=== PATIENT | female | born 1960 | race Caucasian/White ===

== ENCOUNTER 2017-04-27 13:12 | Observation (INO) ==
--- NOTE | 2017-04-27 15:27 | Emergency Department Note ---
Disposition Clinical Impression: History of breast cancer, Brain lesion, Fracture of cervical spinous process, Head injury, Fall, Scalp laceration, Obesity, Injury, hip and thigh, Osteoarthritis, knee, Fracture of L3 vertebra, Closed T10 fracture, Metastatic disease, Ground glass opacity present on imaging of lung Disposition: Admitted As Inpatient Referrals: Rashawn Rosenberg MD [Primary Care Provider] - Forms: ED Satisfaction Letter General Adult HPI - General Chief complaint: ED Fall Stated complaint: Fall right hip pain Time Seen by Provider: 04/27/17 15:21 Source: patient, EMS Limitations: no limitations - History of Present Illness HPI Narrative: 56-year-old female brought in by 3 relatives for multiple concerns. The patient has a history of breast cancer and brain lesions. She reportedly fell several days ago and hit her head, she came to the ED and was evaluated and got a CT scan of her head which showed no acute disease, she did get a cervical spine CT which showed a C4's cervical spinous process fracture. The family is concerned because the patient has persistent right thigh and hip and back pain. The patient's home health nurse was concerned about this and recommended a revisit to the ED. The patient reportedly went and had a breast biopsy done yesterday, she was seen by her primary care physician a little over a week ago and prescribed morphine for chronic back pain. The family reports that "lesions " were seen on an x-ray of her back at some point. They are concerned about spreading cancer. The patient is scheduled for a PET scan this coming Thursday. The patient lives with a family member at this time does not live alone at home. 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 The patient has had creased bowel movements and complaints of abdominal pain, there is also concern for hematuria. The patient is currently not anticoagulated. There is no history of convulsion the patient describes some chest pain and shortness of breath. There is no history of leg swelling or coughing up blood. No trouble moving the arms or legs independently apart from pain in the right side. There is no history of acute urinary retention or loss of urine or stool. No acute weakness or numbness in the legs. Pain Scale: 10 - Related Data Home Medications Medication Instructions Recorded Confirmed Albuterol Neb [AccuNeb] 1.25 mg IH Q6H PRN 02/27/15 09/24/16 Anastrozole [Arimidex] 1 mg PO DAILY 02/27/15 09/24/16 BuPROPion XL (24 HR) [Wellbutrin 150 mg PO DAILY 02/27/15 09/24/16 Xl] BuPROPion XL (24 HR) [Wellbutrin 300 mg PO DAILY 02/27/15 09/24/16 Xl] Bumetanide [Bumex] 1 mg PO DAILY 02/27/15 09/24/16 Docusate Sodium [Colace] 100 mg PO DAILY 02/27/15 09/24/16 Flaxseed/Omega3,6,9/Fatty Acid 1 each PO DAILY 02/27/15 09/24/16 [Flax Seed Oil 1,300 mg Softgel] Fluticasone/Salmeterol [Advair 1 each IH BID 02/27/15 09/24/16 500-50 Diskus] LORazepam [Ativan] 0.5 mg PO TID 02/27/15 09/24/16 Potassium Chloride 20 meq PO DAILY 02/27/15 09/24/16 Sertraline HCl [Zoloft] 150 mg PO DAILY 02/27/15 09/24/16 Topiramate [Topamax] 100 mg PO BID 02/27/15 09/24/16 Triamterene/HCTZ 37.5/25mg 1 each PO DAILY 02/27/15 09/24/16 [Dyazide] Vitamin E (Dl,Tocopheryl Acet) 400 unit PO DAILY 02/27/15 09/24/16 [Vitamin E] Zolpidem Tartrate [Zolpimist] 10 mg PO HS 02/27/15 09/24/16 Albuterol Sulfate [Albuterol 2 puff IH QID PRN 09/24/16 09/24/16 Inhaler] Previous Rx's Medication Instructions Recorded Ascorbic Acid [Vitamin C] 500 mg PO DAILY #30 tablet 05/28/15 Cetirizine HCl [Zyrtec] 1 cap PO DAILY #30 capsule 09/25/15 Hydromorphone HCl [Dilaudid] 1 tab PO TID PRN #20 tablet 12/03/15 Hyoscyamine SL [Levsin Sl] 0.125 mg SL TID PRN #15 tab.subl 03/17/16 Mupirocin [Bactroban Oint] 1 appl TP BID #2 tube 03/26/16 HYDROmorphone [Dilaudid] 2 mg PO Q8HR PRN #42 tablet 09/24/16 DiphenhydraMINE [Benadryl] 25 mg PO Q6HR #30 capsule 12/20/16 DiphenhydraMINE [Benadryl] 25 mg PO Q6HR PRN #20 capsule 12/20/16 Metoclopramide [Reglan] 5 mg PO Q6HR PRN #30 tab 12/20/16 Ferrous Sulfate 1 tab PO DAILY #30 tablet 02/20/17 Prochlorperazine Maleate 10 mg PO Q6HR PRN #30 tablet 03/31/17 [Compazine] OxyCODONE/APAP 10/325 [Percocet 1 each PO Q4HR PRN #15 tablet 04/18/17 10/325 MG] Allergies Allergy/AdvReac Type Severity Reaction Status Date / Time acetaminophen Allergy Chest Pain Verified 04/27/17 13:20 [From Tylenol-Codeine] codeine Allergy Chest Pain Verified 04/27/17 13:20 [From Tylenol-Codeine] doxycycline Allergy Hives Verified 04/27/17 13:20 levofloxacin [From Levaquin] Allergy Hives Verified 04/27/17 13:20 All systems ED: reviewed and negative except as stated. Past Medical History - Past Medical History Medical history: Reports: asthma, cancer, hyperlipidemia, other Surgical history: Reports: breast surgery, cancer surgery, cholecystectomy, hysterectomy Psychiatric history: Reports: anxiety, depression COMMERCIAL LENDING RELATIONSHIP MANAGER history: Reports: no COMMERCIAL LENDING RELATIONSHIP MANAGER history - Social History Smoking Status: Never smoker Smokeless Tobacco Status: No Alcohol use: Reports: none Drug use: Reports: none Physical Exam - General Limitations: no limitations General appearance: alert, in no apparent distress - Head Head exam: normocephalic, other (Occipital area wound which has been closed no active bleeding, left ocular lid defects, neck diffusely painful to palpation.) - Eye Eye exam: Absent: scleral icterus - ENT ENT exam: normal exam, normal oropharynx, mucous membranes moist, TM's normal bilaterally, normal external ear exam - Neck Neck exam: Present: normal inspection, full ROM, trachea midline, tenderness - Chest Chest inspection: Present: normal inspection, symmetric chest wall rise - Respiratory Respiratory exam: Present: normal lung sounds bilaterally. Absent: respiratory distress, accessory muscle use, prolonged expiratory phase - Cardiovascular Cardiovascular exam: Present: regular rate, normal rhythm, normal heart sounds - Abdominal Exam Abdominal exam: Present: soft, tenderness, normal bowel sounds. Absent: distention, guarding, rebound, rigidity, trauma, pulsatile mass - Extremities Exam Extremities exam: Present: normal inspection, full ROM, normal capillary refill. Absent: tenderness, pedal edema, joint swelling, calf tenderness - Expanded Lower Extremity Exam Hip/Pelvis exam: Present: full ROM, tenderness, ecchymosis Lower leg exam: Absent: Homans' sign - Back Exam Back exam: Present: normal inspection, full ROM. Absent: tenderness, CVA tenderness (R), CVA tenderness (L), vertebral tenderness - Neurological Exam Neurological exam: Present: alert, oriented X3, other (Chronic facial drooping right side). Absent: CN II-XII intact (Chronic right eye defects, decreased vision.), motor sensory deficit - Psychiatric Psychiatric exam: Present: normal affect, normal mood - Skin Skin exam: Present: warm, dry, intact, normal color. Absent: rash, cyanosis, diaphoresis, erythema, pallor, mottled Course Vital Signs Temperature 98.0 F 04/27/17 13:17 Pulse Rate 75 04/27/17 13:17 Respiratory Rate 18 04/27/17 13:17 Blood Pressure 105/72 04/27/17 13:17 O2 Sat by Pulse Oximetry 93 04/27/17 13:17 Temperature 98.0 F 04/27/17 13:17 Pulse Rate 77 04/27/17 19:26 Respiratory Rate 18 04/27/17 19:26 Blood Pressure 114/73 04/27/17 19:26 O2 Sat by Pulse Oximetry 93 04/27/17 19:26 Oxygen Delivery Oxygen Delivery Room Air Medical Decision Making - [facility] Narrative Medical decision making narrative: The patient is elderly, has history of breast cancer, she apparently has metastatic lesions to the spine as well as in the chest, the patient has bilateral pleural effusions or infiltrates, she also has what appear to be T10 and L3 fractures which may be related to pathologic issues versus trauma. She did recently fall. The patient is unable to walk well at this time and essentially has uncontrolled pain. 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 The patient and POA are agreeable. The patient is currently stable. I discussed the case with the hospitalist on-call who has accepted the patient to their care. - Lab Data Lab results reviewed: Yes I reviewed the patient's lab results. Result diagrams: 04/27/17 15:58 04/27/17 15:58 Lab Results 04/27/17 04/27/17 04/27/17 Range/Units 15:58 15:58 15:58 WBC 6.0 (4.3-11.1) K/mcL RBC 3.72 L (3.82-4.97) M/mcL Hgb 11.8 (11.5-15.4) g/dL Hct 34.8 L (35.3-44.9) % MCV 93.5 (83.0-100.0) fL MCH 31.7 (28.0-33.3) pg MCHC 33.9 (31.6-35.5) g/dL RDW 12.9 (11.5-14.5) % Plt Count 203 (140-400) K/mcL MPV 9.0 L (9.4-12.4) fL Immature Gran % 4.3 H (0-4) % Seg Neutrophils % 59.1 % Lymphocytes % 21.9 % Monocytes % 8.2 % Eosinophils % 5.3 % Basophils % 1.2 % Neutrophils # 3.5 (1.6-8.9) K/mcL Lymphocytes # 1.3 (0.6-4.6) K/mcL Monocytes # 0.5 (0.0-1.3) K/mcL Eosinophils # 0.3 (0.0-0.6) K/mcL Basophils # 0.1 (0.0-0.2) K/mcL Sodium 138 (136-145) mEq/L Potassium 3.7 (3.5-4.5) mEq/L Chloride 102 (98-109) mEq/L Carbon Dioxide 24 (19-29) mEq/L BUN 21 H (7-20) mg/dL Creatinine 1.20 H (0.57-1.11) mg/dL Est GFR ( Amer) 57 L (> 60) Est GFR (Non-Af Amer) 47 L (> 60) BUN/Creatinine Ratio 18 (6-26) Glucose 89 (70-99) mg/dL Calculated Osmolality 288 (280-300) Lactic Acid (0.5-2.2) mmol/L Calcium 9.5 (8.6-10.8) mg/dL Total Bilirubin 0.5 (0.2-1.2) mg/dL Direct Bilirubin 0.2 (0.0-0.5) mg/dL Indirect Bilirubin 0.3 (0.0-1.2) mg/dL AST 50 H (5-34) Units/L ALT 45 (0-55) Units/L Alkaline Phosphatase 236 H (38-126) Units/L Troponin I 0.01 (0-0.03) ng/mL C-Reactive Protein 40 H (Less than 5) mg/L B-Natriuretic Peptide (0-100) pg/mL Serum Total Protein 8.1 (6.0-8.3) g/dL Albumin 3.2 L (3.5-5.0) g/dL Globulin 4.9 H (2.4-3.5) g/dL Albumin/Globulin Ratio 0.7 L (1.1-2.2) Lipase 54 (8-78) Units/L Urine Color (Yellow) Urine Clarity (Clear) Urine pH (5.0-8.0) pH Units Ur Specific [place] (1.010-1.025) Urine Protein (Neg-Trace) mg/dL Urine Glucose (UA) (Normal) mg/dL Urine Ketones (Negative) mg/dL Urine Blood (Negative) Urine Nitrite (Negative) Urine Bilirubin (Negative) Urine Urobilinogen (Normal) mg/dL Ur Leukocyte Esterase (Negative) Ur Culture Indicated? (NO) 04/27/17 04/27/17 04/27/17 Range/Units 15:58 15:58 18:05 WBC (4.3-11.1) K/mcL RBC (3.82-4.97) M/mcL Hgb (11.5-15.4) g/dL Hct (35.3-44.9) % MCV (83.0-100.0) fL MCH (28.0-33.3) pg MCHC (31.6-35.5) g/dL RDW (11.5-14.5) % Plt Count (140-400) K/mcL MPV (9.4-12.4) fL Immature Gran % (0-4) % Seg Neutrophils % % Lymphocytes % % Monocytes % % Eosinophils % % Basophils % % Neutrophils # (1.6-8.9) K/mcL Lymphocytes # (0.6-4.6) K/mcL Monocytes # (0.0-1.3) K/mcL Eosinophils # (0.0-0.6) K/mcL Basophils # (0.0-0.2) K/mcL Sodium (136-145) mEq/L Potassium (3.5-4.5) mEq/L Chloride (98-109) mEq/L Carbon Dioxide (19-29) mEq/L BUN (7-20) mg/dL Creatinine (0.57-1.11) mg/dL Est GFR ( Amer) (> 60) Est GFR (Non-Af Amer) (> 60) BUN/Creatinine Ratio (6-26) Glucose (70-99) mg/dL Calculated Osmolality (280-300) Lactic Acid 1.0 (0.5-2.2) mmol/L Calcium (8.6-10.8) mg/dL Total Bilirubin (0.2-1.2) mg/dL Direct Bilirubin (0.0-0.5) mg/dL Indirect Bilirubin (0.0-1.2) mg/dL AST (5-34) Units/L ALT (0-55) Units/L Alkaline Phosphatase (38-126) Units/L Troponin I (0-0.03) ng/mL C-Reactive Protein (Less than 5) mg/L B-Natriuretic Peptide 197 H (0-100) pg/mL Serum Total Protein (6.0-8.3) g/dL Albumin (3.5-5.0) g/dL Globulin (2.4-3.5) g/dL Albumin/Globulin Ratio (1.1-2.2) Lipase (8-78) Units/L Urine Color Yellow (Yellow) Urine Clarity Clear (Clear) Urine pH 5.5 (5.0-8.0) pH Units Ur Specific [place] 1.021 (1.010-1.025) Urine Protein Negative (Neg-Trace) mg/dL Urine Glucose (UA) Normal (Normal) mg/dL Urine Ketones Negative (Negative) mg/dL Urine Blood Negative (Negative) Urine Nitrite Negative (Negative) Urine Bilirubin Negative (Negative) Urine Urobilinogen Normal (Normal) mg/dL Ur Leukocyte Esterase Negative (Negative) Ur Culture Indicated? NO (NO) - Radiology Data Radiology results reviewed: Yes I reviewed the patient's radiology results.
[2017-04-27] MEDS ORDERED: 0.9 % Sodium Chloride 1,000 ML IVC ONE (15:43)
[2017-04-27 16:12] LABS: Basophils # 0.1 K/mcL (0.0-0.2); Basophils % 1.2 %; Eosinophils # 0.3 K/mcL (0.0-0.6); Eosinophils % 5.3 %; Hematocrit 34.8 % (35.3-44.9); Hemoglobin 11.8 g/dL (11.5-15.4); Immature Granulocytes % 4.3 % (0-4); Lymphocytes # 1.3 K/mcL (0.6-4.6); Lymphocytes % 21.9 %; Mean Corpuscular HGB Conc 33.9 g/dL (31.6-35.5); Mean Corpuscular Hemoglobin 31.7 pg (28.0-33.3); Mean Corpuscular Volume 93.5 fL (83.0-100.0); Monocytes # 0.5 K/mcL (0.0-1.3); Monocytes % 8.2 %; Neutrophils # 3.5 K/mcL (1.6-8.9); Platelet Count 203 K/mcL (140-400); Red Blood Count 3.72 M/mcL (3.82-4.97); Red Cell Distribution Width 12.9 % (11.5-14.5); Segmented Neutrophils % 59.1 %
[2017-04-27 16:27] LABS: Albumin 3.2 g/dL (3.5-5.0); Albumin/Globulin Ratio 0.7 (1.1-2.2); Bilirubin,Direct 0.2 mg/dL (0.0-0.5); Bilirubin,Indirect 0.3 mg/dL (0.0-1.2); Bilirubin,Total 0.5 mg/dL (0.2-1.2); Calcium 9.5 mg/dL (8.6-10.8); Globulin 4.9 g/dL (2.4-3.5); Potassium 3.7 mEq/L (3.5-4.5); Total Protein 8.1 g/dL (6.0-8.3)
[2017-04-27] MEDS ORDERED: cefTRIAXone 1,000 MG in Water for inj. (sterile) 10 ML IVP ONE (18:04)
[2017-04-27] MEDS ORDERED: Ondansetron 4 MG/2 ML VIAL IVP ONE (18:04)
[2017-04-27] MEDS ORDERED: *HR* HYDROmorphone (PF) 1 MG/ML SYRINGE IVP ONE (18:04)
[2017-04-27] MEDS ORDERED: Azithromycin 500 MG in D5% in Water 250 ML IVPB ONE (18:05)
[2017-04-27 18:11] LABS: Bilirubin,Urine Negative (Negative); Blood,Urine Negative (Negative); Clarity,Urine Clear (Clear); Color,Urine Yellow (Yellow); Glucose,Urine (UA) Normal (Normal); Ketones,Urine Negative (Negative); Leukocyte Esterase,Urine Negative (Negative); Nitrite,Urine Negative (Negative); PH,Urine 5.5 pH Units (5.0-8.0); Protein,Urine Negative (Neg-Trace); Specific Gravity,Urine 1.021 (1.010-1.025); Urobilinogen,Urine Normal (Normal)
[2017-04-28] MEDS: *HR* OxyCODONE Immed Rel 5 MG TABLET PO PRN ×2 (04:44→21:14)
[2017-04-28] MEDS ORDERED: Ondansetron 4 MG/2 ML VIAL IVP PRN (10:14)
[2017-04-28] MEDS ORDERED: Naloxone 0.4 MG/ML INJ IVP PRN (10:14)
[2017-04-28] MEDS ORDERED: Albuterol Neb 1.25 MG/3 ML VIAL IH PRN (10:20)
[2017-04-28] MEDS ORDERED: Metoclopramide 10 MG/10 ML UD.LIQ PO PRN (10:26)
[2017-04-28] MEDS: cefTRIAXone 1,000 MG in Water for inj. (sterile) 10 ML IVP SCH (11:08)
[2017-04-28] MEDS: *HR* Morphine 2 MG/ML SYRINGE IVP PRN (11:09)
[2017-04-28] MEDS: Azithromycin 500 MG in D5% in Water 250 ML IVPB SCH (11:09)
--- NOTE | 2017-04-28 11:54 | Internal Med History&Physical ---
Date of Encounter: 04/28/17 Time of Encounter: 08:30 Assessment and Plan (1) DVT prophylaxis Current visit: Yes Status: Acute Heparin subcutaneously (2) Brain lesion Current visit: Yes Status: Acute Patient has brain tumor and was treated in [facility]. As per family, it is "benign". Patient has tumor resection for twice and recently radiation treatment. Patient has residual hearing and vision impairment due to brain tumor. Will continue follow-up in [facility] (3) Closed T10 fracture Current visit: Yes Status: Acute Patient has back and leg pain. Most likely metastatic tumor. We will consult orthopedic and oncology. Plan to do MRI Qualifiers: Encounter type: initial encounter Fracture morphology: other fracture Qualified Code(s): S22.078A - Other fracture of T9-T10 vertebra, initial encounter for closed fracture (4) Fall Current visit: Yes Status: Acute Patient has vision and hearing impairment and chronic low back pain. We will consult PTOT, patient may need placement to rehabilitation or SNF Qualifiers: Encounter type: initial encounter Qualified Code(s): W19.XXXA - Unspecified fall, initial encounter (5) Fracture of L3 vertebra Current visit: Yes Status: Acute Orthopedic consult on case. Continue pain medications Qualifiers: Encounter type: initial encounter Fracture type: closed Fracture morphology: unspecified fracture morphology Qualified Code(s): S32.039A - Unspecified fracture of third lumbar vertebra, initial encounter for closed fracture (6) Ground glass opacity present on imaging of lung Current visit: Yes Status: Acute Highly suspect pneumonia. Patient denies fever or cough. We will continue azithromycin and Rocephin. (7) History of breast cancer Current visit: Yes Status: Acute Patient had masterectomy on left side 4.5 years ago. Will consult oncology. Continue home medication anastrozole. (8) Metastatic disease Current visit: Yes Status: Acute Will consult oncologist (9) Obesity Current visit: Yes Status: Acute Need lifestyle modification Qualifiers: Obesity type: unspecified obesity type Obesity classification: adult class 3 (BMI >= 40) Body mass index: BMI 40.0-44.9 Qualified Code(s): E66.9 - Obesity, unspecified; Z68.41 - Body mass index (BMI) 40.0-44.9, adult; Z68.41 - Body mass index (BMI) 40.0-44.9, adult; Z68.41 - Body mass index (BMI) 40.0-44.9 , adult; Z68.41 - Body mass index (BMI) 40.0-44.9, adult (10) COPD (chronic obstructive pulmonary disease) Current visit: No Status: Acute History of COPD. No signs of exacerbation. Continue home medications Qualifiers: COPD type: emphysema Emphysema type: other Qualified Code(s): J43.8 - Other emphysema Internal Medicine - H&P: HPI Chief complaint: Right leg pain Admitted From: Home Plans for Post Hospital Care: Transfer Inp Rehab Fac History of present illness: Ms. Bonner is a 56 year old female with a history of hypertension, breast cancer S/P surgery, history of brain surgery/hysterectomy/cholecystectomy present to ER for recent fall and right leg pain for about 5 days. Patient has chronic left-sided lesion and hearing problem. Patient said she has pain on both legs but mainly right-sided. Patient had fall 5 days ago will head injury. Patient denies numbness, fecal/urination incontinence. In the emergency room, CT shows possible metastatic tumor in bone and cause pathologic compression fracture. Patient also was suspected pneumonia on CAT scan. Patient denies fever, cough, abdominal pain, nausea or vomiting. She has constipation for 4-5 days. Past Med Surg Social Fam HX - Past Medical History Medical history: asthma, cancer, hyperlipidemia, other Psychiatric history: anxiety, depression - Past Surgical History Surgical History: breast surgery, cancer surgery, cholecystectomy, hysterectomy - Social History Smoking Status: Never smoker Smokeless Tobacco Status: No Alcohol use: none Drug use: none - Family History Father Adopted: No Family Member Ethnicity: Non- Living Status: Internal Medicine - H&P: Meds Albuterol Neb [AccuNeb] 1.25 mg IH Q6H PRN 02/27/15 [History] Anastrozole [Arimidex] 1 mg PO DAILY 02/27/15 [History] BuPROPion XL (24 HR) [Wellbutrin Xl] 150 mg PO DAILY 02/27/15 [History] BuPROPion XL (24 HR) [Wellbutrin Xl] 300 mg PO DAILY 02/27/15 [History] Docusate Sodium [Colace] 100 mg PO DAILY 02/27/15 [History] Flaxseed/Omega3,6,9/Fatty Acid [Flax Seed Oil 1,300 mg Softgel] 1 each PO DAILY 02/27/15 [History] Fluticasone/Salmeterol [Advair 500-50 Diskus] 1 each IH BID 02/27/15 [History] LORazepam [Ativan] 0.5 mg PO TID 02/27/15 [History] Potassium Chloride 20 meq PO DAILY 02/27/15 [History] Triamterene/HCTZ 37.5/25mg [Dyazide] 1 each PO DAILY 02/27/15 [History] Vitamin E (Dl,Tocopheryl Acet) [Vitamin E] 400 unit PO DAILY 02/27/15 [History] Ascorbic Acid [Vitamin C] 500 mg PO DAILY #30 tablet 05/28/15 [Rx] Albuterol Sulfate [Albuterol Inhaler] 2 puff IH QID PRN 09/24/16 [History] DiphenhydraMINE [Benadryl] 25 mg PO Q6HR PRN #20 capsule 12/20/16 [Rx] Metoclopramide [Reglan] 5 mg PO Q6HR PRN #30 tab 12/20/16 [Rx] Ferrous Sulfate 1 tab PO DAILY #30 tablet 02/20/17 [Rx] Prochlorperazine Maleate [Compazine] 10 mg PO Q6HR PRN #30 tablet 03/31/17 [Rx] Cetirizine HCl [Zyrtec] 10 mg PO DAILY 04/27/17 [History] Morphine Immed Rel [Morphine Sulfate] 15 - 30 mg PO Q12H 04/27/17 [History] Naproxen Sodium [Naproxen Sodium Ds] 550 mg PO Q12H PRN 04/27/17 [History] 3 Allergy/AdvReac Type Severity Reaction Status Date / Time acetaminophen Allergy Chest Pain Verified 04/27/17 13:20 [From Tylenol-Codeine] codeine Allergy Chest Pain Verified 04/27/17 13:20 [From Tylenol-Codeine] doxycycline Allergy Hives Verified 04/27/17 13:20 levofloxacin [From Levaquin] Allergy Hives Verified 04/27/17 13:20 All Systems PM: A 10-system review of systems was performed and is negative for pertinent findings except as documented above in the HPI. - Constitutional Vitals: Temp Pulse Resp BP Pulse Ox 98.3 F 85 16 114/75 93 12/05/17 10:52 04/28/17 10:52 04/28/17 10:52 04/28/17 10:52 04/28/17 10:52 General appearance: Present: A&O X 3, no acute distress, answers questions appropriately - Head Head exam: Present: atraumatic, normocephalic - Eye Eye exam: Present: PERRL, conjuntiva pink, sclera anicteric Pupils: Present: PERRL - Neck Neck exam general surgery: Present: supple, trachea midline. Absent: lymphadenopathy - Respiratory Respiratory exam: Present: CTAB. Absent: accessory muscle use, rales, rhonchi, wheezes - Cardiovascular Cardiovascular exam: Present: RRR, +S1, +S2. Absent: diastolic murmur, gallop, rubs, systolic murmur - GI/Abdominal GI/Abdominal exam: Present: normal bowel sounds, soft, no peritoneal signs. Absent: distended, tenderness - Extremities Exam Extremities exam: Present: warm, radial pulses palpable and symmetrical. Absent : calf tenderness, cyanotic, pedal edema Additional comments: Right leg pain on straight leg lifting test. - Neurological Exam Neurological exam: Present: CN II-XII intact, oriented X3, no focal deficits. Absent: pronater drift, facial droop, speech deficit - Skin Skin exam: Present: dry, intact Internal Med - H&P Results - Labs CBC & Chem 7: 04/27/17 15:58 04/27/17 15:58
--- NOTE | 2017-04-28 14:53 | Oncology Office Consult Note ---
- [facility] Date of Service: 04/28/17 Chief Complaint: F/u breast CA Primary Care Provider: Rashawn Rosenberg MD Code Status: Full Code Surgical History: other Smoking Status: Never smoker Smokeless Tobacco Status: No Alcohol use: none Drug use: none Review Of Systems Provider Comments:: A 12 point review of systems was performed. Pertinent positives and negatives are listed below and in the history of present illness. All other systems negative. Vital Signs 3 Temperature 98.3 F 04/28/17 10:52 Temperature Source Oral 04/28/17 10:52 Pulse Rate 85 04/28/17 10:52 Respiratory Rate 16 04/28/17 10:52 Respiratory Effort Spontaneous 04/27/17 23:48 Respiratory Depth Normal 04/27/17 23:48 Blood Pressure 114/75 04/28/17 10:52 Blood Pressure Position Supine 04/28/17 04:24 Oxygen Delivery Method Nasal Cannula 04/27/17 23:48 Oxygen Flow Rate (LPM) 2 04/28/17 04:24 O2 Sat by Pulse Oximetry 93 04/28/17 10:52 3 Weight 89.18 kg Physical Exam: General: Alert and oriented, well appearing. Mental Status: Affect appropriate for circumstances HEENT: Sclerae anicteric. No mucositis or thrush. No other oral lesions or erythema. Skin: No rashes or petechiae. Lymph nodes: No cervical, supraclavicular, axillary, or inguinal adenopathy. Lungs: Clear to auscultation and percussion bilaterally. Cardiovascular: Regular rate and rhythm. No gallops, murmurs, or rubs. Abdomen: Soft, nontender; no organomegaly or masses palpable. Extremities: No edema. No calf swelling or tenderness. No joint deformity. Neurologic: Alert, cranial nerves II-XII intact; normal gait; no focal weakness or sensory abnormalities. Oncology - Medications Albuterol Neb [AccuNeb] 1.25 mg IH Q6H PRN 02/27/15 [History] Anastrozole [Arimidex] 1 mg PO DAILY 02/27/15 [History] BuPROPion XL (24 HR) [Wellbutrin Xl] 150 mg PO DAILY 02/27/15 [History] BuPROPion XL (24 HR) [Wellbutrin Xl] 300 mg PO DAILY 02/27/15 [History] Docusate Sodium [Colace] 100 mg PO DAILY 02/27/15 [History] Flaxseed/Omega3,6,9/Fatty Acid [Flax Seed Oil 1,300 mg Softgel] 1 each PO DAILY 02/27/15 [History] Fluticasone/Salmeterol [Advair 500-50 Diskus] 1 each IH BID 02/27/15 [History] LORazepam [Ativan] 0.5 mg PO TID 02/27/15 [History] Potassium Chloride 20 meq PO DAILY 02/27/15 [History] Triamterene/HCTZ 37.5/25mg [Dyazide] 1 each PO DAILY 02/27/15 [History] Vitamin E (Dl,Tocopheryl Acet) [Vitamin E] 400 unit PO DAILY 02/27/15 [History] Ascorbic Acid [Vitamin C] 500 mg PO DAILY #30 tablet 05/28/15 [Rx] Albuterol Sulfate [Albuterol Inhaler] 2 puff IH QID PRN 09/24/16 [History] DiphenhydraMINE [Benadryl] 25 mg PO Q6HR PRN #20 capsule 12/20/16 [Rx] Metoclopramide [Reglan] 5 mg PO Q6HR PRN #30 tab 12/20/16 [Rx] Ferrous Sulfate 1 tab PO DAILY #30 tablet 02/20/17 [Rx] Prochlorperazine Maleate [Compazine] 10 mg PO Q6HR PRN #30 tablet 03/31/17 [Rx] Cetirizine HCl [Zyrtec] 10 mg PO DAILY 04/27/17 [History] Morphine Immed Rel [Morphine Sulfate] 15 - 30 mg PO Q12H 04/27/17 [History] Naproxen Sodium [Naproxen Sodium Ds] 550 mg PO Q12H PRN 04/27/17 [History] 3 Allergy/AdvReac Type Severity Reaction Status Date / Time acetaminophen Allergy Chest Pain Verified 04/27/17 13:20 [From Tylenol-Codeine] codeine Allergy Chest Pain Verified 04/27/17 13:20 [From Tylenol-Codeine] doxycycline Allergy Hives Verified 04/27/17 13:20 levofloxacin [From Levaquin] Allergy Hives Verified 04/27/17 13:20
--- NOTE | 2017-04-28 15:05 | Oncology Inp Consult Note ---
<Amna Leon E - Last Filed: 04/28/17 14:54> Date of Encounter: 04/28/17 Time of Encounter: 14:00 Assessment and Plan (1) Fracture of L3 vertebra Status: Acute Qualifiers: Encounter type: initial encounter Fracture type: closed Fracture morphology: unspecified fracture morphology Qualified Code(s): S32.039A - Unspecified fracture of third lumbar vertebra, initial encounter for closed fracture (2) Metastatic disease Status: Acute Assessment and plan: Patient will be seen by Dr Saini later today. Patient hos only been treated with endocrine therapy to date. Treatment plan will be discussed with patient and will be dependant on her performance status. I discuss diagnostic testing findings with patient. Patient and family understand this disease is ont curable but is treatable. - Data of Consult Patient: known to practice within the last 3 years Consult date: 04/28/17 Requesting Physician: Prince Frazier MD Primary Care Provider: Rashawn Rosenberg MD - Consult Narrative Reason for consult: breast cancer with metastasis History of present illness: Ms. Bonner is a 56 year old female who is well-known to the [facility]. She was recently admitted through the emergency department on 04/27/2017 secondary to reportedly falling at home several days before coming to the ED. She had a CT scan of her head which showed no acute disease, cervical spine CT showed CD4 cervical spinous process fracture. The family was concerned because the patient had persistent right thigh hip and back pain. They also report that she had had a decrease in her performance status. 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 Oncology history. In September 2012 she was found to have stage I left breast cancer. She had a lumpectomy 2 lymph nodes were negative, ER positive, SC positive and HER-2 +1. She had partial breast radiation through savvy catheter which was completed on 10/29/2012. She had Oncotype intermediate risk. The risk of distant recurrence of 16% with no chemotherapy she did take Arimidex 1 mg daily since October 2012 and tolerated it well. On 10/09/2016 showed bilateral screening mammogram that was category 2. During her visit on 04/10/[address] Saini he ordered a biopsy of the right axillary node by interventional radiology. Pathology on 04/23/2017 indicated there was a biopsy of a right supraclavicular lymph node and it was positive for metastatic adenocarcinoma consistent with breast primary. It was estrogen positive. HER-2 was not completed I did speak with pathology and ask for HER-2 status to be completed. While hospitalized she had additional imaging on 04/27/2007 that indicated acute T 10 vertebral body pathological compression fracture with 25% anterior vertebral body height loss but no significant posterior cortex repulsion. There was also a well find lucent lesions and a destructive lesion of the manubrium consistent with osseous metastatic disease was also cardiomegaly with findings of acute congestive heart failure. The CT of the lumbar spine indicated a suspected acute pathological fracture involving L3 vertebral body persistent lytic lesion of the L2 pedicle and anterior facet multiple additional poorly defined lucencies are suspected throughout the lumbar spine. Was seen and examined at the bedside. Family shares concern about recent changes in patients performance status and her tolerating treatment. Patient will be seen by Dr. Saini later today. I did speak with the patient and her family regarding the recent diagnostic testing results. The patient does understand that the breast cancer has metastasized to other structures and that the cancer is not curable but is treatable. In discussing her case with Dr. Saini he indicated that possible treatment would be Letrozole and Ibrance. Past Med Surg Social Fam HX - Past Medical History Medical history: asthma, cancer, hyperlipidemia, migraine, other (ostepenia, jimenez's palsy, 7th nerve weakness, acoustic neuroma,deaf L ear, iron defiency anemia) Psychiatric history: anxiety, depression - Past Surgical History Surgical History: breast surgery, cancer surgery, cholecystectomy, hysterectomy - Social History Smoking Status: Never smoker Smokeless Tobacco Status: No Alcohol use: none Drug use: none - Family History Father Adopted: No Family Member Ethnicity: Non- Living Status: Medications and Allergies Albuterol Neb [AccuNeb] 1.25 mg IH Q6H PRN 02/27/15 [History] Anastrozole [Arimidex] 1 mg PO DAILY 02/27/15 [History] BuPROPion XL (24 HR) [Wellbutrin Xl] 150 mg PO DAILY 02/27/15 [History] BuPROPion XL (24 HR) [Wellbutrin Xl] 300 mg PO DAILY 02/27/15 [History] Docusate Sodium [Colace] 100 mg PO DAILY 02/27/15 [History] Flaxseed/Omega3,6,9/Fatty Acid [Flax Seed Oil 1,300 mg Softgel] 1 each PO DAILY 02/27/15 [History] Fluticasone/Salmeterol [Advair 500-50 Diskus] 1 each IH BID 02/27/15 [History] LORazepam [Ativan] 0.5 mg PO TID 02/27/15 [History] Potassium Chloride 20 meq PO DAILY 02/27/15 [History] Triamterene/HCTZ 37.5/25mg [Dyazide] 1 each PO DAILY 02/27/15 [History] Vitamin E (Dl,Tocopheryl Acet) [Vitamin E] 400 unit PO DAILY 02/27/15 [History] Ascorbic Acid [Vitamin C] 500 mg PO DAILY #30 tablet 05/28/15 [Rx] Albuterol Sulfate [Albuterol Inhaler] 2 puff IH QID PRN 09/24/16 [History] DiphenhydraMINE [Benadryl] 25 mg PO Q6HR PRN #20 capsule 12/20/16 [Rx] Metoclopramide [Reglan] 5 mg PO Q6HR PRN #30 tab 12/20/16 [Rx] Ferrous Sulfate 1 tab PO DAILY #30 tablet 02/20/17 [Rx] Prochlorperazine Maleate [Compazine] 10 mg PO Q6HR PRN #30 tablet 03/31/17 [Rx] Cetirizine HCl [Zyrtec] 10 mg PO DAILY 04/27/17 [History] Morphine Immed Rel [Morphine Sulfate] 15 - 30 mg PO Q12H 04/27/17 [History] Naproxen Sodium [Naproxen Sodium Ds] 550 mg PO Q12H PRN 04/27/17 [History] Sertraline [Zoloft] 150 mg PO DAILY 04/28/17 [History] 3 Allergy/AdvReac Type Severity Reaction Status Date / Time acetaminophen Allergy Chest Pain Verified 04/27/17 13:20 [From Tylenol-Codeine] codeine Allergy Chest Pain Verified 04/27/17 13:20 [From Tylenol-Codeine] doxycycline Allergy Hives Verified 04/27/17 13:20 levofloxacin [From Levaquin] Allergy Hives Verified 04/27/17 13:20 All systems: reviewed and no additional remarkable complaints except as stated Constitutional: Present: fatigue, frequent falls, weakness, other (problems with balance) Eyes: Present: other (L eye sutured closed ) Nose, mouth and throat: Present: abnormal hearing Cardiovascular: Absent: chest pain, chest pain at rest, chest pain with activity , dyspnea, edema Respiratory: Absent: cough, dyspnea, wheezing, pain on inspiration, chest congestion Gastrointestinal: Present: constipation. Absent: abdominal pain, belching, bloating, dyspepsia, dysphagia, heartburn, hematemesis Genitourinary: Absent: breast pain, breast swelling, difficulty urinating, difficulty voiding, dysuria, flank pain, hot flashes Musculoskeletal: Present: back pain, muscle weakness (R leg), numbness (R Leg), radiating pain into limb (R) Neurological: Present: abnormal hearing, loss of vision, numbness, paresthesias , tremor(s) (L arm) Psychiatric: Absent: anxiety, confusion Oncology - Exam - Constitutional Vitals: Temp Pulse Resp BP Pulse Ox 98.3 F 85 16 114/75 93 04/28/17 10:52 04/28/17 10:52 04/28/17 10:52 04/28/17 10:52 04/28/17 10:52 General appearance: cooperative - Eye Additional comments: L eye sutured shut - ENT ENT exam: Present: mucous membranes moist - Respiratory Respiratory exam: Present: CTAB - Cardiovascular Cardiovascular exam: Present: RRR - GI/Abdominal GI/Abdominal exam: Present: normal bowel sounds, soft - Extremities Exam Extremities exam: Present: normal inspection Additional comments: motor strength decreased in LLE - Back Exam Back exam: Absent: tenderness - Neurological Exam Neurological exam: Present: alert, motor sensory deficit - Psychiatric Psychiatric exam: Present: normal affect, normal mood Consult Discharge Plan - Plan Referrals: Rashawn Rosenberg MD [Primary Care Provider] - <Karlo Saini S - Last Filed: 04/29/17 10:26> Date of Encounter: 04/29/17 - Data of Consult Requesting Physician: Prince Frazier MD Primary Care Provider: Rashawn Rosenberg MD - Consult Narrative History of present illness: Ms. Bonner is a 56 year old female Oncology - Exam - Constitutional Vitals: Temp Pulse Resp BP Pulse Ox 98.8 F 95 18 145/91 95 04/29/17 06:32 04/29/17 06:32 04/29/17 08:11 04/29/17 06:32 04/29/17 08:11 Oncology - Results Labs: Short CBC 04/29/17 Range/Units 05:07 WBC 6.3 (4.3-11.1) K/mcL Hgb 11.5 (11.5-15.4) g/dL Hct 34.1 L (35.3-44.9) % Plt Count 223 (140-400) K/mcL BMP 04/29/17 05:07 Sodium 143 Potassium 3.5 Chloride 107 Carbon Dioxide 22 BUN 14 Creatinine 1.04 Glucose 95 Calcium 9.3 - Attending Attestation 1. Metastatic breast carcinoma. She has metastasis to left axillary supraclavicular mediastinal lymph node. Lymph node size fairly small less than 1.5 cm. Also multiple bone metastasis with possible pathological fracture L3 Fine-needle aspiration of supraclavicular lymph node 04/23/2017 showed metastatic adenocarcinoma. Gadolinium 3 and ER positive. Discussed with Dr. Martines pathology and will do HER-2 staining she has history of early stage breast cancer stage IA diagnosed in 2013 and currently on Arimidex. Discussed in detail with her and family member about future treatment option. She still ER positive. We will transition her to either letrozole or Faslodex IM with CDK inhibitor Ribociclib. We will start that process is an outpatient next week. 2. Bone metastasis. Start Denosumab 120 mg subcutaneous monthly as an outpatient Had a long discussion with the patient and the family. This is stage IV and cannot be cured. But treatment can give her longer survival. Median duration is 3-5 years If she progress on about treatment may consider single agent Xeloda Complications of Ribociclib explained including QT prolongation diarrhea and cytopenias 3. Her general condition is poor and she is admitted with dehydration is improving with IV fluids. 4. She has history of acoustic neuroma with some hearing loss
[2017-04-28] MEDS: *HR* LORazepam 0.5 MG TABLET PO SCH ×2 (16:24→21:14)
[2017-04-28] MEDS: *HR* Heparin 5,000 UNIT/ML VIAL SQ SCH (16:24)
[2017-04-28] MEDS: Budesonide/Formoterol 160/4.5 MDI IH SCH (20:46)
[2017-04-29] MEDS: *HR* Morphine 2 MG/ML SYRINGE IVP PRN ×2 (00:23→14:59)
[2017-04-29 05:48] LABS: Hematocrit 34.1 % (35.3-44.9); Hemoglobin 11.5 g/dL (11.5-15.4); Mean Corpuscular HGB Conc 33.7 g/dL (31.6-35.5); Mean Corpuscular Hemoglobin 31.4 pg (28.0-33.3); Mean Corpuscular Volume 93.2 fL (83.0-100.0); Platelet Count 223 K/mcL (140-400); Red Blood Count 3.66 M/mcL (3.82-4.97)
[2017-04-29 06:06] LABS: BUN/Creatinine Ratio 13 (6-26); Blood Urea Nitrogen 14 mg/dL (7-20); Calcium 9.3 mg/dL (8.6-10.8); Carbon Dioxide 22 mEq/L (19-29); Chloride 107 mEq/L (98-109); Glucose 95 mg/dL (70-99); Osmolality,Calculated 296 (280-300); Potassium 3.5 mEq/L (3.5-4.5); Sodium 143 mEq/L (136-145); eGFR For African Americans > 60 (> 60); eGFR For Non-African Americans 55 (> 60)
--- NOTE | 2017-04-29 08:06 | Palliative - Consult Note ---
<GinetteTyrone - Last Filed: 04/29/17 09:29> Date of Encounter: 04/29/17 Time of Encounter: 07:56 - Assessment and Plan (1) Goals of care, counseling/discussion Current Visit: Yes Status: Acute Assessment and plan: Patient states that KORINA is her friend, Sherri Rodriguez Lengthy discussion with patient regarding code status and differing levels thereof. Patient indicated that if she should "drop " should would still want "everything done." CODE STATUS remains FULL CODE. (2) Metastatic breast carcinoma Current Visit: Yes Status: Acute Assessment and plan: Confirmed adenocarcinoma of breast origin by biopsy of supraclavicular lymph node Metastases to multiple osseous sites Management per oncology, which does have some treatments to offer (3) Injury, hip and thigh Current Visit: Yes Status: Acute Assessment and plan: Patient continues to complain of pain - increase oxycodone to 10 mg q4h PRN Qualifiers: Encounter type: initial encounter Laterality: right Qualified Code(s): S79.911A - Unspecified injury of right hip, initial encounter; S79.921A - Unspecified injury of right thigh, initial encounter; S79.921A - Unspecified injury of right thigh, initial encounter (4) Constipation Current Visit: Yes Status: Chronic Assessment and plan: Patient has a history of constipation and, given increase in pain medication, we will change bowel regimen senna plus 1 tab BID Qualifiers: Constipation type: slow transit constipation Qualified Code(s): K59.01 - Slow transit constipation Palliative-CN HPI - Data of Consult Consult date: 04/29/17 Requesting Physician: Prince Frazier MD Primary Care Provider: Rashawn Rosenberg MD - Consult Narrative Reason for consult: Goals of Care History of present illness: Ms. Bonenr is a 56 year old female who presented to the ED several days after a fall at home, with persistent right thigh, hip, and back pain, as well as a decrease in performance status. CT of the head was clear, but CT of the neck showed C4 spinous process fracture. Previous imaging on 04/27 showed acute T10 and L3 pathologic fractures and additional findings that suggest osseous metastatic disease. She has a PMH of breast cancer, which was stage I in 09/2012. Unfortunately, right supraclavicular node biopsy on 04/23/17 was positive for metastatic adenocarcinoma. Additional PMH includes O2-dependent COPD, visual impairment, Jimenez's palsy, acoustic neuroma w/ deafness on the left, anemia, osteopenia, and migraine headaches. CC: Prince Frazier MD Past Med Surg Social Fam HX - Past Medical History Medical history: asthma, cancer, hyperlipidemia, migraine, other (ostepenia, jimenez's palsy, 7th nerve weakness, acoustic neuroma,deaf L ear, iron defiency anemia) Psychiatric history: anxiety, depression - Past Surgical History Surgical History: breast surgery, cancer surgery, cholecystectomy, hysterectomy - Social History Smoking Status: Never smoker Smokeless Tobacco Status: No Alcohol use: none Drug use: none - Family History Father Adopted: No Family Member Ethnicity: Non- Living Status: Medications and Allergies Albuterol Neb [AccuNeb] 1.25 mg IH Q6H PRN 02/27/15 [History] Anastrozole [Arimidex] 1 mg PO DAILY 02/27/15 [History] BuPROPion XL (24 HR) [Wellbutrin Xl] 150 mg PO DAILY 02/27/15 [History] BuPROPion XL (24 HR) [Wellbutrin Xl] 300 mg PO DAILY 02/27/15 [History] Docusate Sodium [Colace] 100 mg PO DAILY 02/27/15 [History] Flaxseed/Omega3,6,9/Fatty Acid [Flax Seed Oil 1,300 mg Softgel] 1 each PO DAILY 02/27/15 [History] Fluticasone/Salmeterol [Advair 500-50 Diskus] 1 each IH BID 02/27/15 [History] LORazepam [Ativan] 0.5 mg PO TID 02/27/15 [History] Potassium Chloride 20 meq PO DAILY 02/27/15 [History] Triamterene/HCTZ 37.5/25mg [Dyazide] 1 each PO DAILY 02/27/15 [History] Vitamin E (Dl,Tocopheryl Acet) [Vitamin E] 400 unit PO DAILY 02/27/15 [History] Ascorbic Acid [Vitamin C] 500 mg PO DAILY #30 tablet 05/28/15 [Rx] Albuterol Sulfate [Albuterol Inhaler] 2 puff IH QID PRN 09/24/16 [History] DiphenhydraMINE [Benadryl] 25 mg PO Q6HR PRN #20 capsule 12/20/16 [Rx] Metoclopramide [Reglan] 5 mg PO Q6HR PRN #30 tab 12/20/16 [Rx] Ferrous Sulfate 1 tab PO DAILY #30 tablet 02/20/17 [Rx] Prochlorperazine Maleate [Compazine] 10 mg PO Q6HR PRN #30 tablet 03/31/17 [Rx] Cetirizine HCl [Zyrtec] 10 mg PO DAILY 04/27/17 [History] Morphine Immed Rel [Morphine Sulfate] 15 - 30 mg PO Q12H 04/27/17 [History] Naproxen Sodium [Naproxen Sodium Ds] 550 mg PO Q12H PRN 04/27/17 [History] Sertraline [Zoloft] 150 mg PO DAILY 04/28/17 [History] 3 Allergy/AdvReac Type Severity Reaction Status Date / Time acetaminophen Allergy Chest Pain Verified 04/27/17 13:20 [From Tylenol-Codeine] codeine Allergy Chest Pain Verified 04/27/17 13:20 [From Tylenol-Codeine] doxycycline Allergy Hives Verified 04/27/17 13:20 levofloxacin [From Levaquin] Allergy Hives Verified 04/27/17 13:20 - Constitutional Constitutional ROS PAL: fatigue, frequent falls - EENT Eyes: loss of vision Ears: decreased hearing - Cardiovascular Cardiovascular ROS: no chest pain, no diaphoresis - Respiratory Respiratory: no cough, no dyspnea - Gastrointestinal Gastrointestinal: constipation, no abdominal pain - Musculoskeletal Musculoskeletal ROS IM: back pain - Neurological Neurological ROS: numbness, weakness Palliative Care-Exam - Constitutional Vitals: Temp Pulse Resp BP Pulse Ox 98.8 F 95 18 145/91 95 04/29/17 06:32 04/29/17 06:32 04/29/17 06:32 04/29/17 06:32 04/29/17 06:32 General appearance: Present: cooperative - Head Head Exam: Present: atraumatic, normocephalic - Eye Additional comments: Left eye sutured closed - ENT ENT exam: Present: mucous membranes moist - Respiratory Respiratory exam: Present: decreased breath sounds, CTAB - Cardiovascular Cardiovascular exam: Present: RRR, +S1, +S2 - GI/Abdominal Exam GI/Abdominal exam: Present: normal bowel sounds, soft. Absent: tenderness - Neurological Exam Neurological exam: Present: alert, motor sensory deficit (B/L LEs) - Psychiatric Psychiatric exam: Present: normal affect, normal mood - Skin Skin exam: Present: dry, warm Internal Medicine - CN: Reslt - Labs CBC & Chem 7: 04/29/17 05:07 04/29/17 05:07 Labs: Short CBC 04/29/17 Range/Units 05:07 WBC 6.3 (4.3-11.1) K/mcL Hgb 11.5 (11.5-15.4) g/dL Hct 34.1 L (35.3-44.9) % Plt Count 223 (140-400) K/mcL BMP 04/29/17 05:07 Sodium 143 Potassium 3.5 Chloride 107 Carbon Dioxide 22 BUN 14 Creatinine 1.04 Glucose 95 Calcium 9.3 - Impressions Impressions Cervical Spine MRI 04/28/17 12:40 IMPRESSION: Lumbar spine: Diffuse bone metastases. Recent fracture components would be difficult to exclude, vertically at T9, L3 and L4. There is expansion of the right L2 pedicle was a bone lesion noted at this level. This extends to the right facet joint and likely contributes to the narrowing in the right foramen. A small amount of soft tissue extension into the lateral aspect of the canal at this level would be difficult to exclude. Multilevel degenerative disc disease throughout the thoracolumbar spine as described above. See above for details of each level. There is multilevel associated canal and foraminal narrowing. Cervical spine: Diffuse bone metastases Cervical adenopathy Multilevel degenerative disc disease in the cervical spine as described. See above for details of each level. D/ / Gen Starr / Gen Starr Interpreting Provider: Gen Starr Lumbar Spine MRI 04/28/17 12:40 IMPRESSION: Lumbar spine: Diffuse bone metastases. Recent fracture components would be difficult to exclude, vertically at T9, L3 and L4. There is expansion of the right L2 pedicle was a bone lesion noted at this level. This extends to the right facet joint and likely contributes to the narrowing in the right foramen. A small amount of soft tissue extension into the lateral aspect of the canal at this level would be difficult to exclude. Multilevel degenerative disc disease throughout the thoracolumbar spine as described above. See above for details of each level. There is multilevel associated canal and foraminal narrowing. Cervical spine: Diffuse bone metastases Cervical adenopathy Multilevel degenerative disc disease in the cervical spine as described. See above for details of each level. D/ / Gen Starr / Gen Starr Interpreting Provider: Gen Starr Consult Discharge Plan - Plan Referrals: Rashawn Rosenberg MD [Primary Care Provider] - Palliative Quality Palliative Quality: Screen for Code Status: Yes, Screen for Goals of Care: Yes, Screen for Pain: Yes, If Pain Regimen Started, Initiate Bowel Regimen: Yes, Screen for Nausea/Vomitting: Yes Code Status: 04/28/17 10:14 Resuscitation Status: Active [RES] Routine Comment: Resuscitation Status: Full Code <Juan Walker - Last Filed: 04/29/17 13:07> Date of Encounter: 04/29/17 Palliative-CN HPI - Data of Consult Requesting Physician: Prince Frazier MD Primary Care Provider: Rashawn Rosenberg MD - Consult Narrative History of present illness: Ms. Bonner is a 56 year old female CC: Prince Frazier MD Palliative Care-Exam - Constitutional Vitals: Temp Pulse Resp BP Pulse Ox 97.4 F L 74 18 112/75 97 04/29/17 11:14 04/29/17 11:14 04/29/17 11:14 04/29/17 11:14 04/29/17 11:14 Internal Medicine - CN: Reslt - Labs CBC & Chem 7: 04/29/17 05:07 04/29/17 05:07 Labs: Short CBC 04/29/17 Range/Units 05:07 WBC 6.3 (4.3-11.1) K/mcL Hgb 11.5 (11.5-15.4) g/dL Hct 34.1 L (35.3-44.9) % Plt Count 223 (140-400) K/mcL BMP 04/29/17 05:07 Sodium 143 Potassium 3.5 Chloride 107 Carbon Dioxide 22 BUN 14 Creatinine 1.04 Glucose 95 Calcium 9.3 - Impressions Impressions Cervical Spine MRI 04/28/17 12:40 IMPRESSION: Lumbar spine: Diffuse bone metastases. Recent fracture components would be difficult to exclude, vertically at T9, L3 and L4. There is expansion of the right L2 pedicle was a bone lesion noted at this level. This extends to the right facet joint and likely contributes to the narrowing in the right foramen. A small amount of soft tissue extension into the lateral aspect of the canal at this level would be difficult to exclude. Multilevel degenerative disc disease throughout the thoracolumbar spine as described above. See above for details of each level. There is multilevel associated canal and foraminal narrowing. Cervical spine: Diffuse bone metastases Cervical adenopathy Multilevel degenerative disc disease in the cervical spine as described. See above for details of each level. D/ / Gen Starr / Gen Starr Interpreting Provider: Gen Starr Lumbar Spine MRI 04/28/17 12:40 IMPRESSION: Lumbar spine: Diffuse bone metastases. Recent fracture components would be difficult to exclude, vertically at T9, L3 and L4. There is expansion of the right L2 pedicle was a bone lesion noted at this level. This extends to the right facet joint and likely contributes to the narrowing in the right foramen. A small amount of soft tissue extension into the lateral aspect of the canal at this level would be difficult to exclude. Multilevel degenerative disc disease throughout the thoracolumbar spine as described above. See above for details of each level. There is multilevel associated canal and foraminal narrowing. Cervical spine: Diffuse bone metastases Cervical adenopathy Multilevel degenerative disc disease in the cervical spine as described. See above for details of each level. D/ / Gen Starr / Gen Starr Interpreting Provider: Gen Starr - Attending Attestation I examined this patient and my medical decision-making was reviewed with the Resident Physician. I agree with the documented findings, disposition and treatment plan as described except to the extent set forth below. Palliative Quality Code Status: 04/28/17 10:14 Resuscitation Status: Active [RES] Routine Comment: Resuscitation Status: Full Code
[2017-04-29] MEDS: Budesonide/Formoterol 160/4.5 MDI IH SCH ×2 (08:11→20:42)
[2017-04-29] MEDS: *HR* Heparin 5,000 UNIT/ML VIAL SQ SCH ×2 (08:18→19:06)
[2017-04-29] MEDS: *HR* LORazepam 0.5 MG TABLET PO SCH ×3 (09:51→21:42)
[2017-04-29] MEDS: Loratadine 10 MG TABLET PO SCH (09:51)
[2017-04-29] MEDS: Anastrozole 1 MG TABLET PO SCH (09:51)
[2017-04-29] MEDS: cefTRIAXone 1,000 MG in Water for inj. (sterile) 10 ML IVP SCH (09:52)
[2017-04-29] MEDS: Ascorbic Acid 500 MG TABLET PO SCH (09:55)
[2017-04-29] MEDS: BuPROPion XL (24 HR) 150 MG TABLET PO SCH (09:55)
[2017-04-29] MEDS: (Flaxseed/Omega3,6,9/Fatty Acid [Flax Seed Oil 1,300 PO SCH (11:55)
[2017-04-29] MEDS: Azithromycin 500 MG in D5% in Water 250 ML IVPB SCH (12:13)
--- NOTE | 2017-04-29 17:14 | Internal Med Progress Note ---
Date of Encounter: 04/29/17 Time of Encounter: 10:00 - Assessment and plan (1) DVT prophylaxis Current Visit: Yes Status: Acute Assessment and plan: Heparin subcutaneously (2) Brain lesion Current Visit: Yes Status: Acute Assessment and plan: History of brain tumor, S/P surgery and radiation in [facility]. (3) Closed T10 fracture Current Visit: Yes Status: Acute Assessment and plan: MRI shows multiple metastatic lesion. Probably due to pathologic fracture. Continue pain management. Qualifiers: Encounter type: initial encounter Fracture morphology: other fracture Qualified Code(s): S22.078A - Other fracture of T9-T10 vertebra, initial encounter for closed fracture (4) Fall Current Visit: Yes Status: Acute Assessment and plan: Continue PTOT. Patient may need rehabilitation or SNF discharge. chamber worker is on case. Qualifiers: Encounter type: initial encounter Qualified Code(s): W19.XXXA - Unspecified fall, initial encounter (5) Fracture of L3 vertebra Current Visit: Yes Status: Acute Assessment and plan: Continue pain management. Qualifiers: Encounter type: initial encounter Fracture type: closed Fracture morphology: unspecified fracture morphology Qualified Code(s): S32.039A - Unspecified fracture of third lumbar vertebra, initial encounter for closed fracture (6) Ground glass opacity present on imaging of lung Current Visit: Yes Status: Acute Assessment and plan: Patient has no fever or cough. Will continue azithromycin and Rocephin for possible pneumonia, to finish a 5 day course. (7) History of breast cancer Current Visit: Yes Status: Acute Assessment and plan: Had surgery 4.5 years ago. With lymph node and bone metastasis. Oncology is on case. Continue home medication anastrozole. (8) Metastatic disease Current Visit: Yes Status: Acute Assessment and plan: Management as above. Continue pain management and symptomatic treatment (9) Obesity Current Visit: Yes Status: Acute Assessment and plan: Need the lifestyle modification Qualifiers: Obesity type: unspecified obesity type Obesity classification: adult class 3 (BMI >= 40) Body mass index: BMI 40.0-44.9 Qualified Code(s): E66.9 - Obesity, unspecified; Z68.41 - Body mass index (BMI) 40.0-44.9, adult; Z68.41 - Body mass index (BMI) 40.0-44.9, adult; Z68.41 - Body mass index (BMI) 40.0-44.9 , adult; Z68.41 - Body mass index (BMI) 40.0-44.9, adult (10) COPD (chronic obstructive pulmonary disease) Current Visit: No Status: Acute Assessment and plan: No signs of exacerbation. Continue home medications Qualifiers: COPD type: emphysema Emphysema type: other Qualified Code(s): J43.8 - Other emphysema - Time Spent With Patient 25 - 35 minutes - Subjective Interval history: Patient was seen and examined. Still complaining back pain and right leg pain. Improved after pain medication use. No cough or fever. Vitals are stable. Palliative care consult appreciated. Patient has breast cancer with bone and lymph node metastasis, further management per oncology. - Constitutional Vitals: Temp Pulse Resp BP Pulse Ox 98.2 F 72 18 114/71 97 04/29/17 14:28 04/29/17 14:28 04/29/17 14:28 04/29/17 14:28 04/29/17 14:28 General appearance: Present: A&O X 3, no acute distress, answers questions appropriately - Head Head exam: Present: atraumatic, normocephalic - Eye Eye exam: Present: PERRL, conjuntiva pink, sclera anicteric Pupils: Present: PERRL - Neck Neck exam general surgery: Present: supple, trachea midline. Absent: lymphadenopathy - Respiratory Respiratory exam: Present: CTAB. Absent: accessory muscle use, rales, rhonchi, wheezes - Cardiovascular Cardiovascular exam: Present: RRR, +S1, +S2. Absent: diastolic murmur, gallop, rubs, systolic murmur - GI/Abdominal GI/Abdominal exam: Present: normal bowel sounds, soft, no peritoneal signs. Absent: distended, tenderness - Extremities Exam Extremities exam: Present: warm, radial pulses palpable and symmetrical. Absent : calf tenderness, cyanotic, pedal edema Additional comments: Right leg pain on straight leg raising test. - Neurological Exam Neurological exam: Present: CN II-XII intact, oriented X3, no focal deficits. Absent: pronater drift, facial droop, speech deficit - Skin Skin exam: Present: dry, intact Internal Medicine: Result - Labs CBC & Chem 7: 04/29/17 05:07 04/29/17 05:07 Labs: Short CBC 04/29/17 Range/Units 05:07 WBC 6.3 (4.3-11.1) K/mcL Hgb 11.5 (11.5-15.4) g/dL Hct 34.1 L (35.3-44.9) % Plt Count 223 (140-400) K/mcL BMP 04/29/17 05:07 Sodium 143 Potassium 3.5 Chloride 107 Carbon Dioxide 22 BUN 14 Creatinine 1.04 Glucose 95 Calcium 9.3 - Impressions Impressions Cervical Spine MRI 04/28/17 12:40 IMPRESSION: Lumbar spine: Diffuse bone metastases. Recent fracture components would be difficult to exclude, vertically at T9, L3 and L4. There is expansion of the right L2 pedicle was a bone lesion noted at this level. This extends to the right facet joint and likely contributes to the narrowing in the right foramen. A small amount of soft tissue extension into the lateral aspect of the canal at this level would be difficult to exclude. Multilevel degenerative disc disease throughout the thoracolumbar spine as described above. See above for details of each level. There is multilevel associated canal and foraminal narrowing. Cervical spine: Diffuse bone metastases Cervical adenopathy Multilevel degenerative disc disease in the cervical spine as described. See above for details of each level. D/ / Gen Starr / Gen Starr Interpreting Provider: Gen Starr Lumbar Spine MRI 04/28/17 12:40 IMPRESSION: Lumbar spine: Diffuse bone metastases. Recent fracture components would be difficult to exclude, vertically at T9, L3 and L4. There is expansion of the right L2 pedicle was a bone lesion noted at this level. This extends to the right facet joint and likely contributes to the narrowing in the right foramen. A small amount of soft tissue extension into the lateral aspect of the canal at this level would be difficult to exclude. Multilevel degenerative disc disease throughout the thoracolumbar spine as described above. See above for details of each level. There is multilevel associated canal and foraminal narrowing. Cervical spine: Diffuse bone metastases Cervical adenopathy Multilevel degenerative disc disease in the cervical spine as described. See above for details of each level. D/ / Gen Starr / Gen Starr Interpreting Provider: Gen Starr Consult Discharge Plan - Plan Referrals: Rashawn Rosenberg MD [Primary Care Provider] -
--- NOTE | 2017-04-29 18:42 | Electrocardiograph Report ---
[place] [id number] Test Date: 2017-04-27 Pat Name: Ida Bonner Department: 104 Room: [facility] Gender: F Registered Respiratory Technician: ELIZABETH : 1960 Requested By: Garett Perea Order Number: [id number] Reading MD: Jayjay Dumont DO Measurements Intervals [place] Rate: 72 P: 58 SC: 174 QRS: 36 QRSD: 91 T: 23 QT: 375 QTc: 399 Interpretive Statements SINUS RHYTHM LOW QRS VOLTAGE Electronically Signed On 04-29-2017 18:40:40 EST by Jayjay Dumont DO
[2017-04-29] MEDS: *HR* OxyCODONE Immed Rel 5 MG TABLET PO PRN (19:53)
[2017-04-29] MEDS: Sennosides/Docusate Sodium TABLET PO SCH (21:42)
[2017-04-29] MEDS ORDERED: Bacitracin/PolymyxinB OPTH Oin 3.5 APPL/3.5 GM TUBE LEFT EYE SCH ×2 (21:45→22:30)
[2017-04-30] MEDS: *HR* OxyCODONE Immed Rel 5 MG TABLET PO PRN ×2 (04:01→14:53)
[2017-04-30] MEDS: *HR* Heparin 5,000 UNIT/ML VIAL SQ SCH (05:03)
[2017-04-30 05:57] LABS: Basophils # 0.1 K/mcL (0.0-0.2); Hematocrit 31.9 % (35.3-44.9); Hemoglobin 10.8 g/dL (11.5-15.4); Mean Corpuscular HGB Conc 33.9 g/dL (31.6-35.5); Mean Corpuscular Hemoglobin 31.5 pg (28.0-33.3); Mean Platelet Volume 8.8 fL (9.4-12.4); Nucleated Red Blood Cells 0.3 /100 WBC (0); Platelet Count 233 K/mcL (140-400); Red Blood Count 3.43 M/mcL (3.82-4.97)
[2017-04-30 06:12] LABS: Calcium 9.2 mg/dL (8.6-10.8); Potassium 3.8 mEq/L (3.5-4.5)
[2017-04-30 06:20] LABS: Lymphocytes # 1.1 K/mcL (0.6-4.6); Monocytes # 0.5 K/mcL (0.0-1.3); Neutrophils # 4.2 K/mcL (1.6-8.9); Platelet Estimate Normal (Normal)
[2017-04-30] MEDS: Budesonide/Formoterol 160/4.5 MDI IH SCH (07:46)
[2017-04-30] MEDS: cefTRIAXone 1,000 MG in Water for inj. (sterile) 10 ML IVP SCH (08:30)
[2017-04-30] MEDS: Sennosides/Docusate Sodium TABLET PO SCH (08:31)
[2017-04-30] MEDS: *HR* LORazepam 0.5 MG TABLET PO SCH ×2 (08:31→14:53)
[2017-04-30] MEDS: Anastrozole 1 MG TABLET PO SCH (08:31)
[2017-04-30] MEDS: Ascorbic Acid 500 MG TABLET PO SCH (08:31)
[2017-04-30] MEDS: Loratadine 10 MG TABLET PO SCH (08:31)
[2017-04-30] MEDS: BuPROPion XL (24 HR) 150 MG TABLET PO SCH (08:31)
--- NOTE | 2017-04-30 09:27 | Palliative Progress Note ---
<Tyrone Peng - Last Filed: 04/30/17 09:18> Date of Encounter: 04/30/17 Time of Encounter: 07:45 - Assessment and plan (1) Goals of care, counseling/discussion Current Visit: Yes Status: Acute Assessment and plan: CODE STATUS is FULL CODE. Plan to discharge to SNF for rehab. (2) Metastatic breast carcinoma Current Visit: Yes Status: Acute Assessment and plan: Confirmed adenocarcinoma of breast origin by biopsy of supraclavicular lymph node Metastases to multiple osseous sites Management per oncology (3) Injury, hip and thigh Current Visit: Yes Status: Acute Assessment and plan: Continue current pain regimen Qualifiers: Encounter type: initial encounter Laterality: right Qualified Code(s): S79.911A - Unspecified injury of right hip, initial encounter; S79.921A - Unspecified injury of right thigh, initial encounter; S79.921A - Unspecified injury of right thigh, initial encounter (4) Constipation Current Visit: Yes Status: Chronic Assessment and plan: Continue bowel regimen Qualifiers: Constipation type: slow transit constipation Qualified Code(s): K59.01 - Slow transit constipation - Time Spent With Patient Total time spent is greater than 50% in coordination of care (as documented) at patient's floor/unit and/or counseling patient: - Subjective Interval history: Patient's pain has improved since oxycodone dose and schedule was increased. She continues to be anxious to leave the hospital. Patient states that she is normally on abilify but that she has not been getting it here. - Constitutional Vitals: Abnormal lab results RBC 3.43 M/mcL (3.82-4.97) L 04/30/17 05:26 Hgb 10.8 g/dL (11.5-15.4) L 04/30/17 05:26 Hct 31.9 % (35.3-44.9) L 04/30/17 05:26 MPV 8.8 fL (9.4-12.4) L 04/30/17 05:26 Immature Gran % 4.3 % (0-4) H 04/27/17 15:58 Band Neutrophils % 6.0 % (0-4) H 04/30/17 05:26 Myelocytes % 2.0 % (0) H 04/30/17 05:26 Nucleated RBCs/100 WBC 0.3 /100 WBC (0) H 04/30/17 05:26 Creatinine 1.14 mg/dL (0.57-1.11) H 04/30/17 05:26 Est GFR (Non-Af Amer) 49 (> 60) L 04/30/17 05:26 AST 50 Units/L (5-34) H 04/27/17 15:58 Alkaline Phosphatase 236 Units/L (38-126) H 04/27/17 15:58 C-Reactive Protein 40 mg/L (Less than 5) H 04/27/17 15:58 B-Natriuretic Peptide 197 pg/mL (0-100) H 04/27/17 15:58 Albumin 3.2 g/dL (3.5-5.0) L 04/27/17 15:58 Globulin 4.9 g/dL (2.4-3.5) H 04/27/17 15:58 Albumin/Globulin Ratio 0.7 (1.1-2.2) L 04/27/17 15:58 General appearance: Present: cooperative - Head Head exam: Present: atraumatic, normocephalic - Eye Additional comments: Left eye sutured closed - ENT ENT exam: Present: mucous membranes dry - Respiratory Respiratory exam: Present: decreased breath sounds, CTAB - Cardiovascular Cardiovascular exam: Present: RRR, +S1, +S2 - GI/Abdominal GI/Abdominal exam: Present: normal bowel sounds, soft. Absent: tenderness - Neurological Exam Neurological exam: Present: alert, oriented X3 - Psychiatric Psychiatric exam: Present: normal affect, normal mood - Skin Skin exam: Present: dry, warm Palliative Quality Palliative Quality: Screen for Code Status: Yes, Screen for Goals of Care: Yes, Screen for Pain: Yes, If Pain Regimen Started, Initiate Bowel Regimen: Yes, Screen for Nausea/Vomitting: Yes Code Status: 04/28/17 10:14 Resuscitation Status: Active [RES] Routine Comment: Resuscitation Status: Full Code - Labs CBC & Chem 7: 04/30/17 05:26 04/30/17 05:26 Labs: Laboratory Results - last 24 hr 04/30/17 04/30/17 05:26 05:26 WBC 6.0 RBC 3.43 L Hgb 10.8 L Hct 31.9 L MCV 93.0 MCH 31.5 MCHC 33.9 RDW 13.0 Plt Count 233 MPV 8.8 L Seg Neutrophils % 64.0 Band Neutrophils % 6.0 H Lymphocytes % 18.0 Monocytes % 8.0 Basophils % 2.0 Myelocytes % 2.0 H Neutrophils # 4.2 Lymphocytes # 1.1 Monocytes # 0.5 Basophils # 0.1 Nucleated RBCs/100 WBC 0.3 H Platelet Estimate Normal Sodium 139 Potassium 3.8 Chloride 105 Carbon Dioxide 21 BUN 16 Creatinine 1.14 H Est GFR ( Amer) 60 Est GFR (Non-Af Amer) 49 L BUN/Creatinine Ratio 14 Glucose 94 Calculated Osmolality 289 Calcium 9.2 Consult Discharge Plan - Plan Referrals: Rashawn Rosenberg MD [Primary Care Provider] - <Juan Walker L - Last Filed: 04/30/17 10:26> Date of Encounter: 04/30/17 - Time Spent With Patient Total time spent is greater than 50% in coordination of care (as documented) at patient's floor/unit and/or counseling patient: - Constitutional Vitals: Abnormal lab results RBC 3.43 M/mcL (3.82-4.97) L 04/30/17 05:26 Hgb 10.8 g/dL (11.5-15.4) L 04/30/17 05:26 Hct 31.9 % (35.3-44.9) L 04/30/17 05:26 MPV 8.8 fL (9.4-12.4) L 04/30/17 05:26 Immature Gran % 4.3 % (0-4) H 04/27/17 15:58 Band Neutrophils % 6.0 % (0-4) H 04/30/17 05:26 Myelocytes % 2.0 % (0) H 04/30/17 05:26 Nucleated RBCs/100 WBC 0.3 /100 WBC (0) H 04/30/17 05:26 Creatinine 1.14 mg/dL (0.57-1.11) H 04/30/17 05:26 Est GFR (Non-Af Amer) 49 (> 60) L 04/30/17 05:26 AST 50 Units/L (5-34) H 04/27/17 15:58 Alkaline Phosphatase 236 Units/L (38-126) H 04/27/17 15:58 C-Reactive Protein 40 mg/L (Less than 5) H 04/27/17 15:58 B-Natriuretic Peptide 197 pg/mL (0-100) H 04/27/17 15:58 Albumin 3.2 g/dL (3.5-5.0) L 04/27/17 15:58 Globulin 4.9 g/dL (2.4-3.5) H 04/27/17 15:58 Albumin/Globulin Ratio 0.7 (1.1-2.2) L 04/27/17 15:58 - Attending Attestation I examined this patient and my medical decision-making was reviewed with the Resident Physician. I agree with the documented findings, disposition and treatment plan as described except to the extent set forth below. Palliative Quality Code Status: 04/28/17 10:14 Resuscitation Status: Active [RES] Routine Comment: Resuscitation Status: Full Code - Labs CBC & Chem 7: 04/30/17 05:26 04/30/17 05:26 Labs: Laboratory Results - last 24 hr 04/30/17 04/30/17 05:26 05:26 WBC 6.0 RBC 3.43 L Hgb 10.8 L Hct 31.9 L MCV 93.0 MCH 31.5 MCHC 33.9 RDW 13.0 Plt Count 233 MPV 8.8 L Seg Neutrophils % 64.0 Band Neutrophils % 6.0 H Lymphocytes % 18.0 Monocytes % 8.0 Basophils % 2.0 Myelocytes % 2.0 H Neutrophils # 4.2 Lymphocytes # 1.1 Monocytes # 0.5 Basophils # 0.1 Nucleated RBCs/100 WBC 0.3 H Platelet Estimate Normal Sodium 139 Potassium 3.8 Chloride 105 Carbon Dioxide 21 BUN 16 Creatinine 1.14 H Est GFR ( Amer) 60 Est GFR (Non-Af Amer) 49 L BUN/Creatinine Ratio 14 Glucose 94 Calculated Osmolality 289 Calcium 9.2
[2017-04-30] MEDS: (Flaxseed/Omega3,6,9/Fatty Acid [Flax Seed Oil 1,300 PO SCH (09:50)
[2017-04-30] MEDS: Azithromycin 500 MG in D5% in Water 250 ML IVPB SCH (11:41)
[2017-04-30 12:09] VITALS: BP 110/59
--- NOTE | 2017-04-30 13:38 | Spine Progress Note ---
Date of Encounter: 04/28/17 Time of Encounter: 16:40 - Assessment and Plan (1) Metastatic disease Current Visit: Yes Status: Chronic She has diffuse metastatic disease to the spine associated with fracture components. We discussed nonoperative treatment with bracing as well as analgesics alone. I believe she will be poorly compliant with a clamshell type TLSO brace so she is going to manage her pain with analgesics alone. I agree with follow-up in the Center for chemotherapy and consideration of radiation therapy to her bony metastases. She is not a good candidate for vertebral augmentation in the form of kyphoplasties. Palliative care on board and this is appropriate pathway. Subjective Principal diagnosis: Back pain, metastatic disease to spine Interval history: Mrs. 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 Consult because of multiple compression fractures and osseous involvement of the spine. She complains of back pain which is reasonably controlled on oral narcotic medications. She denies any fevers chills, bowel bladder symptomatology, or significant radicular symptoms. On exam she is lying in bed with family members present and mild distress secondary to back pain. A fair historian. She is no upper or lower extremity focal neurologic deficit. She has ptosis in the left eye. He has asymmetry in facial expression. Due to presence of lumbar fractures we ordered an MRI of the cervical and lumbar spine to assess acuity and extent of osseous metastases. Study performed 04/28/2017 reveals diffuse marrow heterogeneity throughout the cervical spine. Lumbar spine MRI reveals diffuse bone metastases with possible fracture components at T9 L3 and L4. There is expansion of the right L2 pedicle. There are multilevel degenerative changes and foraminal stenosis seen. Objective Vital signs: Vital Signs Temp Pulse Resp BP Pulse Ox 04/30/17 10:34 98.5 F 81 16 110/59 95 04/30/17 07:46 18 96 04/30/17 06:33 98.3 F 74 18 111/67 95 04/30/17 04:03 98.1 F 81 15 107/70 94 04/29/17 23:13 98.2 F 78 16 119/76 96 04/29/17 20:43 18 99 04/29/17 19:26 97.5 F L 75 18 103/66 97 04/29/17 14:28 98.2 F 72 18 114/71 97 Intake and Output 04/29/17 04/30/17 04/30/17 23:59 07:59 15:59 Intake Total 210 / 210 50 / 50 Output Total 300 / 300 300 / 300 Balance -90 / -90 -250 / -250 Intake: IV Fluids Rocephin 1,000 MG In Water for inj. (sterile) 10 ML @ 300 mls/ hr IVP DAILY [facility] Rx#:[id number] Oral 210 / 210 50 / 50 Output: Urine 300 / 300 300 / 300 Other: Meal Dinner Percent of Meal Consumed 35% Weight 89.993 kg Patient Weight 04/30/17 23:59 Weight 89.993 kg - Labs CBC & BMP: 04/30/17 05:26 04/30/17 05:26 Labs: Abnormal lab results RBC 3.43 M/mcL (3.82-4.97) L 04/30/17 05:26 Hgb 10.8 g/dL (11.5-15.4) L 04/30/17 05:26 Hct 31.9 % (35.3-44.9) L 04/30/17 05:26 MPV 8.8 fL (9.4-12.4) L 04/30/17 05:26 Immature Gran % 4.3 % (0-4) H 04/27/17 15:58 Band Neutrophils % 6.0 % (0-4) H 04/30/17 05:26 Myelocytes % 2.0 % (0) H 04/30/17 05:26 Nucleated RBCs/100 WBC 0.3 /100 WBC (0) H 04/30/17 05:26 Creatinine 1.14 mg/dL (0.57-1.11) H 04/30/17 05:26 Est GFR (Non-Af Amer) 49 (> 60) L 04/30/17 05:26 AST 50 Units/L (5-34) H 04/27/17 15:58 Alkaline Phosphatase 236 Units/L (38-126) H 04/27/17 15:58 C-Reactive Protein 40 mg/L (Less than 5) H 04/27/17 15:58 B-Natriuretic Peptide 197 pg/mL (0-100) H 04/27/17 15:58 Albumin 3.2 g/dL (3.5-5.0) L 04/27/17 15:58 Globulin 4.9 g/dL (2.4-3.5) H 04/27/17 15:58 Albumin/Globulin Ratio 0.7 (1.1-2.2) L 04/27/17 15:58 Consult Discharge Plan - Plan Referrals: Robin Galeas MD [Partnered Physician] - 05/11/17 1:35 pm Rashawn Rosenberg MD [Primary Care Provider] - 05/06/17 11:00 am (& also, Thursday at 09:00 AM) Karlo Saini MD [Partnered Physician] - 05/04/17 4:00 pm
[2017-04-30] MEDS ORDERED: FLU VACC QS2017-18(6M-36M)/PF 0.5 ML SYRINGE IM ONE (15:38)
[2017-04-30] MEDS ORDERED: FLUARIX QUAD 2017-18 36MOS UP/PF 0.5 ML SYRINGE IM ONE (15:40)
--- NOTE | 2017-04-30 15:43 | Discharge Summary ---
Date of Encounter: 04/30/17 Time of Encounter: 14:00 - Discharge Diagnosis (1) DVT prophylaxis Priority: Secondary Status: Acute (2) Brain lesion Priority: Secondary Status: Acute (3) Closed T10 fracture Priority: Primary Status: Acute Qualifiers: Encounter type: initial encounter Fracture morphology: other fracture Qualified Code(s): S22.078A - Other fracture of T9-T10 vertebra, initial encounter for closed fracture (4) Fall Priority: Primary Status: Acute Qualifiers: Encounter type: initial encounter Qualified Code(s): W19.XXXA - Unspecified fall, initial encounter (5) Fracture of L3 vertebra Priority: Primary Status: Acute Qualifiers: Encounter type: initial encounter Fracture type: closed Fracture morphology: unspecified fracture morphology Qualified Code(s): S32.039A - Unspecified fracture of third lumbar vertebra, initial encounter for closed fracture (6) Ground glass opacity present on imaging of lung Priority: Primary Status: Acute (7) History of breast cancer Priority: Primary Status: Acute (8) Metastatic disease Priority: Primary Status: Chronic (9) Obesity Priority: Secondary Status: Acute Qualifiers: Obesity type: unspecified obesity type Obesity classification: adult class 3 (BMI >= 40) Body mass index: BMI 40.0-44.9 Qualified Code(s): E66.9 - Obesity, unspecified; Z68.41 - Body mass index (BMI) 40.0-44.9, adult; Z68.41 - Body mass index (BMI) 40.0-44.9, adult; Z68.41 - Body mass index (BMI) 40.0-44.9 , adult; Z68.41 - Body mass index (BMI) 40.0-44.9, adult (10) COPD (chronic obstructive pulmonary disease) Priority: Secondary Status: Acute Qualifiers: COPD type: emphysema Emphysema type: other Qualified Code(s): J43.8 - Other emphysema - Discharge Medications Prescriptions: Morphine Immed Rel [Morphine Sulfate] 15 mg PO Q12H #16 tablet Home Medications: Albuterol Neb [AccuNeb] 1.25 mg IH Q6H PRN 02/27/15 [History] Anastrozole [Arimidex] 1 mg PO DAILY 02/27/15 [History] BuPROPion XL (24 HR) [Wellbutrin Xl] 150 mg PO DAILY 02/27/15 [History] BuPROPion XL (24 HR) [Wellbutrin Xl] 300 mg PO DAILY 02/27/15 [History] Docusate Sodium [Colace] 100 mg PO DAILY 02/27/15 [History] Flaxseed/Omega3,6,9/Fatty Acid [Flax Seed Oil 1,300 mg Softgel] 1 each PO DAILY 02/27/15 [History] Fluticasone/Salmeterol [Advair 500-50 Diskus] 1 each IH BID 02/27/15 [History] LORazepam [Ativan] 0.5 mg PO TID 02/27/15 [History] Potassium Chloride 20 meq PO DAILY 02/27/15 [History] Triamterene/HCTZ 37.5/25mg [Dyazide] 1 each PO DAILY 02/27/15 [History] Vitamin E (Dl,Tocopheryl Acet) [Vitamin E] 400 unit PO DAILY 02/27/15 [History] Ascorbic Acid [Vitamin C] 500 mg PO DAILY #30 tablet 05/28/15 [Rx] Albuterol Sulfate [Albuterol Inhaler] 2 puff IH QID PRN 09/24/16 [History] DiphenhydraMINE [Benadryl] 25 mg PO Q6HR PRN #20 capsule 12/20/16 [Rx] Metoclopramide [Reglan] 5 mg PO Q6HR PRN #30 tab 12/20/16 [Rx] Ferrous Sulfate 1 tab PO DAILY #30 tablet 02/20/17 [Rx] Prochlorperazine Maleate [Compazine] 10 mg PO Q6HR PRN #30 tablet 03/31/17 [Rx] Cetirizine HCl [Zyrtec] 10 mg PO DAILY 04/27/17 [History] Sertraline [Zoloft] 150 mg PO DAILY 04/28/17 [History] Amoxicillin/Clavulanate [Augmentin] 875 mg PO BIDWM #6 tablet 04/30/17 [Rx] Morphine Immed Rel [Morphine Sulfate] 15 mg PO Q12H #16 tablet 04/30/17 [Rx] Allergies/Adverse Reactions: 3 Allergy/AdvReac Type Severity Reaction Status Date / Time acetaminophen Allergy Chest Pain Verified 04/27/17 13:20 [From Tylenol-Codeine] codeine Allergy Chest Pain Verified 04/27/17 13:20 [From Tylenol-Codeine] doxycycline Allergy Hives Verified 04/27/17 13:20 levofloxacin [From Levaquin] Allergy Hives Verified 04/27/17 13:20 Procedures/tests Complete & Pending: Procedures Performed prior 72 hours Category Date Time Status MR cervical spine wo con [MR] Routine MRI 04/28/17 12:40 Completed MR lumbar spine wo con [MR] Routine MRI 04/28/17 12:40 Completed - Notes to Outpatient Provider Continue Augmentin for 3 more days for suspected pneumonia. Date of admission: 04/27/17 22:50 Primary care physician: Rashawn Rosenberg MD Consults: 04/28/17 06:44 Consult to Orthopedic Surgery [CONS] Routine Consulting Provider: [facility] Reason for Consult: Vertebral fracture Call Completed: Yes 04/28/17 10:16 Consult to Occupational Therapy [CONS] Routine Comment: Evaluate, develop and implement POC Reason for Consult: Weakness Consult to Physical Therapy [CONS] Routine Comment: Evaluate, develop and implement POC Reason for Consult: Weakness Consult to Plaster Block Layer [CONS] Routine Reason for SW Consult: May need placement 04/28/17 10:28 Consult to Oncology Hematology [CONS] Routine Consulting Provider: Amna Leon Reason for Consult: Breast Ca with bone metastasis Call Completed: Yes 04/28/17 19:04 Consult to Palliative Care [CONS] Routine Comment: Consulting Provider: [facility] Reason for Consult: Breast cancer with remote metastesis, brain tumor. Goal of care Call Completed: No Discharging clinician: Benjamin Braga Anticipated date of discharge: 04/30/17 - Patient Status Disposition: Transfer Inpatient Rehab Fac Condition: Fair Functional capacity at discharge: uses cane/walker Overall status at discharge: patient is progressing back to baseline - Discharge Instructions Follow Up With: Robin Galeas MD [Partnered Physician] - 05/11/17 1:35 pm Rashawn Rosenberg MD [Primary Care Provider] - 05/06/17 11:00 am (& also, Thursday , June 03, 2017 at 09:00 AM) Karlo Saini MD [Partnered Physician] - 05/04/17 4:00 pm Additional Instructions: Follow-up appointments: If there is not an appointment listed below, please call your physician and schedule a follow-up appointment. If you have congestive heart failure and your symptoms return, make an appointment with your physician. Medication List: Carry an up to date list of medications you are taking at all time. We have given you an updated medication list including any new medications that you have been prescribed. Please provide that list to your primary provider Symptoms: If your condition changes or you experience any of the following symptoms, notify your physician immediately: Unusual or worsening pain, fever, persistent nausea and vomiting, bleeding, increase in swelling (especially in your legs), sudden weight gain, extreme dizziness, chest pain, increased drainage or redness from a wound or incision. Go to the emergency department if you experience a problem with breathing. Weights: If you have a history of swelling or shortness of breath, weigh yourself daily and notify your physician if you have a weight gain of two or more pounds in one day or 5 or more pounds in a week. If you experience any of the warning signs for stroke: Sudden numbness or weakness of the face, arm or leg; especially on one side of the body, sudden confusion, trouble speaking or understanding, sudden trouble seeing in one or both eyes, sudden trouble walking, dizziness, loss of balance or coordination, sudden sever headache with no cause; Call 911 or go to the emergency room. Stroke is a medical emergency. Some risk factors for stroke: Age, cigarette smoking, diabetes, excessive alcohol consumption, family history , high blood pressure, overweight, physical inactivity, prior stroke, heart attack, diagnosis of carotid artery stenosis or other artery disease. If you smoke, STOP: Smoking or tobacco use significantly increases your risk of heart and lung disease. Your chance of disease greatly increases if you continue to smoke. For more information, call the [place] tobacco quit line for smoking cessation QUIT-NOW ( ) - Diet and Activity Activity: as per physical therapy, increase activity as tolerated Diet: low fat, low cholesterol, low salt diet Hospital course: Ms. Bonner is a 56 year old female admitted for back and right leg pain. Patient has recent fall. CT scan shows T10 and L3 compression fracture. Patient has history of breast cancer and was suspected metastasis. Oncology and spinal surgery consult was called. MRI T-spine and L-spine has been done, suggest multiple bone metastases. Patient was placed on pain medication, PTOT. Not indicated for any surgery per spinal surgery consult. Patient will discharge to rehabilitation and follow-up with oncology as outpatient for cancer treatment. Patient also has been suspected pneumonia but has no clinic symptoms, treated with IV azithromycin and Rocephin, will switch to by mouth Augmentin upon discharge to finish a 5 day course. I saw and examined the patient today. Patient said the pain is less. Still weak. Vitals are stable. Will DC to rehabilitation per PT recommendation. Follow up with oncology as outpatient. - Time Spent with Patient Total time spent providing and/or coordinating discharge services: 25 minutes Less than 30 minutes - Constitutional Vitals: Temp Pulse Resp BP Pulse Ox 98.5 F 81 16 110/59 95 04/30/17 10:34 04/30/17 10:34 04/30/17 10:34 04/30/17 10:34 04/30/17 10:34 General appearance: Present: A&O X 3, no acute distress, answers questions appropriately - Head Head exam: Present: atraumatic, normocephalic - Eye Eye exam: Present: PERRL, conjuntiva pink, sclera anicteric Pupils: Present: PERRL - Neck Neck exam general surgery: Present: supple, trachea midline. Absent: lymphadenopathy - Respiratory Respiratory exam: Present: CTAB. Absent: accessory muscle use, rales, rhonchi, wheezes - Cardiovascular Cardiovascular exam: Present: RRR, +S1, +S2. Absent: diastolic murmur, gallop, rubs, systolic murmur - GI/Abdominal GI/Abdominal exam: Present: normal bowel sounds, soft, no peritoneal signs. Absent: distended, tenderness - Extremities Exam Extremities exam: Present: warm, radial pulses palpable and symmetrical. Absent : calf tenderness, cyanotic, pedal edema Additional comments: Right leg pain - Neurological Exam Neurological exam: Present: CN II-XII intact, oriented X3, no focal deficits. Absent: pronater drift, facial droop, speech deficit - Skin Skin exam: Present: dry, intact
--- NOTE | 2017-04-30 15:53 | Physician Discharge Referral ---
ExtendedCare Referral Info Transfer To: Rehabilitation center Provider in Charge after Transfer: Other - Diagnosis (1) DVT prophylaxis Status: Acute (2) Brain lesion Status: Acute (3) Closed T10 fracture Status: Acute (4) Fall Status: Acute (5) Fracture of L3 vertebra Status: Acute (6) Ground glass opacity present on imaging of lung Status: Acute (7) History of breast cancer Status: Acute (8) Metastatic disease Status: Chronic (9) Obesity Status: Acute (10) COPD (chronic obstructive pulmonary disease) Status: Acute - Transfer Medications Prescriptions: Amoxicillin/Clavulanate [Augmentin] 875 mg PO BIDWM #6 tablet Morphine Immed Rel [Morphine Sulfate] 15 mg PO Q12H #16 tablet Home Medications: Albuterol Neb [AccuNeb] 1.25 mg IH Q6H PRN 02/27/15 [History] Anastrozole [Arimidex] 1 mg PO DAILY 02/27/15 [History] BuPROPion XL (24 HR) [Wellbutrin Xl] 150 mg PO DAILY 02/27/15 [History] BuPROPion XL (24 HR) [Wellbutrin Xl] 300 mg PO DAILY 02/27/15 [History] Docusate Sodium [Colace] 100 mg PO DAILY 02/27/15 [History] Flaxseed/Omega3,6,9/Fatty Acid [Flax Seed Oil 1,300 mg Softgel] 1 each PO DAILY 02/27/15 [History] Fluticasone/Salmeterol [Advair 500-50 Diskus] 1 each IH BID 02/27/15 [History] LORazepam [Ativan] 0.5 mg PO TID 02/27/15 [History] Potassium Chloride 20 meq PO DAILY 02/27/15 [History] Triamterene/HCTZ 37.5/25mg [Dyazide] 1 each PO DAILY 02/27/15 [History] Vitamin E (Dl,Tocopheryl Acet) [Vitamin E] 400 unit PO DAILY 02/27/15 [History] Ascorbic Acid [Vitamin C] 500 mg PO DAILY #30 tablet 05/28/15 [Rx] Albuterol Sulfate [Albuterol Inhaler] 2 puff IH QID PRN 09/24/16 [History] DiphenhydraMINE [Benadryl] 25 mg PO Q6HR PRN #20 capsule 12/20/16 [Rx] Metoclopramide [Reglan] 5 mg PO Q6HR PRN #30 tab 12/20/16 [Rx] Ferrous Sulfate 1 tab PO DAILY #30 tablet 02/20/17 [Rx] Prochlorperazine Maleate [Compazine] 10 mg PO Q6HR PRN #30 tablet 03/31/17 [Rx] Cetirizine HCl [Zyrtec] 10 mg PO DAILY 04/27/17 [History] Sertraline [Zoloft] 150 mg PO DAILY 04/28/17 [History] Amoxicillin/Clavulanate [Augmentin] 875 mg PO BIDWM #6 tablet 04/30/17 [Rx] Morphine Immed Rel [Morphine Sulfate] 15 mg PO Q12H #16 tablet 04/30/17 [Rx] Allergies/Adverse Reactions: 3 Allergy/AdvReac Type Severity Reaction Status Date / Time acetaminophen Allergy Chest Pain Verified 04/27/17 13:20 [From Tylenol-Codeine] codeine Allergy Chest Pain Verified 04/27/17 13:20 [From Tylenol-Codeine] doxycycline Allergy Hives Verified 04/27/17 13:20 levofloxacin [From Levaquin] Allergy Hives Verified 04/27/17 13:20 - Respiratory Orders Oxygen / L per min (2-3) Smoking Cessation: Smoking cessation has been advised. For more information, call the [place] Tobacco Quit Line at 3-335-HVOB-NOW. - Advance Directives Code Status: Full Code - Rehabiliation Orders Rehab Orders: Evaluation for Physical Therapy, Evaluation for Occupational Therapy - Diet Orders Cardiac CERTIFICATION: I certify that the transfer of the above named patient to an Extended Care Facility is necessary for the continuing treatment of the diagnosis listed. The above information is true and accurate reflection of patient's current condition. Confidential - Redisclosure prohibited without a patient's written consent.
== END 2017-04-30 16:36 ==
LOC: EMEROO 13:12 → 3NENU 13:12
PROVIDERS: ADMIT Pediatrics; ATTEND Family Medicine

== ENCOUNTER 2017-07-30 12:31 | Observation (INO) ==
[2017-07-30] MEDS ORDERED: 0.9 % Sodium Chloride 1,000 ML IVC ONE (12:40)
[2017-07-30] MEDS ORDERED: Ipratropium/Albuterol Neb 3 ML IH ONE (12:40)
--- NOTE | 2017-07-30 12:53 | Emergency Department Note ---
Disposition Clinical Impression: History of breast cancer, Hypoxia, Hypokalemia Disposition: Admitted As Inpatient Condition: Fair Referrals: Rashawn Rosenberg MD [Primary Care Provider] - Forms: Work/School Release, ED Satisfaction Letter Time of Disposition: 15:38 SOB HPI - General Chief Complaint: ED Shortness of Breath/Dyspnea Stated Complaint: Low O2 Time Seen by Provider: 07/30/17 12:33 Source: patient, EMS Mode of arrival: ambulatory Limitations: no limitations Nursing Notes Reviewed: Yes Vital Signs Reviewed: Yes - History of Present Illness 56-year-old female with history of COPD breast cancer with metastatic disease presents for evaluation of dyspnea. Patient presented from her primary care office. At the office the patient was noted to be hypoxic with room air saturation of 88-89%. Patient typically does not wear oxygen. Patient states that she feeling short of breath for the past couple days. Denies any fevers. Reports a cough. States she has been taking oral chemotherapy agents but is unclear of the time frame of when. Patient denies any chest pain. Patient denies any nausea or vomiting. - Related Data Home Medications Medication Instructions Recorded Confirmed Albuterol Neb [AccuNeb] 1.25 mg IH Q6H PRN 02/27/15 07/30/17 BuPROPion XL (24 HR) [Wellbutrin 150 mg PO DAILY 02/27/15 07/30/17 Xl] BuPROPion XL (24 HR) [Wellbutrin 300 mg PO DAILY 02/27/15 07/30/17 Xl] Docusate Sodium [Colace] 100 mg PO DAILY 02/27/15 07/30/17 Flaxseed/Omega3,6,9/Fatty Acid 1 each PO DAILY 02/27/15 07/30/17 [Flax Seed Oil 1,300 mg Softgel] Fluticasone/Salmeterol [Advair 1 each IH DAILY 02/27/15 07/30/17 500-50 Diskus] LORazepam [Ativan] 0.5 mg PO TID 02/27/15 07/30/17 Potassium Chloride 20 meq PO DAILY 02/27/15 07/30/17 Triamterene/HCTZ 37.5/25mg 1 each PO DAILY 02/27/15 07/30/17 [Dyazide] Vitamin E (Dl,Tocopheryl Acet) 400 unit PO DAILY 02/27/15 07/30/17 [Vitamin E] Albuterol Sulfate [Albuterol 2 puff IH QID PRN 09/24/16 07/30/17 Inhaler] Cetirizine HCl [Zyrtec] 10 mg PO DAILY 04/27/17 07/30/17 Sertraline [Zoloft] 150 mg PO DAILY 04/28/17 07/30/17 Naproxen [Naprosyn] 500 mg PO BID 05/07/17 07/30/17 Previous Rx's Medication Instructions Recorded Ascorbic Acid [Vitamin C] 500 mg PO DAILY #30 tablet 05/28/15 DiphenhydraMINE [Benadryl] 25 mg PO Q6HR PRN #20 capsule 12/20/16 Metoclopramide [Reglan] 5 mg PO Q6HR PRN #30 tab 12/20/16 Ferrous Sulfate 1 tab PO DAILY #30 tablet 02/20/17 Prochlorperazine Maleate 10 mg PO Q6HR PRN #30 tablet 03/31/17 [Compazine] Zolpidem [Ambien] 10 mg PO HS #30 tablet 05/04/17 Nitrofurantoin (BID) [Macrobid] 100 mg PO BID #14 capsule 06/29/17 Ribociclib Succinate [Kisqali] 3 tab PO DAILY #63 tab 07/13/17 Allergies Allergy/AdvReac Type Severity Reaction Status Date / Time acetaminophen Allergy Chest Pain Verified 07/27/17 13:29 [From Tylenol-Codeine] codeine Allergy Chest Pain Verified 07/27/17 13:29 [From Tylenol-Codeine] doxycycline Allergy Hives Verified 07/27/17 13:29 levofloxacin [From Levaquin] Allergy Hives Verified 07/27/17 13:29 All systems ED: reviewed and negative except as stated. Constitutional: Denies: fever Cardiovascular: Reports: chest pain Respiratory: Reports: cough. Denies: dyspnea Gastrointestinal: Denies: abdominal pain, nausea Past Medical History - Past Medical History Source: patient Medical history: Reports: asthma, cancer, hyperlipidemia, migraine, other Surgical history: Reports: breast surgery, cancer surgery, cholecystectomy, hysterectomy Psychiatric history: Reports: anxiety, depression RN FIELD history: Reports: no RN FIELD history - Social History Smoking Status: Never smoker Smokeless Tobacco Status: No Alcohol use: Reports: none Drug use: Reports: none Physical Exam - General Limitations: no limitations General appearance: alert, in no apparent distress - Head Head exam: atraumatic, normocephalic, normal inspection - Eye Eye exam: Present: normal appearance, PERRL, EOMI - ENT ENT exam: normal exam, normal oropharynx - Neck Neck exam: Present: normal inspection - Chest Chest inspection: Present: normal inspection, symmetric chest wall rise - Respiratory Respiratory exam: Present: accessory muscle use, prolonged expiratory phase, other (Right lower airway expiratory wheeze). Absent: respiratory distress - Cardiovascular Cardiovascular exam: Present: regular rate, normal rhythm. Absent: systolic murmur - Abdominal Exam Abdominal exam: Present: soft - Extremities Exam Extremities exam: Present: normal inspection. Absent: pedal edema - Expanded Lower Extremity Exam Neurovascular/Tendon exam: Present: normal capillary refill - Neurological Exam Neurological exam: Present: alert - Skin Skin exam: Present: warm Course Course Narrative: Patient seen and examined. Patient's requiring 3 L nasal cannula. Patient did basic lab work including a CTA of the chest given concerns of malignancy hypoxia. Patient will get basic labs as well as a single neb treatment. Disposition likely admission. Vital Signs Temperature 98.3 F 07/30/17 12:33 Pulse Rate 79 07/30/17 12:33 Respiratory Rate 18 07/30/17 12:33 Blood Pressure 101/65 07/30/17 12:33 O2 Sat by Pulse Oximetry 95 07/30/17 12:33 Temperature 98.3 F 07/30/17 12:33 Pulse Rate 75 07/30/17 14:34 Respiratory Rate 18 07/30/17 14:34 Blood Pressure 141/82 07/30/17 14:34 O2 Sat by Pulse Oximetry 95 07/30/17 14:34 Oxygen Delivery Oxygen Delivery Nasal Cannula Shortness of Breath/Dyspnea - MDM Narrative Medical decision making narrative: 56-year-old female presents for evaluation of dyspnea. Patient was found to have an oxygen saturation of 88-89% on room air. Patient does have a history of metastatic breast cancer. Patient's currently undergoing chemotherapy. Patient is requiring some oxygen in the emergency room. Patient had a single nebulized treatment. Patient's CT of the chest revealed no acute abnormalities. No pulmonary embolism. Given the patient's degree of hypoxia the patient should be admitted to the hospital service for further evaluation monitoring is the patient does not have home oxygen therapy. - Lab Data Lab results reviewed: Yes I reviewed the patient's lab results. Result diagrams: 07/30/17 12:44 07/30/17 12:44 Lab Results 07/30/17 07/30/17 07/30/17 Range/Units 12:44 12:44 12:44 WBC 1.9 L (4.3-11.1) K/mcL RBC 3.29 L (3.82-4.97) M/mcL Hgb 10.9 L (11.5-15.4) g/dL Hct 32.2 L (35.3-44.9) % MCV 97.9 (83.0-100.0) fL MCH 33.1 (28.0-33.3) pg MCHC 33.9 (31.6-35.5) g/dL RDW 15.8 H (11.5-14.5) % Plt Count 228 (140-400) K/mcL MPV 8.5 L (9.4-12.4) fL Immature Gran % 0.5 (0-4) % Seg Neutrophils % 58.6 % Lymphocytes % 24.2 % Monocytes % 14.5 % Eosinophils % 0.0 % Basophils % 2.2 % Neutrophils # 1.1 L (1.6-8.9) K/mcL Lymphocytes # 0.5 L (0.6-4.6) K/mcL Monocytes # 0.3 (0.0-1.3) K/mcL Eosinophils # 0.0 (0.0-0.6) K/mcL Basophils # 0.0 (0.0-0.2) K/mcL Platelet Estimate Normal (Normal) VBG pH (7.32-7.42) pH Units VBG pCO2 (41-51) mmHg VBG pO2 (25-50) mmHg VBG HCO3 (21-27) mEq/L Sodium 136 (136-145) mEq/L Potassium 2.8 L (3.5-5.1) mEq/L Chloride 99 (98-107) mEq/L Carbon Dioxide 28 (23-29) mEq/L BUN 10 (6-20) mg/dL Creatinine 0.87 (0.60-1.20) mg/dL Est GFR ( Amer) > 60 (> 60) Est GFR (Non-Af Amer) > 60 (> 60) BUN/Creatinine Ratio 11 (6-26) Glucose 99 (70-105) mg/dL Calculated Osmolality 281 (280-300) Lactic Acid 0.8 (0.5-2.2) mmol/L Calcium 8.2 L (8.6-10.3) mg/dL Magnesium 2.1 (1.6-2.6) mg/dL Troponin I < 0.03 (< 0.04) ng/mL B-Natriuretic Peptide (Less than 100) pg/mL 07/30/17 07/30/17 Range/Units 12:44 12:59 WBC (4.3-11.1) K/mcL RBC (3.82-4.97) M/mcL Hgb (11.5-15.4) g/dL Hct (35.3-44.9) % MCV (83.0-100.0) fL MCH (28.0-33.3) pg MCHC (31.6-35.5) g/dL RDW (11.5-14.5) % Plt Count (140-400) K/mcL MPV (9.4-12.4) fL Immature Gran % (0-4) % Seg Neutrophils % % Lymphocytes % % Monocytes % % Eosinophils % % Basophils % % Neutrophils # (1.6-8.9) K/mcL Lymphocytes # (0.6-4.6) K/mcL Monocytes # (0.0-1.3) K/mcL Eosinophils # (0.0-0.6) K/mcL Basophils # (0.0-0.2) K/mcL Platelet Estimate (Normal) VBG pH 7.38 (7.32-7.42) pH Units VBG pCO2 49 (41-51) mmHg VBG pO2 82 H (25-50) mmHg VBG HCO3 29 H (21-27) mEq/L Sodium (136-145) mEq/L Potassium (3.5-5.1) mEq/L Chloride (98-107) mEq/L Carbon Dioxide (23-29) mEq/L BUN (6-20) mg/dL Creatinine (0.60-1.20) mg/dL Est GFR ( Amer) (> 60) Est GFR (Non-Af Amer) (> 60) BUN/Creatinine Ratio (6-26) Glucose (70-105) mg/dL Calculated Osmolality (280-300) Lactic Acid (0.5-2.2) mmol/L Calcium (8.6-10.3) mg/dL Magnesium (1.6-2.6) mg/dL Troponin I (< 0.04) ng/mL B-Natriuretic Peptide 216 H (Less than 100) pg/mL - Radiology Data Radiology results reviewed: Yes I reviewed the patient's radiology results. Chest CTA 07/30/17 12:43 IMPRESSION: Motion degraded study. No evidence of pulmonary embolism or acute pulmonary abnormality. D/ / 07/30/2017 15:23:36 Leonel Matta MD / jennifer Interpreting Provider: Leonel Matta MD - EKG Data EKG attestation: Yes I reviewed and interpreted this EKG. EKG shows normal: Reports: sinus rhythm Rate: Reports: normal Rhythm: Reports: NSR [place]/QRS: Reports: normal Voltage: Reports: decreased voltage throughout Interpretation: Reports: no acute changes, nonspecific ST-T wave changes S.B.A.RZina - S.B.AWing Situation: Demographics Background: Presenting Complaint Assessment: Vital Signs, Course and respsone to treatment, Patient/Family Expectation Recommendation: Barrier(s) to disposition, Recommendation based on pending studies, treatments, or consults S.B.A.Yamile Report Given to: Dr. Frazier SYair Repor Time: 15:32
[2017-07-30 13:02] LABS: VBG HCO3 29 mEq/L (21-27); VBG PCO2 49 mmHg (41-51); VBG PH 7.38 pH Units (7.32-7.42); VBG PO2 82 mmHg (25-50)
[2017-07-30 13:02] LABS: Basophils % 2.2 %; Hemoglobin 10.9 g/dL (11.5-15.4); Immature Granulocytes % 0.5 % (0-4); Mean Corpuscular Hemoglobin 33.1 pg (28.0-33.3); Red Blood Count 3.29 M/mcL (3.82-4.97)
[2017-07-30 13:03] LABS: Hematocrit 32.2 % (35.3-44.9); Lymphocytes # 0.5 K/mcL (0.6-4.6); Lymphocytes % 24.2 %; Mean Corpuscular HGB Conc 33.9 g/dL (31.6-35.5); Mean Corpuscular Volume 97.9 fL (83.0-100.0); Mean Platelet Volume 8.5 fL (9.4-12.4); Monocytes # 0.3 K/mcL (0.0-1.3); Monocytes % 14.5 %; Neutrophils # 1.1 K/mcL (1.6-8.9); Platelet Count 228 K/mcL (140-400); Red Cell Distribution Width 15.8 % (11.5-14.5); Segmented Neutrophils % 58.6 %
[2017-07-30 13:16] LABS: Platelet Estimate Normal (Normal)
[2017-07-30 13:52] LABS: BUN/Creatinine Ratio 11 (6-26); Blood Urea Nitrogen 10 mg/dL (6-20); Calcium 8.2 mg/dL (8.6-10.3); Carbon Dioxide 28 mEq/L (23-29); Chloride 99 mEq/L (98-107); Glucose 99 mg/dL (70-105); Osmolality,Calculated 281 (280-300); Potassium 2.8 mEq/L (3.5-5.1); Sodium 136 mEq/L (136-145); Troponin I < 0.03 ng/mL (< 0.04); eGFR For African Americans > 60 (> 60); eGFR For Non-African Americans > 60 (> 60)
[2017-07-30 15:02] LABS: Magnesium 2.1 mg/dL (1.6-2.6)
[2017-07-30] MEDS ORDERED: Ondansetron 4 MG/2 ML VIAL IVP ONE (15:38)
[2017-07-30] MEDS ORDERED: Potassium Chloride 20 MEQ, Lidocaine 1% 2 ML in D5% in Water 250 ML IVPB ONE (15:40)
--- NOTE | 2017-07-30 15:48 | Emergency Department Note ---
START Narrative - START START: I examined this patient and my medical decision-making was reviewed with the Resident Physician. I agree with the documented findings, disposition and treatment plan as described except to the extent set forth below. 56-year-old female presented to the ER with hypoxia. Sent over from her PCP office. Patient has a history of breast cancer with bony metastasis. She presented with hypoxia. She has no history of any smoking. No COPD. She states she does have a history of asthma has had increasing cough. No documented fevers. She does not wear home oxygen. She has been hypoxic. CTA of the chest was negative for pulmonary embolus. No signs of pneumonia. Patient needs to be admitted for evaluation and treatment of this hypoxia and shortness of breath.
[2017-07-30] MEDS ORDERED: Ipratropium/Albuterol Neb 3 ML IH PRN (15:59)
[2017-07-30] MEDS ORDERED: Acetaminophen 325 MG TABLET PO PRN (15:59)
[2017-07-30] MEDS ORDERED: *HR* OxyCODONE Immed Rel 5 MG TABLET PO PRN (16:05)
[2017-07-30] MEDS ORDERED: Naloxone 0.4 MG/ML INJ IVP PRN (16:05)
--- NOTE | 2017-07-30 16:11 | Internal Med History&Physical ---
Date of Encounter: 07/30/17 Time of Encounter: 16:08 Assessment and Plan (1) Acute respiratory failure with hypoxia Current visit: Yes Status: Acute Acute hypoxic respiratory failure secondary to volume overload, possible acute diastolic CHF combination with mild acute COPD exacerbation with possible acute bronchitis Lasix IV, strict I's and O's, Solu-Medrol and Rocephin, DuoNeb nebs Check echocardiogram Fall precautions Oxygen therapy Omeprazole for GI prophylaxis and Lovenox for DVT prophylaxis. The patient will be admitted for observation. Full code. Time spent on this admission 40 minutes (2) Volume overload Current visit: Yes Status: Acute Qualifiers: Hypervolemia type: unspecified Qualified Code(s): E87.70 - Fluid overload, unspecified (3) Neutropenia Current visit: Yes Status: Acute Likely secondary to chemotherapy Monitor, consider switching antibiotic therapy Qualifiers: Neutropenia type: unspecified Qualified Code(s): D70.9 - Neutropenia, unspecified (4) Hypokalemia Current visit: Yes Status: Acute Replete as needed (5) Acoustic neuroma Current visit: No Status: Acute (6) COPD (chronic obstructive pulmonary disease) Current visit: No Status: Acute Acute exacerbation Qualifiers: COPD type: emphysema Emphysema type: other Qualified Code(s): J43.8 - Other emphysema (7) Fracture of L3 vertebra Current visit: No Status: Acute Qualifiers: Encounter type: initial encounter Fracture type: closed Fracture morphology: unspecified fracture morphology Qualified Code(s): S32.039A - Unspecified fracture of third lumbar vertebra, initial encounter for closed fracture (8) Closed T10 fracture Current visit: No Status: Acute Qualifiers: Encounter type: initial encounter Fracture morphology: other fracture Qualified Code(s): S22.078A - Other fracture of T9-T10 vertebra, initial encounter for closed fracture (9) Metastatic breast carcinoma Current visit: No Status: Acute Followed by oncology (10) Conjunctivitis Current visit: Yes Status: Acute Acute left eye conjunctivitis, start ophthalmic ciprofloxacin Qualifiers: Conjunctivitis type: acute Acute conjunctivitis type: bacterial Laterality: left Qualified Code(s): H10.32 - Unspecified acute conjunctivitis , left eye Internal Medicine - H&P: HPI Chief complaint: Shortness of breath Admitted From: Emergency Dept History of present illness: Ms. Bonner is a 56 year old female with a past medical history of COPD not oxygen dependent, metastatic breast cancer on chemotherapy, left Jimenez's palsy, compression fractures, continued emergency room complaining of the difficulty breathing for the past couple of days. Her oxygen has decreased down to 88%, as was noticed that her primary care physician office. She denies any productive cough but feels very short of breath. Was given fluids at the emergency room and appears to be congested at the moment. A CT scan of the chest did not show any pulmonary emboli but showed a lot of motion degradation images, there were a few areas that could compatible with mild pulmonary edema. Mental cell count is 1.9 neutrophil count is 1.1 potassium is 2.8 BNP is 216. She has been taking hydrochlorothiazide and triamterene which can explain her low potassium. Blood pressure is 141/82, feels weak and denies any other complaints. No sick contacts Past Med Surg Social Fam HX - Past Medical History Medical history: asthma, cancer (Metastatic breast cancer), COPD (Not oxygen dependent), GERD, hyperlipidemia, hypertension, migraine, other (Peripheral neuropathy, anxiety, iron deficiency anemia, left Jimenez's palsy, left acoustic neuroma, compression fractures in T10 and L3, asthma) Psychiatric history: anxiety, depression - Past Surgical History Surgical History: breast surgery (Left lumpectomy), cancer surgery, cholecystectomy, hysterectomy - Social History Smoking Status: Never smoker Smokeless Tobacco Status: No Alcohol use: none Drug use: none - Family History Father Adopted: No Family Member Ethnicity: Non- Living Status: - Additional Family History Additional family history: Mother with heart disease and CHF, father with CVA and aneurysm Internal Medicine - H&P: Meds Albuterol Neb [AccuNeb] 1.25 mg IH Q6H PRN 02/27/15 [History] BuPROPion XL (24 HR) [Wellbutrin Xl] 150 mg PO DAILY 02/27/15 [History] BuPROPion XL (24 HR) [Wellbutrin Xl] 300 mg PO DAILY 02/27/15 [History] Docusate Sodium [Colace] 100 mg PO DAILY 02/27/15 [History] Flaxseed/Omega3,6,9/Fatty Acid [Flax Seed Oil 1,300 mg Softgel] 1 each PO DAILY 02/27/15 [History] Fluticasone/Salmeterol [Advair 500-50 Diskus] 1 each IH DAILY 02/27/15 [History] LORazepam [Ativan] 0.5 mg PO TID 02/27/15 [History] Potassium Chloride 20 meq PO DAILY 02/27/15 [History] Triamterene/HCTZ 37.5/25mg [Dyazide] 1 each PO DAILY 02/27/15 [History] Vitamin E (Dl,Tocopheryl Acet) [Vitamin E] 400 unit PO DAILY 02/27/15 [History] Ascorbic Acid [Vitamin C] 500 mg PO DAILY #30 tablet 05/28/15 [Rx] Albuterol Sulfate [Albuterol Inhaler] 2 puff IH QID PRN 09/24/16 [History] DiphenhydraMINE [Benadryl] 25 mg PO Q6HR PRN #20 capsule 12/20/16 [Rx] Metoclopramide [Reglan] 5 mg PO Q6HR PRN #30 tab 12/20/16 [Rx] Ferrous Sulfate 1 tab PO DAILY #30 tablet 02/20/17 [Rx] Prochlorperazine Maleate [Compazine] 10 mg PO Q6HR PRN #30 tablet 03/31/17 [Rx] Cetirizine HCl [Zyrtec] 10 mg PO DAILY 04/27/17 [History] Sertraline [Zoloft] 150 mg PO DAILY 04/28/17 [History] Zolpidem [Ambien] 10 mg PO HS #30 tablet 05/04/17 [Rx] Naproxen [Naprosyn] 500 mg PO BID 05/07/17 [History] Nitrofurantoin (BID) [Macrobid] 100 mg PO BID #14 capsule 06/29/17 [Rx] Ribociclib Succinate [Kisqali] 3 tab PO DAILY #63 tab 07/13/17 [Rx] 3 Allergy/AdvReac Type Severity Reaction Status Date / Time acetaminophen Allergy Chest Pain Verified 07/27/17 13:29 [From Tylenol-Codeine] codeine Allergy Chest Pain Verified 07/27/17 13:29 [From Tylenol-Codeine] doxycycline Allergy Hives Verified 07/27/17 13:29 levofloxacin [From Levaquin] Allergy Hives Verified 07/27/17 13:29 All Systems PM: A 10-system review of systems was performed and is negative for pertinent findings except as documented above in the HPI. Review of systems: Persistent shortness of breath, no fevers no abdominal pain, other systems out of the 10 reviewed were negative - Constitutional Vitals: Temp Pulse Resp BP Pulse Ox 98.3 F 75 18 141/82 95 07/30/17 12:33 07/30/17 14:34 07/30/17 14:34 07/30/17 14:34 07/30/17 14:34 General appearance: Present: A&O X 3 - Head Head exam: Present: atraumatic, normocephalic Additional comments: Left Jimenez's palsy, chronic left ptosis, yellowish discharge in crusts on the left eye - Eye Eye exam: Present: PERRL, conjuntiva pink, sclera anicteric Pupils: Present: PERRL - Neck Neck exam general surgery: Present: supple, trachea midline. Absent: lymphadenopathy - Respiratory Respiratory exam: Present: CTAB, rales (Diffuse crackles, mild wheezing), wheezes. Absent: accessory muscle use, rhonchi - Cardiovascular Cardiovascular exam: Present: RRR, +S1, +S2. Absent: diastolic murmur, gallop, rubs, systolic murmur - GI/Abdominal GI/Abdominal exam: Present: normal bowel sounds, soft, no peritoneal signs. Absent: distended, tenderness - Extremities Exam Extremities exam: Present: warm, radial pulses palpable and symmetrical. Absent : calf tenderness, cyanotic, pedal edema - Neurological Exam Neurological exam: Present: CN II-XII intact, oriented X3, no focal deficits. Absent: pronater drift, facial droop, speech deficit - Skin Skin exam: Present: dry, intact Additional comments: Generalized weakness Internal Med - H&P Results - Labs CBC & Chem 7: 07/30/17 12:44 07/30/17 12:44
[2017-07-30] MEDS ORDERED: cefTRIAXone 1,000 MG in Water for inj. (sterile) 20 ML 10 ML IVP SCH (17:00)
[2017-07-30] MEDS: Ciprofloxacin OPTH Soln 2.5 ML BOTTLE LEFT EYE SCH (20:38)
[2017-07-30] MEDS: MethylPREDNISolone 40 MG/ML VIAL IVP SCH (23:52)
[2017-07-30] MEDS: *HR* LORazepam 0.5 MG TABLET PO SCH (23:53)
[2017-07-30] MEDS: Furosemide 20 MG/2 ML VIAL IVP SCH (23:53)
[2017-07-31] MEDS: Ciprofloxacin OPTH Soln 2.5 ML BOTTLE LEFT EYE SCH ×4 (01:10→11:49)
[2017-07-31 06:00] LABS: Basophils % 0.6 %; Hematocrit 32.6 % (35.3-44.9); Hemoglobin 10.8 g/dL (11.5-15.4); Immature Granulocytes % 0.6 % (0-4); Lymphocytes # 0.4 K/mcL (0.6-4.6); Lymphocytes % 12.2 %; Mean Corpuscular HGB Conc 33.1 g/dL (31.6-35.5); Mean Corpuscular Hemoglobin 32.6 pg (28.0-33.3); Mean Corpuscular Volume 98.5 fL (83.0-100.0); Mean Platelet Volume 8.8 fL (9.4-12.4); Monocytes # 0.2 K/mcL (0.0-1.3); Monocytes % 5.8 %; Neutrophils # 2.5 K/mcL (1.6-8.9); Platelet Count 268 K/mcL (140-400); Red Blood Count 3.31 M/mcL (3.82-4.97); Red Cell Distribution Width 15.9 % (11.5-14.5); Segmented Neutrophils % 80.8 %
[2017-07-31] MEDS ORDERED: *HR* Enoxaparin 40 MG/0.4 ML SYRINGE SQ SCH (06:00)
[2017-07-31 06:17] LABS: BUN/Creatinine Ratio 12 (6-26); Blood Urea Nitrogen 9 mg/dL (6-20); Calcium 7.8 mg/dL (8.6-10.3); Carbon Dioxide 26 mEq/L (23-29); Chloride 102 mEq/L (98-107); Glucose 136 mg/dL (70-105); Osmolality,Calculated 281 (280-300); Potassium 3.4 mEq/L (3.5-5.1); Sodium 135 mEq/L (136-145); eGFR For African Americans > 60 (> 60); eGFR For Non-African Americans > 60 (> 60)
[2017-07-31 06:50] LABS: Platelet Estimate Normal (Normal)
[2017-07-31] MEDS ORDERED: BuPROPion XL (24 HR) 150 MG TABLET PO SCH ×4 (09:00)
[2017-07-31] MEDS: *HR* LORazepam 0.5 MG TABLET PO SCH (09:16)
[2017-07-31] MEDS: MethylPREDNISolone 40 MG/ML VIAL IVP SCH (09:17)
[2017-07-31] MEDS: Furosemide 20 MG/2 ML VIAL IVP SCH (09:17)
--- NOTE | 2017-07-31 09:52 | Internal Med Progress Note ---
Date of Encounter: 07/31/17 Time of Encounter: 09:49 - Assessment and plan (1) Acute respiratory failure with hypoxia Current Visit: Yes Status: Acute Assessment and plan: Acute hypoxic respiratory failure secondary to volume overload, possible acute diastolic CHF combination with mild acute COPD exacerbation with possible acute bronchitis -Rocephin 1 g IV 24 hours -DuoNeb 3 mL inhaled every 6 when necessary -Solu-Medrol 40 mg IV every 8 -Strict I's and O's -Echocardiogram (2) Volume overload Current Visit: Yes Status: Acute Assessment and plan: -Lasix 20 mg IV twice a day -Is and Os -Cardiac diet Qualifiers: Hypervolemia type: unspecified Qualified Code(s): E87.70 - Fluid overload, unspecified (3) Neutropenia Current Visit: Yes Status: Acute Assessment and plan: -Likely secondary to chemotherapy Qualifiers: Neutropenia type: unspecified Qualified Code(s): D70.9 - Neutropenia, unspecified (4) Hypokalemia Current Visit: Yes Status: Acute Assessment and plan: -Replete as needed (5) Metastatic disease Current Visit: No Status: Chronic Assessment and plan: -Followed by oncology (6) Conjunctivitis Current Visit: Yes Status: Acute Assessment and plan: -Acute left eye conjunctivitis -Ciprofloxacin ophthalmic solution 2 drops left eye every 4 hours Qualifiers: Conjunctivitis type: acute Acute conjunctivitis type: bacterial Laterality: left Qualified Code(s): H10.32 - Unspecified acute conjunctivitis , left eye - Subjective Interval history: 56-year-old female presented to ED with difficulty breathing for the last few days. Oxygen decreased to 88%. This was noticed by her PCP. Does not typically wear oxygen. Was given fluids in ER; appeared to be congested and fluid overload. CTA of the chest was negative for pulmonary embolism. Potassium was 2.8, neutrophil count 1.1, BNP 216. Patient does take hydrochlorothiazide and triamterene. Blood pressure was 141/82. PMH of COPD not oxygen dependent, metastatic breast cancer on chemotherapy, left Jimenez's palsy, compression fractures Patient was seen and examined at bedside this morning. - Constitutional Vitals: Temp Pulse Resp BP Pulse Ox 98.8 F 70 16 114/71 94 07/31/17 06:53 07/31/17 06:53 07/31/17 06:53 07/31/17 06:53 07/31/17 06:53 General appearance: Present: A&O X 3 - Head Head exam: Present: atraumatic, normocephalic - Eye Eye exam: Present: PERRL, conjuntiva pink, sclera anicteric Pupils: Present: PERRL - Neck Neck exam general surgery: Present: supple, trachea midline. Absent: lymphadenopathy - Respiratory Respiratory exam: Present: CTAB. Absent: accessory muscle use, rales, rhonchi, wheezes - Cardiovascular Cardiovascular exam: Present: RRR, +S1, +S2. Absent: diastolic murmur, gallop, rubs, systolic murmur - GI/Abdominal GI/Abdominal exam: Present: normal bowel sounds, soft, no peritoneal signs. Absent: distended, tenderness - Extremities Exam Extremities exam: Present: warm, radial pulses palpable and symmetrical. Absent : calf tenderness, cyanotic, pedal edema - Neurological Exam Neurological exam: Present: CN II-XII intact, oriented X3, no focal deficits. Absent: pronater drift, facial droop, speech deficit - Skin Skin exam: Present: dry, intact Internal Medicine: Result - Labs CBC & Chem 7: 07/31/17 05:27 07/31/17 05:27 Labs: Short CBC 07/31/17 Range/Units 05:27 WBC 3.1 L D (4.3-11.1) K/mcL Hgb 10.8 L (11.5-15.4) g/dL Hct 32.6 L (35.3-44.9) % Plt Count 268 (140-400) K/mcL Neutrophils # 2.5 (1.6-8.9) K/mcL BMP 07/31/17 05:27 Sodium 135 L Potassium 3.4 L Chloride 102 Carbon Dioxide 26 BUN 9 Creatinine 0.78 Glucose 136 H Calcium 7.8 L Consult Discharge Plan - Plan Referrals: Rashawn Rosenberg MD [Primary Care Provider] -
[2017-07-31 11:45] VITALS: BP 100/64
--- NOTE | 2017-07-31 13:03 | Discharge Summary ---
- NOTES TO OUTPATIENT PROVIDER Notes to Outpatient Provider: x Date of Encounter: 08/06/17 Time of Encounter: 13:01 - Discharge Diagnosis (1) Acute hypoxemic respiratory failure Priority: Primary Status: Acute (2) Neutropenia Priority: Secondary Status: Acute Comments: Secondary to chemotherapy Qualifiers: Neutropenia type: unspecified Qualified Code(s): D70.9 - Neutropenia, unspecified (3) COPD (chronic obstructive pulmonary disease) Priority: Secondary Status: Acute Qualifiers: COPD type: emphysema Emphysema type: other Qualified Code(s): J43.8 - Other emphysema (4) Metastatic breast carcinoma Priority: Secondary Status: Acute (5) Obesity Priority: Secondary Status: Chronic Qualifiers: Obesity type: unspecified obesity type Obesity classification: adult class 3 (BMI >= 40) Body mass index: BMI 40.0-44.9 Qualified Code(s): E66.9 - Obesity, unspecified; Z68.41 - Body mass index (BMI) 40.0-44.9, adult; Z68.41 - Body mass index (BMI) 40.0-44.9, adult; Z68.41 - Body mass index (BMI) 40.0-44.9 , adult; Z68.41 - Body mass index (BMI) 40.0-44.9, adult Hospital course: Ms. Bonner is a 56 year old female Discharge discussed with: patient, family - Time Spent with Patient Total time spent providing and/or coordinating discharge services: - Discharge Medications Prescriptions: Azithromycin [Zithromax] 250 mg PO DAILY #5 tablet Home Medications: Albuterol Neb [AccuNeb] 1.25 mg IH Q6H PRN 02/27/15 [History] BuPROPion XL (24 HR) [Wellbutrin Xl] 150 mg PO DAILY 02/27/15 [History] BuPROPion XL (24 HR) [Wellbutrin Xl] 300 mg PO DAILY 02/27/15 [History] Docusate Sodium [Colace] 100 mg PO DAILY 02/27/15 [History] Flaxseed/Omega3,6,9/Fatty Acid [Flax Seed Oil 1,300 mg Softgel] 1 each PO DAILY 02/27/15 [History] Fluticasone/Salmeterol [Advair 500-50 Diskus] 1 each IH DAILY 02/27/15 [History] LORazepam [Ativan] 0.5 mg PO TID 02/27/15 [History] Potassium Chloride 20 meq PO DAILY 02/27/15 [History] Triamterene/HCTZ 37.5/25mg [Dyazide] 1 each PO DAILY 02/27/15 [History] Albuterol Sulfate [Albuterol Inhaler] 2 puff IH QID PRN 09/24/16 [History] DiphenhydraMINE [Benadryl] 25 mg PO Q6HR PRN #20 capsule 12/20/16 [Rx] Metoclopramide [Reglan] 5 mg PO Q6HR PRN #30 tab 12/20/16 [Rx] Ferrous Sulfate 1 tab PO DAILY #30 tablet 02/20/17 [Rx] Prochlorperazine Maleate [Compazine] 10 mg PO Q6HR PRN #30 tablet 03/31/17 [Rx] Sertraline [Zoloft] 150 mg PO DAILY 04/28/17 [History] Zolpidem [Ambien] 10 mg PO HS #30 tablet 05/04/17 [Rx] Nitrofurantoin (BID) [Macrobid] 100 mg PO BID #14 capsule 06/29/17 [Rx] Ribociclib Succinate [Kisqali] 3 tab PO DAILY #63 tab 07/13/17 [Rx] Azithromycin [Zithromax] 250 mg PO DAILY #5 tablet 07/31/17 [Rx] Allergies/Adverse Reactions: 3 Allergy/AdvReac Type Severity Reaction Status Date / Time acetaminophen Allergy Chest Pain Verified 07/27/17 13:29 [From Tylenol-Codeine] codeine Allergy Chest Pain Verified 07/27/17 13:29 [From Tylenol-Codeine] doxycycline Allergy Hives Verified 07/27/17 13:29 levofloxacin [From Levaquin] Allergy Hives Verified 07/27/17 13:29 Date of admission: 07/30/17 16:00 Primary care physician: Rashawn Rosenberg MD - Constitutional Vitals: Temp Pulse Resp BP Pulse Ox 98 F 72 16 100/64 91 07/31/17 11:41 07/31/17 11:41 07/31/17 11:41 07/31/17 11:41 07/31/17 11:41 General appearance: Present: A&O X 3, no acute distress, answers questions appropriately - Neck Neck exam general surgery: Present: full ROM Additional comments: No JVD, - Respiratory Respiratory exam: Present: CTAB. Absent: rhonchi, wheezes, tachypnea - Cardiovascular Cardiovascular exam: Present: RRR, +S1, +S2. Absent: JVD - GI/Abdominal GI/Abdominal exam: Present: normal bowel sounds, soft, no peritoneal signs. Absent: tenderness - Patient Status Disposition: Home Health Service Condition: Fair Functional capacity at discharge: uses cane/walker Overall status at discharge: patient is back to baseline - Discharge Instructions Follow Up With: Rashawn Rosenberg MD [Primary Care Provider] - 08/10/17 1:20 pm - Diet and Activity Activity: ambulate only with your walker Diet: advance to your usual diet - VTE Documentation of Mechanical Device: Intermittent pneumatic compression device - Attending Attestation I examined this patient and my medical decision-making was reviewed with the Resident Physician. I agree with the documented findings, disposition and treatment plan as described except to the extent set forth below.
[2017-07-31] MEDS ORDERED: FLUARIX QUAD 2017-18 36MOS UP/PF 0.5 ML SYRINGE IM ONE (13:53)
--- NOTE | 2017-07-31 14:38 | Physician Discharge Referral ---
Home Health/Hosp Referral Info Transfer to: Home Health Provider in Charge Post Discharge: PCP - Diagnosis (1) Acute respiratory failure with hypoxia Priority: Primary Status: Resolved (2) Volume overload Priority: Secondary Status: Acute (3) Neutropenia Priority: Secondary Status: Acute (4) Hypokalemia Priority: Secondary Status: Acute (5) Metastatic disease Priority: Secondary Status: Chronic (6) Conjunctivitis Priority: Secondary Status: Acute - Respiratory Orders Smoking Cessation: Smoking cessation has been advised. For more information, call the [place] Tobacco Quit Line at 7-772-NQMT-NOW. - Transfer Medications Prescriptions: Azithromycin [Zithromax] 250 mg PO DAILY #5 tablet Home Medications: Albuterol Neb [AccuNeb] 1.25 mg IH Q6H PRN 02/27/15 [History] BuPROPion XL (24 HR) [Wellbutrin Xl] 150 mg PO DAILY 02/27/15 [History] BuPROPion XL (24 HR) [Wellbutrin Xl] 300 mg PO DAILY 02/27/15 [History] Docusate Sodium [Colace] 100 mg PO DAILY 02/27/15 [History] Flaxseed/Omega3,6,9/Fatty Acid [Flax Seed Oil 1,300 mg Softgel] 1 each PO DAILY 02/27/15 [History] Fluticasone/Salmeterol [Advair 500-50 Diskus] 1 each IH DAILY 02/27/15 [History] LORazepam [Ativan] 0.5 mg PO TID 02/27/15 [History] Potassium Chloride 20 meq PO DAILY 02/27/15 [History] Triamterene/HCTZ 37.5/25mg [Dyazide] 1 each PO DAILY 02/27/15 [History] Albuterol Sulfate [Albuterol Inhaler] 2 puff IH QID PRN 09/24/16 [History] DiphenhydraMINE [Benadryl] 25 mg PO Q6HR PRN #20 capsule 12/20/16 [Rx] Metoclopramide [Reglan] 5 mg PO Q6HR PRN #30 tab 12/20/16 [Rx] Ferrous Sulfate 1 tab PO DAILY #30 tablet 02/20/17 [Rx] Prochlorperazine Maleate [Compazine] 10 mg PO Q6HR PRN #30 tablet 03/31/17 [Rx] Sertraline [Zoloft] 150 mg PO DAILY 04/28/17 [History] Zolpidem [Ambien] 10 mg PO HS #30 tablet 05/04/17 [Rx] Nitrofurantoin (BID) [Macrobid] 100 mg PO BID #14 capsule 06/29/17 [Rx] Ribociclib Succinate [Kisqali] 3 tab PO DAILY #63 tab 07/13/17 [Rx] Azithromycin [Zithromax] 250 mg PO DAILY #5 tablet 07/31/17 [Rx] Allergies/Adverse Reactions: 3 Allergy/AdvReac Type Severity Reaction Status Date / Time acetaminophen Allergy Chest Pain Verified 07/27/17 13:29 [From Tylenol-Codeine] codeine Allergy Chest Pain Verified 07/27/17 13:29 [From Tylenol-Codeine] doxycycline Allergy Hives Verified 07/27/17 13:29 levofloxacin [From Levaquin] Allergy Hives Verified 07/27/17 13:29 Certification: Further, I certify that my clinical findings support that this patient is homebound (i.e. absences from home require considerable and taxing effort and are for medical reasons or sabianism services or infrequently or short duration when for other reasons) because: Homebound Reason: Patient requires assistance of a person or device to safely leave home Attestation: My signature below is to certify that this patient is under my care and that I, or nurse practitioner, or a physician's cement tester assistant working with me, has a face-to -face encounter with this patient.
--- NOTE | 2017-07-31 16:59 | Electrocardiograph Report ---
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
== END 2017-07-31 14:32 | disposition home health service (06) ==
LOC: 3ANU 12:31 → EMEROO 12:31 → 3ANU 16:45
PROVIDERS: ADMIT Internal Medicine; ATTEND Internal Medicine

== ENCOUNTER 2018-02-02 08:59 | Inpatient (IN) ==
[2018-02-02] MEDS ORDERED: 0.9 % Sodium Chloride 1,000 ML IVC ONE (09:18)
[2018-02-02 09:46] LABS: Hematocrit 34.6 % (35.3-44.9); Mean Corpuscular HGB Conc 34.7 g/dL (31.6-35.5); Mean Corpuscular Hemoglobin 35.3 pg (28.0-33.3); Mean Corpuscular Volume 101.8 fL (83.0-100.0); Mean Platelet Volume 8.5 fL (9.4-12.4); Platelet Count 151 K/mcL (140-400); Red Cell Distribution Width 13.1 % (11.5-14.5)
[2018-02-02 09:52] LABS: INR 1.1; Prothrombin Time 12.2 Seconds (9.4-12.1)
[2018-02-02 09:54] LABS: Activated Partial Thrombo Time 33.3 Seconds (26.0-36.0)
[2018-02-02 10:06] LABS: Alanine Aminotransferase 35 Units/L (7-52); Albumin 3.8 g/dL (3.5-5.7); Alkaline Phosphatase 116 Units/L (34-104); Aspartate Amino Transferase 36 Units/L (13-39); BUN/Creatinine Ratio 17 (6-26); Bilirubin,Direct 0.2 mg/dL (0.0-0.2); Bilirubin,Indirect 0.4 mg/dL (0.0-1.2); Bilirubin,Total 0.6 mg/dL (0.3-1.0); Blood Urea Nitrogen 16 mg/dL (6-20); Carbon Dioxide 29 mEq/L (23-29); Chloride 103 mEq/L (98-107); Globulin 3.7 g/dL (2.4-3.5); Glucose 100 mg/dL (70-105); Magnesium 2.3 mg/dL (1.6-2.6); Osmolality,Calculated 289 (280-300); Phosphorous 2.8 mg/dL (2.7-4.5); Potassium 3.4 mEq/L (3.5-5.1); Sodium 139 mEq/L (136-145); Total Protein 7.5 g/dL (6.4-8.9); eGFR For Non-African Americans > 60 (> 60)
[2018-02-02 10:07] LABS: Troponin I < 0.03 ng/mL (< 0.04)
--- NOTE | 2018-02-02 10:12 | Emergency Department Note ---
Disposition Clinical Impression: Fatigue, Breast cancer, Weakness, Pneumonia, Lumbar compression fracture Disposition: Admitted As Inpatient Condition: Fair Forms: ED Satisfaction Letter Time of Disposition: 11:28 Nausea/Vomiting/Diarrhea HPI - General Chief complaint: ED Weakness Stated complaint: general weakness Time Seen by Provider: 02/02/18 09:01 Source: patient, EMS Limitations: no limitations Nursing Notes Reviewed: Yes Vital Signs Reviewed: Yes - History of Present Illness HPI Narrative: Patient presents from home for evaluation of generalized malaise and inability to take anything in by mouth. 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 She has had surgery on her brain in the past secondary to masses well. Patient denies any fever she has had intermittent chills denies any chest pain shortness of breath headache or vision change. Patient said come in the emergency room today because she just was not feeling well and was unable to keep anything down. He is in chemotherapy treatment with Dr. Saini Pt Subjective Complaint: nausea, vomiting Onset (ago): day(s) If pain, Location of pain: diffuse Severity: mild Severity scale (1-10): 3 Quality: aching Consistency: intermittent Improves with: nothing Worsens with: eating Associated symptoms: Reports: myalgias, fever/chills, loss of appetite, malaise , nausea/vomiting - Related Data Home Medications Medication Instructions Recorded Confirmed Albuterol Neb [AccuNeb] 1.25 mg IH Q6H PRN 02/27/15 02/02/18 BuPROPion XL (24 HR) [Wellbutrin 150 mg PO DAILY 02/27/15 02/02/18 Xl] BuPROPion XL (24 HR) [Wellbutrin 300 mg PO DAILY 02/27/15 02/02/18 Xl] Docusate Sodium [Colace] 100 mg PO DAILY PRN 02/27/15 02/02/18 Fluticasone/Salmeterol [Advair 1 puff IH BID 02/27/15 02/02/18 500-50 Diskus] LORazepam [Ativan] 0.5 mg PO TID 02/27/15 02/02/18 Potassium Chloride 20 meq PO DAILY 02/27/15 02/02/18 Triamterene/HCTZ 37.5/25mg 1 each PO DAILY 02/27/15 02/02/18 [Dyazide] Albuterol Sulfate [Albuterol 2 puff IH QID PRN 09/24/16 02/02/18 Inhaler] Sertraline [Zoloft] 150 mg PO DAILY 04/28/17 02/02/18 Cetirizine HCl [Zyrtec] 10 mg PO DAILY 12/29/17 02/02/18 Ranitidine HCl [Acid Pharmacometrician] 150 mg PO BID 12/29/17 02/02/18 Methylnaltrexone [place] [Relistor] 150 mg PO DAILY 02/02/18 02/02/18 Topiramate [Topamax] 100 mg PO BID 02/02/18 02/02/18 Previous Rx's Medication Instructions Recorded DiphenhydraMINE [Benadryl] 25 mg PO Q6HR PRN #20 capsule 12/20/16 Zolpidem [Ambien] 10 mg PO HS #30 tablet 05/04/17 Ferrous Sulfate [Iron] 325 mg PO DAILY #90 capsule.er 09/24/17 Ribociclib Succinate [Kisqali] 3 tab PO DAILY #63 tab 01/08/18 Morphine Immed Rel [Morphine 30 mg PO Q8H PRN 30 Days #90 tablet 01/12/18 Sulfate] Prochlorperazine Maleate 10 mg PO Q6HR PRN #30 tablet 01/12/18 [Compazine] Allergies Allergy/AdvReac Type Severity Reaction Status Date / Time acetaminophen Allergy Chest Pain Verified 01/12/18 14:11 [From Tylenol-Codeine] codeine Allergy Chest Pain Verified 01/12/18 14:11 [From Tylenol-Codeine] doxycycline Allergy Hives Verified 01/12/18 14:11 levofloxacin [From Levaquin] Allergy Hives Verified 01/12/18 14:11 All systems ED: reviewed and negative except as stated. Review of Systems: As Per HPI Constitutional: Reports: chills, weakness. Denies: fever, weight change Eyes: Denies: eye pain, eye discharge, vision change ENT ED: Denies: ear pain, throat pain, dental pain Cardiovascular: Denies: chest pain, palpitations, dyspnea on exertion, orthopnea Respiratory: Denies: cough, dyspnea, wheezes, hemoptysis Gastrointestinal: Reports: nausea, vomiting. Denies: abdominal pain, diarrhea, constipation Genitourinary: Denies: urgency, dysuria, frequency Musculoskeletal: Denies: back pain, neck pain Neurological: Denies: headache Endocrine: Reports: fatigue Past Medical History - Past Medical History Attestation: Yes The following information was validated with the patient. Source: patient Medical history: Reports: asthma, cancer, COPD, GERD, hyperlipidemia, hypertension, migraine, other Surgical history: Reports: breast surgery, cancer surgery, cholecystectomy, hysterectomy Psychiatric history: Reports: anxiety, depression LABORATORY INSPECTOR history: Reports: no LABORATORY INSPECTOR history - Social History Smoking Status: Never smoker Smokeless Tobacco Status: No Alcohol use: Reports: none Drug use: Reports: none Physical Exam - General Limitations: no limitations General appearance: alert, in no apparent distress - Head Head exam: atraumatic, normocephalic, normal inspection - Eye Eye exam: Present: other - ENT ENT exam: other - Neck Neck exam: Present: normal inspection, full ROM, trachea midline. Absent: meningismus, lymphadenopathy - Chest Chest inspection: Present: normal inspection, symmetric chest wall rise. Absent : tenderness - Respiratory Respiratory exam: Present: normal lung sounds bilaterally. Absent: respiratory distress, wheezes, accessory muscle use - Cardiovascular Cardiovascular exam: Present: regular rate, normal rhythm, normal heart sounds - Abdominal Exam Abdominal exam: Present: soft, Non-Tender, normal bowel sounds. Absent: tenderness, distention, guarding, rebound, rigidity, diminished bowel sounds - Extremities Exam Extremities exam: Present: normal inspection, full ROM, normal capillary refill. Absent: tenderness - Back Exam Back exam: Present: normal inspection - Neurological Exam Neurological exam: Present: alert, oriented X3, CN II-XII intact - Skin Skin exam: Present: warm, dry, intact, normal color Course Course Narrative: Patient seen and examined the time of arrival. See history of present illness. 57-year-old female presents to the emergency room for evaluation of generalized malaise and inability to take anything in by mouth. Patient has known breast cancer with metastases to the bone of the brain. Currently in chemotherapy treatment by Dr. Parveen mireles. This is been going on for several days. Patient lives at home by herself and does not have any home health aides there to help her with her ask of daily living. Currently she is denying chest pain shortness of breath headache vision changes diarrhea. Denies any medication changes. Denies any fevers but has had intermittent chills. She has not fallen or injured herself. She does have left-sided facial droop and inability to close left eye secondary to previous brain masses that caused neurologic deficits or chronic. Patient has no other new complaints or symptoms here today. Any of these presenting symptoms appear to be chronic in nature and the patient is unable to describe any new or changes in progression at this point. Patient was CT imaging of the head along with CT of the chest and abdomen completed with noncontrasted evaluation this point for review and concern of possible progression of her disease. Patient is describing a DNR CCA status at this point. Sepsis evaluation will be started and completed here with blood cultures lactic acid along with labs including CBC and chemistry panel and urinalysis. Patient does not show any focal signs of infectious etiology considering her vital signs are normal but because of the patient's immunosuppression with the chemotherapy as well as what she describes as generalized malaise and weakness we will evaluate in detail. Patient could have what appears to be progression of her disease with continuation of failure to thrive secondary to the progression of the illness. We will discuss further intervention or medical recommendations once the workup and treatment course are established. Pain medication will be provided as needed but the patient is currently denying any pain or symptoms at this point. Her main complaint is generalized malaise with nausea and vomiting. Disposition will most likely be admission the hospital once workup and treatment course have been established. - Reevaluation(s) Reevaluation #1: Labs appear to be unremarkable this time. Patient's hemoglobin is stable. She does not have an elevated white blood cell count. Several chronic derangements are noted but do appear to be at baseline. Imaging is still pending and disposition will be determined Time: 10:33 Reevaluation #2: CT imaging of the abdomen shows progressive metastatic disease to the bone with pathologic fracture at L2-L3 with possible retropulsion. I went in and reevaluated the patient she has no acute neurologic deficits in the lower extremities and denies any other complaints. Patient is still complaining of pain that is similar to all of her other issues with the bony metastases at this point. I discussed the findings with the on-call spine surgeon Dr. Cabrera he had no other recommendations at this time outside he will evaluate her in the inpatient setting and determine if surgical intervention is required. The hospitalist and I also reviewed the case here in the emergency room and discussed that the patient does have right upper lobe pneumonia which was treated with vancomycin and Zosyn here. She does not show any acute signs of sepsis but is concerning secondary to the chemotherapy immunosuppression and other medical issues. Patient will be admitted for continuation of care at this time. No other concerns at this point. Time: 11:27 Vital Signs Temperature 97.4 F L 02/02/18 09:04 Pulse Rate 68 02/02/18 09:04 Respiratory Rate 16 02/02/18 09:04 Blood Pressure 123/71 02/02/18 09:04 O2 Sat by Pulse Oximetry 94 02/02/18 09:04 Temperature 97.4 F L 02/02/18 09:04 Pulse Rate 68 02/02/18 09:04 Respiratory Rate 16 02/02/18 09:04 Blood Pressure 123/71 02/02/18 09:04 O2 Sat by Pulse Oximetry 95 02/02/18 11:18 Oxygen Delivery Oxygen Delivery Room Air Nausea/Vomiting/Diarrhea - MDM Narrative Medical decision making narrative: Metastatic breast cancer, generalized malaise, nausea and vomiting, failure to thrive leukopenia - Medical Records Medical records reviewed: Yes I reviewed the patient's medical records. - Lab Data Lab results reviewed: Yes I reviewed the patient's lab results. Result diagrams: 02/02/18 09:29 02/02/18 09:29 Lab Results 02/02/18 02/02/18 02/02/18 Range/Units 09:29 09:29 09:29 WBC 3.1 L (4.3-11.1) K/mcL RBC 3.40 L (3.82-4.97) M/mcL Hgb 12.0 (11.5-15.4) g/dL Hct 34.6 L (35.3-44.9) % MCV 101.8 H (83.0-100.0) fL MCH 35.3 H (28.0-33.3) pg MCHC 34.7 (31.6-35.5) g/dL RDW 13.1 (11.5-14.5) % Plt Count 151 (140-400) K/mcL MPV 8.5 L (9.4-12.4) fL Seg Neutrophils % 80.0 % Lymphocytes % 18.0 % Monocytes % 2.0 % Neutrophils # 2.5 (1.6-8.9) K/mcL Lymphocytes # 0.6 (0.6-4.6) K/mcL Monocytes # 0.1 (0.0-1.3) K/mcL Platelet Estimate Normal (Normal) PT 12.2 H (9.4-12.1) Seconds INR 1.1 APTT 33.3 (26.0-36.0) Seconds Sodium 139 (136-145) mEq/L Potassium 3.4 L (3.5-5.1) mEq/L Chloride 103 (98-107) mEq/L Carbon Dioxide 29 (23-29) mEq/L BUN 16 (6-20) mg/dL Creatinine 0.96 (0.60-1.20) mg/dL Est GFR ( Amer) > 60 (> 60) Est GFR (Non-Af Amer) > 60 (> 60) BUN/Creatinine Ratio 17 (6-26) Glucose 100 (70-105) mg/dL Calculated Osmolality 289 (280-300) Lactic Acid (0.5-2.2) mmol/L Calcium 9.0 (8.6-10.3) mg/dL Phosphorus 2.8 (2.7-4.5) mg/dL Magnesium 2.3 (1.6-2.6) mg/dL Total Bilirubin 0.6 (0.3-1.0) mg/dL Direct Bilirubin 0.2 (0.0-0.2) mg/dL Indirect Bilirubin 0.4 (0.0-1.2) mg/dL AST 36 (13-39) Units/L ALT 35 (7-52) Units/L Alkaline Phosphatase 116 H (34-104) Units/L Troponin I < 0.03 (< 0.04) ng/mL B-Natriuretic Peptide (Less than 100) pg/mL Serum Total Protein 7.5 (6.4-8.9) g/dL Albumin 3.8 (3.5-5.7) g/dL Globulin 3.7 H (2.4-3.5) g/dL Albumin/Globulin Ratio 1.0 L (1.1-2.2) Random Cortisol 27.9 mcg/dl 02/02/18 02/02/18 Range/Units 09:29 09:29 WBC (4.3-11.1) K/mcL RBC (3.82-4.97) M/mcL Hgb (11.5-15.4) g/dL Hct (35.3-44.9) % MCV (83.0-100.0) fL MCH (28.0-33.3) pg MCHC (31.6-35.5) g/dL RDW (11.5-14.5) % Plt Count (140-400) K/mcL MPV (9.4-12.4) fL Seg Neutrophils % % Lymphocytes % % Monocytes % % Neutrophils # (1.6-8.9) K/mcL Lymphocytes # (0.6-4.6) K/mcL Monocytes # (0.0-1.3) K/mcL Platelet Estimate (Normal) PT (9.4-12.1) Seconds INR APTT (26.0-36.0) Seconds Sodium (136-145) mEq/L Potassium (3.5-5.1) mEq/L Chloride (98-107) mEq/L Carbon Dioxide (23-29) mEq/L BUN (6-20) mg/dL Creatinine (0.60-1.20) mg/dL Est GFR ( Amer) (> 60) Est GFR (Non-Af Amer) (> 60) BUN/Creatinine Ratio (6-26) Glucose (70-105) mg/dL Calculated Osmolality (280-300) Lactic Acid 0.8 (0.5-2.2) mmol/L Calcium (8.6-10.3) mg/dL Phosphorus (2.7-4.5) mg/dL Magnesium (1.6-2.6) mg/dL Total Bilirubin (0.3-1.0) mg/dL Direct Bilirubin (0.0-0.2) mg/dL Indirect Bilirubin (0.0-1.2) mg/dL AST (13-39) Units/L ALT (7-52) Units/L Alkaline Phosphatase (34-104) Units/L Troponin I (< 0.04) ng/mL B-Natriuretic Peptide 104 H (Less than 100) pg/mL Serum Total Protein (6.4-8.9) g/dL Albumin (3.5-5.7) g/dL Globulin (2.4-3.5) g/dL Albumin/Globulin Ratio (1.1-2.2) Random Cortisol mcg/dl - Radiology Data Radiology results reviewed: Yes I reviewed the patient's radiology results. - EKG Data EKG attestation: Yes I reviewed and interpreted this EKG. EKG results narrative: EKG shows sinus rhythm. Heart rate is 63. WA interval 177. QRS duration of 90. QTC of 443. No acute signs of ST segment elevation or abnormality. No acute signs of axis deviation. No acute signs of WPW or Brugada syndrome. EKG was compared to previous on 12/10/17 with no significant morphology changes or amplitude abnormalities. Patient is denying Chest pain
[2018-02-02 10:22] LABS: Lymphocytes # 0.6 K/mcL (0.6-4.6); Monocytes # 0.1 K/mcL (0.0-1.3); Neutrophils # 2.5 K/mcL (1.6-8.9); Platelet Estimate Normal (Normal)
[2018-02-02] MEDS ORDERED: Piperacillin/Tazobactam 3.375 GM in 0.9 % Sodium Chloride Mini Bag 100 ML IVPB ONE (11:01)
[2018-02-02] MEDS ORDERED: *HR* HYDROmorphone (PF) 1 MG/ML SYRINGE IVP ONE (11:06)
[2018-02-02] MEDS ORDERED: Naloxone 0.4 MG/ML INJ IVP PRN (11:24)
--- NOTE | 2018-02-02 12:38 | Internal Med History&Physical ---
Date of Encounter: 02/02/18 Time of Encounter: 12:20 Internal Medicine - H&P: HPI Chief complaint: Coughing, nausea, vomiting and cold sweats History of present illness: Ms. Bonner is a 57 year old female with pmh of left sided stage 4 breast cancer with bone metastases on chemotherapy, COPD, legal blindness presenting with complaints of vomiting and coughing of about 2 days duration. She notes that these symtpoms were sudden onset and denies any specific triggers. She also complains of nausea and vomiting of 2 days duration and has been breaking out in cold sweats. Also complained of generalized weakness and an inability to tolerate any PO intake. Came to the Er because she just wasn't feeling well. In the ER, they did a CT chest showing right upper lobe pneumonia and started her on vanc and zosyn. She is being admitted for further management Past Med Surg Social Fam HX - Past Medical History Medical history: asthma, cancer, COPD, GERD, hyperlipidemia, hypertension, migraine, other Additional medical history: Stage 4 breast cancer treated with Chemo as of . Psychiatric history: anxiety, depression - Past Surgical History Surgical History: breast surgery, cancer surgery, cholecystectomy, hysterectomy Additional surgical history: Brain Surgery - Social History Smoking Status: Never smoker Smokeless Tobacco Status: No Alcohol use: none Drug use: none - Family History Father Adopted: No Family Member Ethnicity: Non- Living Status: Internal Medicine - H&P: Meds Albuterol Neb [AccuNeb] 1.25 mg IH Q6H PRN 02/27/15 [History] BuPROPion XL (24 HR) [Wellbutrin Xl] 150 mg PO DAILY 02/27/15 [History] BuPROPion XL (24 HR) [Wellbutrin Xl] 300 mg PO DAILY 02/27/15 [History] Docusate Sodium [Colace] 100 mg PO DAILY PRN 02/27/15 [History] Fluticasone/Salmeterol [Advair 500-50 Diskus] 1 puff IH BID 02/27/15 [History] LORazepam [Ativan] 0.5 mg PO TID 02/27/15 [History] Potassium Chloride 20 meq PO DAILY 02/27/15 [History] Triamterene/HCTZ 37.5/25mg [Dyazide] 1 each PO DAILY 02/27/15 [History] Albuterol Sulfate [Albuterol Inhaler] 2 puff IH QID PRN 09/24/16 [History] DiphenhydraMINE [Benadryl] 25 mg PO Q6HR PRN #20 capsule 12/20/16 [Rx] Sertraline [Zoloft] 150 mg PO DAILY 04/28/17 [History] Zolpidem [Ambien] 10 mg PO HS #30 tablet 05/04/17 [Rx] Ferrous Sulfate [Iron] 325 mg PO DAILY #90 capsule.er 09/24/17 [Rx] Cetirizine HCl [Zyrtec] 10 mg PO DAILY 12/29/17 [History] Ranitidine HCl [Acid Microelectronics Engineer] 150 mg PO BID 12/29/17 [History] Ribociclib Succinate [Kisqali] 3 tab PO DAILY #63 tab 01/08/18 [Rx] Morphine Immed Rel [Morphine Sulfate] 30 mg PO Q8H PRN 30 Days #90 tablet [Rx] Prochlorperazine Maleate [Compazine] 10 mg PO Q6HR PRN #30 tablet 01/12/18 [Rx] Methylnaltrexone [place] [Relistor] 150 mg PO DAILY 02/02/18 [History] Topiramate [Topamax] 100 mg PO BID 02/02/18 [History] 3 Allergy/AdvReac Type Severity Reaction Status Date / Time acetaminophen Allergy Chest Pain Verified 01/12/18 14:11 [From Tylenol-Codeine] codeine Allergy Chest Pain Verified 01/12/18 14:11 [From Tylenol-Codeine] doxycycline Allergy Hives Verified 01/12/18 14:11 levofloxacin [From Levaquin] Allergy Hives Verified 01/12/18 14:11 All Systems PM: A 10-system review of systems was performed and is negative for pertinent findings except as documented above in the HPI. - Constitutional Constitutional: lethargy, no chills, no fever(s), no night sweats - EENT Eyes: no change in vision, no discharge, no pain, no photophobia Ears: no ear discharge, no ear pain, no tinnitus Nose, mouth and throat: no dysphagia, no nasal discharge, no neck pain, no sore throat - Cardiovascular Cardiovascular ROS IM: no chest pain, no diaphoresis, no dyspnea, no lightheadedness, no palpitations, no syncope - Respiratory Respiratory: cough, dyspnea, no wheezing, no excessive phlegm production - Gastrointestinal Gastrointestinal: nausea, vomiting, no abdominal pain, no diarrhea, no hematemesis, no hematochezia, no melena - Genitourinary Genitourinary: no change in urinary stream, no dysuria, no flank pain, no hematuria - Musculoskeletal Musculoskeletal ROS IM: no numbness, no tingling - Integumentary Integumentary IM: no rash, no unusual bruising - Neurological Neurological ROS: no confusion, no convulsions, no focal weakness, no numbness, no tingling, no tremor(s) - Hematologic/Lymphatic Hematologic/Lymphatic: no easy bruising - Constitutional Vitals: Temp Pulse Resp BP Pulse Ox 97.4 F L 68 16 123/71 95 02/02/18 09:04 02/02/18 09:04 02/02/18 09:04 02/02/18 09:04 02/02/18 11:18 Exam: Has intermittent coughing - Head Head exam: Present: atraumatic, normocephalic - Eye Eye exam: Present: conjuntiva pink, sclera anicteric Additional comments: left eye blindness - Neck Neck exam general surgery: Present: supple, trachea midline. Absent: lymphadenopathy - Respiratory Respiratory exam: Present: CTAB. Absent: accessory muscle use, rales, rhonchi, wheezes - Cardiovascular Cardiovascular exam: Present: RRR, +S1, +S2. Absent: diastolic murmur, gallop, rubs, systolic murmur - GI/Abdominal GI/Abdominal exam: Present: normal bowel sounds, soft, no peritoneal signs. Absent: distended, tenderness - Extremities Exam Extremities exam: Present: warm, radial pulses palpable and symmetrical. Absent : calf tenderness, cyanotic, pedal edema - Neurological Exam Neurological exam: Present: CN II-XII intact, oriented X3, no focal deficits. Absent: pronater drift, facial droop, speech deficit - Skin Skin exam: Present: dry, intact Internal Med - H&P Results - Labs CBC & Chem 7: 02/02/18 09:29 02/02/18 09:29 Labs: Short CBC 02/02/18 Range/Units 09:29 WBC 3.1 L (4.3-11.1) K/mcL Hgb 12.0 (11.5-15.4) g/dL Hct 34.6 L (35.3-44.9) % Plt Count 151 (140-400) K/mcL Neutrophils # 2.5 (1.6-8.9) K/mcL BMP 02/02/18 09:29 Sodium 139 Potassium 3.4 L Chloride 103 Carbon Dioxide 29 BUN 16 Creatinine 0.96 Glucose 100 Calcium 9.0 Cardiac Enzymes 02/02/18 Range/Units 09:29 Troponin I < 0.03 (< 0.04) ng/mL Liver Function 02/02/18 Range/Units 09:29 Total Bilirubin 0.6 (0.3-1.0) mg/dL Direct Bilirubin 0.2 (0.0-0.2) mg/dL AST 36 (13-39) Units/L ALT 35 (7-52) Units/L Alkaline Phosphatase 116 H (34-104) Units/L Albumin 3.8 (3.5-5.7) g/dL - Impressions ITS Impressions Head CT 02/02/18 09:19 IMPRESSION: 1. No acute intracranial abnormality. 2. Postsurgical changes are noted from occipital craniotomies with a large area of encephalomalacia noted in the left cerebellar hemisphere, stable. 3. Small areas of encephalomalacia in the right frontal and parietal regions are stable. D/ / 02/02/2018 11:21:31 Wilfred Leonard MD / balbir Interpreting Provider: Wilfred Leonard MD Abdomen/Pelvis CT 02/02/18 09:20 IMPRESSION: 1. Acute focal airspace disease involving the posterior right upper lobe. Patchy airspace opacities also present involving the right middle lobe. Findings are concerning for pneumonia. Radiographic follow-up recommended to ensure resolution. 2. Stable small and borderline mediastinal and bilateral hilar lymph nodes. No new adenopathy within the chest. 3. No acute findings within the abdomen. 4. No acute findings within the pelvis. 5. Diverticulosis. 6. Redemonstration of widespread osseous metastases. There are new compression fractures present at L2 and L3 compared to prior abdominal CT and lumbar CT of 04/27/2017. Mild retropulsion noted at L2 resulting in focal narrowing of the spinal canal at this level. 7. Multiple nondisplaced chronic bilateral pathologic rib fractures. 8. Results were called to Dr. Baeza at 11 a.m., 02/02/2018 D/ : / 02/02/2018 11:22:10 Demar Dykes MD / jass Interpreting Provider: Demar Dykes MD Chest CT 02/02/18 09:20 IMPRESSION: 1. Acute focal airspace disease involving the posterior right upper lobe. Patchy airspace opacities also present involving the right middle lobe. Findings are concerning for pneumonia. Radiographic follow-up recommended to ensure resolution. 2. Stable small and borderline mediastinal and bilateral hilar lymph nodes. No new adenopathy within the chest. 3. No acute findings within the abdomen. 4. No acute findings within the pelvis. 5. Diverticulosis. 6. Redemonstration of widespread osseous metastases. There are new compression fractures present at L2 and L3 compared to prior abdominal CT and lumbar CT of 04/27/2017. Mild retropulsion noted at L2 resulting in focal narrowing of the spinal canal at this level. 7. Multiple nondisplaced chronic bilateral pathologic rib fractures. 8. Results were called to Dr. Baeza at 11 a.m., 02/02/2018 D/ : / 02/02/2018 11:22:10 Demar Dykes MD / jass Interpreting Provider: Demar Dykes MD - Assessment and plan (1) Pneumonia Current Visit: Yes Status: Acute Assessment and plan: Pt is immunosuppressed and on chemotherapy. Has had nausea, vomiting and coughing. CT chest showed right upper lobe opacity/ airspace disease Will start on broad spectrum antibiotics for HCAP (possibly bacterial) with vanc and zosyn. Obtain blood cultures, urine legionella and urine streptococcal antigen Qualifiers: Lung location: upper lobe of lung Qualified Code(s): J18.1 - Lobar pneumonia, unspecified organism (2) Weakness Current Visit: No Status: Acute Assessment and plan: Likely 2/2 to infection vs chronic medical issues. Continue IV fluids, physical therapy (3) Lumbar compression fracture Current Visit: Yes Status: Acute Assessment and plan: Has L2- L3 fracture Likely secondary to bone metastases. Spine (Dr Cabrera) has been consulted and will assess patient for kyphoplasty. Pain control PRN Qualifiers: Qualified Code(s): S32.010B - Wedge compression fracture of first lumbar vertebra, initial encounter for open fracture (4) Breast cancer Current Visit: Yes Status: Chronic Assessment and plan: Continue outpatient management, palliative care consult Qualifiers: Breast location: unspecified site of breast Estrogen receptor status: unspecified Patient sex: female Laterality: unspecified laterality Qualified Code(s): C50.919 - Malignant neoplasm of unspecified site of unspecified female breast (5) Cancer related pain Current Visit: Yes Status: Acute Assessment and plan: Pain control PRN (6) Leukopenia Current Visit: Yes Status: Acute Assessment and plan: Leukopenia, likely 2/2 to chemotherapy vs sepsis. Continue broad spectrum antibiotics, f/u blood cultures Qualifiers: Qualified Code(s): D72.819 - Decreased white blood cell count, unspecified (7) Hypokalemia Current Visit: Yes Status: Acute Assessment and plan: Replaced (8) DVT prophylaxis Current Visit: Yes Status: Acute Assessment and plan: Heparin sc - Time Spent With Patient Total time spent is greater than 50% in coordination of care (as documented) at patient's floor/unit and/or counseling patient:
--- NOTE | 2018-02-02 15:15 | Palliative - Consult Note ---
Date of Encounter: 02/02/18 Time of Encounter: 14:15 - Assessment and Plan (1) Nausea Current Visit: Yes Status: Acute Assessment and plan: Patient reports increased nausea over the last several days. Patient takes phenergan at home. Has Compazine ordered while inpatient; continue PRN as ordered. (2) Weakness Current Visit: Yes Status: Acute Assessment and plan: Patient complains of generalized weakness. Will order PT/OT while admitted to hospital. (3) Breast cancer Current Visit: Yes Status: Chronic Assessment and plan: Patient stage 4 breast cancer. Cancer patient of Dr. Saini. Current treatment including single dose chemotherapy. Desires continued treatment with Cancer center. Qualifiers: Breast location: unspecified site of breast Estrogen receptor status: unspecified Patient sex: female Laterality: unspecified laterality Qualified Code(s): C50.919 - Malignant neoplasm of unspecified site of unspecified female breast (4) Goals of care, counseling/discussion Current Visit: No Status: Acute Assessment and plan: Conducted goals of care meeting with patient. Patient lives alone; however, reports having [facility] home health services, Day care from 1030am-430 pm daily, and sister 630p-930p. Patient also has supportive neighbors whom check on her periodically. Discussed potential of needing rehab after hospital stay; patient adamantly refused as she receives PT/OT through home health. Reports didn't want to come to hospital for fear of being placed in longterm. Reports has enough support in place and desires to return home with current support team. Discussed CODE STATUS. Patient expressed desire for full aggressive treatment until heart stops, then allow to pass away, wants no CPR. Patient is ok with short term intubation, refuses long-term ventilation/trach. Changed CODE STATUS to DNRCCA. Palliative will continue to follow for assistance with symptom management. (5) Constipation Current Visit: No Status: Chronic Assessment and plan: Patient reports chronic constipation with no bowel movement times 4 days. Will order bowel regimen. Qualifiers: Constipation type: slow transit constipation Qualified Code(s): K59.01 - Slow transit constipation (6) Pain Current Visit: Yes Status: Acute Assessment and plan: Patient reports pain 5-6/10. Describes pain as aching and burning. Location of pain in back and right leg. Takes Morphine PRN at home. Continue PRN Morphine as ordered. Palliative-CN HPI - Data of Consult Patient: new to practice Consult date: 02/02/18 Primary Care Provider: Rashawn Rosenberg MD - Consult Narrative Palliative Care/Comfort Measures: Palliative care Reason for consult: Stage 4 breast cancer with bone mets History of present illness: Ms. Bonner is a 57 year old female Arrived to [place] ER today for evaluation, reports generalized weakness, increased nausea, and inability to keep food down. PMH: Stage 4 breast cancer with mets to bone and brain, anxiety, depression, asthma, cancer, COPD, GERD, hyperlipidemia, hypertension, and migraine. Current patient of Dr. Saini for cancer treatment; current treatment single dose chemo per reports from patient. Patient lying in bed on left side upon arrival for assessment. Patient is alert and oriented times 3; no family present at bedside. Patient denies dyspnea during assessment. Patient reports pain in back and right leg, rated a 5-6/10. Patient reports Morphine controls the pain and laying on right leg makes pain worse. Patient reports chronic anxiety, takes Wellbutrin and Zoloft at home; educated patient has Ativan available PRN this admission, verbalized understanding. Patient reports nausea; takes Phenergan at home to control. Educated patient has Compazine ordered while inpatient, verbalized understanding. Patient reports chronic constipation at home, has not had bowel movement times 4 days. Upon assessment completion, notified patients JIM Bass that patient has requested to go to bathroom. CC: Past Med Surg Social Fam HX - Past Medical History Medical history: asthma, cancer, COPD, GERD, hyperlipidemia, hypertension, migraine, other Additional medical history: Stage 4 breast cancer treated with Chemo as of . Psychiatric history: anxiety, depression - Past Surgical History Surgical History: breast surgery, cancer surgery, cholecystectomy, hysterectomy Additional surgical history: Brain Surgery - Social History Smoking Status: Never smoker Smokeless Tobacco Status: No Alcohol use: none Drug use: none - Family History Father Adopted: No Family Member Ethnicity: Non- Living Status: Medications and Allergies Albuterol Neb [AccuNeb] 1.25 mg IH Q6H PRN 02/27/15 [History] BuPROPion XL (24 HR) [Wellbutrin Xl] 150 mg PO DAILY 02/27/15 [History] BuPROPion XL (24 HR) [Wellbutrin Xl] 300 mg PO DAILY 10/06/15 [History] Docusate Sodium [Colace] 100 mg PO DAILY PRN 02/27/15 [History] Fluticasone/Salmeterol [Advair 500-50 Diskus] 1 puff IH BID 02/27/15 [History] LORazepam [Ativan] 0.5 mg PO TID 02/27/15 [History] Potassium Chloride 20 meq PO DAILY 02/27/15 [History] Triamterene/HCTZ 37.5/25mg [Dyazide] 1 each PO DAILY 02/27/15 [History] Albuterol Sulfate [Albuterol Inhaler] 2 puff IH QID PRN 09/24/16 [History] DiphenhydraMINE [Benadryl] 25 mg PO Q6HR PRN #20 capsule 12/20/16 [Rx] Sertraline [Zoloft] 150 mg PO DAILY 04/28/17 [History] Zolpidem [Ambien] 10 mg PO HS #30 tablet 05/04/17 [Rx] Ferrous Sulfate [Iron] 325 mg PO DAILY #90 capsule.er 09/24/17 [Rx] Cetirizine HCl [Zyrtec] 10 mg PO DAILY 12/29/17 [History] Ranitidine HCl [Acid Reports Developer] 150 mg PO BID 12/29/17 [History] Ribociclib Succinate [Kisqali] 3 tab PO DAILY #63 tab 01/08/18 [Rx] Morphine Immed Rel [Morphine Sulfate] 30 mg PO Q8H PRN 30 Days #90 tablet [Rx] Prochlorperazine Maleate [Compazine] 10 mg PO Q6HR PRN #30 tablet 01/12/18 [Rx] Methylnaltrexone [place] [Relistor] 150 mg PO DAILY 02/02/18 [History] Topiramate [Topamax] 100 mg PO BID 02/02/18 [History] 3 Allergy/AdvReac Type Severity Reaction Status Date / Time acetaminophen Allergy Chest Pain Verified 01/12/18 14:11 [From Tylenol-Codeine] codeine Allergy Chest Pain Verified 01/12/18 14:11 [From Tylenol-Codeine] doxycycline Allergy Hives Verified 01/12/18 14:11 levofloxacin [From Levaquin] Allergy Hives Verified 01/12/18 14:11 - Constitutional Constitutional ROS PAL: fatigue, lethargy, no decreased appetite (reports has had appetite, but too nauseous to eat.) - EENT Eyes: discharge (left eye where cornea replacement occurring) - Cardiovascular Cardiovascular ROS: no chest pain - Respiratory Respiratory: cough, wheezing, no dyspnea - Gastrointestinal Gastrointestinal: constipation, nausea, no abdominal pain, no vomiting - Genitourinary Palliative ROS female: breast mass, no difficulty voiding - Musculoskeletal Musculoskeletal ROS IM: back pain - Integumentary ROS Integumentary: dry skin - Neurological Neurological ROS: weakness, no memory loss - Psychiatric Psychiatric general PM: anxiety Palliative Care-Exam - Constitutional Vitals: Temp Pulse Resp BP Pulse Ox 97.4 F L 68 20 103/53 97 02/02/18 09:04 02/02/18 12:43 02/02/18 14:47 02/02/18 14:47 02/02/18 12:43 General appearance: Present: cooperative, morbidly obese, no acute distress - Head Head Exam: Present: atraumatic, normal inspection - Expanded Head Exam Head exam expanded IM: Absent: general tenderness - Eye Eye exam: Present: EOMI (to right), conjuntiva pink. Absent: normal appearance (left eye has [address] for corneal replacement.), periorbital tenderness - ENT ENT exam: Present: mucous membranes moist, normal external ear exam - Expanded ENT Exam Mouth Exam: Present: drooling, moist - Neck Neck exam: Present: full ROM, normal inspection - Respiratory Respiratory exam: Present: wheezes. Absent: accessory muscle use, respiratory distress - Cardiovascular Cardiovascular exam: Present: +S1, +S2 - Expanded Cardiovascular Exam Peripheral pulses: 2+: Radial (L), Radial (R), Posterior Tibialis (L), Posterior Tibialis (R), Dorsalis Pedis (L) PM, Dorsalis Pedis (R) PM - GI/Abdominal Exam GI/Abdominal exam: Present: diminished bowel sounds. Absent: tenderness - Rectal Rectal exam: Present: deferred - Extremities Exam Extremities exam: Present: full ROM, normal inspection. Absent: calf tenderness , pedal edema - Neurological Exam Neurological exam: Present: alert, oriented X3, strengths equal and symetr throughout. Absent: altered - Expanded Neurological Exam Patient oriented to: Present: person, place, time Coma Scale Eye Opening: Spontaneous Coma Scale Motor Response: Obeys Commands Coma Scale Verbal Response: Oriented Coma Scale Total: 15 - Psychiatric Psychiatric exam: Present: normal affect - Skin Skin exam: Present: dry, intact Internal Medicine - CN: Reslt - Labs CBC & Chem 7: 02/02/18 09:29 02/02/18 09:29 Labs: Short CBC 02/02/18 Range/Units 09:29 WBC 3.1 L (4.3-11.1) K/mcL Hgb 12.0 (11.5-15.4) g/dL Hct 34.6 L (35.3-44.9) % Plt Count 151 (140-400) K/mcL Neutrophils # 2.5 (1.6-8.9) K/mcL BMP 02/02/18 09:29 Sodium 139 Potassium 3.4 L Chloride 103 Carbon Dioxide 29 BUN 16 Creatinine 0.96 Glucose 100 Calcium 9.0 Cardiac Enzymes 02/02/18 Range/Units 09:29 Troponin I < 0.03 (< 0.04) ng/mL Liver Function 02/02/18 Range/Units 09:29 Total Bilirubin 0.6 (0.3-1.0) mg/dL Direct Bilirubin 0.2 (0.0-0.2) mg/dL AST 36 (13-39) Units/L ALT 35 (7-52) Units/L Alkaline Phosphatase 116 H (34-104) Units/L Albumin 3.8 (3.5-5.7) g/dL - ABG Interpretation ABG results: PT/INR, D-dimer PT 12.2 Seconds (9.4-12.1) H 02/02/18 09:29 - Impressions Impressions Head CT 02/02/18 09:19 IMPRESSION: 1. No acute intracranial abnormality. 2. Postsurgical changes are noted from occipital craniotomies with a large area of encephalomalacia noted in the left cerebellar hemisphere, stable. 3. Small areas of encephalomalacia in the right frontal and parietal regions are stable. D/ / 02/02/2018 11:21:31 Wilfred Leonard MD / balbir Interpreting Provider: Wilfred Leonard MD Abdomen/Pelvis CT 02/02/18 09:20 IMPRESSION: 1. Acute focal airspace disease involving the posterior right upper lobe. Patchy airspace opacities also present involving the right middle lobe. Findings are concerning for pneumonia. Radiographic follow-up recommended to ensure resolution. 2. Stable small and borderline mediastinal and bilateral hilar lymph nodes. No new adenopathy within the chest. 3. No acute findings within the abdomen. 4. No acute findings within the pelvis. 5. Diverticulosis. 6. Redemonstration of widespread osseous metastases. There are new compression fractures present at L2 and L3 compared to prior abdominal CT and lumbar CT of 04/27/2017. Mild retropulsion noted at L2 resulting in focal narrowing of the spinal canal at this level. 7. Multiple nondisplaced chronic bilateral pathologic rib fractures. 8. Results were called to Dr. Baeza at 11 a.m., 02/02/2018 D/ / 02/02/2018 11:22:10 Demar Dykes MD / jass Interpreting Provider: Demar Dykes MD Chest CT 02/02/18 09:20 IMPRESSION: 1. Acute focal airspace disease involving the posterior right upper lobe. Patchy airspace opacities also present involving the right middle lobe. Findings are concerning for pneumonia. Radiographic follow-up recommended to ensure resolution. 2. Stable small and borderline mediastinal and bilateral hilar lymph nodes. No new adenopathy within the chest. 3. No acute findings within the abdomen. 4. No acute findings within the pelvis. 5. Diverticulosis. 6. Redemonstration of widespread osseous metastases. There are new compression fractures present at L2 and L3 compared to prior abdominal CT and lumbar CT of 04/27/2017. Mild retropulsion noted at L2 resulting in focal narrowing of the spinal canal at this level. 7. Multiple nondisplaced chronic bilateral pathologic rib fractures. 8. Results were called to Dr. Baeza at 11 a.m., 02/02/2018 D/ / 02/02/2018 11:22:10 Demar Dykes MD / jass Interpreting Provider: Demar Dykes MD Consult Discharge Plan - Plan Referrals: Rashawn Rosenberg MD [Primary Care Provider] - Palliative Quality Palliative Quality: Screen for Code Status: Yes, Screen for Goals of Care: Yes, Screen for Pain: Yes, If Pain Regimen Started, Initiate Bowel Regimen: Yes, Screen for Nausea/Vomitting: Yes Code Status: 02/02/18 11:24 Resuscitation Status: Active [RES] Routine Comment: Resuscitation Status: Full Code
[2018-02-02] MEDS ORDERED: Bisacodyl 10 MG RECTAL SUPPOSITORY RC PRN (15:30)
[2018-02-02] MEDS: 0.9 % Sodium Chloride 1,000 ML IVC SCH (15:56)
[2018-02-02] MEDS: Potassium Chloride Elixir 20 MEQ/15 ML UDC PO SCH ×4 (15:57→20:07)
[2018-02-02] MEDS: *HR* Morphine 2 MG/ML SYRINGE IVP PRN ×2 (15:58→20:06)
[2018-02-02] MEDS: *HR* LORazepam 0.5 MG TABLET PO SCH ×2 (15:58→20:07)
[2018-02-02] MEDS: Piperacillin/Tazobactam 3.375 GM in 0.9 % Sodium Chloride Mini Bag 100 ML IVPB SCH (17:05)
[2018-02-02] MEDS: *HR* Heparin 5,000 UNIT/ML VIAL SQ SCH (17:29)
[2018-02-02] MEDS: Ondansetron 4 MG/2 ML VIAL IVP PRN (19:24)
[2018-02-02] MEDS: Topiramate 100 MG TABLET PO SCH (20:07)
[2018-02-02] MEDS: Sennosides/Docusate Sodium TABLET PO SCH (20:07)
[2018-02-02] MEDS: Budesonide/Formoterol 160/4.5 1 PUFF INH IH SCH (20:43)
[2018-02-02] MEDS ORDERED: NON-FORMULARY MEDICATION 1 EACH EACH (Fluticasone/Salmeterol [Advair 500-50 Diskus] 1 PUFF IH SCH (21:00)
--- NOTE | 2018-02-02 21:25 | Electrocardiograph Report ---
[facility] Test Date: 2018-02-02 Pat Name: Ida Bonner Department: EXAM10 Room: 3A46 Gender: F Photo Technologist: : 1960 Requested By: Adal Baeza Order Number: [id number] Reading MD: Keron Napoles Measurements Intervals [place] Rate: 63 P: 49 DE: 177 QRS: 26 QRSD: 90 T: 29 QT: 432 QTc: 443 Interpretive Statements Sinus rhythm Low voltage, precordial leads Electronically Signed On 02-02-2018 21:23:45 EDT by Keron Napoles
[2018-02-03] MEDS: Piperacillin/Tazobactam 3.375 GM in 0.9 % Sodium Chloride Mini Bag 100 ML IVPB SCH ×3 (02:36→18:32)
[2018-02-03 04:12] LABS: Bilirubin,Urine Negative (Negative); Blood,Urine Negative (Negative); Clarity,Urine Clear (Clear); Color,Urine Yellow (Yellow); Glucose,Urine (UA) Normal (Normal); Ketones,Urine Negative (Negative); Leukocyte Esterase,Urine Moderate (Negative); Nitrite,Urine Negative (Negative); Protein,Urine 30 mg/dL (Neg-Trace); Urobilinogen,Urine Normal (Normal)
[2018-02-03 04:15] LABS: Bacteria,Urine None Seen per hpf (None-Few); Hyaline Casts,Urine None Seen per lpf (None-Few); Squamous Epithelial Cell,Urine Many per lpf (None-Few); WBC,Urine 15-30 per hpf (0-3)
[2018-02-03] MEDS: 0.9 % Sodium Chloride 1,000 ML IVC SCH (05:12)
[2018-02-03] MEDS: *HR* Heparin 5,000 UNIT/ML VIAL SQ SCH ×2 (05:13→18:34)
[2018-02-03 05:20] LABS: Basophils % 1.2 %; Eosinophils # 0.1 K/mcL (0.0-0.6); Eosinophils % 3.7 %; Hematocrit 33.6 % (35.3-44.9); Hemoglobin 11.3 g/dL (11.5-15.4); Immature Granulocytes % 0.8 % (0-4); Lymphocytes # 0.6 K/mcL (0.6-4.6); Lymphocytes % 25.2 %; Mean Corpuscular HGB Conc 33.6 g/dL (31.6-35.5); Mean Corpuscular Hemoglobin 35.1 pg (28.0-33.3); Mean Corpuscular Volume 104.3 fL (83.0-100.0); Mean Platelet Volume 8.7 fL (9.4-12.4); Monocytes # 0.2 K/mcL (0.0-1.3); Monocytes % 9.5 %; Neutrophils # 1.4 K/mcL (1.6-8.9); Platelet Count 139 K/mcL (140-400); Red Blood Count 3.22 M/mcL (3.82-4.97); Red Cell Distribution Width 13.2 % (11.5-14.5); Segmented Neutrophils % 59.6 %
[2018-02-03 05:41] LABS: BUN/Creatinine Ratio 17 (6-26); Blood Urea Nitrogen 14 mg/dL (6-20); Carbon Dioxide 23 mEq/L (23-29); Chloride 112 mEq/L (98-107); Glucose 90 mg/dL (70-105); Magnesium 2.2 mg/dL (1.6-2.6); Osmolality,Calculated 290 (280-300); Phosphorous 1.9 mg/dL (2.7-4.5); Potassium 3.7 mEq/L (3.5-5.1); Sodium 140 mEq/L (136-145); eGFR For Non-African Americans > 60 (> 60)
[2018-02-03] MEDS ORDERED: Calcium Gluconate 2,000 MG in 0.9 % Sodium Chloride 100 ML IVPB ONE (08:59)
[2018-02-03] MEDS ORDERED: RIBOCICLIB SUCCINATE PO SCH (09:00)
[2018-02-03] MEDS ORDERED: METHYLNALTREXONE BROMIDE 150 MG PO SCH (09:00)
--- NOTE | 2018-02-03 09:04 | Internal Med Progress Note ---
<Alonzo Prince - Last Filed: 02/03/18 18:12> Hospitalist Progress Note - Encounter Date of Encounter: 02/03/18 - Exam Vitals: Temp Pulse Resp BP Pulse Ox 98.7 F 70 16 99/61 93 02/03/18 15:03 02/03/18 15:03 02/03/18 15:03 02/03/18 15:03 02/03/18 15:03 - Assessment and Plan (1) Pneumonia Current Visit: Yes Status: Suspected Assessment and Plan: Immunocompromised on meds. (2) Breast cancer Current Visit: Yes Status: Chronic (3) DVT prophylaxis Current Visit: Yes Status: Acute (4) Hypokalemia Current Visit: Yes Status: Acute (5) Cancer related pain Current Visit: Yes Status: Chronic (6) Weakness Current Visit: No Status: Chronic (7) Lumbar compression fracture Current Visit: Yes Status: Chronic (8) Leukopenia Current Visit: Yes Status: Acute (9) COPD (chronic obstructive pulmonary disease) Current Visit: No Status: Chronic - Time Spent with Patient Total time spent is greater than 50% in coordination of care (as documented) at patient's floor/unit and/or counseling patient: Internal Medicine: Result - Labs CBC & Chem 7: 02/03/18 04:53 02/03/18 04:53 Labs: Short CBC 02/03/18 Range/Units 04:53 WBC 2.4 L (4.3-11.1) K/mcL Hgb 11.3 L (11.5-15.4) g/dL Hct 33.6 L (35.3-44.9) % Plt Count 139 L (140-400) K/mcL Neutrophils # 1.4 L (1.6-8.9) K/mcL BMP 02/03/18 04:53 Sodium 140 Potassium 3.7 Chloride 112 H Carbon Dioxide 23 BUN 14 Creatinine 0.84 Glucose 90 Calcium 8.0 L Urine 02/03/18 Range/Units 04:00 Urine Color Yellow (Yellow) Urine Clarity Clear (Clear) Urine pH 8.0 (5.0-8.0) pH Units Ur Specific [place] 1.020 (1.010-1.025) Urine Protein 30 H (Neg-Trace) mg/dL Urine Glucose (UA) Normal (Normal) mg/dL - ABG Interpretation ABG results: PT/INR, D-dimer PT 12.2 Seconds (9.4-12.1) H 02/02/18 09:29 Consult Discharge Plan - Plan Referrals: Rashawn Rosenberg MD [Primary Care Provider] - - Attending Attestation I examined this patient and my medical decision-making was reviewed with the Resident Physician on 02/03/18. I agree with the documented findings, disposition and treatment plan as described except to the extent set forth below. Ms Bonner is currenly admitted for pneumonia in immunocompromised state. She remains moderate to high risk due to potential for worsening clinical status. Ms Bonner is doing somewhat better since last night. No fever or chills now. Able to lie flat in bed. No GI issues. Coughing less today. Exam alert Comfortable in bed at this time Mucus membranes dry Heart reg Diminished breath sounds with some rhonchi Abd soft No edema I/P 1. Pneumonia 2. Breast cancer on immunotherapy Further diagnoses and plan as above. <Mercedes Cameron N - Last Filed: 02/03/18 19:04> Hospitalist Progress Note - Encounter Date of Encounter: 02/03/18 Time of Encounter: 09:03 - Subjective Interval History: Ms. Bonner is a 57-year old female with a medical history significant for left- sided stage IV breast cancer with bone and brain metastases. She presented to the ED on 02/02 complaining of sudden-onset coughing and vomiting x 2 days. She reported no inciting events and noted having experienced cold sweats and inability to tolerate PO intake. Initial laboratory studies demonstrated the following significant findings: WBC 3.1, Hgb/Hct 12.0/34.6, potassium 3.4, alkaline phosphatase 116, BNP 104, and globulin 3.7. She underwent multiple imaging studies in the ED, with the following significant findings: * Head CT demonstrated no acute intracranial abnormalities. Postsurgical changes from occipital craniotomies were noted, with a large area of encephalomalacia in left cerebellar hemisphere, which was stable from prior eams. Small, stable areas of encephalomalacia were also noted in the right frontal and pariental regions. * Chest CT demonstrated acute focal airspace disease involving the posterior right upper lobe and patchy airspace opacities in right middle lobe concerning for pneumonia. Stable small and borderline mediastinal and bilateral hilar lymph nodes were also noted, as were multiple nondisplaced chronic bilateral pathologic rib fractures. * Abdomen/pelvis CT study demonstrated widespread osseous metastases and new compression fractures at L2 and L3. Mild retropulsion causing focal narrowing of the spinal cord was noted at L2. She was started on IV vancomycin and zosyn for right-sided pneumonia and admitted for further workup and management. On evaluation today, she denies any acute complaints other than productive cough. She reports some nausea secondary to having just taken her pain medication, but states that it is normal for her and resolves with zofran, which she has recently received as well. She denies shortness of breath or difficulty breathing. Nursing staff reports no acute overnight events. Patient is tolerating PO intake well. - Exam Vitals: Temp Pulse Resp BP Pulse Ox 97.3 F L 67 15 107/68 93 02/03/18 07:31 02/03/18 07:31 02/03/18 07:31 02/03/18 07:31 02/03/18 07:31 Exam: * General: Adult female lying in bed. She does not appear to be in acute distress. She answers questions appropriately. * HEENT: Atraumatic and normocephalic. Left eye appears to have recently been operated on. * Cardiovascular: Regular rate and rhythm. S1 and S2 present. No murmurs, gallops, or rubs. * Respiratory: Decreased breath sounds bilaterally. Intermittent wheezes present. * Gastrointestinal: Soft, nondistended, and nontender. * Extremities: No clubbing, cyanosis, or edema present. - Assessment and Plan (1) Pneumonia Current Visit: Yes Status: Suspected Assessment and Plan: Initial laboratory studies in the ED demonstrated the following significant findings: WBC 3.1, Hgb/Hct 12.0/34.6, potassium 3.4, alkaline phosphatase 116, BNP 104, and globulin 3.7. Chest CT demonstrated acute focal airspace disease involving the posterior right upper lobe and patchy airspace opacities in right middle lobe concerning for pneumonia. She was started on IV vancomycin and zosyn. On exam today, she denies any shortness of breath but does complain of productive cough. Lung lew are free of wheezes or rales. Plan to continue IV antibiotics. Will consider transition to PO antibiotics tomorrow in anticipation of possible discharge. (2) Leukopenia Current Visit: Yes Status: Acute Assessment and Plan: On initial laboratory studies, patient demonstrated leukopenia, with WBC count of 3.1. She is currently taking ribociclib succinate (kisqali). Suspect that her leukopenia is secondary to chemotherapy. WBC count today was further decreased at 2.4. Will hold chemotherapeutic agents at this time. Plan for followup with oncology after discharge regarding reinitiation of cancer treatment. (3) Breast cancer Current Visit: Yes Status: Chronic Assessment and Plan: Patient has known stage IV breast cancer with metastasis to bone. Currently holding chemotherapy secondary to leukopenia in setting of acute pneumonia. Appreciate palliative care team input in management of this patient. (4) DVT prophylaxis Current Visit: Yes Status: Acute Assessment and Plan: Heparin 5000units Q12H. - Time Spent with Patient Total time spent is greater than 50% in coordination of care (as documented) at patient's floor/unit and/or counseling patient: Internal Medicine: Result - Labs CBC & Chem 7: 02/03/18 04:53 02/03/18 04:53 Labs: Short CBC 02/03/18 Range/Units 04:53 WBC 2.4 L (4.3-11.1) K/mcL Hgb 11.3 L (11.5-15.4) g/dL Hct 33.6 L (35.3-44.9) % Plt Count 139 L (140-400) K/mcL Neutrophils # 1.4 L (1.6-8.9) K/mcL BMP 02/03/18 04:53 Sodium 140 Potassium 3.7 Chloride 112 H Carbon Dioxide 23 BUN 14 Creatinine 0.84 Glucose 90 Calcium 8.0 L Urine 02/03/18 Range/Units 04:00 Urine Color Yellow (Yellow) Urine Clarity Clear (Clear) Urine pH 8.0 (5.0-8.0) pH Units Ur Specific [place] 1.020 (1.010-1.025) Urine Protein 30 H (Neg-Trace) mg/dL Urine Glucose (UA) Normal (Normal) mg/dL - ABG Interpretation ABG results: PT/INR, D-dimer PT 12.2 Seconds (9.4-12.1) H 02/02/18 09:29 <Alonzo Prince - Last Filed: 02/03/18 18:12> (1) Pneumonia Qualifiers: Pneumonia type: due to other aerobic Gram-negative bacteria Laterality: right Lung location: upper lobe of lung Qualified Code(s): J15.6 - Pneumonia due to other Gram-negative bacteria (2) Breast cancer Qualifiers: Breast location: unspecified site of breast Estrogen receptor status: unspecified Patient sex: female Laterality: unspecified laterality Qualified Code(s): C50.919 - Malignant neoplasm of unspecified site of unspecified female breast (7) Lumbar compression fracture Qualifiers: Encounter type: subsequent encounter Lumbar vertebra fracture level: L2 Fracture type: closed Fracture healing: with routine healing Qualified Code(s) : S32.020D - Wedge compression fracture of second lumbar vertebra, subsequent encounter for fracture with routine healing (8) Leukopenia Qualifiers: Leukopenia type: neutropenia Neutropenia type: secondary to cancer chemotherapy Qualified Code(s): D70.1 - Agranulocytosis secondary to cancer chemotherapy (9) COPD (chronic obstructive pulmonary disease) Qualifiers: COPD type: emphysema Emphysema type: other Qualified Code(s): J43.8 - Other emphysema <Mercedes Cameron N - Last Filed: 02/03/18 19:04> (1) Pneumonia Qualifiers: Pneumonia type: due to other aerobic Gram-negative bacteria Laterality: right Lung location: upper lobe of lung (2) Leukopenia Qualifiers: Leukopenia type: neutropenia Neutropenia type: secondary to cancer chemotherapy (3) Breast cancer Qualifiers: Breast location: unspecified site of breast Estrogen receptor status: unspecified Patient sex: female Laterality: unspecified laterality Qualified Code(s): C50.919 - Malignant neoplasm of unspecified site of unspecified female breast
[2018-02-03] MEDS: BuPROPion XL (24 HR) 150 MG TABLET PO SCH ×2 (09:11)
[2018-02-03] MEDS: Topiramate 100 MG TABLET PO SCH ×2 (09:11→21:44)
[2018-02-03] MEDS: Sennosides/Docusate Sodium TABLET PO SCH ×2 (09:11→21:44)
[2018-02-03] MEDS: *HR* LORazepam 0.5 MG TABLET PO SCH ×3 (09:12→21:44)
[2018-02-03] MEDS: Famotidine 20 MG TABLET PO SCH (09:12)
[2018-02-03] MEDS: Ondansetron 4 MG/2 ML VIAL IVP PRN (09:19)
[2018-02-03] MEDS: *HR* Morphine Immed Rel 30 MG TABLET PO PRN ×2 (09:20→18:34)
[2018-02-03] MEDS: Budesonide/Formoterol 160/4.5 1 PUFF INH IH SCH ×2 (10:38→19:57)
--- NOTE | 2018-02-03 12:21 | Palliative Progress Note ---
Date of Encounter: 02/03/18 Time of Encounter: 09:45 - Assessment and plan (1) Nausea Current Visit: No Status: Acute Assessment and plan: Patient reports nausea has improved over the last 24 hours. Patient has received 2 doses Zofran and 0 doses Compazine in the last 24 hours. Continue Zofran and Compazine PRN. (2) Breast cancer Current Visit: Yes Status: Chronic Assessment and plan: Patient is a patient of [facility] Dr. Saini. Patient plans to resume treatment upon discharge. Receiving single dose Chemotherapy agent, per report of patient. Desires to continue treatment and suffering no adverse effects from treatment. Qualifiers: Breast location: unspecified site of breast Estrogen receptor status: unspecified Patient sex: female Laterality: unspecified laterality Qualified Code(s): C50.919 - Malignant neoplasm of unspecified site of unspecified female breast (3) Constipation Current Visit: No Status: Chronic Assessment and plan: Patient reports constipation is no longer a problem. Patient has received Senna Plus times 2 doses, 0 doses of Dulcolax, and 0 doses of Miralax. Continue Bowel regimen. Will change Miralax to PRN. Qualifiers: Constipation type: slow transit constipation Qualified Code(s): K59.01 - Slow transit constipation (4) Pain Current Visit: No Status: Acute Assessment and plan: Patient reports pain under control. Has received 1 dose of home dosed Morphine 30 mg PO PRN and Morphine 2 mg IVP PRN 2 doses. Continue pain regimen prescribed by primary team. (5) Goals of care, counseling/discussion Current Visit: No Status: Acute Assessment and plan: Palliative care consulted for goals of care discussion. Patient desires to return home with prior level of support, including: day care, [facility] services, and . Patient desires to be a DNRCCA as she does not desire CPR, but is ok with Short term intubation. Goals of care established and symptomatically improved. Palliative care to sign off; please reconsult as needed. Thank you for including the Palliative Care team in the management of your patient. - Time Spent With Patient Total time spent is greater than 50% in coordination of care (as documented) at patient's floor/unit and/or counseling patient: less than 15 minutes - Subjective Interval history: Patient lying in bed on right side upon arrival for assessment. No family present at bedside. Patient reported pain is the constant chronic 5-11/01, described as an ache; patient also reports pain medication had just been administered and was helping. Patient reports continued chronic anxiety, but denies a current issue. Patient reports nausea has been improving and was able to eat some of her breakfast. Patient reports had bowel movement yesterday evening and this morning. Patient denies shortness of breath and vomiting. - Constitutional Vitals: Abnormal lab results WBC 2.4 K/mcL (4.3-11.1) L 02/03/18 04:53 RBC 3.22 M/mcL (3.82-4.97) L 02/03/18 04:53 Hgb 11.3 g/dL (11.5-15.4) L 02/03/18 04:53 Hct 33.6 % (35.3-44.9) L 02/03/18 04:53 MCV 104.3 fL (83.0-100.0) H 02/03/18 04:53 MCH 35.1 pg (28.0-33.3) H 02/03/18 04:53 Plt Count 139 K/mcL (140-400) L 02/03/18 04:53 MPV 8.7 fL (9.4-12.4) L 02/03/18 04:53 Neutrophils # 1.4 K/mcL (1.6-8.9) L 02/03/18 04:53 PT 12.2 Seconds (9.4-12.1) H 02/02/18 09:29 Chloride 112 mEq/L (98-107) H 02/03/18 04:53 Calcium 8.0 mg/dL (8.6-10.3) L 02/03/18 04:53 Phosphorus 1.9 mg/dL (2.7-4.5) L 02/03/18 04:53 Alkaline Phosphatase 116 Units/L (34-104) H 02/02/18 09:29 B-Natriuretic Peptide 104 pg/mL (Less than 100) H 02/02/18 09:29 Globulin 3.7 g/dL (2.4-3.5) H 02/02/18 09:29 Albumin/Globulin Ratio 1.0 (1.1-2.2) L 02/02/18 09:29 Urine Protein 30 mg/dL (Neg-Trace) H 02/03/18 04:00 Ur Leukocyte Esterase Moderate (Negative) H 02/03/18 04:00 Urine Microscopic RBC 5-15 per hpf (0-3) H 02/03/18 04:00 Urine Microscopic WBC 15-30 per hpf (0-3) H 02/03/18 04:00 Ur Squamous Epith Cells Many per lpf (None-Few) H 02/03/18 04:00 Ur Culture Indicated? NO. (NO) A 02/03/18 04:00 General appearance: Present: cooperative, no acute distress - Head Head exam: Present: atraumatic, normal inspection - Eye Eye exam: Absent: normal appearance Additional comments: corneal replacement prep in place. - ENT ENT exam: Present: mucous membranes moist, normal external ear exam - Neck Neck exam: Present: full ROM, normal inspection - Respiratory Respiratory exam: Present: wheezes. Absent: accessory muscle use, respiratory distress - Cardiovascular Cardiovascular exam: Present: +S1, +S2 - GI/Abdominal GI/Abdominal exam: Present: hyperactive bowel sounds, soft. Absent: tenderness - Rectal Rectal exam: Present: deferred - Extremities Exam Extremities exam: Absent: calf tenderness, full ROM - Back Exam Back exam: Present: full ROM, normal inspection - Neurological Exam Neurological exam: Present: alert, oriented X3, strengths equal and symetr throughout. Absent: altered - Psychiatric Psychiatric exam: Present: normal affect, normal mood - Skin Skin exam: Present: intact, warm Palliative Quality Palliative Quality: Screen for Code Status: Yes, Screen for Goals of Care: Yes, Screen for Pain: Yes, If Pain Regimen Started, Initiate Bowel Regimen: Yes, Screen for Nausea/Vomitting: Yes Code Status: 02/02/18 15:31 DNR [Resuscitation Status: Active] [RES] Stat Comment: Resuscitation Status: DNR-Comfort Care-Arrest - Labs CBC & Chem 7: 02/03/18 04:53 02/03/18 04:53 Labs: Laboratory Results - last 24 hr 02/03/18 02/03/18 02/03/18 04:00 04:53 04:53 WBC 2.4 L RBC 3.22 L Hgb 11.3 L Hct 33.6 L MCV 104.3 H MCH 35.1 H MCHC 33.6 RDW 13.2 Plt Count 139 L MPV 8.7 L Immature Gran % 0.8 Seg Neutrophils % 59.6 Lymphocytes % 25.2 Monocytes % 9.5 Eosinophils % 3.7 Basophils % 1.2 Neutrophils # 1.4 L Lymphocytes # 0.6 Monocytes # 0.2 Eosinophils # 0.1 Basophils # 0.0 Sodium 140 Potassium 3.7 Chloride 112 H Carbon Dioxide 23 BUN 14 Creatinine 0.84 Est GFR ( Amer) > 60 Est GFR (Non-Af Amer) > 60 BUN/Creatinine Ratio 17 Glucose 90 Calculated Osmolality 290 Calcium 8.0 L Phosphorus 1.9 L Magnesium 2.2 Urine Color Yellow Urine Clarity Clear Urine pH 8.0 Ur Specific [place] 1.020 Urine Protein 30 H Urine Glucose (UA) Normal Urine Ketones Negative Urine Blood Negative Urine Nitrite Negative Urine Bilirubin Negative Urine Urobilinogen Normal Ur Leukocyte Esterase Moderate H Urine Microscopic RBC 5-15 H Urine Microscopic WBC 15-30 H Ur Squamous Epith Cells Many H Urine Bacteria None Seen Hyaline Casts None Seen Ur Culture Indicated? NO. A - ABG Interpretation ABG results: PT/INR, D-dimer PT 12.2 Seconds (9.4-12.1) H 02/02/18 09:29 Consult Discharge Plan - Plan Referrals: Rashawn Rosenberg MD [Primary Care Provider] -
[2018-02-03] MEDS: Erythromycin OPTH Oint LEFT EYE SCH (21:51)
[2018-02-04] MEDS: Piperacillin/Tazobactam 3.375 GM in 0.9 % Sodium Chloride Mini Bag 100 ML IVPB SCH ×3 (03:23→21:01)
[2018-02-04 05:25] LABS: Basophils % 1.6 %; Eosinophils # 0.1 K/mcL (0.0-0.6); Eosinophils % 5.5 %; Immature Granulocytes % 0.4 % (0-4); Lymphocytes # 1.3 K/mcL (0.6-4.6); Lymphocytes % 48.8 %; Mean Corpuscular HGB Conc 33.1 g/dL (31.6-35.5); Mean Corpuscular Volume 102.8 fL (83.0-100.0); Mean Platelet Volume 8.9 fL (9.4-12.4); Monocytes # 0.2 K/mcL (0.0-1.3); Neutrophils # 0.9 K/mcL (1.6-8.9); Platelet Count 135 K/mcL (140-400); Red Blood Count 2.82 M/mcL (3.82-4.97); Red Cell Distribution Width 13.4 % (11.5-14.5); Segmented Neutrophils % 34.7 %
[2018-02-04 05:43] LABS: BUN/Creatinine Ratio 10 (6-26); Blood Urea Nitrogen 11 mg/dL (6-20); Calcium 7.9 mg/dL (8.6-10.3); Carbon Dioxide 20 mEq/L (23-29); Chloride 114 mEq/L (98-107); Glucose 88 mg/dL (70-105); Osmolality,Calculated 289 (280-300); Potassium 3.3 mEq/L (3.5-5.1); Sodium 140 mEq/L (136-145); eGFR For Non-African Americans 51 (> 60)
[2018-02-04 05:45] LABS: Hemoglobin 9.6 g/dL (11.5-15.4)
[2018-02-04] MEDS: *HR* Heparin 5,000 UNIT/ML VIAL SQ SCH ×2 (06:21→18:58)
[2018-02-04] MEDS: Budesonide/Formoterol 160/4.5 1 PUFF INH IH SCH ×2 (07:38→22:23)
[2018-02-04] MEDS ORDERED: Calcium Gluconate 2,000 MG in 0.9 % Sodium Chloride 100 ML IVPB ONE (08:22)
--- NOTE | 2018-02-04 08:25 | Discharge Summary ---
<Mercedes Cameron N - Last Filed: 02/05/18 17:10> - NOTES TO OUTPATIENT PROVIDER Notes to Outpatient Provider: Patient presented with acute-onset coughing and vomiting x 2 days. She was found to have pneumonia and was started on antibiotic therapy with vancomycin and zosyn. She had expiratory wheezes that improved with duonebs. She was transitioned to oral therapy of Augmentin XR 2g BID x 5 days + azithromycin 500mg x 1 day, then 250mg x 4 days at discharge. Chemotherapeutic agent held during admission and patient was instructed to see oncologist prior to resuming treatment. Orders not resulted at time of discharge: Pending orders 02/04/18 08:23 Phosphorous Routine 02/04/18 15:00 Vancomycin,Trough Timed Date of Encounter: 02/05/18 Time of Encounter: 08:25 - Discharge Diagnosis (1) Pneumonia Priority: Primary Status: Suspected Qualifiers: Pneumonia type: due to other aerobic Gram-negative bacteria Laterality: right Lung location: upper lobe of lung Qualified Code(s): J15.6 - Pneumonia due to other Gram-negative bacteria (2) Breast cancer Priority: Secondary Status: Chronic Qualifiers: Breast location: unspecified site of breast Estrogen receptor status: unspecified Patient sex: female Laterality: unspecified laterality Qualified Code(s): C50.919 - Malignant neoplasm of unspecified site of unspecified female breast (3) Leukopenia Priority: Secondary Status: Acute Qualifiers: Leukopenia type: neutropenia Neutropenia type: secondary to cancer chemotherapy Qualified Code(s): D70.1 - Agranulocytosis secondary to cancer chemotherapy; T45.1X5A - Adverse effect of antineoplastic and immunosuppressive drugs, initial encounter Hospital course: Ms. Bonner is a 57-year old female with a medical history significant for left- sided stage IV breast cancer with bone and brain metastases. She presented to the ED on 02/02 complaining of sudden-onset coughing and vomiting x 2 days. She reported no inciting events and noted having experienced cold sweats and inability to tolerate PO intake. Initial laboratory studies demonstrated the following significant findings: WBC 3.1, Hgb/Hct 12.0/34.6, potassium 3.4, alkaline phosphatase 116, BNP 104, and globulin 3.7. She underwent multiple imaging studies in the ED, with the following significant findings: * Head CT demonstrated no acute intracranial abnormalities. Postsurgical changes from occipital craniotomies were noted, with a large area of encephalomalacia in left cerebellar hemisphere, which was stable from prior eams. Small, stable areas of encephalomalacia were also noted in the right frontal and pariental regions. * Chest CT demonstrated acute focal airspace disease involving the posterior right upper lobe and patchy airspace opacities in right middle lobe concerning for pneumonia. Stable small and borderline mediastinal and bilateral hilar lymph nodes were also noted, as were multiple nondisplaced chronic bilateral pathologic rib fractures. * Abdomen/pelvis CT study demonstrated widespread osseous metastases and new compression fractures at L2 and L3. Mild retropulsion causing focal narrowing of the spinal cord was noted at L2. She was started on IV vancomycin and zosyn for right-sided pneumonia and admitted for further workup and management. Chemotherapeutic medication was held due to presence of acute infection. On hospital day 2, patient reported improvement in symptoms; however, she had copious expiratory wheezes. Due to her leukopenic state secondary to chemotherapy treatment, patient was advised to receive an additional 24 hours of IV antibiotics. She received duonebs treatment Q6H with good improvement in wheezing. On day of discharge, patient demonstrated improvement in breathing, though scattered expiratory wheezes were still present. Repeat CXR demonstrated patchy airspace disease of the right lung. Patient was discharged home with augmentin XL 2g BID x 5 days + azithromycin 500mg x1 day, then 250mg x4 days. She was instructed to follow up with her oncologist prior to restarting chemotherapeutic medications. Discharge discussed with: patient, family, nurse - Time Spent with Patient Total time spent providing and/or coordinating discharge services: - Discharge Medications Prescriptions: Amoxicillin/Potassium Clav [Augmentin Xr 1,000-62.5 Tab] 1 each PO Q12H 5 Days # 20 tab.er.12h Azithromycin [Azithromycin 6-Tab Pack] 250 mg PO PER PKG DI #6 tab Home Medications: Albuterol Neb [AccuNeb] 1.25 mg IH Q6H PRN 02/27/15 [History] BuPROPion XL (24 HR) [Wellbutrin Xl] 150 mg PO DAILY 02/27/15 [History] BuPROPion XL (24 HR) [Wellbutrin Xl] 300 mg PO DAILY 02/27/15 [History] Docusate Sodium [Colace] 100 mg PO DAILY PRN 10/06/15 [History] Fluticasone/Salmeterol [Advair 500-50 Diskus] 1 puff IH BID 02/27/15 [History] LORazepam [Ativan] 0.5 mg PO TID 02/27/15 [History] Potassium Chloride 20 meq PO DAILY 02/27/15 [History] Triamterene/HCTZ 37.5/25mg [Dyazide] 1 each PO DAILY 02/27/15 [History] Albuterol Sulfate [Albuterol Inhaler] 2 puff IH QID PRN 09/24/16 [History] DiphenhydraMINE [Benadryl] 25 mg PO Q6HR PRN #20 capsule 12/20/16 [Rx] Sertraline [Zoloft] 150 mg PO DAILY 04/28/17 [History] Zolpidem [Ambien] 10 mg PO HS #30 tablet 05/04/17 [Rx] Ferrous Sulfate [Iron] 325 mg PO DAILY #90 capsule.er 09/24/17 [Rx] Cetirizine HCl [Zyrtec] 10 mg PO DAILY 12/29/17 [History] Ranitidine HCl [Acid Rig Manager] 150 mg PO BID 12/29/17 [History] Morphine Immed Rel [Morphine Sulfate] 30 mg PO Q8H PRN 30 Days #90 tablet [Rx] Prochlorperazine Maleate [Compazine] 10 mg PO Q6HR PRN #30 tablet 01/12/18 [Rx] Methylnaltrexone [place] [Relistor] 150 mg PO DAILY 02/02/18 [History] Topiramate [Topamax] 100 mg PO BID 02/02/18 [History] Amoxicillin/Potassium Clav [Augmentin Xr 1,000-62.5 Tab] 1 each PO Q12H 5 Days # 20 tab.er.12h 02/05/18 [Rx] Azithromycin [Azithromycin 6-Tab Pack] 250 mg PO PER PKG DI #6 tab 02/05/18 [Rx] Allergies/Adverse Reactions: 3 Allergy/AdvReac Type Severity Reaction Status Date / Time acetaminophen Allergy Chest Pain Verified 01/12/18 14:11 [From Tylenol-Codeine] codeine Allergy Chest Pain Verified 01/12/18 14:11 [From Tylenol-Codeine] doxycycline Allergy Hives Verified 01/12/18 14:11 levofloxacin [From Levaquin] Allergy Hives Verified 01/12/18 14:11 Date of admission: 02/02/18 14:37 Primary care physician: Rashawn Rosenberg MD Discharging clinician: Mercedes Cameron Anticipated date of discharge: 02/05/18 - Constitutional Vitals: Temp Pulse Resp BP Pulse Ox 98.2 F 63 16 112/70 99 02/04/18 05:30 02/04/18 05:30 02/04/18 07:40 02/04/18 05:30 02/04/18 07:40 Exam: * General: Adult female lying in bed receiving breathing treatment. She does not appear to be in acute distress. She answers questions appropriately. * HEENT: Atraumatic and normocephalic. * Cardiovascular: Regular rate and rhythm. S1 and S2 present. No murmurs, gallops, or rubs. * Respiratory: Decreased breath sounds bilaterally. Scattered expiratory wheezes present, which are improved from yesterday. * Gastrointestinal: Soft, nondistended, and nontender. Active bowel sounds present x 4 quadrants. * Extremities: No clubbing, cyanosis, or edema present. - Patient Status Disposition: Home Health Service Condition: Fair Functional capacity at discharge: independent ambulation Overall status at discharge: patient is progressing back to baseline - Discharge Instructions Follow Up With: Aggie Ny ESCALATOR ATTENDANT [Advanced Practice Nurse] - 02/09/18 9:00 am Additional Instructions: Continue taking augmentin 2g twice daily for 5 days. Take azithromycin 500mg x 1 day, then take 250mg x 4 days. Continue taking home medications. Do not restart chemotherapy medication until you follow up with your oncologist. Follow up with your PCP in 3-5 days. Follow up with oncology as scheduled. Return to the emergency department if you develop fevers, chills, worsening shortness of breath, or any other concerns. - Diet and Activity Activity: increase activity as tolerated Diet: advance to your usual diet <Alonzo Prince - Last Filed: 02/05/18 19:21> Date of Encounter: 02/05/18 - Discharge Diagnosis (1) Acute hypoxemic respiratory failure Priority: Primary Status: Resolved (2) Breast cancer Status: Chronic Qualifiers: Breast location: unspecified site of breast Estrogen receptor status: unspecified Patient sex: female Laterality: unspecified laterality Qualified Code(s): C50.919 - Malignant neoplasm of unspecified site of unspecified female breast (3) Pneumonia Status: Suspected Qualifiers: Pneumonia type: due to other aerobic Gram-negative bacteria Laterality: right Lung location: upper lobe of lung Qualified Code(s): J15.6 - Pneumonia due to other Gram-negative bacteria (4) Leukopenia Status: Acute Qualifiers: Leukopenia type: neutropenia Neutropenia type: secondary to cancer chemotherapy Qualified Code(s): D70.1 - Agranulocytosis secondary to cancer chemotherapy; T45.1X5A - Adverse effect of antineoplastic and immunosuppressive drugs, initial encounter Hospital course: Ms. Bonner is a 57 year old female - Time Spent with Patient Total time spent providing and/or coordinating discharge services: 37min Date of admission: 02/02/18 14:37 Primary care physician: Rashawn Rosenberg MD - Constitutional Vitals: Temp Pulse Resp BP Pulse Ox 97.9 F 82 16 97/60 95 02/05/18 12:23 02/05/18 12:23 02/05/18 12:23 02/05/18 12:23 02/05/18 12:23 - Attending Attestation I examined this patient and my medical decision-making was reviewed with the Resident Physician on 02/05/18. I agree with the documented findings, disposition and treatment plan as described except to the extent set forth below. Ms Bonner has been admitted for pneumonia. She is now afebrile and returning to baseline. Her cough is improving. She feels ready to discharge home. Exam Alert Comfortable Mucus membranes dry Heart reg Upper airway wheeze noted Abd soft Plan D/C home
[2018-02-04] MEDS: Famotidine 20 MG TABLET PO SCH (08:30)
[2018-02-04] MEDS: Sennosides/Docusate Sodium TABLET PO SCH ×2 (08:30→21:03)
[2018-02-04] MEDS: BuPROPion XL (24 HR) 150 MG TABLET PO SCH ×2 (08:30)
[2018-02-04] MEDS: *HR* LORazepam 0.5 MG TABLET PO SCH ×3 (08:30→21:04)
[2018-02-04] MEDS: Topiramate 100 MG TABLET PO SCH ×2 (08:30→21:05)
[2018-02-04 08:38] LABS: Phosphorous 3.4 mg/dL (2.7-4.5)
[2018-02-04] MEDS: *HR* Morphine Immed Rel 30 MG TABLET PO PRN ×2 (08:47→19:07)
[2018-02-04] MEDS: Ipratropium/Albuterol Neb 3 ML IH SCH ×3 (10:42→22:23)
--- NOTE | 2018-02-04 10:51 | Internal Med Progress Note ---
<Mercedes Cameron N - Last Filed: 02/04/18 15:47> Hospitalist Progress Note - Encounter Date of Encounter: 02/04/18 Time of Encounter: 10:51 - Subjective Interval History: Ms. Bonner is a 57-year old female with a medical history significant for left- sided stage IV breast cancer with bone and brain metastases. She presented to the ED on 02/02 complaining of sudden-onset coughing and vomiting x 2 days. She reported no inciting events and noted having experienced cold sweats and inability to tolerate PO intake. Initial laboratory studies demonstrated the following significant findings: WBC 3.1, Hgb/Hct 12.0/34.6, potassium 3.4, alkaline phosphatase 116, BNP 104, and globulin 3.7. She underwent multiple imaging studies in the ED, with the following significant findings: * Head CT demonstrated no acute intracranial abnormalities. Postsurgical changes from occipital craniotomies were noted, with a large area of encephalomalacia in left cerebellar hemisphere, which was stable from prior eams. Small, stable areas of encephalomalacia were also noted in the right frontal and pariental regions. * Chest CT demonstrated acute focal airspace disease involving the posterior right upper lobe and patchy airspace opacities in right middle lobe concerning for pneumonia. Stable small and borderline mediastinal and bilateral hilar lymph nodes were also noted, as were multiple nondisplaced chronic bilateral pathologic rib fractures. * Abdomen/pelvis CT study demonstrated widespread osseous metastases and new compression fractures at L2 and L3. Mild retropulsion causing focal narrowing of the spinal cord was noted at L2. She was started on IV vancomycin and zosyn for right-sided pneumonia and admitted for further workup and management. On evaluation today, she denies any acute complaints other than productive cough. She reports some nausea secondary to having just taken her pain medication, but states that it is normal for her and resolves with zofran, which she has recently received as well. She denies shortness of breath or difficulty breathing. Nursing staff reports no acute overnight events. Patient is tolerating PO intake well. 02/04 - Ms. Bonner states that she is feeling much better today and expresses that she would like to go home. Her friend is present at the bedside, and reports hearing wheezing. Ms. Bonner denies any fevers, shortness of breath, urinary urgency, or frequency. She admits to continued productive cough. She states that she is eating well and having normal bowel movements. - Exam Vitals: Temp Pulse Resp BP Pulse Ox 98.2 F 63 16 112/70 98 02/04/18 05:30 02/04/18 05:30 02/04/18 10:43 02/04/18 05:30 02/04/18 10:43 Exam: * General: Adult female lying in bed. She does not appear to be in acute distress. She answers questions appropriately. * HEENT: Atraumatic and normocephalic. Left eye appears to have recently been operated on. * Cardiovascular: Regular rate and rhythm. S1 and S2 present. No murmurs, gallops, or rubs. * Respiratory: Decreased breath sounds bilaterally. Expiratory wheezes present over all lung lew. * Gastrointestinal: Soft, nondistended, and nontender. Hypoactive bowel sounds present. * Extremities: No clubbing, cyanosis, or edema present. - Assessment and Plan (1) Pneumonia Current Visit: Yes Status: Suspected Assessment and Plan: Initial laboratory studies in the ED demonstrated the following significant findings: WBC 3.1, Hgb/Hct 12.0/34.6, potassium 3.4, alkaline phosphatase 116, BNP 104, and globulin 3.7. Chest CT demonstrated acute focal airspace disease involving the posterior right upper lobe and patchy airspace opacities in right middle lobe concerning for pneumonia. She was started on IV vancomycin and zosyn. On exam today, she denies any shortness of breath but does complain of productive cough. Lung lew are free of wheezes or rales. Plan to continue IV antibiotics. Will consider transition to PO antibiotics tomorrow in anticipation of possible discharge. 02/04 - Day #3 of antibiotic therapy with zosyn and vancomycin. Patient continues to be afebrile. WBC count today of 2.6. Copious bilateral expiratory wheezing present. Patient denies any history of asthma or COPD. Plan to continue IV antibiotics for an additional 24-hours, then transition to oral antibiotic therapy. At discharge, plan for augmentin XL 2g BID x 5 days + azithromycin 500mg x 1 day, then 250mg x 4 days. Scheduled duonebs Q6H today to improve wheezing. (2) Breast cancer Current Visit: Yes Status: Chronic Assessment and Plan: Patient has known stage IV breast cancer with metastasis to bone. Currently holding chemotherapy secondary to leukopenia in setting of acute pneumonia. Appreciate palliative care team input in management of this patient. (3) DVT prophylaxis Current Visit: Yes Status: Acute Assessment and Plan: Heparin 5000units Q12H. (4) Leukopenia Current Visit: Yes Status: Acute Assessment and Plan: On initial laboratory studies, patient demonstrated leukopenia, with WBC count of 3.1. She is currently taking ribociclib succinate (kisqali). Suspect that her leukopenia is secondary to chemotherapy. WBC count today was further decreased at 2.4. Will hold chemotherapeutic agents at this time. Plan for followup with oncology after discharge regarding reinitiation of cancer treatment. - Time Spent with Patient Total time spent is greater than 50% in coordination of care (as documented) at patient's floor/unit and/or counseling patient: Internal Medicine: Result - Labs CBC & Chem 7: 02/04/18 05:07 02/04/18 05:07 Labs: Short CBC 02/04/18 Range/Units 05:07 WBC 2.6 L (4.3-11.1) K/mcL Hgb 9.6 L D (11.5-15.4) g/dL Hct 29.0 L (35.3-44.9) % Plt Count 135 L (140-400) K/mcL Neutrophils # 0.9 L (1.6-8.9) K/mcL BMP 02/04/18 05:07 Sodium 140 Potassium 3.3 L Chloride 114 H Carbon Dioxide 20 L BUN 11 Creatinine 1.11 Glucose 88 Calcium 7.9 L - ABG Interpretation ABG results: PT/INR, D-dimer PT 12.2 Seconds (9.4-12.1) H 02/02/18 09:29 Consult Discharge Plan - Plan Referrals: Rashawn Rosenberg MD [Primary Care Provider] - <Alonzo Prince - Last Filed: 02/04/18 16:12> Hospitalist Progress Note - Encounter Date of Encounter: 02/04/18 - Exam Vitals: Temp Pulse Resp BP Pulse Ox 98.4 F 62 14 96/60 100 02/04/18 11:26 02/04/18 11:26 02/04/18 11:26 02/04/18 11:26 02/04/18 11:26 - Assessment and Plan (1) Breast cancer Current Visit: Yes Status: Chronic (2) DVT prophylaxis Current Visit: Yes Status: Acute (3) Pneumonia Current Visit: Yes Status: Suspected (4) Leukopenia Current Visit: Yes Status: Acute (5) Lumbar compression fracture Current Visit: Yes Status: Chronic (6) COPD (chronic obstructive pulmonary disease) Current Visit: No Status: Chronic - Time Spent with Patient Total time spent is greater than 50% in coordination of care (as documented) at patient's floor/unit and/or counseling patient: Internal Medicine: Result - Labs CBC & Chem 7: 02/04/18 05:07 02/04/18 05:07 Labs: Short CBC 02/04/18 Range/Units 05:07 WBC 2.6 L (4.3-11.1) K/mcL Hgb 9.6 L D (11.5-15.4) g/dL Hct 29.0 L (35.3-44.9) % Plt Count 135 L (140-400) K/mcL Neutrophils # 0.9 L (1.6-8.9) K/mcL BMP 02/04/18 05:07 Sodium 140 Potassium 3.3 L Chloride 114 H Carbon Dioxide 20 L BUN 11 Creatinine 1.11 Glucose 88 Calcium 7.9 L - ABG Interpretation ABG results: PT/INR, D-dimer PT 12.2 Seconds (9.4-12.1) H 02/02/18 09:29 - Attending Attestation I examined this patient and my medical decision-making was reviewed with the Resident Physician on 02/04/18. I agree with the documented findings, disposition and treatment plan as described except to the extent set forth below. Ms Bonner is currently admitted for pneumonia. She remains moderate to high risk due to potential for worsening clinical status. Ms Bonner is eating lunch. She had some increased wheezing today. No fever or chills. Getting around room some. No GI issues. Exam alert Comfortable Mucus membranes dry Heart distant Scant wheeze bilaterally Abd soft No edema I/P 1. Pneumonia 2. Breast cancer Further diagnoses and plan as above. Anticipate d/c tomorrow. <[place],Mercedes Patterson - Last Filed: 02/04/18 15:47> (1) Pneumonia Qualifiers: Pneumonia type: due to other aerobic Gram-negative bacteria Laterality: right Lung location: upper lobe of lung Qualified Code(s): J15.6 - Pneumonia due to other Gram-negative bacteria (2) Breast cancer Qualifiers: Breast location: unspecified site of breast Estrogen receptor status: unspecified Patient sex: female Laterality: unspecified laterality Qualified Code(s): C50.919 - Malignant neoplasm of unspecified site of unspecified female breast (4) Leukopenia Qualifiers: Leukopenia type: neutropenia Neutropenia type: secondary to cancer chemotherapy Qualified Code(s): D70.1 - Agranulocytosis secondary to cancer chemotherapy; T45.1X5A - Adverse effect of antineoplastic and immunosuppressive drugs, initial encounter <Alonzo Prince - Last Filed: 02/04/18 16:12> (1) Breast cancer Qualifiers: Breast location: unspecified site of breast Estrogen receptor status: unspecified Patient sex: female Laterality: unspecified laterality Qualified Code(s): C50.919 - Malignant neoplasm of unspecified site of unspecified female breast (3) Pneumonia Qualifiers: Pneumonia type: due to other aerobic Gram-negative bacteria Laterality: right Lung location: upper lobe of lung Qualified Code(s): J15.6 - Pneumonia due to other Gram-negative bacteria (4) Leukopenia Qualifiers: Leukopenia type: neutropenia Neutropenia type: secondary to cancer chemotherapy Qualified Code(s): D70.1 - Agranulocytosis secondary to cancer chemotherapy; T45.1X5A - Adverse effect of antineoplastic and immunosuppressive drugs, initial encounter (5) Lumbar compression fracture Qualifiers: Encounter type: subsequent encounter Lumbar vertebra fracture level: L2 Fracture type: closed Fracture healing: with routine healing Qualified Code(s) : S32.020D - Wedge compression fracture of second lumbar vertebra, subsequent encounter for fracture with routine healing (6) COPD (chronic obstructive pulmonary disease) Qualifiers: COPD type: emphysema Emphysema type: other Qualified Code(s): J43.8 - Other emphysema
[2018-02-04] MEDS ORDERED: Aminoglycoside Consult 1 EACH MC ONE (15:08)
[2018-02-04] MEDS: Erythromycin OPTH Oint LEFT EYE SCH (21:28)
[2018-02-05] MEDS: Piperacillin/Tazobactam 3.375 GM in 0.9 % Sodium Chloride Mini Bag 100 ML IVPB SCH ×2 (03:55→11:46)
[2018-02-05] MEDS: Ipratropium/Albuterol Neb 3 ML IH SCH ×2 (04:18→09:46)
[2018-02-05 04:37] LABS: Basophils # 0.1 K/mcL (0.0-0.2); Eosinophils # 0.1 K/mcL (0.0-0.6); Eosinophils % 5.2 %; Hematocrit 29.8 % (35.3-44.9); Immature Granulocytes % 0.4 % (0-4); Lymphocytes # 1.2 K/mcL (0.6-4.6); Lymphocytes % 47.2 %; Mean Corpuscular HGB Conc 33.6 g/dL (31.6-35.5); Mean Corpuscular Volume 104.2 fL (83.0-100.0); Mean Platelet Volume 8.7 fL (9.4-12.4); Monocytes # 0.3 K/mcL (0.0-1.3); Monocytes % 10.5 %; Neutrophils # 0.9 K/mcL (1.6-8.9); Nucleated Red Blood Cells 0.8 /100 WBC (0); Platelet Count 158 K/mcL (140-400); Red Blood Count 2.86 M/mcL (3.82-4.97); Red Cell Distribution Width 13.4 % (11.5-14.5); Segmented Neutrophils % 34.7 %
[2018-02-05 04:51] LABS: Calcium 8.5 mg/dL (8.6-10.3); Magnesium 2.1 mg/dL (1.6-2.6); Phosphorous 3.6 mg/dL (2.7-4.5); Potassium 3.9 mEq/L (3.5-5.1)
[2018-02-05] MEDS: *HR* Heparin 5,000 UNIT/ML VIAL SQ SCH (06:13)
[2018-02-05] MEDS: Famotidine 20 MG TABLET PO SCH (08:36)
[2018-02-05] MEDS: BuPROPion XL (24 HR) 150 MG TABLET PO SCH ×2 (08:37→08:39)
[2018-02-05] MEDS: *HR* LORazepam 0.5 MG TABLET PO SCH (08:38)
[2018-02-05] MEDS: Topiramate 100 MG TABLET PO SCH (08:38)
[2018-02-05] MEDS: Sennosides/Docusate Sodium TABLET PO SCH (08:38)
[2018-02-05] MEDS: Budesonide/Formoterol 160/4.5 1 PUFF INH IH SCH (09:46)
[2018-02-05 12:25] VITALS: BP 97/60
--- NOTE | 2018-02-05 14:13 | Physician Discharge Referral ---
Home Health/Hosp Referral Info Transfer to: Home Health Attending Provider: Dr. Alonzo Prince Provider in Charge Post Discharge: PCP - Diagnosis (1) Pneumonia Priority: Primary Status: Suspected (2) Leukopenia Priority: Secondary Status: Acute (3) Breast cancer Priority: Secondary Status: Chronic (4) DVT prophylaxis Priority: Secondary Status: Acute - Respiratory Orders Smoking Cessation: Smoking cessation has been advised. For more information, call the [place] Tobacco Quit Line at 1-592-VSRP-NOW. - Diet/Nutrition Diet/Nutrition Orders: Regular - Activity Activity Orders: Up ad buster - Services Needed Following services are medically necessary services: Nursing, Home Health Aide, Physical Therapy, Occupational Therapy - Transfer Medications Prescriptions: Amoxicillin/Potassium Clav [Augmentin Xr 1,000-62.5 Tab] 1 each PO Q12H 5 Days # 20 tab.er.12h Azithromycin [Azithromycin 6-Tab Pack] 250 mg PO PER PKG DI #6 tab Home Medications: Albuterol Neb [AccuNeb] 1.25 mg IH Q6H PRN 02/27/15 [History] BuPROPion XL (24 HR) [Wellbutrin Xl] 150 mg PO DAILY 02/27/15 [History] BuPROPion XL (24 HR) [Wellbutrin Xl] 300 mg PO DAILY 02/27/15 [History] Docusate Sodium [Colace] 100 mg PO DAILY PRN 02/27/15 [History] Fluticasone/Salmeterol [Advair 500-50 Diskus] 1 puff IH BID 02/27/15 [History] LORazepam [Ativan] 0.5 mg PO TID 02/27/15 [History] Potassium Chloride 20 meq PO DAILY 02/27/15 [History] Triamterene/HCTZ 37.5/25mg [Dyazide] 1 each PO DAILY 02/27/15 [History] Albuterol Sulfate [Albuterol Inhaler] 2 puff IH QID PRN 09/24/16 [History] DiphenhydraMINE [Benadryl] 25 mg PO Q6HR PRN #20 capsule 12/20/16 [Rx] Sertraline [Zoloft] 150 mg PO DAILY 04/28/17 [History] Zolpidem [Ambien] 10 mg PO HS #30 tablet 05/04/17 [Rx] Ferrous Sulfate [Iron] 325 mg PO DAILY #90 capsule.er 09/24/17 [Rx] Cetirizine HCl [Zyrtec] 10 mg PO DAILY 12/29/17 [History] Ranitidine HCl [Acid [employer] Fermentation Operator] 150 mg PO BID 12/29/17 [History] Morphine Immed Rel [Morphine Sulfate] 30 mg PO Q8H PRN 30 Days #90 tablet [Rx] Prochlorperazine Maleate [Compazine] 10 mg PO Q6HR PRN #30 tablet 01/12/18 [Rx] Methylnaltrexone [place] [Relistor] 150 mg PO DAILY 02/02/18 [History] Topiramate [Topamax] 100 mg PO BID 02/02/18 [History] Amoxicillin/Potassium Clav [Augmentin Xr 1,000-62.5 Tab] 1 each PO Q12H 5 Days # 20 tab.er.12h 02/05/18 [Rx] Azithromycin [Azithromycin 6-Tab Pack] 250 mg PO PER PKG DI #6 tab 02/05/18 [Rx] Allergies/Adverse Reactions: 3 Allergy/AdvReac Type Severity Reaction Status Date / Time acetaminophen Allergy Chest Pain Verified 01/12/18 14:11 [From Tylenol-Codeine] codeine Allergy Chest Pain Verified 01/12/18 14:11 [From Tylenol-Codeine] doxycycline Allergy Hives Verified 01/12/18 14:11 levofloxacin [From Levaquin] Allergy Hives Verified 01/12/18 14:11 Certification: Further, I certify that my clinical findings support that this patient is homebound (i.e. absences from home require considerable and taxing effort and are for medical reasons or islam services or infrequently or short duration when for other reasons) because: Homebound Reason: Patient requires assistance of a person or device to safely leave home Attestation: My signature below is to certify that this patient is under my care and that I, or nurse practitioner, or a physician's traffic assistant working with me, has a face-to -face encounter with this patient.
== END 2018-02-05 15:09 | disposition home health service (06) | DRG 137 ==
LOC: EMEROOARM 08:59 → SUATTDRO 14:37 → 3ANU 14:37
PROVIDERS: ADMIT Student in an Organized Health Care Education/Training Program; ATTEND Internal Medicine

== ENCOUNTER 2018-03-01 13:00 | Inpatient (IN) ==
--- NOTE | 2018-03-01 13:12 | Emergency Department Note ---
Disposition Clinical Impression: UTI (urinary tract infection) Qualifiers: Urinary tract infection type: acute pyelonephritis Qualified Code(s): N10 - Acute pyelonephritis Sepsis Qualifiers: Sepsis type: sepsis due to unspecified organism Qualified Code(s): A41.9 - Sepsis, unspecified organism Disposition: Admitted As Inpatient Condition: Good Referrals: Rashawn Rosenberg MD [Primary Care Provider] - Forms: ED Satisfaction Letter Time of Disposition: 17:08 General Adult HPI - General Chief complaint: ED Back Pain/Injury Stated complaint: Back pain Time Seen by Provider: 03/01/18 13:03 Source: patient, EMS Mode of arrival: EMS Limitations: no limitations - History of Present Illness HPI Narrative: This is a 57-year-old female who had kyphoplasty about 7 days prior to arrival who comes to emergency department because she was thought to be confused at home. She also has had urinary incontinence for the last 2 or 3 days. She is afebrile, but reports feeling cold for the last few days. - Related Data Home Medications Medication Instructions Recorded Confirmed BuPROPion XL (24 HR) [Wellbutrin 300 mg PO QAM 02/27/15 03/01/18 Xl] Docusate Sodium [Colace] 100 mg PO DAILY PRN 02/27/15 03/01/18 Fluticasone/Salmeterol [Advair 1 puff IH BID 02/27/15 03/01/18 500-50 Diskus] Potassium Chloride 20 meq PO DAILY 02/27/15 03/01/18 Albuterol Sulfate [Albuterol 2 puff IH QID PRN 09/24/16 03/01/18 Inhaler] Sertraline [Zoloft] 150 mg PO DAILY 04/28/17 03/01/18 Ranitidine HCl [Acid Md Physician Dermatologist] 150 mg PO BID 12/29/17 03/01/18 Topiramate [Topamax] 100 mg PO BID 02/02/18 03/01/18 Albuterol Neb [AccuNeb] 1.25 mg IH Q8H PRN 02/19/18 03/01/18 BuPROPion XL (24 HR) [Wellbutrin 150 mg PO HS 02/19/18 03/01/18 XL] Erythromycin OPTH Oint 1 appl BOTH EYES HS 02/19/18 03/01/18 LORazepam [Ativan] 0.5 mg PO TID PRN 02/19/18 03/01/18 Promethazine HCl 12.5 mg PO BID PRN 02/19/18 03/01/18 Triamterene/HCTZ 37.5/25mg 1 each PO DAILY 02/19/18 03/01/18 [Dyazide] Previous Rx's Medication Instructions Recorded Zolpidem [Ambien] 10 mg PO HS #30 tablet 05/04/17 Ferrous Sulfate [Iron] 325 mg PO DAILY #90 capsule.er 09/24/17 Prochlorperazine Maleate 10 mg PO Q6HR PRN #30 tablet 01/12/18 [Compazine] Morphine Immed Rel [Morphine 30 mg PO Q8H PRN 30 Days #90 tablet 02/18/18 Sulfate] Allergies Allergy/AdvReac Type Severity Reaction Status Date / Time codeine Allergy Chest Pain Verified 02/17/18 16:30 [From Tylenol-Codeine] doxycycline Allergy Hives Verified 02/17/18 16:30 levofloxacin [From Levaquin] Allergy Hives Verified 02/17/18 16:30 All systems ED: reviewed and negative except as stated. Constitutional: Reports: chills. Denies: fever Genitourinary: Reports: frequency Neurological: Reports: confusion Past Medical History - Past Medical History Medical history: Reports: asthma, cancer, COPD, GERD, hyperlipidemia, hypertension, migraine, other Surgical history: Reports: breast surgery, cancer surgery, cataract, cholecystectomy, hysterectomy, sinus surgery, CHAITANYA/BSO Psychiatric history: Reports: anxiety, depression PRINT MANAGER history: Reports: no PRINT MANAGER history - Social History Smoking Status: Never smoker Smokeless Tobacco Status: No Alcohol use: Reports: none Drug use: Reports: none Physical Exam - General Limitations: no limitations General appearance: alert, in no apparent distress - Head Head exam: atraumatic, normocephalic, normal inspection - Chest Chest inspection: Present: normal inspection, symmetric chest wall rise - Respiratory Respiratory exam: Present: normal lung sounds bilaterally - Cardiovascular Cardiovascular exam: Present: regular rate, normal rhythm, normal heart sounds - Abdominal Exam Abdominal exam: Present: soft, tenderness. Absent: distention, guarding, rebound, rigidity Abdominal tenderness: Present: diffuse, mild - Extremities Exam Extremities exam: Present: normal inspection, full ROM. Absent: tenderness, pedal edema - Neurological Exam Neurological exam: Present: alert, oriented X3 - Psychiatric Psychiatric exam: Present: normal affect, normal mood - Skin Skin exam: Present: warm, dry, intact, normal color Course Course Narrative: This is a 57-year-old female with reported confusion. Her urinary frequency is concerning for UTI. He was then found to have a blood pressure less than 100. Vital Signs Temperature 99.8 F H 03/01/18 13:05 Pulse Rate 76 03/01/18 13:05 Respiratory Rate 18 03/01/18 13:05 Blood Pressure 92/54 03/01/18 13:05 O2 Sat by Pulse Oximetry 96 03/01/18 13:05 Temperature 101.3 F H 03/01/18 16:30 Pulse Rate 89 03/01/18 16:30 Respiratory Rate 22 03/01/18 16:30 Blood Pressure 94/47 03/01/18 16:30 O2 Sat by Pulse Oximetry 96 03/01/18 16:30 Oxygen Delivery Oxygen Delivery Room Air Medical Decision Making - [facility] Narrative Medical decision making narrative: This is a 57-year-old female who appears to have a UTI and sepsis. Her blood pressure responded well to IV fluid, and although I retrieved central line kit, insertion of a central venous catheter appeared unnecessary after the patient was moved into a recess room to place the central line and her blood pressure measured 111 systolic by an automatic cough and 102 by a manual cuff. She was given ceftriaxone for urinary infection IV fluid was given because of low blood pressure acetaminophen was given for fever The midline was ordered for better intervening venous access I discussed her case with the on-call hospitalist, who accepted her for admission - Lab Data Lab results reviewed: Yes I reviewed the patient's lab results. Lab results narrative: CBC shows anemia at 10.9 and 32.7 BMP shows slight hypokalemia at 3.4 LFT was unremarkable UA was consistent with infection Result diagrams: 03/01/18 13:03 03/01/18 14:43 Lab Results 03/01/18 03/01/18 03/01/18 Range/Units 13:03 13: 13:03 WBC 6.0 (4.3-11.1) K/mcL RBC 3.26 L (3.82-4.97) M/mcL Hgb 10.9 L (11.5-15.4) g/dL Hct 32.9 L (35.3-44.9) % MCV 100.9 H (83.0-100.0) fL MCH 33.4 H (28.0-33.3) pg MCHC 33.1 (31.6-35.5) g/dL RDW 13.3 (11.5-14.5) % Plt Count 208 (140-400) K/mcL MPV 8.9 L (9.4-12.4) fL Immature Gran % 1.3 (0-4) % Seg Neutrophils % 80.7 % Lymphocytes % 11.3 % Monocytes % 5.5 % Eosinophils % 0.5 % Basophils % 0.7 % Neutrophils # 4.9 (1.6-8.9) K/mcL Lymphocytes # 0.7 (0.6-4.6) K/mcL Monocytes # 0.3 (0.0-1.3) K/mcL Eosinophils # 0.0 (0.0-0.6) K/mcL Basophils # 0.0 (0.0-0.2) K/mcL Sodium Cancelled Potassium Cancelled Chloride Cancelled Carbon Dioxide Cancelled BUN Cancelled Creatinine Cancelled Est GFR ( Amer) Cancelled Est GFR (Non-Af Amer) Cancelled BUN/Creatinine Ratio Cancelled Glucose Cancelled Calculated Osmolality Cancelled Calcium Cancelled Total Bilirubin Cancelled Direct Bilirubin Cancelled Indirect Bilirubin Cancelled AST Cancelled ALT Cancelled Alkaline Phosphatase Cancelled Troponin I < 0.03 (< 0.04) ng/mL Serum Total Protein Cancelled Albumin Cancelled Globulin Cancelled Albumin/Globulin Ratio Cancelled Urine Color (Yellow) Urine Clarity (Clear) Urine pH (5.0-8.0) pH Units Ur Specific [place] (1.010-1.025) Urine Protein (Neg-Trace) mg/dL Urine Glucose (UA) (Normal) mg/dL Urine Ketones (Negative) mg/dL Urine Blood (Negative) Urine Nitrite (Negative) Urine Bilirubin (Negative) Urine Urobilinogen (Normal) mg/dL Ur Leukocyte Esterase (Negative) Urine Microscopic RBC (0-3) per hpf Urine Microscopic WBC (0-3) per hpf Ur Squamous Epith Cells (None-Few) per lpf Urine Bacteria (None-Few) per hpf Hyaline Casts (None-Few) per lpf Ur Culture Indicated? (NO) Specimen Rejected Hemolyzed 03/01/18 03/01/18 Range/Units 13:37 14:43 WBC (4.3-11.1) K/mcL RBC (3.82-4.97) M/mcL Hgb (11.5-15.4) g/dL Hct (35.3-44.9) % MCV (83.0-100.0) fL MCH (28.0-33.3) pg MCHC (31.6-35.5) g/dL RDW (11.5-14.5) % Plt Count (140-400) K/mcL MPV (9.4-12.4) fL Immature Gran % (0-4) % Seg Neutrophils % % Lymphocytes % % Monocytes % % Eosinophils % % Basophils % % Neutrophils # (1.6-8.9) K/mcL Lymphocytes # (0.6-4.6) K/mcL Monocytes # (0.0-1.3) K/mcL Eosinophils # (0.0-0.6) K/mcL Basophils # (0.0-0.2) K/mcL Sodium 133 L Potassium 3.4 L Chloride 100 Carbon Dioxide 25 BUN 19 Creatinine 1.26 H Est GFR ( Amer) 53 L Est GFR (Non-Af Amer) 44 L BUN/Creatinine Ratio 15 Glucose 88 Calculated Osmolality 278 L Calcium 8.8 Total Bilirubin 0.8 Direct Bilirubin 0.3 H Indirect Bilirubin 0.5 AST 40 H ALT 30 Alkaline Phosphatase 136 H Troponin I (< 0.04) ng/mL Serum Total Protein 8.1 Albumin 4.2 Globulin 3.9 H Albumin/Globulin Ratio 1.1 Urine Color Yellow (Yellow) Urine Clarity Cloudy A (Clear) Urine pH 6.5 (5.0-8.0) pH Units Ur Specific [place] 1.006 L (1.010-1.025) Urine Protein Trace (Neg-Trace) mg/dL Urine Glucose (UA) Normal (Normal) mg/dL Urine Ketones Negative (Negative) mg/dL Urine Blood Negative (Negative) Urine Nitrite Positive A (Negative) Urine Bilirubin Negative (Negative) Urine Urobilinogen Normal (Normal) mg/dL Ur Leukocyte Esterase Large H (Negative) Urine Microscopic RBC 0-3 (0-3) per hpf Urine Microscopic WBC 50-100 H (0-3) per hpf Ur Squamous Epith Cells None Seen (None-Few) per lpf Urine Bacteria Many H (None-Few) per hpf Hyaline Casts None Seen (None-Few) per lpf Ur Culture Indicated? YES A (NO) Specimen Rejected - Radiology Data Radiology results reviewed: Yes I reviewed the patient's radiology results. Chest x-ray showed right upper lobe lesions consistent with metastatic disease seen on a prior CT - EKG Data EKG #1 EKG attestation: Yes I reviewed and interpreted this EKG. EKG results narrative: ECG shows sinus rhythm, 76 bpm, normal intervals, normal axis, normal ST and T waves Critical Care Time Critical Care Time: Yes Total Critical Care Time: 20 Attestation: 20 minutes of critical care time was invested independent of separately billable procedures
[2018-03-01] MEDS ORDERED: 0.9 % Sodium Chloride 1,000 ML IVC ONE ×3 (13:14→18:02)
[2018-03-01 13:44] LABS: Bilirubin,Urine Negative (Negative); Blood,Urine Negative (Negative); Clarity,Urine Cloudy (Clear); Color,Urine Yellow (Yellow); Glucose,Urine (UA) Normal (Normal); Ketones,Urine Negative (Negative); Leukocyte Esterase,Urine Large (Negative); Nitrite,Urine Positive (Negative); PH,Urine 6.5 pH Units (5.0-8.0); Protein,Urine Trace mg/dL (Neg-Trace); Specific Gravity,Urine 1.006 (1.010-1.025); Urobilinogen,Urine Normal (Normal)
[2018-03-01 13:46] LABS: Bacteria,Urine Many per hpf (None-Few); Hyaline Casts,Urine None Seen per lpf (None-Few); RBC,Urine 0-3 per hpf (0-3); Squamous Epithelial Cell,Urine None Seen per lpf (None-Few); WBC,Urine 50-100 per hpf (0-3)
[2018-03-01 13:51] LABS: Basophils % 0.7 %; Eosinophils % 0.5 %; Hematocrit 32.9 % (35.3-44.9); Hemoglobin 10.9 g/dL (11.5-15.4); Immature Granulocytes % 1.3 % (0-4); Lymphocytes # 0.7 K/mcL (0.6-4.6); Lymphocytes % 11.3 %; Mean Corpuscular HGB Conc 33.1 g/dL (31.6-35.5); Mean Corpuscular Hemoglobin 33.4 pg (28.0-33.3); Mean Corpuscular Volume 100.9 fL (83.0-100.0); Mean Platelet Volume 8.9 fL (9.4-12.4); Monocytes # 0.3 K/mcL (0.0-1.3); Monocytes % 5.5 %; Neutrophils # 4.9 K/mcL (1.6-8.9); Platelet Count 208 K/mcL (140-400); Red Blood Count 3.26 M/mcL (3.82-4.97); Red Cell Distribution Width 13.3 % (11.5-14.5); Segmented Neutrophils % 80.7 %
[2018-03-01] MEDS ORDERED: cefTRIAXone 1,000 MG in Water for inj. (sterile) 20 ML 10 ML IVP ONE (13:55)
[2018-03-01 15:28] LABS: Albumin 4.2 g/dL (3.5-5.7); Albumin/Globulin Ratio 1.1 (1.1-2.2); Bilirubin,Direct 0.3 mg/dL (0.0-0.2); Bilirubin,Indirect 0.5 mg/dL (0.0-1.2); Bilirubin,Total 0.8 mg/dL (0.3-1.0); Calcium 8.8 mg/dL (8.6-10.3); Globulin 3.9 g/dL (2.4-3.5); Potassium 3.4 mEq/L (3.5-5.1); Total Protein 8.1 g/dL (6.4-8.9)
--- NOTE | 2018-03-01 17:53 | Internal Med History&Physical ---
<Rafita Nguyen - Last Filed: 03/01/18 19:16> Date of Encounter: 03/01/18 Time of Encounter: 17:53 Internal Medicine - H&P: HPI Chief complaint: AMS Admitted From: Emergency Dept Plans for Post Hospital Care: Home History of present illness: Ms. Bonner is a 57 year old female with a PMHx of hypertension, stage IV breast cancer with metastasis to bone and brain. She presented to emergency department due to concerns for altered mental status. Of note, patient is alert and oriented during time of interview however she is not able to provide a good history. Most of her history is obtained from her friend who is at bedside during admission. Her friend states that her last known well was Thursday evening when she came to visit. The friend tried to call the patient this afternoon and there was no answer so she went to visit her. At that time there was concern for altered mental status as patient was talking more than usual and not making much sense in her answers. According to her home health nurse patient has felt warm but has had no other symptoms. She does have a history of multiple UTIs and is incontinent of urine at baseline. The home health nurse has apparently not noticed any symptoms of coughing, vomiting, changes in bowel movements, new rashes. She did undergo what appears to be a kyphoplasty on [address] Jorgensen and her home health aide states that this has been healing well without evidence of infection. Of note, she was admitted approximately 2 weeks ago with pneumonia. She does receive chemotherapy at the [facility]'s most recent treatment about 02/17/18. Upon arrival to emergency department, vitals were unremarkable however during stay she did not have a temperature of 101.3 and respiratory rate of 22. Laboratory results significant for a WBC count of 6.0 which patient's baseline has been running 2-4 while on chemotherapy. Her BUNs/creatinine is 19/1.26, baseline appears to be around 1. Urinalysis was obtained and showed leukocyte esterase as well as nitrites. She was given a dose of Rocephin as well as 2 L of normal saline bolus. Chest x-ray was obtained which did not show any acute pulmonary process. Past Med Surg Social Fam HX - Past Medical History Medical history: asthma, cancer, COPD, GERD, hyperlipidemia, hypertension, migraine, other Additional medical history: reactive airway disease. Metastatic breast cancer. chronic mood disorder. ANTHONY CPAP. left side weakness. left ear deafness. chronic hypoxemia Psychiatric history: anxiety, depression - Past Surgical History Surgical History: breast surgery, cancer surgery, cataract, cholecystectomy, hysterectomy, sinus surgery, CHAITANYA/BSO Additional surgical history: brain tumor x2 1984, 2005. ankle sx rt ORIF 1993. feeding tube 1985. eye sx's several started 1994. bilateral hand unsure date. left partial mastectomy 09/2012. bilateral cataract left 2014, right 2015 - Social History Smoking Status: Never smoker Smokeless Tobacco Status: No Alcohol use: none Drug use: none - Family History Father Adopted: No Family Member Ethnicity: Non- Living Status: Internal Medicine - H&P: Meds BuPROPion XL (24 HR) [Wellbutrin Xl] 300 mg PO QAM 02/27/15 [History] Docusate Sodium [Colace] 100 mg PO DAILY PRN 02/27/15 [History] Fluticasone/Salmeterol [Advair 500-50 Diskus] 1 puff IH BID 02/27/15 [History] Potassium Chloride 20 meq PO DAILY 02/27/15 [History] Albuterol Sulfate [Albuterol Inhaler] 2 puff IH QID PRN 09/24/16 [History] Sertraline [Zoloft] 150 mg PO DAILY 04/28/17 [History] Zolpidem [Ambien] 10 mg PO HS #30 tablet 05/04/17 [Rx] Ferrous Sulfate [Iron] 325 mg PO DAILY #90 capsule.er 09/24/17 [Rx] Ranitidine HCl [Acid Business Technology Professor] 150 mg PO BID 12/29/17 [History] Prochlorperazine Maleate [Compazine] 10 mg PO Q6HR PRN #30 tablet 01/12/18 [Rx] Topiramate [Topamax] 100 mg PO BID 02/02/18 [History] Morphine Immed Rel [Morphine Sulfate] 30 mg PO Q8H PRN 30 Days #90 tablet [Rx] Albuterol Neb [AccuNeb] 1.25 mg IH Q8H PRN 02/19/18 [History] BuPROPion XL (24 HR) [Wellbutrin XL] 150 mg PO HS 02/19/18 [History] Erythromycin OPTH Oint 1 appl BOTH EYES HS 02/19/18 [History] LORazepam [Ativan] 0.5 mg PO TID PRN 02/19/18 [History] Promethazine HCl 12.5 mg PO BID PRN 02/19/18 [History] Triamterene/HCTZ 37.5/25mg [Dyazide] 1 each PO DAILY 02/19/18 [History] 3 Allergy/AdvReac Type Severity Reaction Status Date / Time codeine Allergy Chest Pain Verified 02/17/18 16:30 [From Tylenol-Codeine] doxycycline Allergy Hives Verified 02/17/18 16:30 levofloxacin [From Levaquin] Allergy Hives Verified 02/17/18 16:30 ROS unobtainable: due to mental status All Systems PM: A 10-system review of systems was performed and is negative for pertinent findings except as documented above in the HPI. - Constitutional Vitals: Temp Pulse Resp BP Pulse Ox 101.3 F H 82 18 122/87 98 03/01/18 16:30 03/01/18 17:06 03/01/18 17:06 03/01/18 17:06 03/01/18 17:06 Exam: Gen.: Vitals noted. No acute distress. AAOx3, resting comfortably in bed. HEENT: Deaf in left ear, left eye with clear fluid crusting. Blind in right eye. oropharynx clear, Normocephalic, atraumatic, mildly dry mucous membranes Cardiac: RRR, no murmur, +S1/S2, No BLE edema Pulmonary: CTA bilaterally, no wheezes, rales or rhonchi, equal chest expansion , unlabored breathing Abdomen: soft, mildly tender to palpation left lower quadrant and left flank, BS noted, no guarding, no palpable HSM Back: Reproducible left flank tenderness Skin: warm and dry, no visible lesions. MSK: ROM intact, no joint swelling noted, gait no assessed while in bed. Non tender calf or clubbing Neuro: A&Ox3, moves all extremities, no focal deficits, sensation intact Psych: Appropriate mood and behavior, AOx3 however she does take much time to answer questions and appears confused. Poor eye contact Internal Med - H&P Results - Labs CBC & Chem 7: 03/01/18 13:03 03/01/18 14:43 - Assessment and plan (1) Sepsis Current Visit: Yes Status: Acute Assessment and plan: - SIRS criteria with fever 101, RR 22 in ED - Initially hypotensive in ED in 90s/60s but did respond to fluids. - Likely source is urine given UA and history of MDRO - Patient is denying symptoms but is not a good historian - Recently discharged from [facility] for PNA, CXR wnl - WBC of 6.0, however baseline is 2-4 and patient does receive chemotherapy, most recently 02/17/18 - Urine culture ordered by ED, started on rocephin - Cr noted to be 1.26 on admission. Baseline appears to be 0.9. Does not meet WANDA criteria at this time. Will monitor and hydrate. Expect rise given IV contrast for CT - Plan - Blood cultures ordered x 2 - Lactate ordered - CT abdomen ordered for pyelonephritis evaluation - Received 2L bolus in ED, will order additional 1L - Start vanc and zosyn as previous cultures have had multiple drug resistances sensitive Qualifiers: Sepsis type: sepsis due to unspecified organism Qualified Code(s): A41.9 - Sepsis, unspecified organism (2) Pyelonephritis Current Visit: Yes Status: Suspected Assessment and plan: - As above for sepsis - Flank pain on exam and Ua suggests infection - Further management pending CT scan (3) Hypokalemia Current Visit: Yes Status: Acute Assessment and plan: 3.4 in ED - Will give 40 mEq and check AM labs (4) Leukopenia Current Visit: Yes Status: Chronic Assessment and plan: - WBC of 6.0 today, possibly elevated in the setting of infection - Baseline appears to be 2-4 - Chronic secondary to chemo with possible elevated from baseline Qualifiers: Leukopenia type: neutropenia Neutropenia type: secondary to cancer chemotherapy Qualified Code(s): D70.1 - Agranulocytosis secondary to cancer chemotherapy; T45.1X5A - Adverse effect of antineoplastic and immunosuppressive drugs, initial encounter (5) UTI (urinary tract infection) Current Visit: Yes Status: Acute Assessment and plan: - As above for sepsis - Patient incontinent at baseline. - Denying symptoms but not reliable historian - Complicated due to AMS, possible pyelonephritis. Qualifiers: Urinary tract infection type: acute pyelonephritis Qualified Code(s): N10 - Acute pyelonephritis (6) Metastatic breast carcinoma Current Visit: Yes Status: Chronic Assessment and plan: Receives chemo as outpatient - last chemo 02/17 - onc consult in AM, appreciate recs. (7) Anemia Current Visit: Yes Status: Chronic Assessment and plan: - Hgb of 10.9, appears to be baseline - Possibly related to chemo. - No signs of bleed. Qualifiers: Anemia type: unspecified type Qualified Code(s): D64.9 - Anemia, unspecified (8) DVT prophylaxis Current Visit: Yes Status: Acute Assessment and plan: Heparin 5000 units q8 hours (9) Hypertension Current Visit: Yes Status: Chronic Assessment and plan: - Well controlled at presentation - borderline low but responsive to fluid resuscitation - Continue to monitor and hold home BP meds for now Qualifiers: Hypertension type: essential hypertension Qualified Code(s): I10 - Essential (primary) hypertension - Time Spent With Patient Total time spent is greater than 50% in coordination of care (as documented) at patient's floor/unit and/or counseling patient: <Rimma Oliver - Last Filed: 03/01/18 20:57> Date of Encounter: 03/01/18 Internal Medicine - H&P: HPI History of present illness: Ms. Bonner is a 57 year old female All Systems PM: A 10-system review of systems was performed and is negative for pertinent findings except as documented above in the HPI. - Constitutional Vitals: Temp Pulse Resp BP Pulse Ox 99.3 F 86 16 98/59 93 03/01/18 20:04 03/01/18 20:04 03/01/18 20:04 03/01/18 20:04 03/01/18 20:04 Internal Med - H&P Results - Labs CBC & Chem 7: 03/01/18 13:03 03/01/18 14:43 - Assessment and plan (1) Anemia Current Visit: Yes Status: Chronic Qualifiers: Anemia type: unspecified type Qualified Code(s): D64.9 - Anemia, unspecified (2) DVT prophylaxis Current Visit: Yes Status: Acute (3) Metastatic breast carcinoma Current Visit: Yes Status: Chronic (4) Hypokalemia Current Visit: Yes Status: Acute (5) Leukopenia Current Visit: Yes Status: Chronic Qualifiers: Leukopenia type: neutropenia Neutropenia type: secondary to cancer chemotherapy Qualified Code(s): D70.1 - Agranulocytosis secondary to cancer chemotherapy; T45.1X5A - Adverse effect of antineoplastic and immunosuppressive drugs, initial encounter (6) UTI (urinary tract infection) Current Visit: Yes Status: Acute Qualifiers: Urinary tract infection type: acute pyelonephritis Qualified Code(s): N10 - Acute pyelonephritis (7) Sepsis Current Visit: Yes Status: Acute Qualifiers: Sepsis type: sepsis due to unspecified organism Qualified Code(s): A41.9 - Sepsis, unspecified organism (8) Pyelonephritis Current Visit: Yes Status: Suspected (9) Hypertension Current Visit: Yes Status: Chronic Qualifiers: Hypertension type: essential hypertension Qualified Code(s): I10 - Essential (primary) hypertension - Time Spent With Patient Total time spent is greater than 50% in coordination of care (as documented) at patient's floor/unit and/or counseling patient: - Attending Attestation I examined this patient and my medical decision-making was reviewed with the Resident Physician dr Nguyen. I agree with the documented findings, disposition and treatment plan as described except to the extent set forth below /addl details below Ms Bonner presented today with confusion from home. She was recently admitted for pna and discharged to home with [facility]. She has metastatic breast cancer with mets to brain and bone, underwent reported kyphoplasty with Dr Jorgensen a week ago , following with oncology here at [place], on chemo which has since been resumed since last discharge. Found to have suspected UTI in ED and sepsis picutre with fever, increased rr, hypotension that responded to ivf. She is awake, peasant, mildly ocnfused with friend at bedside noting her to be confused from baseline. She denies fevers or chills, admits to urinary incontinence and dysuria x2 days. no apparent hematuria, no cva tendernss, no supra pubic tenderness. She denies any continued cough, sputum, wheezing or sob. No diarrhea, abd pain, nausea or emesis. With her mental status change she denies any focal neuro deficits including weakness, paralysis of any ext, numbness/tingling, changes in vision or speech which friend confirms. Has had home wound changes and no signs of infection, changed by Rn yesterday and told wound is looking good and dey any drainage or erythema since procedure last week. 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, [facility], corrects herself to year and month after intiatlly gettingthem wrong, oriented to situation, CN grossly intact, no focal deficits, speech clear Sepsis as evident by fever, increased rr, source of infection, hypotension and of note, while she does not have wbc elevation, she is on chemo and bl wbc is significantly lower than current wbc 6 Suspected source is complicated UTI -check lactate, cont sepsis rate ivfs/bolus, obtain bl cxs, u cx pending, cxr stable (recent pna treatment but currenlty no resp sxs), no apparent infeciton of wound from procedure outpt last week, wound consult and if any drainage apparent this admit will send cx, no meningitic symptoms -old ucx reviewed and whiting tart vanc + zosyn -check CT ab/pelvis Complicated UTI- tx above + monitor for retention Creat 1.26 elevated from baseline- IVF and monitor, avoid nephro toxic agents to best of ability at this time, UTI treatment as above Metabolic Encephalopathy likely 2/2 infectious process, may be related to brain mets and progressive disease process- CT head not obtained in eD, will obtain now, no focal deficits to suggest CVA, infection treatment as above code status confirmed dnr cca and intubation permissible
[2018-03-01] MEDS ORDERED: Isovue-370 500 ML INFUS..BTL IV ONE (18:02)
[2018-03-01] MEDS ORDERED: Naloxone 0.4 MG/ML INJ IVP PRN (18:06)
[2018-03-01] MEDS ORDERED: Albuterol Neb 1.25 MG/3 ML VIAL IH PRN (18:07)
[2018-03-01] MEDS ORDERED: *HR* LORazepam 0.5 MG TABLET PO PRN (18:07)
--- NOTE | 2018-03-01 18:24 | Event Note ---
Date of Encounter: 03/01/18 Time of Encounter: 17:30 I examined this patient and my medical decision-making was reviewed with the Resident Physician dr Nguyen. I agree with the documented findings, disposition and treatment plan as described except to the extent set forth below /addl details below This event note to serve as attestation awaiting ocmpleiton of resident h&p Ms Bonner presented today with confusion from home. She was recently admitted for pna and discharged to home with [facility]. She has metastatic breast cancer with mets to brain and bone, underwent reported kyphoplasty with Dr Jorgensen a week ago , following with oncology here at [place], on chemo which has since been resumed since last discharge. Found to have suspected UTI in ED and sepsis picutre with fever, increased rr, hypotension that responded to ivf. She is awake, peasant, mildly ocnfused with friend at bedside noting her to be confused from baseline. She denies fevers or chills, admits to urinary incontinence and dysuria x2 days. no apparent hematuria, no cva tendernss, no supra pubic tenderness. She denies any continued cough, sputum, wheezing or sob. No diarrhea, abd pain, nausea or emesis. With her mental status change she denies any focal neuro deficits including weakness, paralysis of any ext, numbness/tingling, changes in vision or speech which friend confirms. Has had home wound changes and no signs of infection, changed by Rn yesterday and told wound is looking good and dey any drainage or erythema since procedure last week. 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 [facility], corrects herself to year and month after intiatlly gettingthem wrong, oriented to situation, CN grossly intact, no focal deficits, speech clear Sepsis as evident by fever, increased rr, source of infection, hypotension and of note, while she does not have wbc elevation, she is on chemo and bl wbc is significantly lower than current wbc 6 Suspected source is complicated UTI -check lactate, cont sepsis rate ivfs/bolus, obtain bl cxs, u cx pending, cxr stable (recent pna treatment but currenlty no resp sxs), no apparent infeciton of wound from procedure outpt last week, wound consult and if any drainage apparent this admit will send cx, no meningitic symptoms -old ucx reviewed and whiting tart vanc + zosyn -check CT ab/pelvis Complicated UTI- tx above + monitor for retention Creat 1.26 elevated from baseline- IVF and monitor, avoid nephro toxic agents to best of ability at this time, UTI treatment as above Metabolic Encephalopathy likely 2/2 infectious process, may be related to brain mets and progressive disease process- CT head not obtained in eD, will obtain now, no focal deficits to suggest CVA, infection treatment as above code status confirmed dnr cca and intubation permissible
[2018-03-01] MEDS: BuPROPion XL (24 HR) 150 MG TABLET PO SCH (22:01)
[2018-03-01] MEDS: Famotidine 20 MG TABLET PO SCH (22:01)
[2018-03-01] MEDS: Topiramate 100 MG TABLET PO SCH (22:01)
[2018-03-01] MEDS: *HR* Heparin 5,000 UNIT/ML VIAL SQ SCH (22:02)
[2018-03-01] MEDS: Budesonide/Formoterol 160/4.5 1 PUFF INH IH SCH (22:04)
[2018-03-01] MEDS: Erythromycin OPTH Oint BOTH EYES SCH (23:11)
[2018-03-02] MEDS: Piperacillin/Tazobactam 3.375 GM in 0.9 % Sodium Chloride Mini Bag 100 ML IVPB SCH ×2 (00:06→09:41)
--- NOTE | 2018-03-02 03:48 | Sepsis Event Note ---
Sepsis Reassessment Note - Evaluation Sepsis Screen: No Definite Risk Current Stage of Sepsis: sepsis Possible Source of Sepsis: genitourinary - Focused Exam Date of Encounter: 03/02/18 Time of Encounter: 03:49 Vital Signs: Vital Signs Temp Pulse Resp BP Pulse Ox 03/01/18 23:35 99 F 99 17 140/74 95 03/01/18 22:06 18 96 03/01/18 20:04 99.3 F 86 16 98/59 93 03/01/18 18:02 100.4 F H 18 119/65 Respiratory Exam: Present: CTA bilaterally Cardiovascular Exam: Present: RRR Capillary Refill: < 2 seconds Peripheral Pulse Strength: 3+ normal Peripheral Pulse Location: Radial Skin Exam: unremarkable - Reassessment Comments Comments: Patient mental status improved, she was alert and oriented to person and situation, responded to commands.
[2018-03-02 05:10] LABS: Basophils % 0.4 %; Eosinophils % 0.2 %; Hematocrit 27.4 % (35.3-44.9); Immature Granulocytes % 0.8 % (0-4); Lymphocytes # 0.4 K/mcL (0.6-4.6); Mean Corpuscular HGB Conc 33.9 g/dL (31.6-35.5); Mean Corpuscular Hemoglobin 33.7 pg (28.0-33.3); Mean Corpuscular Volume 99.3 fL (83.0-100.0); Mean Platelet Volume 8.7 fL (9.4-12.4); Monocytes # 0.4 K/mcL (0.0-1.3); Neutrophils # 4.3 K/mcL (1.6-8.9); Platelet Count 146 K/mcL (140-400); Red Blood Count 2.76 M/mcL (3.82-4.97); Red Cell Distribution Width 13.3 % (11.5-14.5); Segmented Neutrophils % 83.6 %
[2018-03-02 05:11] LABS: Hemoglobin 9.3 g/dL (11.5-15.4)
[2018-03-02 05:27] LABS: Albumin 3.2 g/dL (3.5-5.7); Albumin/Globulin Ratio 1.1 (1.1-2.2); Bilirubin,Total 0.9 mg/dL (0.3-1.0); Calcium 7.6 mg/dL (8.6-10.3); Globulin 2.8 g/dL (2.4-3.5); Potassium 3.1 mEq/L (3.5-5.1)
[2018-03-02] MEDS: *HR* Heparin 5,000 UNIT/ML VIAL SQ SCH ×3 (06:00→21:47)
[2018-03-02] MEDS: Budesonide/Formoterol 160/4.5 1 PUFF INH IH SCH ×2 (07:34→21:00)
--- NOTE | 2018-03-02 08:46 | Internal Med Progress Note ---
<Alonzo Prince - Last Filed: 03/02/18 13:33> Hospitalist Progress Note - Encounter Date of Encounter: 03/02/18 - Exam Vitals: Temp Pulse Resp BP Pulse Ox 98.9 F 86 18 114/67 97 03/02/18 10:51 03/02/18 10:51 03/02/18 10:51 03/02/18 10:51 03/02/18 10:51 - Assessment and Plan (1) Anemia Current Visit: Yes Status: Chronic (2) DVT prophylaxis Current Visit: Yes Status: Acute (3) Metastatic breast carcinoma Current Visit: Yes Status: Chronic (4) Hypokalemia Current Visit: Yes Status: Acute (5) Leukopenia Current Visit: Yes Status: Chronic (6) UTI (urinary tract infection) Current Visit: Yes Status: Suspected (7) Sepsis Current Visit: Yes Status: Suspected (8) Pyelonephritis Current Visit: Yes Status: Suspected (9) Hypertension Current Visit: Yes Status: Chronic (10) Acute metabolic encephalopathy Current Visit: Yes Status: Acute - Time Spent with Patient Total time spent is greater than 50% in coordination of care (as documented) at patient's floor/unit and/or counseling patient: Internal Medicine: Result - Labs CBC & Chem 7: 03/02/18 04:46 03/02/18 04:46 Labs: Short CBC 03/02/18 Range/Units 04:46 WBC 5.2 (4.3-11.1) K/mcL Hgb 9.3 L D (11.5-15.4) g/dL Hct 27.4 L (35.3-44.9) % Plt Count 146 (140-400) K/mcL Neutrophils # 4.3 (1.6-8.9) K/mcL BMP 03/02/18 04:46 Sodium 135 L Potassium 3.1 L Chloride 108 H Carbon Dioxide 19 L BUN 17 Creatinine 1.23 H Glucose 109 H Calcium 7.6 L Liver Function 03/02/18 Range/Units 04:46 Total Bilirubin 0.9 (0.3-1.0) mg/dL AST 23 (13-39) Units/L ALT 18 (7-52) Units/L Alkaline Phosphatase 98 (34-104) Units/L Albumin 3.2 L (3.5-5.7) g/dL - Impressions Impressions Abdomen/Pelvis CT 03/01/18 18:02 IMPRESSION: 1. No acute abnormalities seen in the abdomen or pelvis. 2. Status post cholecystectomy. 3. Colonic diverticulosis. No evidence for diverticulitis. 4. No obstructive uropathy. 5. Bony metastasis again noted. Chronic bilateral pathologic rib fractures again noted. L2 and L3 compression fractures again seen status post vertebral body enhancement. D/ / 03/01/2018 22:16:20 Frantz Tobar MD / jass Interpreting Provider: Frantz Tobar MD Head CT 03/01/18 18:02 IMPRESSION: No acute intracranial abnormality. Previous occipital craniotomies bilaterally. Encephalomalacia in the left cerebellar hemisphere with extension into the soft tissues. Mild encephalomalacia in the right frontal and right parietal white matter. There is no change from the prior study. D/ / 03/01/2018 21:01:20 Juju Stewart MD / jass Interpreting Provider: Juju Stewart MD Consult Discharge Plan - Plan Referrals: Rashawn Rosenberg MD [Primary Care Provider] - - Attending Attestation The history, physical exam, and medical decision making was performed by the medical student either while I was physically present and actively involved or I personally re-performed the exam and medical decision making. I have verified the accuracy of the medical student's documentation with regards to the history, physical exam findings, and medical decision making on 03/02/18. Ms Bonner is currently admitted for sepsis and encephalopathy related to UTI. She remains moderate to high risk due to potential for worsening clinical status. Ms Bonner is awake and alert. Thinks her phone is ringing. No pain at this time. No fever now. Has some abdominal discomfort but seems like a chronic issue. Exam Alert Comfortable at this time Mucus membranes dry Crusting near R eye Heart reg and distant Lungs diminished throughout Abd soft and diffusely tender without peritoneal signs. Pulses palpable. I/P 1. Sepsis related to UTI - resolved at this time 2. UTI - culture pending. Hx of ESBL in urine. Abx adjusted pending cx results 3. Encephalopathy - seems to be worse than last admit. Hopefully improve with treatment. 4. Breast CA stage 4 Further diagnoses and plan as above <Frantz Haines - Last Filed: 03/03/18 07:11> Hospitalist Progress Note - Encounter Date of Encounter: 03/03/18 Time of Encounter: 08:42 - Subjective Interval History: Pt seen and examined at bedside. Resting comfortably, NAD. Only answered some questions and followed some commands. Complains of pain, but unable to describe the specific location. Oriented to self only. Does not know where she is at or how she got here. Unable to assess ROS. - Exam Vitals: Temp Pulse Resp BP Pulse Ox 98.5 F 82 18 118/76 95 03/02/18 07:31 03/02/18 07:31 03/02/18 07:31 03/02/18 07:31 03/02/18 07:31 Exam: Gen.: NAD. Oriented to self only HEENT: left eye with clear fluid crusting. oropharynx clear, Normocephalic, atraumatic Cardiac: RRR, no murmur, +S1/S2, trace b/l edema Pulmonary: CTA bilaterally, no wheezes, rales or rhonchi Abdomen: soft, mildly tender to palpation left lower quadrant and left flank, BS noted, no guarding Skin: warm and dry, no visible lesions. MSK:no joint swelling noted, gait no assessed while in bed. Non tender calf or clubbing Neuro: moves all extremities Psych: Poor eye contact, pt altered on exam, would follow only select commands - Assessment and Plan (1) UTI (urinary tract infection) Current Visit: Yes Status: Suspected Assessment and Plan: -pt altered on exam. Complains of some abdominal pain to palpation. Met SIRS criteria on admission -hx of UTI with MDRO, current UA concerning for infection -CT negative for pyelo or other acute abnormalities -Samples obtained and sent for culture -will begin treatment with meropenem (2) Sepsis Current Visit: Yes Status: Suspected Assessment and Plan: -resolved - SIRS criteria on admission with fever 101, RR 22; pt was also hypotensive, but did respond to fluids - Urine concerning for source given UA and history of MDRO - Recently discharged from [facility] for PNA, CXR wnl - WBC of 6.0, however baseline is 2-4 and patient does receive chemotherapy, most recently 02/17/18 - Urine culture ordered by ED, started on rocephin - Cr noted to be 1.26 on admission. Baseline appears to be 0.9. - Blood cultures ordered x 2 NGTD, will continue to monitor -Cr. increased, but did not meet criteria for WANDA, will monitor - Lactate-0.8 (WNL) - CT abdomen ordered for pyelonephritis evaluation- found to have no acute abnormalities - Start vanc and zosyn as previous cultures have had multiple drug resistances sensitive but later changed to meropenem (3) Pyelonephritis Current Visit: Yes Status: Ruled-out Assessment and Plan: -unlikely -pt complained of flank pain on admission, but currently denies any pain or discomfort -CT abdomen ordered due to concern of pyelo, read negative for any acute abnormalities -pt currently taking meropenem, was original started on vanc and zosyn -will continue to monitor (4) Hypokalemia Current Visit: Yes Status: Acute Assessment and Plan: -3.4 on admission, 3.1 this morning -40 meq KCl ordered -will continue to monitor with AM labs (5) Breast cancer Current Visit: No Status: Chronic Assessment and Plan: -hx of stage 4 breast cancer -last round of chemo 02/17 -onc consulted (6) Anemia Current Visit: Yes Status: Chronic Assessment and Plan: -pt 10.9 on admission and 9.3 this morning -drop possibly due to fluid resuscitation as no signs of bleeding visible -will continue to monitor (7) Hypertension Current Visit: Yes Status: Chronic Assessment and Plan: -chronic problem -bp currently controlled -low on admission, but improved with fluid resuscitation DVT Prophylaxis: Heparin 5000 units q8 hours - Time Spent with Patient Total time spent is greater than 50% in coordination of care (as documented) at patient's floor/unit and/or counseling patient: Internal Medicine: Result - Labs CBC & Chem 7: 03/03/18 06:03 03/02/18 04:46 Labs: Short CBC 03/02/18 Range/Units 04:46 WBC 5.2 (4.3-11.1) K/mcL Hgb 9.3 L D (11.5-15.4) g/dL Hct 27.4 L (35.3-44.9) % Plt Count 146 (140-400) K/mcL Neutrophils # 4.3 (1.6-8.9) K/mcL BMP 03/02/18 04:46 Sodium 135 L Potassium 3.1 L Chloride 108 H Carbon Dioxide 19 L BUN 17 Creatinine 1.23 H Glucose 109 H Calcium 7.6 L Liver Function 03/02/18 Range/Units 04:46 Total Bilirubin 0.9 (0.3-1.0) mg/dL AST 23 (13-39) Units/L ALT 18 (7-52) Units/L Alkaline Phosphatase 98 (34-104) Units/L Albumin 3.2 L (3.5-5.7) g/dL - Impressions Impressions Abdomen/Pelvis CT 03/01/18 18:02 IMPRESSION: 1. No acute abnormalities seen in the abdomen or pelvis. 2. Status post cholecystectomy. 3. Colonic diverticulosis. No evidence for diverticulitis. 4. No obstructive uropathy. 5. Bony metastasis again noted. Chronic bilateral pathologic rib fractures again noted. L2 and L3 compression fractures again seen status post vertebral body enhancement. D/ / 03/01/2018 22:16:20 Frantz Tobar MD / jass Interpreting Provider: Frantz Tobar MD Head CT 03/01/18 18:02 IMPRESSION: No acute intracranial abnormality. Previous occipital craniotomies bilaterally. Encephalomalacia in the left cerebellar hemisphere with extension into the soft tissues. Mild encephalomalacia in the right frontal and right parietal white matter. There is no change from the prior study. D/ / 03/01/2018 21:01:20 Juju Stewart MD / jass Interpreting Provider: Juju Stewart MD <Lei Princein A - Last Filed: 03/02/18 13:33> (1) Anemia Qualifiers: Anemia type: other cause Other causes of anemia: chronic disease, neoplastic Qualified Code(s): D63.0 - Anemia in neoplastic disease (5) Leukopenia Qualifiers: Leukopenia type: neutropenia Neutropenia type: secondary to cancer chemotherapy Qualified Code(s): D70.1 - Agranulocytosis secondary to cancer chemotherapy; T45.1X5A - Adverse effect of antineoplastic and immunosuppressive drugs, initial encounter (6) UTI (urinary tract infection) Qualifiers: Urinary tract infection type: acute pyelonephritis Qualified Code(s): N10 - Acute pyelonephritis (7) Sepsis Qualifiers: Sepsis type: Escherichia coli Qualified Code(s): A41.51 - Sepsis due to Escherichia coli [E. coli] (9) Hypertension Qualifiers: Hypertension type: essential hypertension Qualified Code(s): I10 - Essential (primary) hypertension <Frantz Haines - Last Filed: 03/03/18 07:11> (1) UTI (urinary tract infection) Qualifiers: Urinary tract infection type: acute pyelonephritis Qualified Code(s): N10 - Acute pyelonephritis (2) Sepsis Qualifiers: Sepsis type: Escherichia coli Qualified Code(s): A41.51 - Sepsis due to Escherichia coli [E. coli] (5) Breast cancer Qualifiers: Breast location: unspecified site of breast Estrogen receptor status: unspecified Patient sex: female Laterality: unspecified laterality Qualified Code(s): C50.919 - Malignant neoplasm of unspecified site of unspecified female breast (6) Anemia Qualifiers: Anemia type: other cause Other causes of anemia: chronic disease, neoplastic Qualified Code(s): D63.0 - Anemia in neoplastic disease (7) Hypertension Qualifiers: Hypertension type: essential hypertension Qualified Code(s): I10 - Essential (primary) hypertension
[2018-03-02] MEDS: Famotidine 20 MG TABLET PO SCH ×2 (09:43→21:45)
[2018-03-02] MEDS: BuPROPion XL (24 HR) 150 MG TABLET PO SCH ×2 (09:43→21:45)
[2018-03-02] MEDS: Topiramate 100 MG TABLET PO SCH ×2 (09:43→21:45)
[2018-03-02] MEDS: *HR* Morphine Immed Rel 30 MG TABLET PO PRN (12:18)
[2018-03-02] MEDS: Meropenem 1,000 MG in Water for inj. (sterile) 20 ML 10 ML IVP SCH ×2 (12:18→18:15)
[2018-03-02] MEDS ORDERED: Aminoglycoside Consult 1 EACH MC ONE (13:25)
--- NOTE | 2018-03-02 14:05 | Oncology Inp Consult Note ---
<Priti Gee L - Last Filed: 03/02/18 17:03> Date of Encounter: 03/02/18 Time of Encounter: 13:00 Assessment and Plan (1) Cancer related pain Status: Chronic Assessment and plan: Controlled at this time. Continue Morphine 30 mg Q8hr (2) Metastatic breast carcinoma Status: Chronic Assessment and plan: Metastatic stage IV breast cancer. Current therapy includes Faslodex and Ribociclib. Currently under good control with CT chest abdomen and pelvis 02/02/2018 showed no major adenopathy, multifocal bone metastasis fairly stable. For her bone metastases she receives denosumab Q3 months. 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 She completed fractionated external beam radiotherapy at [facility] to an enlarging right acoustic neuroma from 02/17/2017-03/24/2017. She had a brain MRI on 12/29/2017 which had concern for growth of the right vestiblar schwannoma when she presented for worsening hearing loss. She was transferred to [facility] for evaluation. Neurosurgery was consulted and per their most recent imaging comparison, her images had actually appeared stable. No emergent neurosurgical intervention was recommended, but a follow up with neuro oncology and repeat MRI internal auditory canal and brain both with and without contrast was recommended in the next 1-4 weeks for further evaluation. Head CT 03/01/2018 with no acute changes I do not see record of this repeat MRI or where patient attended this follow up appointment. Consider Brain MRI as discussed above, patient does not exhibit any change in neurological exam other than increased intermittent confusion. Intermittent confusion may be secondary to sepsis, UTI, however, progression of metastatic breast cancer remains within differential Assess tomorrow and consider brain MRI, consider neurology consultation - Data of Consult Patient: known to practice within the last 3 years Consult date: 03/02/18 Requesting Physician: Alonzo Prince DO Primary Care Provider: Rashawn Rosenberg MD - Consult Narrative Reason for consult: Metastatic breast cancer History of present illness: Ms. Bonner is a 57 year old female who presented to [facility] ER with concern for AMS. Patient had a friend visit with her and the friend had noted patients confusion which led to patients presentation. Patient recently underwent kyphoplasty about 4 weeks ago secondary to compression fx L2-L3. She was noted to be febrile on presentation. UA was indicative of UTI. CXR without acute process. She was admitted for treatment of UTI with h/o MDRO, AMS and meeting sepsis criteria. Ms. Bonner is known to our facility, currently a patient with Dr. Saini, being treated for metastatic stage IV breast cancer. Current therapy includes Faslodex and Ribociclib. Currently under good control with CT chest abdomen and pelvis 02/02/2018 showed no major adenopathy, multifocal bone metastasis fairly stable. For her bone metastases she receives denosumab Q3 months. 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 She recently completed fractionated external beam radiotherapy at [facility] to an enlarging right acoustic neuroma from 02/17/2017-03/24/2017. She had a brain MRI on 12/29/2017 which had concern for growth of the right vestiblar schwannoma when she presented for worsening hearing loss. She was transferred to [facility] for evaluation. Neurosurgery was consulted and per their most recent imaging comparison, her images had actually appeared stable. No emergent neurosurgical intervention was recommended, but a follow up with neuro oncology and repeat MRI internal auditory canal and brain both with and without contrast was recommended in the next 1-4 weeks for further evaluation. I do not see record of this repeat MRI or where patient attended this appointment. She has baseline right eye vision loss, significant left eye vision loss, total left ear hearing loss and intermittent right ear hearing loss. She is planned for an upcoming corneal transplant. Upon assessment today, Ms. Bonner reports no changes in her vision or hearing, denies headache, parasthesias, focal weakness (she reports baseline left sided weakness), changes in speech, nausea, vomiting or change in bowel/bladder habits. She has periods of intermittent confusion, states she feels confused at times and has difficulty with memory recall, she is , however, alert and oriented x4 at the time of my assessment. Past Med Surg Social Fam HX - Past Medical History Medical history: asthma, cancer, COPD, GERD, hyperlipidemia, hypertension, migraine, other Additional medical history: reactive airway disease. Metastatic breast cancer. chronic mood disorder. ANTHONY CPAP. left side weakness. left ear deafness. chronic hypoxemia Psychiatric history: anxiety, depression - Past Surgical History Surgical History: breast surgery, cancer surgery, cataract, cholecystectomy, hysterectomy, sinus surgery, CHAITANYA/BSO Additional surgical history: brain tumor x2 1984, 2005. ankle sx rt ORIF 1993. feeding tube 1985. eye sx's several started 1994. bilateral hand unsure date. left partial mastectomy 09/2012. bilateral cataract left 2014, right 2015 - Social History Smoking Status: Never smoker Smokeless Tobacco Status: No Alcohol use: none Drug use: none - Family History Father Adopted: No Family Member Ethnicity: Non- Living Status: Medications and Allergies BuPROPion XL (24 HR) [Wellbutrin Xl] 300 mg PO QAM 02/27/15 [History] Docusate Sodium [Colace] 100 mg PO DAILY PRN 02/27/15 [History] Fluticasone/Salmeterol [Advair 500-50 Diskus] 1 puff IH BID 02/27/15 [History] Potassium Chloride 20 meq PO DAILY 02/27/15 [History] Albuterol Sulfate [Albuterol Inhaler] 2 puff IH QID PRN 09/24/16 [History] Sertraline [Zoloft] 150 mg PO DAILY 04/28/17 [History] Zolpidem [Ambien] 10 mg PO HS #30 tablet 05/04/17 [Rx] Ferrous Sulfate [Iron] 325 mg PO DAILY #90 capsule.er 09/24/17 [Rx] Ranitidine HCl [Acid Sawmill Moulder Operator] 150 mg PO BID 12/29/17 [History] Prochlorperazine Maleate [Compazine] 10 mg PO Q6HR PRN #30 tablet 01/12/18 [Rx] Topiramate [Topamax] 100 mg PO BID 02/02/18 [History] Morphine Immed Rel [Morphine Sulfate] 30 mg PO Q8H PRN 30 Days #90 tablet [Rx] Albuterol Neb [AccuNeb] 1.25 mg IH Q8H PRN 02/19/18 [History] BuPROPion XL (24 HR) [Wellbutrin XL] 150 mg PO HS 02/19/18 [History] Erythromycin OPTH Oint 1 appl BOTH EYES HS 02/19/18 [History] LORazepam [Ativan] 0.5 mg PO TID PRN 02/19/18 [History] Promethazine HCl 12.5 mg PO BID PRN 02/19/18 [History] Triamterene/HCTZ 37.5/25mg [Dyazide] 1 each PO DAILY 02/19/18 [History] 3 Allergy/AdvReac Type Severity Reaction Status Date / Time codeine Allergy Chest Pain Verified 02/17/18 16:30 [From Tylenol-Codeine] doxycycline Allergy Hives Verified 02/17/18 16:30 levofloxacin [From Levaquin] Allergy Hives Verified 02/17/18 16:30 Constitutional: Present: anorexia, chills, fatigue, fever(s), weakness. Absent : headache(s), weight loss Eyes: Present: as per HPI, loss of vision. Absent: change in vision Nose, mouth and throat: Present: as per HPI, abnormal hearing. Absent: dysphagia, neck pain, odynophagia Cardiovascular: Absent: chest pain, palpitations Respiratory: Absent: cough, dyspnea, hemoptysis Gastrointestinal: Absent: abdominal pain, change in bowel habits, hematemesis, hematochezia, melena, nausea, vomiting Musculoskeletal: Present: muscle weakness Integumentary: Absent: wounds Neurological: Present: as per HPI, confusion. Absent: abnormal speech, focal weakness, headache(s), numbness, paresthesias, tingling Psychiatric: Absent: hallucinations Hematologic/Lymphatic: Present: as per HPI Oncology - Exam - Constitutional Vitals: Temp Pulse Resp BP Pulse Ox 98.9 F 86 18 114/67 97 03/02/18 10:51 03/02/18 10:51 03/02/18 10:51 03/02/18 10:51 03/02/18 10:51 General appearance: febrile, cooperative, no acute distress - Head Head exam: Present: atraumatic - ENT ENT exam: Present: mucous membranes moist - Respiratory Respiratory exam: Present: CTAB. Absent: respiratory distress - Cardiovascular Cardiovascular exam: Present: RRR, +S1, +S2 - GI/Abdominal GI/Abdominal exam: Present: normal bowel sounds, soft. Absent: guarding, rebound, tenderness - Extremities Exam Extremities exam: Absent: calf tenderness Additional comments: mild RLE edema-patient states this is baseline for her - Neurological Exam Neurological exam: Present: alert, oriented X3, no focal deficits, strengths equal and symetr throughout Additional comments: intermittent confusion at times, no delirium or acute encephalopathy - Psychiatric Psychiatric exam: Present: normal affect, normal mood - Skin Skin exam: Present: dry, intact, normal color, warm Oncology - Results Labs: 3 03/02/18 03/02/18 03/01/18 04:46 04:46 18:39 WBC 5.2 RBC 2.76 L Hgb 9.3 L D Hct 27.4 L MCV 99.3 MCH 33.7 H MCHC 33.9 RDW 13.3 Plt Count 146 MPV 8.7 L Immature Gran % 0.8 Seg Neutrophils % 83.6 Lymphocytes % 8.0 Monocytes % 7.0 Eosinophils % 0.2 Basophils % 0.4 Neutrophils # 4.3 Lymphocytes # 0.4 L Monocytes # 0.4 Eosinophils # 0.0 Basophils # 0.0 Sodium 135 L Potassium 3.1 L Chloride 108 H Carbon Dioxide 19 L BUN 17 Creatinine 1.23 H Est GFR ( Amer) 55 L Est GFR (Non-Af Amer) 45 L BUN/Creatinine Ratio 14 Glucose 109 H Calculated Osmolality 282 Lactic Acid 0.8 Calcium 7.6 L Total Bilirubin 0.9 AST 23 ALT 18 Alkaline Phosphatase 98 Serum Total Protein 6.0 L Albumin 3.2 L Globulin 2.8 Albumin/Globulin Ratio 1.1 Consult Discharge Plan - Plan Referrals: Rashawn Rosenberg MD [Primary Care Provider] - <Alejandra Moscoso - Last Filed: 03/03/18 08:31> Date of Encounter: 03/03/18 - Data of Consult Requesting Physician: Alonzo Prince DO Primary Care Provider: Rashawn Rosenberg MD - Consult Narrative History of present illness: Patient was febrile during my inpatient visit, abx has been changed today. Possible urosepsis and mental status changes from baseline. Will repeat brain imaging after re-evaluation today if there is any worsening. CDK inhibitor is on hold. I examined this patient and my medical decision-making was reviewed with the Advanced Practice Nurse, Priti Gee. I agree with the documented findings, disposition and treatment plan as described except to the extent set forth below. Oncology - Exam - Constitutional Vitals: Temp Pulse Resp BP Pulse Ox 101.1 F H 87 20 112/51 100 03/03/18 06:50 03/03/18 06:50 03/03/18 06:50 03/03/18 06:50 03/03/18 06:50 Oncology - Results Labs: 3 03/03/18 03/03/18 03/02/18 06:03 06:03 04:46 WBC 3.7 L RBC 2.97 L Hgb 10.0 L Hct 30.8 L MCV 103.7 H MCH 33.7 H MCHC 32.5 RDW 13.6 Plt Count 113 L MPV 8.9 L Immature Gran % Seg Neutrophils % Lymphocytes % Monocytes % Eosinophils % Basophils % Neutrophils # Lymphocytes # Monocytes # Eosinophils # Basophils # Sodium 136 135 L Potassium 3.3 L 3.1 L Chloride 109 H 108 H Carbon Dioxide 14 L 19 L BUN 15 17 Creatinine 1.09 1.23 H Est GFR ( Amer) > 60 55 L Est GFR (Non-Af Amer) 52 L 45 L BUN/Creatinine Ratio 14 14 Glucose 106 H 109 H Calculated Osmolality 283 282 Lactic Acid Calcium 7.3 L 7.6 L Magnesium 2.2 Total Bilirubin 0.9 AST 23 ALT 18 Alkaline Phosphatase 98 Serum Total Protein 6.0 L Albumin 3.2 L Globulin 2.8 Albumin/Globulin Ratio 1.1 3 03/02/18 03/01/18 04:46 18:39 WBC 5.2 RBC 2.76 L Hgb 9.3 L D Hct 27.4 L MCV 99.3 MCH 33.7 H MCHC 33.9 RDW 13.3 Plt Count 146 MPV 8.7 L Immature Gran % 0.8 Seg Neutrophils % 83.6 Lymphocytes % 8.0 Monocytes % 7.0 Eosinophils % 0.2 Basophils % 0.4 Neutrophils # 4.3 Lymphocytes # 0.4 L Monocytes # 0.4 Eosinophils # 0.0 Basophils # 0.0 Sodium Potassium Chloride Carbon Dioxide BUN Creatinine Est GFR ( Amer) Est GFR (Non-Af Amer) BUN/Creatinine Ratio Glucose Calculated Osmolality Lactic Acid 0.8 Calcium Magnesium Total Bilirubin AST ALT Alkaline Phosphatase Serum Total Protein Albumin Globulin Albumin/Globulin Ratio
[2018-03-02] MEDS: Acetaminophen 325 MG TABLET PO PRN ×2 (16:23→22:52)
--- NOTE | 2018-03-02 18:48 | Electrocardiograph Report ---
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
[2018-03-02] MEDS: Erythromycin OPTH Oint BOTH EYES SCH (21:45)
[2018-03-03] MEDS: Meropenem 1,000 MG in Water for inj. (sterile) 20 ML 10 ML IVP SCH ×2 (05:03→12:21)
[2018-03-03] MEDS: *HR* Heparin 5,000 UNIT/ML VIAL SQ SCH ×3 (05:04→20:21)
[2018-03-03 06:39] LABS: Basophils % 1.1 %; Eosinophils # 0.1 K/mcL (0.0-0.6); Eosinophils % 1.6 %; Hematocrit 30.8 % (35.3-44.9); Immature Granulocytes % 0.3 % (0-4); Lymphocytes # 0.3 K/mcL (0.6-4.6); Lymphocytes % 9.3 %; Mean Corpuscular HGB Conc 32.5 g/dL (31.6-35.5); Mean Corpuscular Hemoglobin 33.7 pg (28.0-33.3); Mean Corpuscular Volume 103.7 fL (83.0-100.0); Mean Platelet Volume 8.9 fL (9.4-12.4); Monocytes # 0.2 K/mcL (0.0-1.3); Platelet Count 113 K/mcL (140-400); Red Blood Count 2.97 M/mcL (3.82-4.97); Red Cell Distribution Width 13.6 % (11.5-14.5); Segmented Neutrophils % 81.7 %
[2018-03-03] MEDS: Budesonide/Formoterol 160/4.5 1 PUFF INH IH SCH ×2 (07:40→22:24)
[2018-03-03 08:08] LABS: BUN/Creatinine Ratio 14 (6-26); Blood Urea Nitrogen 15 mg/dL (6-20); Calcium 7.3 mg/dL (8.6-10.3); Carbon Dioxide 14 mEq/L (23-29); Chloride 109 mEq/L (98-107); Glucose 106 mg/dL (70-105); Magnesium 2.2 mg/dL (1.6-2.6); Osmolality,Calculated 283 (280-300); Potassium 3.3 mEq/L (3.5-5.1); Sodium 136 mEq/L (136-145); eGFR For Non-African Americans 52 (> 60)
[2018-03-03 08:40] LABS: Platelet Estimate Slight Decrease (Normal); Reactive Lymphocytes Present (Not Present)
--- NOTE | 2018-03-03 09:27 | Internal Med Progress Note ---
<Frantz Haines - Last Filed: 03/03/18 10:20> Hospitalist Progress Note - Encounter Date of Encounter: 03/03/18 Time of Encounter: 10:25 - Subjective Interval History: Pt seen and examined at bedside. Resting comfortably, NAD. Pt AAOx3 this morning. Complains of pain L flank pain. ROS: admits to blindness and trouble hearing out of right ear; denies headache, chest pain, sob, abodminal pain, n/v/ d - Exam Vitals: Temp Pulse Resp BP Pulse Ox 101.1 F H 87 20 112/51 100 03/03/18 06:50 03/03/18 06:50 03/03/18 06:50 03/03/18 06:50 03/03/18 06:50 Exam: Gen.: NAD. AAOx3 HEENT: left eye with clear fluid crusting. oropharynx clear, Normocephalic, atraumatic Cardiac: RRR, no murmur, +S1/S2, trace b/l edema Pulmonary: CTA bilaterally, no wheezes, rales or rhonchi Abdomen: soft, mildly tender to palpation left lower quadrant and left flank, BS noted, no guarding Skin: warm and dry, no visible lesions. MSK:no joint swelling noted, gait no assessed while in bed. Non tender calf or clubbing Neuro: moves all extremities Psych: Appropriate mood and affect - Assessment and Plan (1) UTI (urinary tract infection) Current Visit: Yes Status: Suspected Assessment and Plan: -not altered today. Complains of some abdominal pain to palpation. Met SIRS criteria on admission -pt spiked fever of 101.1F yesterday -hx of UTI with MDRO, current UA concerning for infection -CT negative for pyelo or other acute abnormalities; pt complains of chronic L flank pain -Samples obtained and sent for culture- grew E Coli and ESBL -treating with meropenem, vanc restarted -ID consulted (2) Sepsis Current Visit: Yes Status: Resolved Assessment and Plan: - SIRS criteria on admission with fever 101, RR 22; pt was also hypotensive, but did respond to fluids - Urine concerning for source given UA and history of MDRO - Recently discharged from [facility] for PNA, CXR wnl - WBC of 6.0, however baseline is 2-4 and patient does receive chemotherapy, most recently 02/17/18 - Urine culture ordered by ED, started on rocephin - Cr noted to be 1.26 on admission. Baseline appears to be 0.9. - Blood cultures ordered x 2 NGTD, will continue to monitor -Cr. increased, but did not meet criteria for WANDA, will monitor - Lactate-0.8 (WNL) - CT abdomen ordered for pyelonephritis evaluation- found to have no acute abnormalities - Start vanc and zosyn as previous cultures have had multiple drug resistances sensitive but later changed to meropenem (3) Pyelonephritis Current Visit: Yes Status: Ruled-out Assessment and Plan: -unlikely -pt complained of flank pain on admission, but currently denies any pain or discomfort -CT abdomen ordered due to concern of pyelo, read negative for any acute abnormalities -pt currently taking meropenem, was original started on vanc and zosyn -will continue to monitor (4) Hypokalemia Current Visit: Yes Status: Acute Assessment and Plan: -3.4 on admission, 2.7 this morning -40 meq KCl ordered -will continue to monitor with AM labs (5) Breast cancer Current Visit: No Status: Chronic Assessment and Plan: -hx of stage 4 breast cancer -last round of chemo 02/17 -onc consulted recommend to continue Morphine 30 mg Q8hr and holding ribociclib during admission (6) Anemia Current Visit: Yes Status: Chronic Assessment and Plan: -pt 10.9 on admission and 10 this morning, up trending -drop possibly due to fluid resuscitation as no signs of bleeding visible -will continue to monitor (7) Hypertension Current Visit: Yes Status: Chronic Assessment and Plan: -chronic problem -bp currently controlled -low on admission, but improved with fluid resuscitation (8) Acoustic neuroma Current Visit: No Status: Acute Assessment and Plan: -hx of neurofibromatosis type 2 w/ b/l acoustic neuromas and multiple meningiomas s/p left occipital craniotomy in 1985 and right occipital craniotomy and 2005. -treated with external beam radiotherapy at [facility] from 2016-03/24/2017 -brain MRI on 12/29/2017 w/o concern for growth of the right vestiblar schwannoma ; Evaluated by [facility], no changes noted/no emergent neurosurgical intervention was recommended; f/u MRI recommended 1-4 weeks afterwards for further evaluation, but unclear if MRI was obtained. -Head CT 03/01/2018 with no acute changes -Onc team unable to find any record of f/u appointments or imaging. -We are considering repeat MRI or neurology consult as per recs DVT Prophylaxis: Heparin 5000 units q8 hours - Time Spent with Patient Total time spent is greater than 50% in coordination of care (as documented) at patient's floor/unit and/or counseling patient: Internal Medicine: Result - Labs CBC & Chem 7: 03/03/18 06:03 03/03/18 06:03 Labs: Short CBC 03/03/18 Range/Units 06:03 WBC 3.7 L (4.3-11.1) K/mcL Hgb 10.0 L (11.5-15.4) g/dL Hct 30.8 L (35.3-44.9) % Plt Count 113 L (140-400) K/mcL Neutrophils # 3.0 (1.6-8.9) K/mcL BMP 03/03/18 06:03 Sodium 136 Potassium 3.3 L Chloride 109 H Carbon Dioxide 14 L BUN 15 Creatinine 1.09 Glucose 106 H Calcium 7.3 L - Impressions Impressions Head CT 03/01/18 18:02 IMPRESSION: No acute intracranial abnormality. Previous occipital craniotomies bilaterally. Encephalomalacia in the left cerebellar hemisphere with extension into the soft tissues. Mild encephalomalacia in the right frontal and right parietal white matter. There is no change from the prior study. D/ / 03/01/2018 21:01:20 Juju Stewart MD / [facility] Interpreting Provider: Juju Stewart MD Consult Discharge Plan - Plan Referrals: Rashawn Rosenberg MD [Primary Care Provider] - <Alonzo Prince - Last Filed: 03/03/18 16:45> Hospitalist Progress Note - Encounter Date of Encounter: 03/03/18 - Exam Vitals: Temp Pulse Resp BP Pulse Ox 98.6 F 68 18 105/71 98 03/03/18 12:14 03/03/18 12:14 03/03/18 12:14 03/03/18 12:14 03/03/18 12:14 - Assessment and Plan (1) Anemia Current Visit: Yes Status: Chronic (2) DVT prophylaxis Current Visit: Yes Status: Acute (3) Metastatic breast carcinoma Current Visit: Yes Status: Chronic (4) Hypokalemia Current Visit: Yes Status: Acute Assessment and Plan: Persists today. Replace (5) Leukopenia Current Visit: Yes Status: Chronic (6) UTI (urinary tract infection) Current Visit: Yes Status: Acute (7) Sepsis Current Visit: Yes Status: Resolved (8) Pyelonephritis Current Visit: Yes Status: Suspected (9) Hypertension Current Visit: Yes Status: Chronic (10) Acute metabolic encephalopathy Current Visit: Yes Status: Acute (11) UTI due to extended-spectrum beta lactamase (ESBL) producing Escherichia coli Current Visit: Yes Status: Acute (12) Morbid obesity with BMI of 40.0-44.9, adult Current Visit: Yes Status: Chronic - Time Spent with Patient Total time spent is greater than 50% in coordination of care (as documented) at patient's floor/unit and/or counseling patient: Internal Medicine: Result - Labs CBC & Chem 7: 03/03/18 06:03 03/03/18 06:03 Labs: Short CBC 03/03/18 Range/Units 06:03 WBC 3.7 L (4.3-11.1) K/mcL Hgb 10.0 L (11.5-15.4) g/dL Hct 30.8 L (35.3-44.9) % Plt Count 113 L (140-400) K/mcL Neutrophils # 3.0 (1.6-8.9) K/mcL BMP 03/03/18 06:03 Sodium 136 Potassium 3.3 L Chloride 109 H Carbon Dioxide 14 L BUN 15 Creatinine 1.09 Glucose 106 H Calcium 7.3 L - Impressions Impressions Head CT 03/01/18 18:02 IMPRESSION: No acute intracranial abnormality. Previous occipital craniotomies bilaterally. Encephalomalacia in the left cerebellar hemisphere with extension into the soft tissues. Mild encephalomalacia in the right frontal and right parietal white matter. There is no change from the prior study. D/ / 03/01/2018 21:01:20 Juju Stewart MD / [facility] Interpreting Provider: Juju Stewart MD - Attending Attestation The history, physical exam, and medical decision making was performed by the medical student either while I was physically present and actively involved or I personally re-performed the exam and medical decision making. I have verified the accuracy of the medical student's documentation with regards to the history, physical exam findings, and medical decision making on 03/03/18. Ms Bonner is currently admitted for sepsis related to UTI - ESBL E coli. She remains moderate to high risk due to potential for worsening clinical status. Ms Bonner is more oriented today. Her emotions are up and down. She is agreeable to some rehab. Urine with ESBL E coli. Had fever this AM. Appreciate ID and oncology input. No diarrhea. No CP or SOB. Exam Comfortable Mucus membranes dry Alert and oriented at this time Heart reg - not tachy at this time Diminished lungs Abd soft and nontender No edema Moves all extremities. I/P 1. Sepsis due to ESBL E coli UTI - Currently on Merrem. Vancomycin added last evening. ID eval appreciated (on immunosuppressant drug) 2. Stage 4 breast cancer 3. Morbid obesity 4. Neurofibromatosis 5. Acoustic neuroma bilaterally - MRI ordered by oncology. Anticipate d/c to SNF when medically improved. Further diagnoses and plan as above. <Frantz Haines - Last Filed: 03/03/18 10:20> (1) UTI (urinary tract infection) Qualifiers: Urinary tract infection type: acute cystitis (2) Sepsis Qualifiers: Sepsis type: Escherichia coli Qualified Code(s): A41.51 - Sepsis due to Escherichia coli [E. coli] (5) Breast cancer Qualifiers: Breast location: unspecified site of breast Estrogen receptor status: unspecified Patient sex: female Laterality: unspecified laterality Qualified Code(s): C50.919 - Malignant neoplasm of unspecified site of unspecified female breast (6) Anemia Qualifiers: Anemia type: other cause Other causes of anemia: chronic disease, neoplastic Qualified Code(s): D63.0 - Anemia in neoplastic disease (7) Hypertension Qualifiers: Hypertension type: essential hypertension Qualified Code(s): I10 - Essential (primary) hypertension <Alonzo Prince - Last Filed: 03/03/18 16:45> (1) Anemia Qualifiers: Anemia type: other cause Other causes of anemia: chronic disease, neoplastic Qualified Code(s): D63.0 - Anemia in neoplastic disease (5) Leukopenia Qualifiers: Leukopenia type: neutropenia Neutropenia type: secondary to cancer chemotherapy Qualified Code(s): D70.1 - Agranulocytosis secondary to cancer chemotherapy; T45.1X5A - Adverse effect of antineoplastic and immunosuppressive drugs, initial encounter (6) UTI (urinary tract infection) Qualifiers: Urinary tract infection type: acute cystitis Hematuria presence: with hematuria Qualified Code(s): N30.01 - Acute cystitis with hematuria (7) Sepsis Qualifiers: Sepsis type: Escherichia coli Qualified Code(s): A41.51 - Sepsis due to Escherichia coli [E. coli] (9) Hypertension Qualifiers: Hypertension type: essential hypertension Qualified Code(s): I10 - Essential (primary) hypertension
[2018-03-03] MEDS: Topiramate 100 MG TABLET PO SCH ×2 (09:29→20:01)
[2018-03-03] MEDS: BuPROPion XL (24 HR) 150 MG TABLET PO SCH ×2 (09:29→20:00)
[2018-03-03] MEDS: Famotidine 20 MG TABLET PO SCH ×2 (09:30→20:00)
[2018-03-03] MEDS: Acetaminophen 325 MG TABLET PO PRN (09:30)
--- NOTE | 2018-03-03 11:33 | Infectious Disease Consult ---
Date of Encounter: 03/03/18 Time of Encounter: 11:25 Assessment and Plan (1) Sepsis Status: Resolved Assessment and plan: Patient had 3 SIRS criteria admission Likely secondary to UTI Blood cultures 2 no growth to date Chest x-ray, CT head and CT abdomen pelvis all have been reviewed Qualifiers: Sepsis type: Escherichia coli Qualified Code(s): A41.51 - Sepsis due to Escherichia coli [E. coli] (2) UTI due to extended-spectrum beta lactamase (ESBL) producing Escherichia coli Status: Acute Assessment and plan: d/c meropenem d/c vancomycin start ertapenem; no need to adjust dose based on calculated CrCl duration of treatment 7-10 days? monitor labs and for drug toxicity (3) Neutropenia Status: Acute Qualifiers: Neutropenia type: unspecified Qualified Code(s): D70.9 - Neutropenia, unspecified (4) Lumbar compression fracture Status: Chronic Qualifiers: Encounter type: subsequent encounter Lumbar vertebra fracture level: L2 Fracture type: closed Fracture healing: with routine healing Qualified Code( s): S32.020D - Wedge compression fracture of second lumbar vertebra, subsequent encounter for fracture with routine healing (5) Acute metabolic encephalopathy Status: Acute (6) WANDA (acute kidney injury) Status: Resolved Assessment and plan: likely secondary to sepsis improved (7) Metastatic breast carcinoma Status: Chronic Infectious Disease HPI - Data of Consult Patient: new to practice Consult date: 03/03/18 Requesting Physician: Alonzo Prince DO Primary Care Provider: Rashawn Rosenberg MD - Consult Narrative Reason for consult: "Fever, antibiotics recommendations" History of present illness: Ms. Bonner is a 57 year old female Patient is a 57-year-old woman who presents to [facility] on 03/01/2018 with altered mental status. We are consulted on 03/03/2018 for fever and antibiotic recommendations. Patient is a 57-year-old woman with past medical history mentioned below including stage IV breast cancer with metastasis to the bone and brain currently on Faslodex and Ribociclib and denosumab Q3 months and also history of neurofibromatosis type II with acoustic neuroma and multiple meningiomas who apparently has undergone left occipital craniotomy in 1985 and right occipital craniotomy in 2005 and completely fractionated external beam radiation at [facility] to large right acoustic neuroma from 02/17/2017 to 03/24/2017. Patient also recently underwent a kyphoplasty 4 weeks ago for a compression fracture in both L2-L3. Most of the information was taken from medical records. Since admission, patient has been febrile with a MAXIMUM TEMPERATURE of 102.5 Fahrenheit, tachycardia and one episode of tachypnea. Presenting labs revealed a WBC of 6000 with 81% neutrophils initially and no bands but her most recent WBC is down to 3.7 with 82% neutrophils. Patient was also noted to be in acute kidney injury on admission with a BUN 19 creatinine of 1.26. LFTs were mildly elevated. A urinalysis was suggesting of a UTI with pyuria. Urine culture grew Escherichia coli ESBL. Imaging: Chest x-ray: Nodular densities in the right upper lung correlate to metastatic lesion seen on the prior CT at the first and second ribs. CT head: No acute intracranial abnormality. Previous occipital craniotomies bilaterally. Encephalomalacia in the left cerebellar hemisphere with extension into the soft tissue. Mild encephalomalacia in the right frontal orbital right parietal white matter. There is no change from the prior study. CT abdomen pelvis: No acute abnormalities seen in the abdomen or pelvis. Status post cholecystectomy. Colonic diverticulosis without diverticulitis. No obstructive uropathy. Bony metastasis is again noted. Chronic bilateral pathological fractures again noted. L2 and L3 compression fractures again seen status post vertebral body enhancement. Patient was started on a combination of vancomycin and meropenem and we were asked to evaluate the patient make further recommendations. Patient laying in bed. Really not doing much of any inflammation. I think she is confused. Nurse was at bedside. Unable to really get a good review of system. CC: Alonzo Prince, DO Past Med Surg Social Fam HX - Past Medical History Medical history: asthma, cancer, COPD, GERD, hyperlipidemia, hypertension, migraine, other Additional medical history: reactive airway disease. Metastatic breast cancer. chronic mood disorder. ANTHONY CPAP. left side weakness. left ear deafness. chronic hypoxemia Psychiatric history: anxiety, depression - Past Surgical History Surgical History: breast surgery, cancer surgery, cataract, cholecystectomy, hysterectomy, sinus surgery, CHAITANYA/BSO Additional surgical history: brain tumor x2 1984, 2005. ankle sx rt ORIF 1993. feeding tube 1985. eye sx's several started 1994. bilateral hand unsure date. left partial mastectomy 09/2012. bilateral cataract left 2014, right 2015 - Social History Smoking Status: Never smoker Smokeless Tobacco Status: No Alcohol use: none Drug use: none - Family History Father Adopted: No Family Member Ethnicity: Non- Living Status: Infectious Disease-CN:Meds BuPROPion XL (24 HR) [Wellbutrin Xl] 300 mg PO QAM 02/27/15 [History] Docusate Sodium [Colace] 100 mg PO DAILY PRN 02/27/15 [History] Fluticasone/Salmeterol [Advair 500-50 Diskus] 1 puff IH BID 02/27/15 [History] Potassium Chloride 20 meq PO DAILY 02/27/15 [History] Albuterol Sulfate [Albuterol Inhaler] 2 puff IH QID PRN 09/24/16 [History] Sertraline [Zoloft] 150 mg PO DAILY 04/28/17 [History] Zolpidem [Ambien] 10 mg PO HS #30 tablet 05/04/17 [Rx] Ferrous Sulfate [Iron] 325 mg PO DAILY #90 capsule.er 09/24/17 [Rx] Ranitidine HCl [Acid [employer] Buyer] 150 mg PO BID 12/29/17 [History] Prochlorperazine Maleate [Compazine] 10 mg PO Q6HR PRN #30 tablet 01/12/18 [Rx] Topiramate [Topamax] 100 mg PO BID 02/02/18 [History] Morphine Immed Rel [Morphine Sulfate] 30 mg PO Q8H PRN 30 Days #90 tablet [Rx] Albuterol Neb [AccuNeb] 1.25 mg IH Q8H PRN 02/19/18 [History] BuPROPion XL (24 HR) [Wellbutrin XL] 150 mg PO HS 02/19/18 [History] Erythromycin OPTH Oint 1 appl BOTH EYES HS 02/19/18 [History] LORazepam [Ativan] 0.5 mg PO TID PRN 02/19/18 [History] Promethazine HCl 12.5 mg PO BID PRN 02/19/18 [History] Triamterene/HCTZ 37.5/25mg [Dyazide] 1 each PO DAILY 02/19/18 [History] 3 Allergy/AdvReac Type Severity Reaction Status Date / Time codeine Allergy Chest Pain Verified 02/17/18 16:30 [From Tylenol-Codeine] doxycycline Allergy Hives Verified 02/17/18 16:30 levofloxacin [From Levaquin] Allergy Hives Verified 02/17/18 16:30 ROS unobtainable: due to mental status Exam - Constitutional Vitals: Temp Pulse Resp BP Pulse Ox 101.1 F H 87 20 112/51 100 03/03/18 06:50 03/03/18 06:50 03/03/18 06:50 03/03/18 06:50 03/03/18 06:50 General appearance: febrile, disheveled, no cooperative - Head Head exam: Present: atraumatic, normocephalic - Eye Eye exam: Present: EOMI, sclera anicteric. Absent: normal appearance Pupils: Present: irregular - ENT ENT exam: Present: mucous membranes dry, normal exam - Neck Neck exam: Present: full ROM. Absent: meningismus - Respiratory Respiratory exam: Present: CTAB. Absent: wheezes - Cardiovascular Cardiovascular exam: Present: RRR, +S1, +S2 - GI/Abdominal GI/Abdominal exam: Present: normal bowel sounds, soft, tenderness - Extremities Exam Extremities exam: Present: full ROM. Absent: joint swelling - Neurological Exam Neurological exam: Present: altered. Absent: alert, oriented X3 - Skin Skin exam: Present: normal color. Absent: rash Infectious Disease CN: Results - Labs CBC & Chem 7: 03/03/18 06:03 03/03/18 06:03 Cultures: Cultures 03/02/18 18:46 Blood Culture - Preliminary Peripheral Venipuncture Culture is incubating and being continuously monitored for growth. Final report to follow. 03/02/18 18:40 Blood Culture - Preliminary Peripheral Venipuncture Culture is incubating and being continuously monitored for growth. Final report to follow. 03/01/18 18:39 Blood Culture - Preliminary Peripheral Venipuncture Culture is incubating and being continuously monitored for growth. Final report to follow. 03/01/18 18:39 Blood Culture - Preliminary Peripheral Venipuncture Culture is incubating and being continuously monitored for growth. Final report to follow. Consult Discharge Plan - Plan Referrals: Rashawn Rosenberg MD [Primary Care Provider] -
--- NOTE | 2018-03-03 16:23 | Oncology Inp Progress Note ---
Date of Encounter: 03/03/18 Time of Encounter: 15:30 (1) Cancer related pain Current Visit: No Status: Chronic Assessment and plan: Controlled at this time. Continue Morphine 30 mg Q8hr (2) Metastatic breast carcinoma Current Visit: Yes Status: Chronic Assessment and plan: Metastatic stage IV breast cancer. Current therapy includes Faslodex and Ribociclib. Currently under good control with CT chest abdomen and pelvis 02/02/2018 showed no major adenopathy, multifocal bone metastasis fairly stable. For her bone metastases she receives denosumab Q3 months. Plan: Hold ribociclib during acute hospital stay Obtain MRI brain secondary to continued confusion and delirium (3) UTI (urinary tract infection) Current Visit: Yes Status: Acute Assessment and plan: Urine culture reveals E Coli and ESBL Treating with meropenem, vanc restarted Febrile episode 101.1 yesterday ID consulted Qualifiers: Urinary tract infection type: acute cystitis Hematuria presence: with hematuria Qualified Code(s): N30.01 - Acute cystitis with hematuria (4) Acoustic neuroma Current Visit: No Status: Acute Assessment and plan: Patient also has a history of neurofibromatosis type 2 (NF2) with a history of bilateral acoustic neuromas and multiple meningiomas having previously undergone left occipital craniotomy in 1985 and right occipital craniotomy and 2005. She completed fractionated external beam radiotherapy at [facility] to an enlarging right acoustic neuroma from 02/17/2017-03/24/2017. She had a brain MRI on 12/29/2017 which had concern for growth of the right vestiblar schwannoma when she presented for worsening hearing loss. She was transferred to [facility] for evaluation. Neurosurgery was consulted and per their most recent imaging comparison, her images had actually appeared stable. No emergent neurosurgical intervention was recommended, but a follow up with neuro oncology and repeat MRI internal auditory canal and brain both with and without contrast was recommended in the next 1-4 weeks for further evaluation. Head CT 03/01/2018 with no acute changes It does not appear that repeat MRI as discussed above was obtained Brain MRI with IAC wo/w ordered today Issues with mental clarity may be secondary to sepsis, UTI, however, progression of metastatic breast cancer remains within differential. Oncology: Subj Interval history: Ms. Bonner is resting in bed. She reports lower back pain, She denies headache, visual changes, hearing changes, nausea, vomiting, bowel changes. She appears labile and crying at times during my assessment. She is asking me to call multiple family members but cannot recall their names or phone numbers. She, however, is alert and oriented to person, place, time and situation. She needs redirection often in our conversation. - Constitutional Vitals: Vital Signs Temp Pulse Resp BP Pulse Ox 03/03/18 12:14 98.6 F 68 18 105/71 98 03/03/18 06:50 101.1 F H 87 20 112/51 100 03/03/18 03:20 98.4 F 72 17 129/79 98 03/03/18 00:02 99.8 F H 88 18 106/59 93 03/02/18 19:33 100.1 F H 83 17 104/65 95 03/02/18 18:04 97.9 F Intake and Output 03/03/18 03/03/18 03/03/18 07:59 15:59 23:59 Intake Total 130 / 130 Balance 130 / 130 Intake: IV Fluids Merrem 1,000 MG In Water for inj. (sterile) 10 ML @ 120 mls/ hr IVP Q8H [facility] Rx#:[id number] Oral 120 / 120 Other: Meal rounding Weight 95.3 kg Patient Weight 03/03/18 23:59 Weight 95.3 kg General appearance: cooperative, no acute distress, no febrile - ENT ENT exam: Present: mucous membranes moist - Respiratory Respiratory exam: Present: CTAB. Absent: respiratory distress - Cardiovascular Cardiovascular exam: Present: RRR, +S1, +S2 - GI/Abdominal GI/Abdominal exam: Present: normal bowel sounds, soft. Absent: guarding, rebound, tenderness - Extremities Exam Extremities exam: Absent: calf tenderness Additional comments: mild RLE edema-chronic - Neurological Exam Neurological exam: Present: alert, oriented X3, no focal deficits, strengths equal and symetr throughout - Psychiatric Additional comments: labile Requiring re-direction in conversation - Skin Skin exam: Present: dry, intact, normal color, warm Oncology: Obj Data - Labs CBC & Chem 7: 03/04/18 06:07 03/04/18 06:07 Labs: Laboratory Results - last 24 hr 03/03/18 03/03/18 06:03 06:03 WBC 3.7 L RBC 2.97 L Hgb 10.0 L Hct 30.8 L MCV 103.7 H MCH 33.7 H MCHC 32.5 RDW 13.6 Plt Count 113 L MPV 8.9 L Immature Gran % 0.3 Seg Neutrophils % 81.7 Lymphocytes % 9.3 Monocytes % 6.0 Eosinophils % 1.6 Basophils % 1.1 Neutrophils # 3.0 Lymphocytes # 0.3 L Monocytes # 0.2 Eosinophils # 0.1 Basophils # 0.0 Reactive Lymphocytes Present A Platelet Estimate Slight Decrease L Sodium 136 Potassium 3.3 L Chloride 109 H Carbon Dioxide 14 L BUN 15 Creatinine 1.09 Est GFR ( Amer) > 60 Est GFR (Non-Af Amer) 52 L BUN/Creatinine Ratio 14 Glucose 106 H Calculated Osmolality 283 Calcium 7.3 L Magnesium 2.2 - Impressions Impressions Head CT 03/01/18 18:02 IMPRESSION: No acute intracranial abnormality. Previous occipital craniotomies bilaterally. Encephalomalacia in the left cerebellar hemisphere with extension into the soft tissues. Mild encephalomalacia in the right frontal and right parietal white matter. There is no change from the prior study. D/ / 03/01/2018 21:01:20 Juju Stewart MD / [email or web address] Interpreting Provider: Juju Stewart MD Consult Discharge Plan - Plan Referrals: Rashawn Rosenberg MD [Primary Care Provider] - Inpatient Charges Provider: Priti Gee CNP Follow up - Inpatient: [id number]
[2018-03-03] MEDS ORDERED: GuaiFENesin/Dextromethorphan TABLET PO PRN (17:45)
[2018-03-03] MEDS: *HR* Morphine Immed Rel 30 MG TABLET PO PRN (20:00)
[2018-03-03] MEDS: Erythromycin OPTH Oint BOTH EYES SCH (20:06)
[2018-03-04] MEDS: *HR* Heparin 5,000 UNIT/ML VIAL SQ SCH ×3 (05:17→22:54)
[2018-03-04 06:23] LABS: Basophils % 0.4 %; Eosinophils # 0.2 K/mcL (0.0-0.6); Eosinophils % 5.7 %; Hematocrit 27.3 % (35.3-44.9); Hemoglobin 9.2 g/dL (11.5-15.4); Immature Granulocytes % 0.4 % (0-4); Lymphocytes # 0.5 K/mcL (0.6-4.6); Lymphocytes % 19.2 %; Mean Corpuscular HGB Conc 33.7 g/dL (31.6-35.5); Mean Corpuscular Hemoglobin 33.3 pg (28.0-33.3); Mean Corpuscular Volume 98.9 fL (83.0-100.0); Mean Platelet Volume 9.3 fL (9.4-12.4); Monocytes # 0.3 K/mcL (0.0-1.3); Monocytes % 11.3 %; Neutrophils # 1.7 K/mcL (1.6-8.9); Platelet Count 120 K/mcL (140-400); Red Blood Count 2.76 M/mcL (3.82-4.97); Red Cell Distribution Width 13.8 % (11.5-14.5)
[2018-03-04 06:37] LABS: BUN/Creatinine Ratio 14 (6-26); Blood Urea Nitrogen 11 mg/dL (6-20); Calcium 7.7 mg/dL (8.6-10.3); Carbon Dioxide 18 mEq/L (23-29); Chloride 113 mEq/L (98-107); Glucose 94 mg/dL (70-105); Osmolality,Calculated 283 (280-300); Potassium 3.7 mEq/L (3.5-5.1); Sodium 137 mEq/L (136-145); eGFR For Non-African Americans > 60 (> 60)
[2018-03-04] MEDS: Budesonide/Formoterol 160/4.5 1 PUFF INH IH SCH ×2 (07:59→20:51)
[2018-03-04] MEDS: BuPROPion XL (24 HR) 150 MG TABLET PO SCH ×2 (09:18→22:54)
[2018-03-04] MEDS: Topiramate 100 MG TABLET PO SCH ×2 (09:19→22:53)
[2018-03-04] MEDS: Ertapenem 1,000 MG in 0.9 % Sodium Chloride Mini Bag 100 ML IVPB SCH (09:19)
[2018-03-04] MEDS: Famotidine 20 MG TABLET PO SCH ×2 (09:19→22:54)
--- NOTE | 2018-03-04 11:16 | Infectious Disease Progress No ---
Date of Encounter: 03/04/18 Time of Encounter: 11:12 - Assessment and Plan (1) Sepsis Current Visit: Yes Status: Resolved The patient had 3 sepsis criteria on admission plus acute kidney injury and metabolic encephalopathy. Likely secondary to UTI. Improved. White blood cell count has dropped and the patient is now leukopenic , but other sepsis criteria have resolved. Her mental status appears to be back to baseline. Renal function has normalized. Blood cultures drawn sets are no growth to date. Additional blood cultures drawn 03/02/18 are no growth to date 2 sets. Qualifiers: Sepsis type: Escherichia coli Qualified Code(s): A41.51 - Sepsis due to Escherichia coli [E. coli] (2) Leukopenia Current Visit: Yes Status: Chronic Etiology unclear: Sepsis versus chemotherapy versus antibiotics. ANC 1700. Continue to trend. Hem/Onc consulted and following. Qualifiers: Leukopenia type: neutropenia Neutropenia type: secondary to cancer chemotherapy Qualified Code(s): D70.1 - Agranulocytosis secondary to cancer chemotherapy; T45.1X5A - Adverse effect of antineoplastic and immunosuppressive drugs, initial encounter (3) UTI due to extended-spectrum beta lactamase (ESBL) producing Escherichia coli Current Visit: Yes Status: Resolved Causative organism: Escherichia coli ESBL. Continue ertapenem 1 g IV daily. (day 3 of treatment) Duration of treatment depends on the clinical picture but likely a total of 7- 10 days. Can likely de-escalate to PO Bactrim soon. Monitor renal function and dose adjust antibiotics. (4) Acute metabolic encephalopathy Current Visit: Yes Status: Resolved Likely secondary to UTI. Resolved. Per the patient's family, she appears to be back to baseline. (5) Lumbar compression fracture Current Visit: No Status: Chronic Status post kyphoplasty 4 weeks ago. Patient denies any back pain at this time. Qualifiers: Encounter type: subsequent encounter Lumbar vertebra fracture level: L2 Fracture type: closed Fracture healing: with routine healing Qualified Code( s): S32.020D - Wedge compression fracture of second lumbar vertebra, subsequent encounter for fracture with routine healing (6) Morbid obesity with BMI of 40.0-44.9, adult Current Visit: Yes Status: Chronic (7) Obesity Current Visit: No Status: Chronic Qualifiers: Obesity type: unspecified obesity type Obesity classification: adult class 3 (BMI >= 40) Body mass index: BMI 40.0-44.9 Qualified Code(s): E66.01 - Morbid (severe) obesity due to excess calories; Z68.41 - Body mass index (BMI) 40.0-44.9, adult (8) Metastatic breast carcinoma Current Visit: Yes Status: Chronic Stage IV breast cancer with metastasis to the bone and brain currently on Faslodex and Ribociclib and denosumab Q3 months. Hematology/oncology consult and following. (9) Acoustic neuroma Current Visit: No Status: Acute Neurofibromatosis type II with acoustic neuroma and multiple meningiomas who apparently has undergone left occipital craniotomy in 1985 and right occipital craniotomy in 2005 and completely fractionated external beam radiation at [facility] to large right acoustic neuroma from 02/17/2017 to 03/24/2017. Follows with the [facility]. Hematology/oncology consulted and following. Planning for MRI with IAC later today. - Subjective Interval history: Patient seen and examined with family at the bedside. No acute events noted overnight. Per the patient's family, they report that her mental status is pretty much back to baseline. She denies any fevers or chills or rigors. Denies any chest pain or shortness of breath. She does report a persistent dry hacking cough that started a couple of days ago. She reports some left upper quadrant pain that radiates around to her left flank. She denies any nausea or vomiting or diarrhea. She does report loose stool this morning. She denies any urinary complaints at this time. She denies any oral thrush or new skin lesions. Infect Dis PN-Objective Data - Labs CBC & Chem 7: 03/05/18 04:59 03/05/18 04:59 Labs: Laboratory Results - last 24 hr 03/04/18 03/04/18 06:07 06:07 WBC 2.7 L RBC 2.76 L Hgb 9.2 L Hct 27.3 L MCV 98.9 MCH 33.3 MCHC 33.7 RDW 13.8 Plt Count 120 L MPV 9.3 L Immature Gran % 0.4 Seg Neutrophils % 63.0 Lymphocytes % 19.2 Monocytes % 11.3 Eosinophils % 5.7 Basophils % 0.4 Neutrophils # 1.7 Lymphocytes # 0.5 L Monocytes # 0.3 Eosinophils # 0.2 Basophils # 0.0 Sodium 137 Potassium 3.7 Chloride 113 H Carbon Dioxide 18 L BUN 11 Creatinine 0.81 Est GFR ( Amer) > 60 Est GFR (Non-Af Amer) > 60 BUN/Creatinine Ratio 14 Glucose 94 Calculated Osmolality 283 Calcium 7.7 L Cultures: Cultures 03/02/18 18:46 Blood Culture - Preliminary Peripheral Venipuncture Culture is incubating and being continuously monitored for growth. Final report to follow. 03/02/18 18:40 Blood Culture - Preliminary Peripheral Venipuncture Culture is incubating and being continuously monitored for growth. Final report to follow. 03/01/18 18:39 Blood Culture - Preliminary Peripheral Venipuncture Culture is incubating and being continuously monitored for growth. Final report to follow. 03/01/18 18:39 Blood Culture - Preliminary Peripheral Venipuncture Culture is incubating and being continuously monitored for growth. Final report to follow. Exam - Constitutional Vitals: Temp Pulse Resp BP Pulse Ox 99.2 F 74 19 106/69 96 03/04/18 07:31 03/04/18 07:31 03/04/18 07:31 03/04/18 07:31 03/04/18 07:31 General appearance: cooperative, no acute distress, obese - Head Head exam: Present: atraumatic, normal inspection, normocephalic - Eye Eye exam: Absent: normal appearance (Clouding and atrophy of the left eye globe noted.) - ENT ENT exam: Present: mucous membranes moist - Neck Neck exam: Present: normal inspection - Respiratory Respiratory exam: Present: CTAB. Absent: rales, respiratory distress, rhonchi, wheezes Additional comments: Dry hacking cough noted well at the bedside. - Cardiovascular Cardiovascular exam: Present: RRR, +S1, +S2 - GI/Abdominal GI/Abdominal exam: Present: distended (Obese), normal bowel sounds, soft, tenderness (Left upper quadrant, left flank) - Extremities Exam Extremities exam: Present: normal inspection. Absent: joint swelling, pedal edema, tenderness - Neurological Exam Neurological exam: Present: alert, oriented X3, no focal deficits - Psychiatric Psychiatric exam: Present: normal affect, normal mood - Skin Skin exam: Present: dry, intact, normal color, warm Consult Discharge Plan - Plan Referrals: Rashawn Rosenberg MD [Primary Care Provider] - (PATIENT WILL FOLLOW UP WITH F PCP) Prescriptions: LORazepam [Ativan] 0.5 mg PO TID PRN 1 Days #3 tablet PRN Reason: Anxiety Morphine Immed Rel [Morphine Sulfate] 30 mg PO Q8H PRN 30 Days #90 tablet PRN Reason: Pain Sulfamethoxazole/Trimeth DS [Bactrim DS] 1 each PO BID 6 Days #12 tablet - Attending Attestation I examined this patient and my medical decision-making was reviewed with the Resident Physician. I agree with the documented findings, disposition and treatment plan as described except to the extent set forth below.
--- NOTE | 2018-03-04 13:56 | Internal Med Progress Note ---
<Rafita Nguyen - Last Filed: 03/04/18 15:08> Hospitalist Progress Note - Encounter Date of Encounter: 03/04/18 Time of Encounter: 08:20 - Subjective Interval History: Patient was seen and examined up at since morning. Overall she states she is doing well with no complaints other than abdominal pain which she states is chronic. She is alert and oriented this morning and able to answer questions appropriately. She denies any symptoms of fevers, chills, urinary frequency urgency or dysuria. She has been afebrile overnight, no overnight events - Exam Vitals: Temp Pulse Resp BP Pulse Ox 98.8 F 71 19 102/68 95 03/04/18 11:23 03/04/18 11:23 03/04/18 11:23 03/04/18 11:23 03/04/18 11:23 Exam: Gen.: Vitals noted. No acute distress. 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 MSK: no joint swelling noted Extremities: Nonpitting 1+ BLE edema, worse on right, nontender calf, no cyanosis or clubbing Neuro: A&Ox3, moves all extremities, no focal deficits Psych: Appropriate mood and behavior - Assessment and Plan (1) Sepsis Current Visit: Yes Status: Resolved Assessment and Plan: - SIRS criteria with fever 101, RR 22 in ED - No longer septic. - Initially hypotensive in ED in 90s/60s but did respond to fluids. - Likely source is urine given UA and history of MDRO Proteus and enterococcus. Urine culture growing ESBL Escherichia coli, sensitive to carbapenems, Zosyn, bactrim. - Patient is denying symptoms but is not a good historian - Recently discharged from [facility] for PNA, CXR wnl - WBC of 2.7, however baseline is 2-4 and patient does receive chemotherapy, most recently 02/17/18 - initially started on Vanc, zosyn. Increased to meropenem and vancomycin. - Did have fevers of 102 and 101 on 03/02 and 03/03. At this point ID was consulted. - Started on ertapenem this AM per ID recommendations. Per ID, can transition to oral bactrim soon Plan - Blood cultures ordered x 2, NG - CT abdomen negative for evidence of pyelonephritis - Continue ertapenem, day 1. total day 4 of abx (2) UTI due to extended-spectrum beta lactamase (ESBL) producing Escherichia coli Current Visit: Yes Status: Acute Assessment and Plan: - as above for sepsis. (3) Anemia Current Visit: Yes Status: Chronic Assessment and Plan: - Hgb of 9.2, appears to be baseline - Possibly related to chemo. - No signs of bleed. (4) Metastatic breast carcinoma Current Visit: Yes Status: Chronic Assessment and Plan: Receives chemo as outpatient - last chemo 02/17 - oncology following, appreciate recs. (5) Hypokalemia Current Visit: Yes Status: Acute Assessment and Plan: Improved today at 3.7. Replace as necessary (6) Leukopenia Current Visit: Yes Status: Chronic Assessment and Plan: - WBC of 2.7 today, decreased from admission, and back at baseline - Baseline appears to be 2-4 (7) Hypertension Current Visit: Yes Status: Chronic Assessment and Plan: - Well controlled at presentation, most recently 102/68 - borderline low but near baseline - Continue to monitor and hold home BP meds for now (8) Acute metabolic encephalopathy Current Visit: Yes Status: Resolved Assessment and Plan: - Resolved. - likely secondary to UTI as above. - Continue abx (9) DVT prophylaxis Current Visit: Yes Status: Acute Assessment and Plan: Heparin 5000 units q8 hours (10) Morbid obesity with BMI of 40.0-44.9, adult Current Visit: Yes Status: Chronic - Time Spent with Patient Total time spent is greater than 50% in coordination of care (as documented) at patient's floor/unit and/or counseling patient: Internal Medicine: Result - Labs CBC & Chem 7: 03/04/18 06:07 03/04/18 06:07 Labs: Short CBC 03/04/18 Range/Units 06:07 WBC 2.7 L (4.3-11.1) K/mcL Hgb 9.2 L (11.5-15.4) g/dL Hct 27.3 L (35.3-44.9) % Plt Count 120 L (140-400) K/mcL Neutrophils # 1.7 (1.6-8.9) K/mcL BMP 03/04/18 06:07 Sodium 137 Potassium 3.7 Chloride 113 H Carbon Dioxide 18 L BUN 11 Creatinine 0.81 Glucose 94 Calcium 7.7 L Consult Discharge Plan - Plan Referrals: Rashawn Rosenberg MD [Primary Care Provider] - <Alonzo Prince - Last Filed: 03/04/18 18:04> Hospitalist Progress Note - Encounter Date of Encounter: 03/04/18 - Exam Vitals: Temp Pulse Resp BP Pulse Ox 98.8 F 72 18 98/62 96 03/04/18 16:08 03/04/18 16:08 03/04/18 16:08 03/04/18 16:08 03/04/18 16:08 - Assessment and Plan (1) Anemia Current Visit: Yes Status: Chronic (2) DVT prophylaxis Current Visit: Yes Status: Acute (3) Metastatic breast carcinoma Current Visit: Yes Status: Chronic (4) Hypokalemia Current Visit: Yes Status: Acute (5) Leukopenia Current Visit: Yes Status: Chronic (6) Sepsis Current Visit: Yes Status: Acute (7) Hypertension Current Visit: Yes Status: Chronic (8) Acute metabolic encephalopathy Current Visit: Yes Status: Resolved (9) UTI due to extended-spectrum beta lactamase (ESBL) producing Escherichia coli Current Visit: Yes Status: Acute (10) Morbid obesity with BMI of 40.0-44.9, adult Current Visit: Yes Status: Chronic - Time Spent with Patient Total time spent is greater than 50% in coordination of care (as documented) at patient's floor/unit and/or counseling patient: Internal Medicine: Result - Labs CBC & Chem 7: 03/04/18 06:07 03/04/18 06:07 Labs: Short CBC 03/04/18 Range/Units 06:07 WBC 2.7 L (4.3-11.1) K/mcL Hgb 9.2 L (11.5-15.4) g/dL Hct 27.3 L (35.3-44.9) % Plt Count 120 L (140-400) K/mcL Neutrophils # 1.7 (1.6-8.9) K/mcL BMP 03/04/18 06:07 Sodium 137 Potassium 3.7 Chloride 113 H Carbon Dioxide 18 L BUN 11 Creatinine 0.81 Glucose 94 Calcium 7.7 L - Impressions Impressions Brain MRI 03/04/18 15:43 IMPRESSION: No significant change in enhancing masses within the bilateral internal auditory canals since 12/29/2017. Unchanged appearance of the dural enhancement along the bilateral cerebellar tentorium, and along the midline falx. Unchanged appearance of the nodular extra-axial enhancement overlying the right cerebellum when compared to previous examination. No convincing evidence of intraparenchymal enhancement. No evidence of a new area of abnormal enhancement. Postsurgical changes from previous left occipital craniotomy, with unchanged encephalomalacia within left posterior fossa. There deformity of the 4th ventricle, and lesion of the brainstem, unchanged from previous examination. No evidence of acute infarct, intracranial hemorrhage, or new mass effect. D/ / 03/04/2018 16:43:06 Kermit Matta MD / alma Interpreting Provider: Kermit Matta MD - Attending Attestation I examined this patient and my medical decision-making was reviewed with the Resident Physician on 03/04/18. I agree with the documented findings, disposition and treatment plan as described except to the extent set forth below. Ms Bonner is currently admitted for sepsis related to UTI. She remains moderate to high risk due to potential for worsening clinical status. Ms Bonner appears to be more oriented and alert today. Denies pain. No fever or chills. Tolerating abx. No GI issues. Exam alert Comfortable Mucus membranes dry Heart reg No wheeze abd soft No edema I/P 1. Sepsis resolved 2. UTI - on abx Further diagnoses and plan as above Anticipate d/c to SNF tomorrow. <Rafita Nguyen - Last Filed: 03/04/18 15:08> (1) Sepsis Qualifiers: Sepsis type: Escherichia coli Qualified Code(s): A41.51 - Sepsis due to Escherichia coli [E. coli] (3) Anemia Qualifiers: Anemia type: other cause Other causes of anemia: chronic disease, neoplastic Qualified Code(s): D63.0 - Anemia in neoplastic disease (6) Leukopenia Qualifiers: Leukopenia type: neutropenia Neutropenia type: secondary to cancer chemotherapy Qualified Code(s): D70.1 - Agranulocytosis secondary to cancer chemotherapy; T45.1X5A - Adverse effect of antineoplastic and immunosuppressive drugs, initial encounter (7) Hypertension Qualifiers: Hypertension type: essential hypertension Qualified Code(s): I10 - Essential (primary) hypertension <Alonzo Prince - Last Filed: 03/04/18 18:04> (1) Anemia Qualifiers: Anemia type: other cause Other causes of anemia: chronic disease, neoplastic Qualified Code(s): D63.0 - Anemia in neoplastic disease (5) Leukopenia Qualifiers: Leukopenia type: neutropenia Neutropenia type: secondary to cancer chemotherapy Qualified Code(s): D70.1 - Agranulocytosis secondary to cancer chemotherapy; T45.1X5A - Adverse effect of antineoplastic and immunosuppressive drugs, initial encounter (6) Sepsis Qualifiers: Sepsis type: Escherichia coli Qualified Code(s): A41.51 - Sepsis due to Escherichia coli [E. coli] (7) Hypertension Qualifiers: Hypertension type: essential hypertension Qualified Code(s): I10 - Essential (primary) hypertension
[2018-03-04] MEDS: *HR* Morphine Immed Rel 30 MG TABLET PO PRN ×2 (14:27→22:53)
[2018-03-04] MEDS: Erythromycin OPTH Oint BOTH EYES SCH (22:54)
[2018-03-05 05:43] LABS: Basophils % 0.8 %; Eosinophils # 0.2 K/mcL (0.0-0.6); Eosinophils % 7.2 %; Hematocrit 28.2 % (35.3-44.9); Hemoglobin 9.2 g/dL (11.5-15.4); Immature Granulocytes % 0.4 % (0-4); Lymphocytes # 0.9 K/mcL (0.6-4.6); Lymphocytes % 33.7 %; Mean Corpuscular HGB Conc 32.6 g/dL (31.6-35.5); Mean Corpuscular Hemoglobin 33.1 pg (28.0-33.3); Mean Corpuscular Volume 101.4 fL (83.0-100.0); Mean Platelet Volume 9.2 fL (9.4-12.4); Monocytes # 0.3 K/mcL (0.0-1.3); Monocytes % 11.4 %; Neutrophils # 1.2 K/mcL (1.6-8.9); Platelet Count 144 K/mcL (140-400); Red Blood Count 2.78 M/mcL (3.82-4.97); Red Cell Distribution Width 13.9 % (11.5-14.5); Segmented Neutrophils % 46.5 %
[2018-03-05 05:56] LABS: BUN/Creatinine Ratio 16 (6-26); Blood Urea Nitrogen 12 mg/dL (6-20); Calcium 7.9 mg/dL (8.6-10.3); Carbon Dioxide 19 mEq/L (23-29); Chloride 115 mEq/L (98-107); Glucose 88 mg/dL (70-105); Osmolality,Calculated 287 (280-300); Potassium 3.5 mEq/L (3.5-5.1); Sodium 139 mEq/L (136-145); eGFR For Non-African Americans > 60 (> 60)
[2018-03-05] MEDS: *HR* Heparin 5,000 UNIT/ML VIAL SQ SCH ×2 (06:27→14:04)
[2018-03-05] MEDS: Budesonide/Formoterol 160/4.5 1 PUFF INH IH SCH (09:25)
[2018-03-05] MEDS: *HR* Morphine Immed Rel 30 MG TABLET PO PRN (09:43)
[2018-03-05] MEDS: Topiramate 100 MG TABLET PO SCH (09:44)
[2018-03-05] MEDS: BuPROPion XL (24 HR) 150 MG TABLET PO SCH (09:44)
[2018-03-05] MEDS: Famotidine 20 MG TABLET PO SCH (09:44)
[2018-03-05] MEDS: Ertapenem 1,000 MG in 0.9 % Sodium Chloride Mini Bag 100 ML IVPB SCH (09:45)
--- NOTE | 2018-03-05 10:44 | Discharge Summary ---
<Alonzo Prince - Last Filed: 03/05/18 12:44> Orders not resulted at time of discharge: Pending orders 03/01/18 18:39 Culture,Blood [BC] Stat 03/02/18 18:46 Culture,Blood [BC] Routine Date of Encounter: 03/05/18 - Discharge Diagnosis (1) Anemia Status: Chronic Qualifiers: Anemia type: other cause Other causes of anemia: chronic disease, neoplastic Qualified Code(s): D63.0 - Anemia in neoplastic disease (2) DVT prophylaxis Status: Acute (3) Metastatic breast carcinoma Status: Chronic (4) Hypokalemia Status: Resolved (5) Leukopenia Status: Chronic Qualifiers: Leukopenia type: neutropenia Neutropenia type: secondary to cancer chemotherapy Qualified Code(s): D70.1 - Agranulocytosis secondary to cancer chemotherapy; T45.1X5A - Adverse effect of antineoplastic and immunosuppressive drugs, initial encounter (6) Sepsis Status: Resolved Qualifiers: Sepsis type: Escherichia coli Qualified Code(s): A41.51 - Sepsis due to Escherichia coli [E. coli] (7) Hypertension Status: Chronic Qualifiers: Hypertension type: essential hypertension Qualified Code(s): I10 - Essential (primary) hypertension (8) Acute metabolic encephalopathy Status: Resolved (9) UTI due to extended-spectrum beta lactamase (ESBL) producing Escherichia coli Status: Resolved (10) Morbid obesity with BMI of 40.0-44.9, adult Status: Chronic Hospital course: Ms. Bonner is a 57 year old female - Time Spent with Patient Total time spent providing and/or coordinating discharge services: 37min - Discharge Medications Prescriptions: Sulfamethoxazole/Trimeth DS [Bactrim DS] 1 each PO BID 6 Days #12 tablet Home Medications: BuPROPion XL (24 HR) [Wellbutrin Xl] 300 mg PO QAM 02/27/15 [History] Docusate Sodium [Colace] 100 mg PO DAILY PRN 02/27/15 [History] Fluticasone/Salmeterol [Advair 500-50 Diskus] 1 puff IH BID 02/27/15 [History] Potassium Chloride 20 meq PO DAILY 02/27/15 [History] Albuterol Sulfate [Albuterol Inhaler] 2 puff IH QID PRN 09/24/16 [History] Sertraline [Zoloft] 150 mg PO DAILY 04/28/17 [History] Zolpidem [Ambien] 10 mg PO HS #30 tablet 05/04/17 [Rx] Ferrous Sulfate [Iron] 325 mg PO DAILY #90 capsule.er 09/24/17 [Rx] Ranitidine HCl [Acid Formula Bottler] 150 mg PO BID 12/29/17 [History] Prochlorperazine Maleate [Compazine] 10 mg PO Q6HR PRN #30 tablet 01/12/18 [Rx] Topiramate [Topamax] 100 mg PO BID 02/02/18 [History] Morphine Immed Rel [Morphine Sulfate] 30 mg PO Q8H PRN 30 Days #90 tablet [Rx] Albuterol Neb [AccuNeb] 1.25 mg IH Q8H PRN 02/19/18 [History] BuPROPion XL (24 HR) [Wellbutrin Xl] 150 mg PO HS 02/19/18 [History] Erythromycin OPTH Oint 1 appl BOTH EYES HS 02/19/18 [History] LORazepam [Ativan] 0.5 mg PO TID PRN 02/19/18 [History] Promethazine HCl 12.5 mg PO BID PRN 02/19/18 [History] Triamterene/HCTZ 37.5/25mg [Dyazide] 1 each PO DAILY 02/19/18 [History] Sulfamethoxazole/Trimeth DS [Bactrim DS] 1 each PO BID 6 Days #12 tablet [Rx] Allergies/Adverse Reactions: 3 Allergy/AdvReac Type Severity Reaction Status Date / Time codeine Allergy Chest Pain Verified 02/17/18 16:30 [From Tylenol-Codeine] doxycycline Allergy Hives Verified 02/17/18 16:30 levofloxacin [From Levaquin] Allergy Hives Verified 02/17/18 16:30 Date of admission: 03/01/18 17:25 Primary care physician: Rashawn Rosenberg MD Consults: 03/01/18 18:05 Consult to Oncology [CONS] Routine Consulting Provider: Oncology [facility] Reason for Consult: History of breast cancer with mets. Call Completed: No 03/01/18 22:41 Consult to Manager Book [CONS] Routine Reason for SW Consult: Patient has home health 03/03/18 08:09 Consult to Infectious Diseases [CONS] Routine Consulting Provider: Infectious Disease [place] Reason for Consult: fevers, abx recommendations Call Completed: Yes - Constitutional Vitals: Temp Pulse Resp BP Pulse Ox 98.8 F 70 16 100/67 96 03/05/18 10:54 03/05/18 10:54 03/05/18 10:54 03/05/18 10:54 03/05/18 10:54 - Patient Status Disposition: Transfer SNF Condition: Good - Discharge Instructions Follow Up With: Rashawn Rosenberg MD [Primary Care Provider] - - Attending Attestation I examined this patient and my medical decision-making was reviewed with the Resident Physician on 03/05/18. I agree with the documented findings, disposition and treatment plan as described except to the extent set forth below. Ms Bonner has been admitted for acute metabolic encephalopathy due to sepsis due to ESBL E coli UTI. She has improved to baseline. She is now afebrile and alert and oriented. She is ready for discharge to SNF on PO Bactrim. Exam alert Comfortable Mucus membranes dry Heart not tachy No wheeze or rhonchi Abd nontender No edema Plan D/C to SNF today. <Rafita Nguyen - Last Filed: 03/05/18 16:27> - NOTES TO OUTPATIENT PROVIDER Notes to Outpatient Provider: Admitted for altered mental status secondary to UTI. Urine cultures growing ESBL Escherichia coli. He will be discharged home on Bactrim for total of 10 days. Orders not resulted at time of discharge: Pending orders 03/01/18 18:39 Culture,Blood [BC] Stat 03/02/18 18:46 Culture,Blood [BC] Routine Date of Encounter: 03/05/18 Time of Encounter: 10:41 - Discharge Diagnosis (1) Sepsis Priority: Primary Status: Resolved Assessment and Plan: - SIRS criteria with fever 101, RR 22 in ED - No longer septic. - Initially hypotensive in ED in 90s/60s but did respond to fluids. - Likely source is urine given UA and history of MDRO Proteus and enterococcus. Urine culture growing ESBL Escherichia coli, sensitive to carbapenems, Zosyn, bactrim. - Patient is denying symptoms but is not a good historian - Recently discharged from [facility] for PNA, CXR wnl - WBC of 2.7, however baseline is 2-4 and patient does receive chemotherapy, most recently 02/17/18 - initially started on Vanc, zosyn. Increased to meropenem and vancomycin. - Did have fevers of 102 and 101 on 03/02 and 03/03. At this point ID was consulted. - Started on ertapenem this AM per ID recommendations. Per ID, can transition to oral bactrim soon Plan - Blood cultures ordered x 2, NG - CT abdomen negative for evidence of pyelonephritis We discharged home on Bactrim, total of 10 days Qualifiers: Sepsis type: Escherichia coli Qualified Code(s): A41.51 - Sepsis due to Escherichia coli [E. coli] (2) UTI due to extended-spectrum beta lactamase (ESBL) producing Escherichia coli Priority: Secondary Status: Resolved (3) Anemia Priority: Secondary Status: Chronic Qualifiers: Anemia type: other cause Other causes of anemia: chronic disease, neoplastic Qualified Code(s): D63.0 - Anemia in neoplastic disease (4) Metastatic breast carcinoma Priority: Secondary Status: Chronic (5) Hypokalemia Priority: Secondary Status: Resolved (6) Leukopenia Priority: Secondary Status: Chronic Qualifiers: Leukopenia type: neutropenia Neutropenia type: secondary to cancer chemotherapy Qualified Code(s): D70.1 - Agranulocytosis secondary to cancer chemotherapy; T45.1X5A - Adverse effect of antineoplastic and immunosuppressive drugs, initial encounter (7) Hypertension Priority: Secondary Status: Chronic Qualifiers: Hypertension type: essential hypertension Qualified Code(s): I10 - Essential (primary) hypertension (8) Acute metabolic encephalopathy Priority: Secondary Status: Resolved (9) Morbid obesity with BMI of 40.0-44.9, adult Priority: Secondary Status: Chronic (10) DVT prophylaxis Priority: Secondary Status: Acute Hospital course: Ms. Bonner is a 57 year old female with past medical history of asthma, breast cancer with metastasis, COPD, GERD, hypertension, hyperlipidemia who presents the emergency department with complaint of altered mental status. Patient presented with friend who provided most of history and states she has not been acting like her normal self recently. She is reportedly less oriented and more talkative than usual. She has dullness in the past and is usually associated with infection. She does follow at [facility] and oncology was consult that during this visit. In the emergency room, vitals were significant for fever of 101.3, respiratory rate 22, borderline hypotension and 94/47 which did improve with fluids. Lab results significant for WBC of 6.0 which is increased from her baseline, mild WANDA with creatinine of 1.26. Urinalysis was significant for nitrites and WBCs. She was admitted to the hospital for further evaluation and management of sepsis secondary to likely UTI. She did receive a CT of the head which was negative for acute process and CT of the abdomen and pelvis did not show evidence of pyelonephritis. During course of hospital stay, patient did gradually improve. She was started on vancomycin and Zosyn as she has had previous cultures with ESBL as well as enterococcus. Blood cultures were obtained and showed no growth to date. Urine culture did grow ESBL Escherichia coli which was sensitive to carbapenems , Zosyn, Bactrim. Infectious disease was consulted and recommending change to antibiotics of meropenem. She was febrile on second day and vancomycin was added back in. 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 MRI returned with no acute changes. On third day of hospital stay, patient's clinical condition did not greatly improve. She is currently alert and oriented to baseline levels. Vital signs as well as laboratory results returned to within normal limits. At this time she is medically stable for discharge and will be prescribed a prescription for Bactrim for a total of 10 days. She will [facility] to [facility] once placement has been confirmed. Discharge discussed with: patient, nurse, social work, case management - Time Spent with Patient Total time spent providing and/or coordinating discharge services: Date of admission: 03/01/18 17:25 Primary care physician: Rashawn Rosenberg MD Consults: 03/01/18 18:05 Consult to Oncology [CONS] Routine Consulting Provider: [facility] Reason for Consult: History of breast cancer with mets. Call Completed: No 03/01/18 22:41 Consult to Manager Book [CONS] Routine Reason for SW Consult: Patient has home health 03/03/18 08:09 Consult to Infectious Diseases [CONS] Routine Consulting Provider: Infectious Disease [place] Reason for Consult: fevers, abx recommendations Call Completed: Yes Discharging clinician: Rafita Nguyen Anticipated date of discharge: 03/05/18 - Constitutional Vitals: Temp Pulse Resp BP Pulse Ox 98.1 F 70 16 95/58 96 03/05/18 07:43 03/05/18 07:43 03/05/18 09:26 03/05/18 07:43 03/05/18 09:34 Exam: Gen.: Vitals noted. No acute distress. 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 MSK: no joint swelling noted Extremities: Nonpitting 1+ BLE edema, worse on right, nontender calf, no cyanosis or clubbing Neuro: A&Ox3, moves all extremities, no focal deficits Psych: Appropriate mood and behavior - Patient Status Functional capacity at discharge: wheelchair bound Overall status at discharge: patient is progressing back to baseline - Diet and Activity Activity: increase activity as tolerated, resume usual activities as tolerated Diet: advance to your usual diet
--- NOTE | 2018-03-05 10:44 | Infectious Disease Progress No ---
Date of Encounter: 03/05/18 Time of Encounter: 09:40 - Assessment and Plan (1) Sepsis Current Visit: Yes Status: Resolved The patient had 3 sepsis criteria on admission plus acute kidney injury and metabolic encephalopathy. Likely secondary to UTI. Improved. White blood cell count has dropped and the patient is now leukopenic , but other sepsis criteria have resolved. Her mental status appears to be back to baseline. Renal function has normalized. Blood cultures drawn sets are no growth to date. Additional blood cultures drawn 03/02/18 are no growth to date 2 sets. Qualifiers: Sepsis type: Escherichia coli Qualified Code(s): A41.51 - Sepsis due to Escherichia coli [E. coli] (2) Leukopenia Current Visit: Yes Status: Chronic Etiology unclear: Sepsis versus chemotherapy versus antibiotics. ANC 1700. Continue to trend. Hem/Onc consulted and following. Qualifiers: Leukopenia type: neutropenia Neutropenia type: secondary to cancer chemotherapy Qualified Code(s): D70.1 - Agranulocytosis secondary to cancer chemotherapy; T45.1X5A - Adverse effect of antineoplastic and immunosuppressive drugs, initial encounter (3) UTI due to extended-spectrum beta lactamase (ESBL) producing Escherichia coli Current Visit: Yes Status: Resolved Causative organism: Escherichia coli ESBL. Continue ertapenem 1 g IV daily. (day 4 of treatment) Duration of treatment depends on the clinical picture but likely a total of 7- 10 days. Can likely de-escalate to PO Bactrim DS 1 tab PO BID when ready for discharge. Treat through 03/11/18. Monitor renal function and dose adjust antibiotics. (4) WANDA (acute kidney injury) Current Visit: No Status: Resolved Likely secondary to sepsis. CT of the abdomen and pelvis was negative for pyelonephritis or hydronephrosis. Resolved. Continue to trend. Avoid nephrotoxins. Dose adjust antibiotics. (5) Acute metabolic encephalopathy Current Visit: Yes Status: Resolved Likely secondary to UTI. Resolved. Per the patient's family, she appears to be back to baseline. (6) Lumbar compression fracture Current Visit: No Status: Chronic Status post kyphoplasty 4 weeks ago. Patient denies any back pain at this time. Qualifiers: Encounter type: subsequent encounter Lumbar vertebra fracture level: L2 Fracture type: closed Fracture healing: with routine healing Qualified Code( s): S32.020D - Wedge compression fracture of second lumbar vertebra, subsequent encounter for fracture with routine healing (7) Morbid obesity with BMI of 40.0-44.9, adult Current Visit: Yes Status: Chronic (8) Obesity Current Visit: No Status: Chronic Qualifiers: Obesity type: unspecified obesity type Obesity classification: adult class 3 (BMI >= 40) Body mass index: BMI 40.0-44.9 Qualified Code(s): E66.01 - Morbid (severe) obesity due to excess calories; Z68.41 - Body mass index (BMI) 40.0-44.9, adult (9) Metastatic breast carcinoma Current Visit: Yes Status: Chronic Stage IV breast cancer with metastasis to the bone and brain currently on Faslodex and Ribociclib and denosumab Q3 months. Hematology/oncology consult and following. 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 [facility]. Hematology/oncology consulted and following. MRI of the brain is unchanged from previous imaging. - Subjective Interval history: Patient seen and examined. No acute events noted overnight. She denies any fevers or chills or rigors. Denies any chest pain or shortness of breath. She does report a persistent dry hacking cough that started a couple of days ago, but is improved today. She reports some left upper quadrant pain that radiates around to her left flank. She denies any nausea or vomiting or diarrhea. Per nursing documentation, had three loose/soft stools yesterday. She denies any urinary complaints at this time. She denies any oral thrush or new skin lesions. Infect Dis PN-Objective Data - Labs CBC & Chem 7: 03/05/18 04:59 03/05/18 04:59 Labs: Laboratory Results - last 24 hr 03/04/18 03/05/18 03/05/18 07:29 04:59 04:59 WBC 2.6 L RBC 2.78 L Hgb 9.2 L Hct 28.2 L MCV 101.4 H MCH 33.1 MCHC 32.6 RDW 13.9 Plt Count 144 MPV 9.2 L Immature Gran % 0.4 Seg Neutrophils % 46.5 Lymphocytes % 33.7 Monocytes % 11.4 Eosinophils % 7.2 Basophils % 0.8 Neutrophils # 1.2 L Lymphocytes # 0.9 Monocytes # 0.3 Eosinophils # 0.2 Basophils # 0.0 Sodium 139 Potassium 3.5 Chloride 115 H Carbon Dioxide 19 L BUN 12 Creatinine 0.76 Est GFR ( Amer) > 60 Est GFR (Non-Af Amer) > 60 BUN/Creatinine Ratio 16 Glucose 88 POC Glucose 99 Calculated Osmolality 287 Calcium 7.9 L Cultures: Cultures 03/02/18 18:46 Blood Culture - Preliminary Peripheral Venipuncture Culture is incubating and being continuously monitored for growth. Final report to follow. 03/02/18 18:40 Blood Culture - Preliminary Peripheral Venipuncture Culture is incubating and being continuously monitored for growth. Final report to follow. 03/01/18 18:39 Blood Culture - Preliminary Peripheral Venipuncture Culture is incubating and being continuously monitored for growth. Final report to follow. 03/01/18 18:39 Blood Culture - Preliminary Peripheral Venipuncture Culture is incubating and being continuously monitored for growth. Final report to follow. - Impressions Impressions Brain MRI 03/04/18 15:43 IMPRESSION: No significant change in enhancing masses within the bilateral internal auditory canals since 12/29/2017. Unchanged appearance of the dural enhancement along the bilateral cerebellar tentorium, and along the midline falx. Unchanged appearance of the nodular extra-axial enhancement overlying the right cerebellum when compared to previous examination. No convincing evidence of intraparenchymal enhancement. No evidence of a new area of abnormal enhancement. Postsurgical changes from previous left occipital craniotomy, with unchanged encephalomalacia within left posterior fossa. There deformity of the 4th ventricle, and lesion of the brainstem, unchanged from previous examination. No evidence of acute infarct, intracranial hemorrhage, or new mass effect. D/ / 03/04/2018 16:43:06 Kermit Matta MD / [email or web address] Interpreting Provider: Kermit Matta MD Exam - Constitutional Vitals: Temp Pulse Resp BP Pulse Ox 98.1 F 70 16 95/58 96 03/05/18 07:43 03/05/18 07:43 03/05/18 09:26 03/05/18 07:43 10/12/18 09:34 General appearance: cooperative, morbidly obese, no acute distress - Head Head exam: Present: atraumatic, normal inspection, normocephalic - Eye Eye exam: Absent: normal appearance (Atrophy and clouding of the left eye globe noted. ) - ENT ENT exam: Present: mucous membranes moist - Neck Neck exam: Present: normal inspection - Respiratory Respiratory exam: Present: CTAB. Absent: rales, respiratory distress, rhonchi, wheezes - Cardiovascular Cardiovascular exam: Present: RRR, +S1, +S2 - GI/Abdominal GI/Abdominal exam: Present: distended (obese), normal bowel sounds, soft, tenderness (LUQ) - Extremities Exam Extremities exam: Present: normal inspection. Absent: joint swelling, pedal edema, tenderness - Neurological Exam Neurological exam: Present: alert, oriented X3, no focal deficits - Psychiatric Psychiatric exam: Present: normal affect, normal mood - Skin Skin exam: Present: dry, intact, normal color, warm Consult Discharge Plan - Plan Referrals: Rashawn Rosenberg MD [Primary Care Provider] - (PATIENT WILL FOLLOW UP WITH [facility] PCP) Prescriptions: LORazepam [Ativan] 0.5 mg PO TID PRN 1 Days #3 tablet PRN Reason: Anxiety Morphine Immed Rel [Morphine Sulfate] 30 mg PO Q8H PRN 30 Days #90 tablet PRN Reason: Pain Sulfamethoxazole/Trimeth DS [Bactrim DS] 1 each PO BID 6 Days #12 tablet - Attending Attestation I examined this patient and my medical decision-making was reviewed with the Resident Physician. I agree with the documented findings, disposition and treatment plan as described except to the extent set forth below.
[2018-03-05 11:00] VITALS: BP 100/67
--- NOTE | 2018-03-05 11:04 | Physician Discharge Referral ---
<Rafita Nguyen - Last Filed: 03/05/18 10:59> [facility] Referral Info Transfer To: [facility] - Diagnosis (1) Sepsis Priority: Primary Status: Acute (2) UTI due to extended-spectrum beta lactamase (ESBL) producing Escherichia coli Priority: Secondary Status: Acute (3) Anemia Priority: Secondary Status: Chronic (4) Metastatic breast carcinoma Priority: Secondary Status: Chronic (5) Hypokalemia Priority: Secondary Status: Acute (6) Leukopenia Priority: Secondary Status: Chronic (7) Hypertension Priority: Secondary Status: Chronic (8) Acute metabolic encephalopathy Priority: Secondary Status: Resolved (9) Morbid obesity with BMI of 40.0-44.9, adult Priority: Secondary Status: Chronic (10) DVT prophylaxis Priority: Secondary Status: Acute - Transfer Medications Prescriptions: Sulfamethoxazole/Trimeth DS [Bactrim DS] 1 each PO BID 6 Days #12 tablet Home Medications: BuPROPion XL (24 HR) [Wellbutrin Xl] 300 mg PO QAM 02/27/15 [History] Docusate Sodium [Colace] 100 mg PO DAILY PRN 02/27/15 [History] Fluticasone/Salmeterol [Advair 500-50 Diskus] 1 puff IH BID 02/27/15 [History] Potassium Chloride 20 meq PO DAILY 02/27/15 [History] Albuterol Sulfate [Albuterol Inhaler] 2 puff IH QID PRN 09/24/16 [History] Sertraline [Zoloft] 150 mg PO DAILY 04/28/17 [History] Zolpidem [Ambien] 10 mg PO HS #30 tablet 05/04/17 [Rx] Ferrous Sulfate [Iron] 325 mg PO DAILY #90 capsule.er 09/24/17 [Rx] Ranitidine HCl [Acid Gear Finisher] 150 mg PO BID 12/29/17 [History] Prochlorperazine Maleate [Compazine] 10 mg PO Q6HR PRN #30 tablet 01/12/18 [Rx] Topiramate [Topamax] 100 mg PO BID 02/02/18 [History] Morphine Immed Rel [Morphine Sulfate] 30 mg PO Q8H PRN 30 Days #90 tablet [Rx] Albuterol Neb [AccuNeb] 1.25 mg IH Q8H PRN 02/19/18 [History] BuPROPion XL (24 HR) [Wellbutrin Xl] 150 mg PO HS 02/19/18 [History] Erythromycin OPTH Oint 1 appl BOTH EYES HS 02/19/18 [History] LORazepam [Ativan] 0.5 mg PO TID PRN 02/19/18 [History] Promethazine HCl 12.5 mg PO BID PRN 02/19/18 [History] Triamterene/HCTZ 37.5/25mg [Dyazide] 1 each PO DAILY 02/19/18 [History] Sulfamethoxazole/Trimeth DS [Bactrim DS] 1 each PO BID 6 Days #12 tablet [Rx] Allergies/Adverse Reactions: 3 Allergy/AdvReac Type Severity Reaction Status Date / Time codeine Allergy Chest Pain Verified 02/17/18 16:30 [From Tylenol-Codeine] doxycycline Allergy Hives Verified 02/17/18 16:30 levofloxacin [From Levaquin] Allergy Hives Verified 02/17/18 16:30 - Respiratory Orders Smoking Cessation: Smoking cessation has been advised. For more information, call the [place] Tobacco Quit Line at 8-357-MJIGNOW. - Advance Directives Code Status: DNR-Arrest - Diet Orders Regular CERTIFICATION: I certify that the transfer of the above named patient to an Extended Care Facility is necessary for the continuing treatment of the diagnosis listed. The above information is true and accurate reflection of patient's current condition. Confidential - Redisclosure prohibited without a patient's written consent. <Alonzo Prince - Last Filed: 03/05/18 12:43> [facility] Referral Info Provider in Charge after Transfer: PCP Institutional Level of Care: Skilled - Diagnosis (1) Anemia Status: Chronic (2) DVT prophylaxis Status: Acute (3) Metastatic breast carcinoma Status: Chronic (4) Hypokalemia Status: Acute (5) Leukopenia Status: Chronic (6) Sepsis Status: Resolved (7) Hypertension Status: Chronic (8) Acute metabolic encephalopathy Status: Resolved (9) UTI due to extended-spectrum beta lactamase (ESBL) producing Escherichia coli Status: Resolved (10) Morbid obesity with BMI of 40.0-44.9, adult Status: Chronic Expected Duration of Placement: Less than 30 days Prognosis: Fair Aware of Diagnosis: Patient, Family Aware of Prognosis: Patient, Family - Respiratory Orders None Smoking Cessation: Smoking cessation has been advised. For more information, call the [place] Tobacco Quit Line at 3-803-FSFS-NOW. - Ancillary Orders May use pressure relief devices daily prn, May consult with Dentist, Cellulose Insulation Helper, Manager Strategic Partnerships PRN - History and Physical History/Physical reviewed & approved w/add comments: Alert and oriented now. - Mobility Orders Chair, Ambulate - Rehabiliation Orders Rehab Potential: Fair Rehab Orders: Evaluation for Physical Therapy, Evaluation for Occupational Therapy - Treatments Skin tear care topically daily PRN per policy, May check for fecal impaction rectally daily PRN, Fleet enema rectally every other day PRN cleansing purposes CERTIFICATION: I certify that the transfer of the above named patient to an Extended Care Facility is necessary for the continuing treatment of the diagnosis listed. The above information is true and accurate reflection of patient's current condition. Confidential - Redisclosure prohibited without a patient's written consent.
== END 2018-03-05 18:04 | DRG 720 ==
LOC: EMEROOARM 13:00 → SUATTDRO 17:25 → 2ANU 17:25
PROVIDERS: ADMIT Internal Medicine; ATTEND Internal Medicine

== ENCOUNTER 2018-12-30 13:54 | Observation (INO) ==
[2018-12-30] MEDS ORDERED: Ipratropium/Albuterol Neb 3 ML IH ONE (14:02)
[2018-12-30] MEDS ORDERED: methylPREDNISolone 125 MG/2 ML VIAL IVP ONE (14:02)
[2018-12-30] MEDS ORDERED: Isovue-370 500 ML BOTTLE IVP ONE (14:02)
[2018-12-30 14:31] LABS: Basophils % 0.7 %; Eosinophils # 0.2 K/mcL (0.0-0.6); Eosinophils % 3.3 %; Hematocrit 32.4 % (35.3-44.9); Hemoglobin 11.1 g/dL (11.5-15.4); Immature Granulocytes % 2.6 % (0-4); Lymphocytes # 1.2 K/mcL (0.6-4.6); Lymphocytes % 26.6 %; Mean Corpuscular HGB Conc 34.3 g/dL (31.6-35.5); Mean Corpuscular Hemoglobin 37.6 pg (28.0-33.3); Mean Corpuscular Volume 109.8 fL (83.0-100.0); Mean Platelet Volume 9.4 fL (9.4-12.4); Monocytes # 0.4 K/mcL (0.0-1.3); Monocytes % 7.6 %; Neutrophils # 2.7 K/mcL (1.6-8.9); Nucleated Red Blood Cells 0.7 /100 WBC (0); Platelet Count 146 K/mcL (140-400); Red Blood Count 2.95 M/mcL (3.82-4.97); Red Cell Distribution Width 16.9 % (11.5-14.5); Segmented Neutrophils % 59.2 %; White Blood Count 4.6 K/mcL (4.3-11.1)
[2018-12-30 14:42] LABS: BUN/Creatinine Ratio 18 (6-26); Blood Urea Nitrogen 18 mg/dL (6-20); Calcium 8.8 mg/dL (8.6-10.3); Carbon Dioxide 28 mEq/L (23-29); Chloride 106 mEq/L (98-107); Glucose 118 mg/dL (70-105); Osmolality,Calculated 287 (280-300); Potassium 3.4 mEq/L (3.5-5.1); Sodium 137 mEq/L (136-145); eGFR For African Americans > 60 (> 60); eGFR For Non-African Americans 56 (> 60)
[2018-12-30 14:43] LABS: Troponin I < 0.03 ng/mL (< 0.04)
[2018-12-30 17:26] LABS: Activated Partial Thrombo Time 31.9 Seconds (26.0-36.0)
[2018-12-30 17:49] LABS: Bilirubin,Urine Negative (Negative); Blood,Urine Negative (Negative); Clarity,Urine Clear (Clear); Color,Urine Yellow (Yellow); Glucose,Urine (UA) Normal (Normal); Ketones,Urine Negative (Negative); Leukocyte Esterase,Urine Small (Negative); Nitrite,Urine Negative (Negative); PH,Urine 6.5 pH Units (5.0-8.0); Protein,Urine Negative (Neg-Trace); Specific Gravity,Urine 1.023 (1.010-1.025); Urobilinogen,Urine Normal (Normal)
[2018-12-30 17:51] LABS: Bacteria,Urine None Seen per hpf (None-Few); Hyaline Casts,Urine None Seen per lpf (None-Few); RBC,Urine 0-3 per hpf (0-3); Squamous Epithelial Cell,Urine Many per lpf (None-Few); WBC,Urine 0-3 per hpf (0-3)
[2018-12-30] MEDS ORDERED: Potassium Chloride 20 MEQ, Lidocaine 1% 2 ML in D5% in Water 250 ML IVPB ONE (18:01)
[2018-12-30 18:19] LABS: Magnesium 2.3 mg/dL (1.6-2.6)
[2018-12-30] MEDS ORDERED: D5 IVPB ONE (18:45)
[2018-12-30] MEDS ORDERED: POTASSIUM CHLORIDE IVPB ONE (18:45)
[2018-12-30] MEDS ORDERED: WATER IVPB ONE (18:45)
[2018-12-30] MEDS ORDERED: LIDOCAINE MPF 1% IVPB ONE (18:45)
[2018-12-30] MEDS ORDERED: Naloxone 0.4 MG/ML INJ IVP PRN (19:26)
[2018-12-30] MEDS: *HR* Heparin 5,000 UNIT/ML VIAL SQ SCH (22:42)
[2018-12-31] MEDS: *HR* LORazepam 0.5 MG TABLET PO PRN ×2 (00:05→21:20)
[2018-12-31] MEDS: Topiramate 100 MG TABLET PO SCH ×3 (00:05→20:34)
[2018-12-31] MEDS: BuPROPion XL (24 HR) 150 MG TABLET PO SCH ×2 (00:05→20:34)
[2018-12-31 04:55] LABS: BUN/Creatinine Ratio 18 (6-26); Blood Urea Nitrogen 18 mg/dL (6-20); Calcium 8.3 mg/dL (8.6-10.3); Carbon Dioxide 22 mEq/L (23-29); Chloride 104 mEq/L (98-107); Glucose 123 mg/dL (70-105); Osmolality,Calculated 291 (280-300); Potassium 3.6 mEq/L (3.5-5.1); Sodium 139 mEq/L (136-145); eGFR For African Americans > 60 (> 60); eGFR For Non-African Americans 58 (> 60)
[2018-12-31 04:56] LABS: Albumin 3.5 g/dL (3.5-5.7); Albumin/Globulin Ratio 1.1 (1.1-2.2); Globulin 3.3 g/dL (2.4-3.5); Total Protein 6.8 g/dL (6.4-8.9)
[2018-12-31 05:40] LABS: Basophils % 0.6 %; Eosinophils % 0.6 %; Hematocrit 28.8 % (35.3-44.9); Hemoglobin 9.8 g/dL (11.5-15.4); Immature Granulocytes % 2.8 % (0-4); Immature Platelets 1.1 % (1.1-6.1); Lymphocytes # 0.9 K/mcL (0.6-4.6); Lymphocytes % 17.2 %; Mean Corpuscular Hemoglobin 37.8 pg (28.0-33.3); Mean Corpuscular Volume 111.2 fL (83.0-100.0); Mean Platelet Volume 9.5 fL (9.4-12.4); Monocytes # 0.4 K/mcL (0.0-1.3); Monocytes % 8.3 %; Neutrophils # 3.6 K/mcL (1.6-8.9); Platelet Count 153 K/mcL (140-400); Red Blood Count 2.59 M/mcL (3.82-4.97); Red Cell Distribution Width 16.6 % (11.5-14.5); Segmented Neutrophils % 70.5 %; White Blood Count 5.1 K/mcL (4.3-11.1)
[2018-12-31 06:07] LABS: Anisocytosis 1+ (Not Present); Macrocytosis Present (Not Present); Platelet Estimate Normal (Normal)
[2018-12-31] MEDS: *HR* Heparin 5,000 UNIT/ML VIAL SQ SCH ×3 (06:23→21:21)
[2018-12-31 11:47] LABS: RBC,Pleural Fluid 0.027 M/mcL
[2018-12-31 12:02] LABS: Total Protein,Pleural Fluid 4.8 g/dL
[2018-12-31 12:04] LABS: Appearance of Pleural Fl Bloody (Clear)
[2018-12-31 15:32] LABS: Basophils,Pleural Fluid 0 %; Monocytes,Pleural Fluid 0 %
[2018-12-31] MEDS ORDERED: *HR* HYDROmorphone (PF) 1 MG/ML SYRINGE IVP ONE (15:59)
[2018-12-31] MEDS ORDERED: Erythromycin OPTH Oint LEFT EYE SCH (21:00)
[2019-01-01] MEDS: *HR* Heparin 5,000 UNIT/ML VIAL SQ SCH (05:00)
[2019-01-01 07:51] VITALS: BP 112/64
[2019-01-01] MEDS: Topiramate 100 MG TABLET PO SCH (08:19)
[2019-01-01 11:41] LABS: Fluid Source for Triglycerides PLEURAL FLUID
[2019-01-02 03:10] LABS: Fluid Source for Cholesterol PLEURAL FLUID
[2019-01-02 07:58] LABS: Triglycerides,Body Fluid 37 mg/dL
[2019-01-02 08:07] LABS: Cholesterol,Body Fluid 90 mg/dL
[2019-01-02 11:50] LABS: Fluid Source for Albumin PLEURAL FLUID
== END 2019-01-01 10:32 | disposition home or self-care (01) ==
LOC: EMEROOARM 13:54 → 2NENU 13:54 → SUATTDRO 19:42 → 2NENU 20:03
PROVIDERS: ADMIT Internal Medicine; ATTEND Internal Medicine

== ENCOUNTER 2019-01-20 15:27 | Inpatient (IN) ==
[2019-01-20] MEDS ORDERED: methylPREDNISolone 125 MG/2 ML VIAL IVP ONE (15:39)
[2019-01-20] MEDS ORDERED: Ipratropium/Albuterol Neb 3 ML IH ONE (15:39)
--- NOTE | 2019-01-20 15:46 | Emergency Department Note ---
Disposition Clinical Impression: Acute exacerbation of chronic obstructive airways disease, Pleural effusion, Hypocalcemia, Hypokalemia Disposition: Admitted As Inpatient Condition: Fair Referrals: Rashawn Rosenberg MD [Primary Care Provider] - Forms: ED Satisfaction Letter Time of Disposition: 18:27 General Adult HPI - General Chief complaint: ED Shortness of Breath/Dyspnea Stated complaint: ROSHNI Time Seen by Provider: 01/20/19 15:38 Source: patient, EMS Mode of arrival: EMS Limitations: no limitations Nursing Notes Reviewed: Yes Vital Signs Reviewed: Yes - History of Present Illness HPI Narrative: Patient is a 58-year-old female that presents the emergency department with reports of increased shortness of breath. EMS states that they called due to increasing shortness of breath. Patient tried to use home nebulizers without relief. They state that when they picked her up that she is breathing 26-20 times minute. States that she had increased work of breathing. States of the head to put her on CPAP for improvement in her oxygen saturation in her work of breathing. Patient states that this is more of a sudden onset of shortness of breath. Patient also reports some chest discomfort. Patient also reports a history of breast cancer but is not currently having any treatment. Patient states that she has had a cough without any sputum production. Patient denied any fever. Patient denies having history of blood clot. Pain Scale: 4 - Related Data Home Medications Medication Instructions Recorded Confirmed Docusate Sodium [Colace] 100 mg PO DAILY 02/27/15 01/01/19 Fluticasone/Salmeterol [Advair 1 puff IH DAILY 02/27/15 01/01/19 500-50 Diskus] Sertraline [Zoloft] 150 mg PO QAM 04/28/17 01/01/19 Topiramate [Topamax] 100 mg PO BID 02/02/18 01/01/19 Albuterol Neb [AccuNeb] 1.25 mg IH Q8H PRN 02/19/18 12/01/18 BuPROPion XL (24 HR) [Wellbutrin 150 mg PO HS 02/19/18 01/01/19 Xl] Erythromycin OPTH Oint 1 appl BOTH EYES HS 02/19/18 01/01/19 Triamterene/HCTZ 37.5/25mg 1 tab PO DAILY 02/19/18 01/01/19 [Dyazide] Albuterol Sulfate [Proair Hfa] 2 puff IH Q4H PRN 01/01/19 01/01/19 Ascorbic Acid [Vitamin C] 500 mg PO DAILY 01/01/19 01/01/19 Atropine Sulfate [Isopto Atropine] 1 drop LEFT EYE QID 01/01/19 01/01/19 Bupropion HCl [Wellbutrin Xl] 300 mg PO QAM 01/01/19 01/01/19 Capecitabine [Xeloda] 1,500 mg PO BID 01/01/19 01/01/19 Ferrous Sulfate 325 mg PO DAILY 01/01/19 01/01/19 Ofloxacin 1 drop LEFT EYE QID 01/01/19 01/01/19 PrednisoLONE Acetate 1% Opth 1 drop LEFT EYE QID 01/01/19 01/01/19 [PredFORTE 1%] Promethazine [Phenergan] 25 mg PO Q6HR PRN 01/01/19 01/01/19 Promethazine/Dextromethorphan 5 ml PO Q6H PRN 01/01/19 01/01/19 [Promethazine-Dm Syrup] Topiramate [Topamax] 25 mg PO BID 01/01/19 01/01/19 Previous Rx's Medication Instructions Recorded Ondansetron HCl [Zofran] 4 mg PO Q8HR PRN #60 tab 07/30/18 Famotidine [Pepcid] 20 mg PO DAILY #30 tablet 08/18/18 Hydrocortisone 2.5% CREAM [Cortaid] 1 appl TP TID #1 tube 09/30/18 Mirtazapine [Remeron] 15 mg PO HS #30 tablet 11/03/18 Clobetasol Propionate 0.05% 1 appl TP BID #60 gm 11/10/18 [Temovate] Potassium Chloride 20 meq PO DAILY #0 12/31/18 Sulfamethoxazole/Trimeth DS 1 each PO BID 5 Days #10 tablet 12/31/18 [Bactrim DS] Allergies Allergy/AdvReac Type Severity Reaction Status Date / Time codeine Allergy Chest Pain Verified 12/01/18 10:55 [From Tylenol-Codeine] doxycycline Allergy Hives Verified 12/01/18 10:55 levofloxacin [From Levaquin] Allergy Hives Verified 12/01/18 10:55 All systems ED: reviewed and negative except as stated. Constitutional: Denies: fever Cardiovascular: Reports: chest pain Respiratory: Reports: cough, dyspnea. Denies: sputum production Gastrointestinal: Denies: abdominal pain, nausea, vomiting Genitourinary: Denies: urgency, dysuria, frequency Neurological: Denies: weakness, numbness, paresthesias Past Medical History - Past Medical History Medical history: Reports: asthma, cancer, COPD, GERD, hyperlipidemia, hypertension, migraine, other Surgical history: Reports: breast surgery, cancer surgery, cataract, cholecystectomy, hysterectomy, sinus surgery, CHAITANYA/BSO Psychiatric history: Reports: anxiety, depression SQL ENGINEER history: Reports: no SQL ENGINEER history - Social History Smoking Status: Never smoker Smokeless Tobacco Status: No Alcohol use: Reports: none Drug use: Reports: none Physical Exam - General Limitations: no limitations General appearance: alert, in distress - Head Head exam: atraumatic, normocephalic - Eye Eye exam: Present: normal appearance, EOMI - Neck Neck exam: Present: normal inspection, full ROM, trachea midline - Respiratory Respiratory exam: Present: wheezes, other (Decreased aeration bilaterally. CPAP in place.) - Cardiovascular Cardiovascular exam: Present: regular rate, normal rhythm, normal heart sounds, +S1, +S2 - Abdominal Exam Abdominal exam: Present: soft, Non-Tender, normal bowel sounds - Neurological Exam Neurological exam: Present: alert, oriented X3 - Psychiatric Psychiatric exam: Present: normal affect, normal mood - Skin Skin exam: Present: warm, dry, intact Course Vital Signs Temperature 99.1 F 01/20/19 15:31 Pulse Rate 84 01/20/19 15:31 Respiratory Rate 28 01/20/19 15:31 Blood Pressure 153/112 01/20/19 15:31 O2 Sat by Pulse Oximetry 100 01/20/19 15:31 Temperature 99.1 F 01/20/19 15:31 Pulse Rate 84 01/20/19 15:31 Respiratory Rate 28 01/20/19 15:31 Blood Pressure 153/112 01/20/19 15:31 O2 Sat by Pulse Oximetry 100 01/20/19 15:31 Oxygen Delivery Oxygen Delivery CPAP Mask O2 Medical Decision Making - MDM Narrative Medical decision making narrative: Due the patient's into the emergency department with reports of increased work of breathing, decreased aeration bilaterally and wheezing bilaterally rest for therapy was called for a BiPAP and DuoNeb breathing treatments. Patient also be given steroids. We will obtain basic laboratory testing, chest x-ray and EKG. Patient's laboratory testing shows a potassium of 2.9. Patient was given IV potassium. Patient's calcium was 7.7. Patient was given a gram of calcium gluconate. Patient had an elevated d-dimer of over 2200. A CTA of the chest was obtained which showed a large pleural effusion on the left. This was similar in size in comparison to previous CT scan on 12/30/18. Patient did have some improvement after receiving her breathing treatments and her BiPAP. Patient has a anemia of hemoglobin 9.2. This has been intermittently chronic for her in the past. She will require admission to the hospital for further evaluation and management. I spoke to Dr. Aguila and he is in agreement with accepting the patient to their service. Patient be admitted this time for further evaluation and management of likely COPD exacerbation and left pleural effusion. - Medical Records Medical records reviewed: Yes I reviewed the patient's medical records. - Lab Data Lab results reviewed: Yes I reviewed the patient's lab results. Result diagrams: 01/20/19 15:39 01/20/19 15:39 - EKG Data EKG #1 EKG attestation: Yes I reviewed and interpreted this EKG. EKG results narrative: EKG shows a sinus rhythm and rate of 83 beats from it, [place] interval 188, QRS duration 83, QTC of 453. There is no evidence of STEMI on EKG. This is compared to previous EKG of 12/30/18. Attestation Statement - Attestation Attestation: I, Donavon Trinidad, examined this patient and my medical decision-making was reviewed with the LAMINATION ASSEMBLER/PA/Advanced Practice Nurse/Resident Physician. I agree with the documented findings, disposition and treatment plan as described except to the extent set forth below. 58-year-old female presents emergency Department with concerns of difficulty in breathing. Patient states symptoms and worsening over the past few days. She has significant wheezing on bilateral posterior lung lew. She was started on BiPAP after initial evaluation. Patient has a large left-sided pleural effusion on CT which was present on previous CT. Patient denies nausea, vomiting, diarrhea. She had improvement of her symptoms with BiPAP and do an abscess. She did not require intubation at this time area patient will be admitted to hospitalist for further care and evaluation. CTA did not show evidence of PE.I reviewed the EKG with the resident and agree with the interpretation.
[2019-01-20 16:31] LABS: Basophils % 0.8 %; Eosinophils # 0.2 K/mcL (0.0-0.6); Eosinophils % 3.1 %; Hematocrit 27.4 % (35.3-44.9); Hemoglobin 9.2 g/dL (11.5-15.4); Immature Granulocytes % 4.6 % (0-4); Lymphocytes % 20.1 %; Mean Corpuscular HGB Conc 33.6 g/dL (31.6-35.5); Mean Corpuscular Hemoglobin 36.7 pg (28.0-33.3); Mean Corpuscular Volume 109.2 fL (83.0-100.0); Mean Platelet Volume 9.2 fL (9.4-12.4); Monocytes # 0.5 K/mcL (0.0-1.3); Monocytes % 11.1 %; Neutrophils # 2.9 K/mcL (1.6-8.9); Nucleated Red Blood Cells 1.3 /100 WBC (0); Platelet Count 135 K/mcL (140-400); Red Blood Count 2.51 M/mcL (3.82-4.97); Red Cell Distribution Width 14.8 % (11.5-14.5); Segmented Neutrophils % 60.3 %; White Blood Count 4.8 K/mcL (4.3-11.1)
[2019-01-20 16:54] LABS: BUN/Creatinine Ratio 13 (6-26); Blood Urea Nitrogen 11 mg/dL (6-20); Carbon Dioxide 29 mEq/L (23-29); Chloride 99 mEq/L (98-107); Potassium 2.9 mEq/L (3.5-5.1); Sodium 137 mEq/L (136-145); eGFR For African Americans > 60 (> 60)
[2019-01-20 16:55] LABS: Calcium 7.7 mg/dL (8.6-10.3); Glucose 117 mg/dL (70-105); Osmolality,Calculated 284 (280-300); Troponin I < 0.03 ng/mL (< 0.04); eGFR For Non-African Americans > 60 (> 60)
[2019-01-20] MEDS ORDERED: Isovue-370 500 ML BOTTLE IVP ONE (16:58)
[2019-01-20] MEDS ORDERED: Calcium Gluconate 1gm/50mL 1 GM/50 ML BAG IVPB ONE (17:15)
[2019-01-20 18:03] LABS: Magnesium 2.7 mg/dL (1.6-2.6)
[2019-01-20] MEDS ORDERED: *HR* FentaNYL (PF) 100 MCG/2 ML VIAL IVP ONE (18:34)
[2019-01-20] MEDS ORDERED: Ipratropium/Albuterol Neb 3 ML IH PRN (19:48)
[2019-01-20] MEDS ORDERED: Ondansetron 4 MG/2 ML VIAL IVP PRN (19:48)
[2019-01-20] MEDS ORDERED: Furosemide 40 MG/4 ML VIAL IVP ONE (19:48)
[2019-01-20] MEDS ORDERED: traMADol 50 MG TABLET PO PRN (20:03)
[2019-01-20] MEDS ORDERED: Naloxone 0.4 MG/ML INJ IVP PRN (20:03)
[2019-01-20] MEDS ORDERED: Ketorolac 30 MG/ML VIAL IVP PRN (20:03)
[2019-01-20] MEDS ORDERED: Acetaminophen 325 MG TABLET PO PRN (20:03)
--- NOTE | 2019-01-20 20:20 | Internal Med History&Physical ---
Date of Encounter: 01/20/19 Time of Encounter: 20:19 Internal Medicine - H&P: HPI Chief complaint: sob Admitted From: Home Plans for Post Hospital Care: Home History of present illness: Ida Bonner is a 58 year old woman with left breast cancer diagnosed in 2012 that initially underwent lumpectomy and partial radiation but quickly recurred and is now widely metastatic, admitted here 3 weeks ago when she presented with respiratory failure and found to have a large left-sided pleural effusion. She underwent thoracentesis with 1L of non-infected fluid drained. After discharge she had a right IJ tunneled chest port inserted for chemotherapy and there was intention for Pleurx catheter insertion however it was not performed due to the small size of the effusion seen at the time. This was 10 days ago. She is brought into the ER now today with the complaint of 3 days of increasing dyspnea. As per EMS she was notably tachypneic and labored with breathing. She has a reported associated chest discomfort but denies productive cough, fever and chills. On arrival here she was given nebulizer treatments and placed on BiPAP. Lab work was remarkable only for hypokalemia at 2.9. A chest CTA was done and showed a recurrence of a large left pleural effusion drowning the left lung, innumerable tiny nodules throughout the right lung consistent with metastatic disease, extensive skeletal metastasis and a cirrhotic liver with innumerable small liver lesion lesions also consistent with metastatic d isease. She is admitted for further care. Vitals: Reviewed General: Obese woman lying in bed in NAD Skin: Warm and dry. HEENT: Moist mucous membranes. Left eye surgically sutured. Left hypoacusia. Right eye blindness. Neck: No JVD. No carotid bruits. No palpable thyroid. Chest: Diminished thoracic expansion. Significantly reduced left hemithorax breath sounds. Heart: Normal S1 & S2; rhythmic. No rubs or murmurs. Abdomen: soft and non-tender to palpation. No peritoneal reaction. Extremities: No clubbing, cyanosis or edema. No calf tenderness. Normal distal pulses. Neurological: Awake, alert and oriented to person, place and time. Left [place] palsy. Psych: Affect appropriate. Assessment/Plan 1. Acute respiratory failure: Secondary to malignant pleural effusion from metastatic breast cancer. It is quickly recurring and reaccumulating in large volumes. Will consult IR for placement of a Pleurx catheter for continued drainage and thoracic surgery for any other recommendations that may be of benefit to minimize the recurrence of this. She is not in a septic state and has no indication for antimicrobials at this time. Will give a dose of furosemide 40mg tonight and keep on Bipap as tolerated. 2. Hypokalemia: Mg checked and is wnl. Will provide supplementation. 3. Breast cancer: A port has been placed on her right chest and will be used for intravenous chemotherapy. Widely metastatic and her prognosis is guarded. 4. Deconditioning: She is on a wheelchair and deconditioned from her prior neurological problems, having had a vestibular schwannoma, acoustic neuroma, craniotomy with cerebellar encephalomalacia and brainstem deformity. She will benefit from secondary social studies teacher consultation to ensure she has all the home care services she needs. Past Med Surg Social Fam HX - Past Medical History Medical history: asthma, cancer, COPD, GERD, hyperlipidemia, hypertension, migraine, other Additional medical history: reactive airway disease. Metastatic breast cancer. chronic mood disorder. ANTHONY CPAP. left side weakness. left ear deafness. 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 ankle sx rt ORIF 1993. feeding tube 1985. eye sx's several started 1994. bilateral hand unsure date. left partial mastectomy 09/2012. bilateral cataract left 2014, right 2015 - Social History Smoking Status: Never smoker Smokeless Tobacco Status: No Alcohol use: none Drug use: none - Family History Father Adopted: No Family Member Ethnicity: Non- Living Status: Internal Medicine - H&P: Meds Docusate Sodium [Colace] 100 mg PO DAILY 02/27/15 [History] Fluticasone/Salmeterol [Advair 500-50 Diskus] 1 puff IH DAILY 02/27/15 [History] Sertraline [Zoloft] 150 mg PO QAM 04/28/17 [History] Topiramate [Topamax] 100 mg PO BID 02/02/18 [History] Albuterol Neb [AccuNeb] 1.25 mg IH Q8H PRN 02/19/18 [History] BuPROPion XL (24 HR) [Wellbutrin Xl] 150 mg PO HS 02/19/18 [History] Erythromycin OPTH Oint 1 appl BOTH EYES HS 02/19/18 [History] Triamterene/HCTZ 37.5/25mg [Dyazide] 1 tab PO DAILY 02/19/18 [History] Ondansetron HCl [Zofran] 4 mg PO Q8HR PRN #60 tab 07/30/18 [Rx] Famotidine [Pepcid] 20 mg PO DAILY #30 tablet 08/18/18 [Rx] Hydrocortisone 2.5% CREAM [Cortaid] 1 appl TP TID #1 tube 09/30/18 [Rx] Mirtazapine [Remeron] 15 mg PO HS #30 tablet 11/03/18 [Rx] Clobetasol Propionate 0.05% [Temovate] 1 appl TP BID #60 gm 11/10/18 [Rx] Potassium Chloride 20 meq PO DAILY #0 12/31/18 [Rx] Sulfamethoxazole/Trimeth DS [Bactrim DS] 1 each PO BID 5 Days #10 tablet 12/31/18 [Rx] Albuterol Sulfate [Proair Hfa] 2 puff IH Q4H PRN 01/01/19 [History] Ascorbic Acid [Vitamin C] 500 mg PO DAILY 01/01/19 [History] Atropine Sulfate [Isopto Atropine] 1 drop LEFT EYE QID 01/01/19 [History] Bupropion HCl [Wellbutrin Xl] 300 mg PO QAM 01/01/19 [History] Capecitabine [Xeloda] 1,500 mg PO BID 01/01/19 [History] Ferrous Sulfate 325 mg PO DAILY 01/01/19 [History] Ofloxacin 1 drop LEFT EYE QID 01/01/19 [History] PrednisoLONE Acetate 1% Opth [PredFORTE 1%] 1 drop LEFT EYE QID 01/01/19 [History] Promethazine [Phenergan] 25 mg PO Q6HR PRN 01/01/19 [History] Promethazine/Dextromethorphan [Promethazine-Dm Syrup] 5 ml PO Q6H PRN 01/01/19 [History] Topiramate [Topamax] 25 mg PO BID 01/01/19 [History] Allergy/AdvReac Type Severity Reaction Status Date / Time codeine Allergy Chest Pain Verified 12/01/18 10:55 [From Tylenol-Codeine] doxycycline Allergy Hives Verified 12/01/18 10:55 levofloxacin [From Levaquin] Allergy Hives Verified 12/01/18 10:55 All Systems PM: A 10-system review of systems was performed and is negative for pertinent findings except as documented above in the HPI. - Constitutional Vitals: Temp Pulse Resp BP Pulse Ox 99.1 F 76 23 193/108 94 01/20/19 15:31 01/20/19 19:57 01/20/19 19:57 01/20/19 19:57 01/20/19 19:57 Exam: . Internal Med - H&P Results - Labs CBC & Chem 7: 01/20/19 15:39 01/20/19 15:39 Labs: Short CBC 01/20/19 Range/Units 15:39 WBC 4.8 (4.3-11.1) K/mcL Hgb 9.2 L (11.5-15.4) g/dL Hct 27.4 L (35.3-44.9) % Plt Count 135 L (140-400) K/mcL Neutrophils # 2.9 (1.6-8.9) K/mcL BMP 01/20/19 15:39 Sodium 137 Potassium 2.9 L Chloride 99 Carbon Dioxide 29 BUN 11 Creatinine 0.82 Glucose 117 H Calcium 7.7 L Cardiac Enzymes 01/20/19 Range/Units 15:39 Troponin I < 0.03 (< 0.04) ng/mL - Impressions ITS Impressions Chest X-Ray 01/20/19 15:39 IMPRESSION: Large left-sided pleural effusion, increased since the prior exam. Patchy right-sided airspace disease. Pneumonia is a consideration. D/ / 01/20/2019 16:50:59 Valentino Tate MD / [email or web address] Interpreting Provider: Valentino Tate MD Chest CTA 01/20/19 16:58 IMPRESSION: 1. No acute pulmonary artery embolism. 2. Large left pleural effusion with drowned left lung. 3. Innumerable tiny nodules throughout the right lung most consistent with metastatic disease. 4. Cirrhosis with innumerable small liver lesions most consistent with metastatic disease. 5. Extensive skeletal metastasis. D/ / 01/20/2019 18:02:57 Michelet Bernabe MD / bertrand Interpreting Provider: Michelet Bernabe MD - Time Spent With Patient Total time spent is greater than 50% in coordination of care (as documented) at patient's floor/unit and/or counseling patient:
[2019-01-21] MEDS: *HR* Heparin 5,000 UNIT/ML VIAL SQ SCH ×3 (01:43→16:49)
[2019-01-21 06:25] LABS: Basophils % 0.5 %; Eosinophils % 0.5 %; Hematocrit 26.4 % (35.3-44.9); Hemoglobin 8.8 g/dL (11.5-15.4); Immature Granulocytes % 5.7 % (0-4); Lymphocytes # 0.7 K/mcL (0.6-4.6); Lymphocytes % 13.3 %; Mean Corpuscular HGB Conc 33.3 g/dL (31.6-35.5); Mean Corpuscular Volume 110.9 fL (83.0-100.0); Mean Platelet Volume 9.2 fL (9.4-12.4); Monocytes # 0.5 K/mcL (0.0-1.3); Monocytes % 9.7 %; Neutrophils # 3.9 K/mcL (1.6-8.9); Nucleated Red Blood Cells 0.9 /100 WBC (0); Platelet Count 134 K/mcL (140-400); Red Blood Count 2.38 M/mcL (3.82-4.97); Segmented Neutrophils % 70.3 %; White Blood Count 5.6 K/mcL (4.3-11.1)
[2019-01-21 06:37] LABS: INR 0.9; Prothrombin Time 10.2 Seconds (9.4-12.1)
[2019-01-21 06:40] LABS: Activated Partial Thrombo Time 28.4 Seconds (26.0-36.0)
[2019-01-21 06:44] LABS: Macrocytosis Present (Not Present); Platelet Estimate Normal (Normal)
[2019-01-21 06:45] LABS: Anisocytosis 1+ (Not Present)
[2019-01-21 06:49] LABS: BUN/Creatinine Ratio 14 (6-26); Blood Urea Nitrogen 11 mg/dL (6-20); Calcium 7.8 mg/dL (8.6-10.3); Carbon Dioxide 26 mEq/L (23-29); Chloride 102 mEq/L (98-107); Glucose 117 mg/dL (70-105); Osmolality,Calculated 284 (280-300); Potassium 3.3 mEq/L (3.5-5.1); Sodium 137 mEq/L (136-145); eGFR For African Americans > 60 (> 60); eGFR For Non-African Americans > 60 (> 60)
[2019-01-21] MEDS ORDERED: Potassium Chloride 40 MEQ, Lidocaine 1% 2 ML in D5% in Water 500 ML IVPB ONE (08:16)
--- NOTE | 2019-01-21 11:49 | Internal Med Progress Note ---
Hospitalist Progress Note - Encounter Date of Encounter: 01/21/19 Time of Encounter: 09:15 - Subjective Interval History: H&P reviewed. 58-year-old female with history of metastatic breast cancer with malignant pleural effusion was admitted due to respiratory failure secondary to recurrent pleural effusion. She was discharged on 01/01 after thoracentesis with the plan for outpatient Pleurx catheter insertion. Currently on BiPAP due to increased work of breathing. No fever overnight. - Exam Vitals: Temp Pulse Resp BP Pulse Ox 98.5 F 74 18 123/66 99 01/21/19 11:26 01/21/19 11:26 01/21/19 11:26 01/21/19 11:26 01/21/19 11:26 Exam: Vitals: Reviewed General: mild distress Chest: Decreased breath sound on the left Heart: Normal S1 & S2; rhythmic. No rubs or murmurs. Abdomen: soft and non-tender to palpation. No peritoneal reaction. Extremities: No clubbing, cyanosis or edema. No calf tenderness. Normal distal pulses. Neurological: No focal deficits other than left Jimenez's palsy - Assessment and Plan (1) Acute hypoxemic respiratory failure Current Visit: Yes Status: Acute Assessment and Plan: Secondary to recurrent left malignant pleural effusion Was supposed to have Pleurx catheter inserted on 01/10 but she did not have enough fluid at that time for the procedure to be performed CT demonstrate reaccumulation of large left pleural effusion with significant compressive atelectasis Discussed with IR, will plan for either therapeutic thoracentesis or Pleurx catheter insertion depending on the availability of the kit. NPO for now wean off on BiPaP if possible (2) Malignant pleural effusion Current Visit: Yes Status: Acute Assessment and Plan: Cytology on pleural fluid during the last admission shows metastatic cancer For drainage as above (3) Metastatic breast cancer Current Visit: Yes Status: Chronic Assessment and Plan: Metastatic to the bones, lung, and liver. Also complicated by malignant pleural effusion poor prognosis, for outpatient oncology follow-up (4) Morbid obesity with BMI of 40.0-44.9, adult Current Visit: No Status: Chronic (5) DVT prophylaxis Current Visit: No Status: Acute Assessment and Plan: Subcutaneous heparin - Time Spent with Patient Total time spent is greater than 50% in coordination of care (as documented) at patient's floor/unit and/or counseling patient: Greater than 35 minutes Plan of Care Discussed with: patient (Discussed with pt's brother and IR team) Internal Medicine: Result - Labs CBC & Chem 7: 01/21/19 06:00 01/21/19 06:00 Labs: Short CBC 01/20/19 01/21/19 Range/Units 15:39 06:00 WBC 4.8 5.6 (4.3-11.1) K/mcL Hgb 9.2 L 8.8 L (11.5-15.4) g/dL Hct 27.4 L 26.4 L (35.3-44.9) % Plt Count 135 L 134 L (140-400) K/mcL Neutrophils # 2.9 3.9 (1.6-8.9) K/mcL BMP 01/20/19 01/21/19 15:39 06:00 Sodium 137 137 Potassium 2.9 L 3.3 L Chloride 99 102 Carbon Dioxide 29 26 BUN 11 11 Creatinine 0.82 0.76 Glucose 117 H 117 H Calcium 7.7 L 7.8 L Cardiac Enzymes 01/20/19 Range/Units 15:39 Troponin I < 0.03 (< 0.04) ng/mL - ABG Interpretation ABG results: PT/INR, D-dimer PT 10.2 Seconds (9.4-12.1) 01/21/19 06:00 D-Dimer 2553 ng/mLFEU (0-500) H 01/20/19 15:52 - Impressions Impressions Chest X-Ray 01/20/19 15:39 IMPRESSION: Large left-sided pleural effusion, increased since the prior exam. Patchy right-sided airspace disease. Pneumonia is a consideration. D/ /20/2019 16:50:59 Valentino Tate MD / jameel Interpreting Provider: Valentino Tate MD Chest CTA 01/20/19 16:58 IMPRESSION: 1. No acute pulmonary artery embolism. 2. Large left pleural effusion with drowned left lung. 3. Innumerable tiny nodules throughout the right lung most consistent with metastatic disease. 4. Cirrhosis with innumerable small liver lesions most consistent with metastatic disease. 5. Extensive skeletal metastasis. D/ /20/2019 18:02:57 Michelet Bernabe MD / jass Interpreting Provider: Michelet Bernabe MD Consult Discharge Plan - Plan Referrals: Rashawn Rosenberg MD [Primary Care Provider] -
[2019-01-21] MEDS ORDERED: *HR* Midazolam HCl 2 MG/2 ML VIAL IVP ONE (12:29)
[2019-01-21] MEDS ORDERED: *HR* FentaNYL (PF) 100 MCG/2 ML VIAL IVP ONE (12:29)
--- NOTE | 2019-01-21 12:31 | Pre-Sedation Evaluation ---
Pre-sedation evaluation - Pre-sedation checklist Date of procedure: 01/21/19 Procedure: left pleurx Recent Vitals: Last Vital Signs Temp 98.5 F 01/21/19 11:26 Pulse 74 01/21/19 11:26 Resp 18 01/21/19 11:26 BP 123/66 01/21/19 11:26 Pulse Ox 99 01/21/19 11:26 H&P (including ROS) documented in medical record: Yes Previous reaction to sedatives/anesthetics: No Dietary Status: NPO after Midnight Dentition: poor dentition ASA Classification *see protocol: CLASS III-Severe systemic disease Plan of Care: Pt appropriate candidate for procedure/moderate/conscious sedation, Risks/benefits of procedure/sedation discussed w/ patient/family
[2019-01-21] MEDS ORDERED: 0.9 % Sodium Chloride 500 ML ONE (12:43)
[2019-01-21] MEDS ORDERED: *HR* Midazolam HCl 2 MG/2 ML VIAL ONE (12:47)
[2019-01-21] MEDS ORDERED: *HR* FentaNYL (PF) 100 MCG/2 ML VIAL ONE (12:47)
--- NOTE | 2019-01-21 13:02 | IR Procedure Note ---
Date of procedure: 01/21/19 Consent Obtained: Written consent Timeout: Correct patient and procedure verified, Correct site verified, Time out performed, Skin prep completed Local anesthetic: Lidocaine 1% Was there an team assistant present: No Estimated blood loss (cc): 0 Complications: None; Tolerated procedure well Indications: Recurrent malignant left pleural effusion Procedure Performed: Left pleurx catheter placement Post Procedure Treatment Plan: Monitor on floor Specimen: none
[2019-01-21] MEDS ORDERED: Furosemide 20 MG/2 ML VIAL IVP ONE (13:22)
[2019-01-21] MEDS: *HR* OxyCODONE Immed Rel 5 MG TABLET PO PRN (15:38)
[2019-01-21] MEDS ORDERED: *HR* OxyCODONE/APAP 5/325 TABLET PO PRN (16:03)
[2019-01-21] MEDS ORDERED: Morphine Sulfate ER (12 HR) 15 MG TABLET.ER PO SCH (16:15)
[2019-01-21] MEDS: Morphine Sulfate ER (12 HR) 15 MG TABLET.ER PO SCH (18:33)
[2019-01-21] MEDS ORDERED: Mirtazapine 15 MG TABLET PO SCH (21:00)
[2019-01-21] MEDS ORDERED: BuPROPion XL (24 HR) 150 MG TABLET PO SCH (21:00)
[2019-01-21] MEDS: *HR* LORazepam 0.5 MG TABLET PO SCH (21:29)
[2019-01-21] MEDS: Topiramate 100 MG TABLET PO SCH (21:29)
[2019-01-21] MEDS: Topiramate 25 MG TABLET PO SCH (21:29)
[2019-01-22] MEDS: *HR* OxyCODONE Immed Rel 5 MG TABLET PO PRN ×3 (01:09→14:29)
[2019-01-22] MEDS: *HR* Heparin 5,000 UNIT/ML VIAL SQ SCH ×2 (01:11→09:42)
[2019-01-22 04:39] LABS: Hematocrit 29.7 % (35.3-44.9); Hemoglobin 9.7 g/dL (11.5-15.4); Mean Corpuscular HGB Conc 32.7 g/dL (31.6-35.5); Mean Corpuscular Hemoglobin 36.6 pg (28.0-33.3); Mean Corpuscular Volume 112.1 fL (83.0-100.0); Mean Platelet Volume 9.4 fL (9.4-12.4); Platelet Count 161 K/mcL (140-400); Red Blood Count 2.65 M/mcL (3.82-4.97); Red Cell Distribution Width 15.3 % (11.5-14.5); White Blood Count 4.9 K/mcL (4.3-11.1)
[2019-01-22 05:00] LABS: BUN/Creatinine Ratio 18 (6-26); Blood Urea Nitrogen 16 mg/dL (6-20); Calcium 7.8 mg/dL (8.6-10.3); Carbon Dioxide 27 mEq/L (23-29); Chloride 102 mEq/L (98-107); Glucose 101 mg/dL (70-105); Magnesium 2.6 mg/dL (1.6-2.6); Osmolality,Calculated 285 (280-300); Potassium 3.4 mEq/L (3.5-5.1); Sodium 137 mEq/L (136-145); eGFR For African Americans > 60 (> 60); eGFR For Non-African Americans > 60 (> 60)
[2019-01-22] MEDS: Morphine Sulfate ER (12 HR) 15 MG TABLET.ER PO SCH (06:12)
[2019-01-22 07:24] VITALS: BP 140/71
[2019-01-22] MEDS ORDERED: Famotidine 20 MG TABLET PO SCH (07:30)
[2019-01-22] MEDS ORDERED: BuPROPion XL (24 HR) 150 MG TABLET PO SCH (09:00)
[2019-01-22] MEDS: Topiramate 100 MG TABLET PO SCH (09:39)
[2019-01-22] MEDS: Topiramate 25 MG TABLET PO SCH (09:40)
[2019-01-22] MEDS: *HR* LORazepam 0.5 MG TABLET PO SCH ×2 (09:41→14:30)
[2019-01-22] MEDS ORDERED: Budesonide/Formoterol 160/4.5 1 PUFF INH IH SCH (10:00)
--- NOTE | 2019-01-22 10:02 | Discharge Summary ---
- NOTES TO OUTPATIENT PROVIDER Notes to Outpatient Provider: Follow-up with oncology as outpatient Date of Encounter: 01/22/19 Time of Encounter: 07:45 - Discharge Diagnosis (1) Acute hypoxemic respiratory failure Priority: Primary Status: Acute (2) Malignant pleural effusion Priority: Secondary Status: Acute (3) Metastatic breast cancer Priority: Secondary Status: Chronic (4) Morbid obesity with BMI of 40.0-44.9, adult Priority: Secondary Status: Chronic (5) DVT prophylaxis Priority: Secondary Status: Acute Hospital course: Ms. Bonner is a 58 year old female with history of metastatic breast cancer with malignant pleural effusion who was admitted due to respiratory failure secondary to recurrent pleural effusion. She was discharged on 01/01 after thoracentesis with the plan for outpatient Pleurx catheter insertion but did not have enough fluid at the time of appointment for the procedure. CT showed large L recurrent pleural effusion with significant compressive atelectasis. No fever or leukocytosis. Underwent PleurX catheter insertion by IR uneventfully on 01/21 draining 1125ml of pleural fluid. She had symptomatic improvement after the procedure and was at her baseline O2 requirement. Patient will be discharged with home health to help with Pleurx catheter care. Discharge discussed with: patient, family, nurse - Time Spent with Patient Total time spent providing and/or coordinating discharge services: 32 mins - Discharge Medications Prescriptions: New Lidocaine 1 each TP DAILY PRN #14 adh..patch PRN Reason: Pain Continued Fluticasone/Salmeterol [Advair 500-50 Diskus] 1 puff IH DAILY Docusate Sodium [Colace] 100 mg PO DAILY Sertraline [Zoloft] 150 mg PO QAM Topiramate [Topamax] 100 mg PO BID Triamterene/HCTZ 37.5/25mg [Dyazide] 1 tab PO DAILY BuPROPion XL (24 HR) [Wellbutrin Xl] 150 mg PO HS Ondansetron HCl [Zofran] 4 mg PO Q8HR PRN #60 tab PRN Reason: Nausea Famotidine [Pepcid] 20 mg PO DAILY #30 tablet Hydrocortisone 2.5% CREAM [Cortaid] 1 appl TP TID #1 tube Mirtazapine [Remeron] 15 mg PO HS #30 tablet Clobetasol Propionate 0.05% [Temovate] 1 appl TP BID #60 gm Albuterol Sulfate [Proair Hfa] 2 puff IH Q4H PRN PRN Reason: Shortness Of Breath Bupropion HCl [Wellbutrin Xl] 300 mg PO QAM Ferrous Sulfate 325 mg PO DAILY Promethazine [Phenergan] 25 mg PO Q6HR PRN PRN Reason: NAUSEA/VOMTING Topiramate [Topamax] 25 mg PO BID Ascorbic Acid [Vitamin C] 500 mg PO DAILY Promethazine/Dextromethorphan [Promethazine-Dm Syrup] 5 ml PO Q6H PRN PRN Reason: COUGH/CONGESTION LORazepam [Ativan] 0.5 mg PO TID Morphine Sulfate [Morphine Sulfate ER] 15 mg PO Q12H OxyCODONE/APAP 5/325 [Percocet 5/325 MG] 1 each PO Q8HR PRN PRN Reason: Pain Polyethylene Glycol 3350 1 packet PO DAILY Potassium Chloride 10 meq PO DAILY Discontinued Sulfamethoxazole/Trimeth DS [Bactrim DS] 1 each PO BID 5 Days #10 tablet Home Medications: Docusate Sodium [Colace] 100 mg PO DAILY 02/27/15 [History] Fluticasone/Salmeterol [Advair 500-50 Diskus] 1 puff IH DAILY 02/27/15 [History] Sertraline [Zoloft] 150 mg PO QAM 04/28/17 [History] Topiramate [Topamax] 100 mg PO BID 02/02/18 [History] BuPROPion XL (24 HR) [Wellbutrin Xl] 150 mg PO HS 02/19/18 [History] Triamterene/HCTZ 37.5/25mg [Dyazide] 1 tab PO DAILY 02/19/18 [History] Ondansetron HCl [Zofran] 4 mg PO Q8HR PRN #60 tab 07/30/18 [Rx] Famotidine [Pepcid] 20 mg PO DAILY #30 tablet 08/18/18 [Rx] Hydrocortisone 2.5% CREAM [Cortaid] 1 appl TP TID #1 tube 09/30/18 [Rx] Mirtazapine [Remeron] 15 mg PO HS #30 tablet 11/03/18 [Rx] Clobetasol Propionate 0.05% [Temovate] 1 appl TP BID #60 gm 11/10/18 [Rx] Albuterol Sulfate [Proair Hfa] 2 puff IH Q4H PRN 01/01/19 [History] Ascorbic Acid [Vitamin C] 500 mg PO DAILY 01/01/19 [History] Bupropion HCl [Wellbutrin Xl] 300 mg PO QAM 01/01/19 [History] Ferrous Sulfate 325 mg PO DAILY 01/01/19 [History] Promethazine [Phenergan] 25 mg PO Q6HR PRN 01/01/19 [History] Promethazine/Dextromethorphan [Promethazine-Dm Syrup] 5 ml PO Q6H PRN 01/01/19 [History] Topiramate [Topamax] 25 mg PO BID 01/01/19 [History] LORazepam [Ativan] 0.5 mg PO TID 01/21/19 [History] Morphine Sulfate [Morphine Sulfate ER] 15 mg PO Q12H 01/21/19 [History] OxyCODONE/APAP 5/325 [Percocet 5/325 MG] 1 each PO Q8HR PRN 01/21/19 [History] Polyethylene Glycol 3350 1 packet PO DAILY 01/21/19 [History] Potassium Chloride 10 meq PO DAILY 01/21/19 [History] Lidocaine 1 each TP DAILY PRN #14 adh..patch 01/22/19 [Rx] Allergies/Adverse Reactions: Allergy/AdvReac Type Severity Reaction Status Date / Time codeine Allergy Chest Pain Verified 12/01/18 10:55 [From Tylenol-Codeine] doxycycline Allergy Hives Verified 12/01/18 10:55 levofloxacin [From Levaquin] Allergy Hives Verified 12/01/18 10:55 Date of admission: 01/20/19 20:03 Primary care physician: Rashawn Rosenberg MD Consults: 01/20/19 19:49 Consult to Interventional Radiology [CONS] Routine Consulting Provider: Radiology Interventional Cols Reason for Consult: Recurring malignant pleural effusion who may require a Pleurx catheter Call Completed: No - Constitutional Vitals: Temp Pulse Resp BP Pulse Ox 99.0 F 79 18 140/71 99 01/22/19 07:18 01/22/19 07:18 01/22/19 07:44 01/22/19 07:18 01/22/19 07:44 Exam: Vitals: Reviewed General: not in distress Chest: Significantly improved aeration in left lung field Heart: Normal S1 & S2; rhythmic. No rubs or murmurs. Abdomen: soft and non-tender to palpation. No peritoneal reaction. Extremities: No clubbing, cyanosis or edema. No calf tenderness. Normal distal pulses. Neurological: No focal deficits other than left Jimenez's palsy - Patient Status Disposition: Home Health Service Condition: Fair Overall status at discharge: patient is progressing back to baseline - Discharge Instructions Instructions: Acute Respiratory Distress Syndrome (DC) Follow Up With: Rashawn Rosenberg MD [Primary Care Provider] - Karlo Saini MD [Partnered Physician] - - Diet and Activity Activity: resume usual activities as tolerated, wear oxygen at all times Diet: regular diet
--- NOTE | 2019-01-22 10:07 | Physician Discharge Referral ---
Home Health/Hosp Referral Info Transfer to: Home Health Provider in Charge Post Discharge: PCP - Diagnosis (1) Acute hypoxemic respiratory failure Priority: Primary Status: Acute (2) Malignant pleural effusion Priority: Secondary Status: Acute (3) Metastatic breast cancer Priority: Secondary Status: Chronic (4) Morbid obesity with BMI of 40.0-44.9, adult Priority: Secondary Status: Chronic (5) DVT prophylaxis Priority: Secondary Status: Acute - Respiratory Orders Oxygen / L per min (2-3L via NC continuous) Smoking Cessation: Smoking cessation has been advised. For more information, call the [place] Tobacco Quit Line at 8-806-JYBW-NOW. - Services Needed Following services are medically necessary services: Nursing, Home Health Aide, Physical Therapy, Occupational Therapy - Transfer Medications Prescriptions: Lidocaine 1 each TP DAILY PRN #14 adh..patch PRN Reason: Pain Home Medications: Docusate Sodium [Colace] 100 mg PO DAILY 02/27/15 [History] Fluticasone/Salmeterol [Advair 500-50 Diskus] 1 puff IH DAILY 02/27/15 [History] Sertraline [Zoloft] 150 mg PO QAM 04/28/17 [History] Topiramate [Topamax] 100 mg PO BID 02/02/18 [History] BuPROPion XL (24 HR) [Wellbutrin Xl] 150 mg PO HS 02/19/18 [History] Triamterene/HCTZ 37.5/25mg [Dyazide] 1 tab PO DAILY 02/19/18 [History] Ondansetron HCl [Zofran] 4 mg PO Q8HR PRN #60 tab 07/30/18 [Rx] Famotidine [Pepcid] 20 mg PO DAILY #30 tablet 08/18/18 [Rx] Hydrocortisone 2.5% CREAM [Cortaid] 1 appl TP TID #1 tube 09/30/18 [Rx] Mirtazapine [Remeron] 15 mg PO HS #30 tablet 11/03/18 [Rx] Clobetasol Propionate 0.05% [Temovate] 1 appl TP BID #60 gm 11/10/18 [Rx] Albuterol Sulfate [Proair Hfa] 2 puff IH Q4H PRN 01/01/19 [History] Ascorbic Acid [Vitamin C] 500 mg PO DAILY 01/01/19 [History] Bupropion HCl [Wellbutrin Xl] 300 mg PO QAM 01/01/19 [History] Ferrous Sulfate 325 mg PO DAILY 01/01/19 [History] Promethazine [Phenergan] 25 mg PO Q6HR PRN 01/01/19 [History] Promethazine/Dextromethorphan [Promethazine-Dm Syrup] 5 ml PO Q6H PRN 01/01/19 [ History] Topiramate [Topamax] 25 mg PO BID 01/01/19 [History] LORazepam [Ativan] 0.5 mg PO TID 01/21/19 [History] Morphine Sulfate [Morphine Sulfate ER] 15 mg PO Q12H 01/21/19 [History] OxyCODONE/APAP 5/325 [Percocet 5/325 MG] 1 each PO Q8HR PRN 01/21/19 [History] Polyethylene Glycol 3350 1 packet PO DAILY 01/21/19 [History] Potassium Chloride 10 meq PO DAILY 01/21/19 [History] Lidocaine 1 each TP DAILY PRN #14 adh..patch 01/22/19 [Rx] Allergies/Adverse Reactions: Allergy/AdvReac Type Severity Reaction Status Date / Time codeine Allergy Chest Pain Verified 12/01/18 10:55 [From Tylenol-Codeine] doxycycline Allergy Hives Verified 12/01/18 10:55 levofloxacin [From Levaquin] Allergy Hives Verified 12/01/18 10:55 Certification: Further, I certify that my clinical findings support that this patient is homebound (i.e. absences from home require considerable and taxing effort and are for medical reasons or rastafarian services or infrequently or short duration when for other reasons) because: Homebound Reason: Patient requires assistance of a person or device to safely leave home, Leaving home requires considerable and taxing effort due to condition Attestation: My signature below is to certify that this patient is under my care and that I, or nurse practitioner, or a physician's medical research assistant working with me, has a [id number] encounter with this patient.
--- NOTE | 2019-01-23 00:17 | Electrocardiograph Report ---
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
== END 2019-01-22 14:53 | disposition home health service (06) | DRG 382 ==
LOC: EMEROOARM 15:27 → SUATTDRO 20:03 → 2NENU 20:03
PROVIDERS: ADMIT Internal Medicine; ATTEND Internal Medicine
PROC: IRDRAIN (2019-01-21 13:00)

== ENCOUNTER 2019-02-08 09:38 | Inpatient (IN) ==
--- NOTE | 2019-02-08 09:56 | Emergency Department Note ---
Disposition Clinical Impression: Shortness of breath, Acute and chronic respiratory failure, Pulmonary edema Disposition: Admitted As Inpatient Condition: Fair Forms: ED Satisfaction Letter Time of Disposition: 11:50 SOB HPI - General Chief Complaint: ED Shortness of Breath/Dyspnea Stated Complaint: ROSHNI Time Seen by Provider: 02/08/19 09:48 - History of Present Illness Patient is a 58-year-old female who presents to emergency room with complaints of shortness of breath. The patient states this has been an ongoing issue worsening over the past 1 week on top of that she is also having leg swelling, says ongoing for the last 1 week as well. She does have a history of breast and lung cancer she states. The patient is on chemotherapy, her last round of chemotherapy was last week. Patient states that she has a nonproductive cough, she denies any fevers or chills. The patient denies any abdominal pain. She has a history of chronic chest and lower back pain. She states that is secondary to the cancer. She states that her pain level is currently afford a 10 scale here in emergency room. Patient denies any headache. The patient denies any focal weakness or numbness. The patient does complain of leg pain secondary to the swelling that she is experiencing. She was apparently sent over by the cancer clinic. The patient is on chronic 2 L nasal cannula oxygen. - Related Data Home Medications Medication Instructions Recorded Confirmed Docusate Sodium [Colace] 100 mg PO DAILY 02/27/15 01/21/19 Fluticasone/Salmeterol [Advair 1 puff IH DAILY 02/27/15 01/21/19 500-50 Diskus] Sertraline [Zoloft] 150 mg PO QAM 04/28/17 01/21/19 Topiramate [Topamax] 100 mg PO BID 02/02/18 01/21/19 BuPROPion XL (24 HR) [Wellbutrin 150 mg PO HS 02/19/18 01/21/19 Xl] Triamterene/HCTZ 37.5/25mg 1 tab PO DAILY 02/19/18 01/21/19 [Dyazide] Albuterol Sulfate [Proair Hfa] 2 puff IH Q4H PRN 01/01/19 01/21/19 Ascorbic Acid [Vitamin C] 500 mg PO DAILY 01/01/19 01/21/19 Bupropion HCl [Wellbutrin Xl] 300 mg PO QAM 01/01/19 01/21/19 Ferrous Sulfate 325 mg PO DAILY 01/01/19 01/21/19 Promethazine [Phenergan] 25 mg PO Q6HR PRN 01/01/19 01/21/19 Promethazine/Dextromethorphan 5 ml PO Q6H PRN 01/01/19 01/21/19 [Promethazine-Dm Syrup] Topiramate [Topamax] 25 mg PO BID 01/01/19 01/21/19 LORazepam [Ativan] 0.5 mg PO TID 01/21/19 01/21/19 Morphine Sulfate [Morphine Sulfate 15 mg PO Q12H 01/21/19 01/21/19 ER] OxyCODONE/APAP 5/325 [Percocet 1 each PO Q8HR PRN 01/21/19 01/21/19 5/325 MG] Polyethylene Glycol 3350 1 packet PO DAILY 01/21/19 01/21/19 Potassium Chloride 10 meq PO DAILY 01/21/19 01/21/19 Previous Rx's Medication Instructions Recorded Ondansetron HCl [Zofran] 4 mg PO Q8HR PRN #60 tab 07/30/18 Famotidine [Pepcid] 20 mg PO DAILY #30 tablet 08/18/18 Hydrocortisone 2.5% CREAM [Cortaid] 1 appl TP TID #1 tube 09/30/18 Mirtazapine [Remeron] 15 mg PO HS #30 tablet 11/03/18 Clobetasol Propionate 0.05% 1 appl TP BID #60 gm 11/10/18 [Temovate] Lidocaine 1 each TP DAILY PRN #14 adh..patch 01/22/19 Allergies Allergy/AdvReac Type Severity Reaction Status Date / Time codeine Allergy Chest Pain Verified 12/01/18 10:55 [From Tylenol-Codeine] doxycycline Allergy Hives Verified 12/01/18 10:55 levofloxacin [From Levaquin] Allergy Hives Verified 12/01/18 10:55 Review of Systems: As mentioned per history of present illness and as follows. Constitutional: Negative for chills or fever HENT: Negative for sore throat. Eyes: Negative for visual disturbance Respiratory: Positive for shortness of breath. Cardiovascular: Negative for palpitations. Gastrointestinal: Negative for abdominal pain Genitourinary: Negative for dysuria Musculoskeletal: Positive for back pain. Skin: Negative for rash. 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 HENT: Normocephalic, Atraumatic, Bilateral external ears normal, Oropharynx mo ist, No oral exudates, Nose normal. Neck- Normal range of motion, No tenderness, Supple. Eyes: Patient has a fake eye and the left side. Otherwise the right eye is reactive, full extraocular range of motion is noted to the right eye,. Cardiovascular: Regular rate and rhythm without clicks, rubs, gallops or murmurs. Respiratory: Diminished breath sounds bilaterally, she does have bibasilar cr ackles noted. Mild respiratory distress is noted. Minimal expiratory wheeze. GI: Soft, nontender, no evidence of guarding or peritoneal signs. Bowel sounds are active. Musculoskeletal: Good range of motion in all major joints. No tenderness to palpation or major deformities noted. +5/5 strength noted to all extremities. Integument: Warm, Dry, No erythema, No rash. +1 pretibial edema bilateral lower extremities. Patient does have a catheter in place over the left lower thoracic wall posteriorly, she states that his to help drain her chest. Patient also has a port to the upper chest wall. Neurologic: Alert & oriented x 3, Normal sensory function, No focal deficits noted. CN II-XII grossly intact. Course Vital Signs Temperature 98.2 F 02/08/19 09:43 Pulse Rate 74 02/08/19 09:43 Respiratory Rate 24 02/08/19 09:43 Blood Pressure 127/67 02/08/19 09:43 O2 Sat by Pulse Oximetry 100 02/08/19 09:43 Temperature 98.2 F 02/08/19 09:43 Pulse Rate 68 02/08/19 11:17 Respiratory Rate 17 02/08/19 11:17 Blood Pressure 113/69 02/08/19 11:17 O2 Sat by Pulse Oximetry 100 02/08/19 11:17 Oxygen Delivery Oxygen Delivery Nasal Cannula Shortness of Breath/Dyspnea - MDM Narrative Medical decision making narrative: EKG was obtained that showed sinus rhythm 71 beats a minute, do not appreciate ST segment elevation or depression, MI and QT intervals are within normal limits. Interpreted by myself. Patient does have a component of pulmonary edema on chest x-ray, I believe this is less likely to be pneumonia. Patient at this point in time has no fever. The patient at this time is given Lasix in the emergency room, she is also given potassium IV. Patient at this time is going to be admitted in stable condition. Case was discussed in full detail with the hospitalist. He has agreed to accept the patient for further evaluation and care. Final impression 1. Pulmonary edema 2. Acute on chronic respiratory failure - Lab Data Result diagrams: 02/08/19 10:05 02/08/19 10:05 Lab Results 02/08/19 02/08/19 02/08/19 Range/Units 10:05 10:05 10:05 WBC 4.2 L (4.3-11.1) K/mcL RBC 3.07 L (3.82-4.97) M/mcL Hgb 10.2 L (11.5-15.4) g/dL Hct 31.3 L (35.3-44.9) % MCV 102.0 H (83.0-100.0) fL MCH 33.2 (28.0-33.3) pg MCHC 32.6 (31.6-35.5) g/dL RDW 19.8 H (11.5-14.5) % Plt Count 132 L (140-400) K/mcL MPV 9.6 (9.4-12.4) fL Immature Gran % 4.5 H (0-4) % Seg Neutrophils % 59.8 % Lymphocytes % 20.3 % Monocytes % 9.5 % Eosinophils % 5.0 % Basophils % 0.9 % Neutrophils # 2.5 (1.6-8.9) K/mcL Lymphocytes # 0.9 (0.6-4.6) K/mcL Monocytes # 0.4 (0.0-1.3) K/mcL Eosinophils # 0.2 (0.0-0.6) K/mcL Basophils # 0.0 (0.0-0.2) K/mcL Nucleated RBCs/100 WBC 2.6 H (0) /100 WBC VBG pH (7.32-7.42) pH Units VBG pCO2 (41-51) mmHg VBG pO2 (25-50) mmHg VBG HCO3 (21-27) mEq/L Sodium 136 (136-145) mEq/L Potassium 3.1 L (3.5-5.1) mEq/L Chloride 99 (98-107) mEq/L Carbon Dioxide 31 H (23-29) mEq/L BUN 21 H (6-20) mg/dL Creatinine 0.93 (0.60-1.20) mg/dL Est GFR ( Amer) > 60 (> 60) Est GFR (Non-Af Amer) > 60 (> 60) BUN/Creatinine Ratio 23 (6-26) Glucose 96 (70-105) mg/dL Calculated Osmolality 285 (280-300) Lactic Acid 0.6 (0.5-2.2) mmol/L Calcium 8.8 (8.6-10.3) mg/dL Troponin I < 0.03 (< 0.04) ng/mL B-Natriuretic Peptide (Less than 100) pg/mL 02/08/19 02/08/19 Range/Units 10:05 11:39 WBC (4.3-11.1) K/mcL RBC (3.82-4.97) M/mcL Hgb (11.5-15.4) g/dL Hct (35.3-44.9) % MCV (83.0-100.0) fL MCH (28.0-33.3) pg MCHC (31.6-35.5) g/dL RDW (11.5-14.5) % Plt Count (140-400) K/mcL MPV (9.4-12.4) fL Immature Gran % (0-4) % Seg Neutrophils % % Lymphocytes % % Monocytes % % Eosinophils % % Basophils % % Neutrophils # (1.6-8.9) K/mcL Lymphocytes # (0.6-4.6) K/mcL Monocytes # (0.0-1.3) K/mcL Eosinophils # (0.0-0.6) K/mcL Basophils # (0.0-0.2) K/mcL Nucleated RBCs/100 WBC (0) /100 WBC VBG pH 7.35 (7.32-7.42) pH Units VBG pCO2 53 H (41-51) mmHg VBG pO2 128 H (25-50) mmHg VBG HCO3 30 H (21-27) mEq/L Sodium (136-145) mEq/L Potassium (3.5-5.1) mEq/L Chloride (98-107) mEq/L Carbon Dioxide (23-29) mEq/L BUN (6-20) mg/dL Creatinine (0.60-1.20) mg/dL Est GFR ( Amer) (> 60) Est GFR (Non-Af Amer) (> 60) BUN/Creatinine Ratio (6-26) Glucose (70-105) mg/dL Calculated Osmolality (280-300) Lactic Acid (0.5-2.2) mmol/L Calcium (8.6-10.3) mg/dL Troponin I (< 0.04) ng/mL B-Natriuretic Peptide 84 (Less than 100) pg/mL
[2019-02-08 10:26] LABS: Basophils % 0.9 %; Eosinophils # 0.2 K/mcL (0.0-0.6); Hematocrit 31.3 % (35.3-44.9); Hemoglobin 10.2 g/dL (11.5-15.4); Immature Granulocytes % 4.5 % (0-4); Lymphocytes # 0.9 K/mcL (0.6-4.6); Lymphocytes % 20.3 %; Mean Corpuscular HGB Conc 32.6 g/dL (31.6-35.5); Mean Corpuscular Hemoglobin 33.2 pg (28.0-33.3); Mean Platelet Volume 9.6 fL (9.4-12.4); Monocytes # 0.4 K/mcL (0.0-1.3); Monocytes % 9.5 %; Neutrophils # 2.5 K/mcL (1.6-8.9); Nucleated Red Blood Cells 2.6 /100 WBC (0); Platelet Count 132 K/mcL (140-400); Red Blood Count 3.07 M/mcL (3.82-4.97); Red Cell Distribution Width 19.8 % (11.5-14.5); Segmented Neutrophils % 59.8 %; White Blood Count 4.2 K/mcL (4.3-11.1)
[2019-02-08 10:47] LABS: BUN/Creatinine Ratio 23 (6-26); Blood Urea Nitrogen 21 mg/dL (6-20); Calcium 8.8 mg/dL (8.6-10.3); Carbon Dioxide 31 mEq/L (23-29); Chloride 99 mEq/L (98-107); Glucose 96 mg/dL (70-105); Osmolality,Calculated 285 (280-300); Potassium 3.1 mEq/L (3.5-5.1); Sodium 136 mEq/L (136-145); Troponin I < 0.03 ng/mL (< 0.04); eGFR For African Americans > 60 (> 60); eGFR For Non-African Americans > 60 (> 60)
[2019-02-08] MEDS ORDERED: Furosemide 40 MG/4 ML VIAL IVP ONE (10:51)
[2019-02-08] MEDS ORDERED: Potassium Chloride 20 MEQ, Lidocaine 1% 2 ML in 0.9 % Sodium Chloride 250 ML IVPB ONE (11:17)
[2019-02-08 11:48] LABS: VBG HCO3 30 mEq/L (21-27); VBG PCO2 53 mmHg (41-51); VBG PH 7.35 pH Units (7.32-7.42); VBG PO2 128 mmHg (25-50)
[2019-02-08] MEDS ORDERED: Ondansetron ODT 4 MG TAB.RAPDIS SL PRN (12:13)
[2019-02-08] MEDS ORDERED: *HR* Promethazine 25 MG/ML VIAL IVP PRN (12:13)
[2019-02-08] MEDS ORDERED: Naloxone 0.4 MG/ML INJ IVP PRN (12:13)
--- NOTE | 2019-02-08 12:22 | Internal Med History&Physical ---
Date of Encounter: 02/08/19 Time of Encounter: 12:21 Internal Medicine - H&P: HPI Chief complaint: Shortness of breath Admitted From: Home Plans for Post Hospital Care: Home History of present illness: Ms. Bonner is a 58 year old female with history of stage IV breast cancer metastatic to lung s/p left pleurx catheter c/b chronic pain, morbid obesity, and chronic hypoxic respiratory failure secondary to metastatic breast cancer, OHS, and COPD on 2 L of oxygen outpatient presents as a transfer from her oncology appointment for concerns regarding worsening respiratory failure. Over the last several month patient notes that she has had progressive swelling. Says she has gained 40 pounds. She has also been more short of breath during this period. Notes orthopnea. Slight cough but nonproductive. Denies fevers and chills. Denies nausea or vomiting. Denies new chest pain but notes chronic chest and back pain secondary to cancer involvement in these regions. Recently failed oral chemotherapy for metastatic breast cancer and placed on IV Taxol. Discussed case with oncology office. They note that Taxol is associated with fluid retention and some patients. Also notes that her left Pleurx catheter has not been draining and are concerned that the chest tube is not in place. Past Med Surg Social Fam HX - Past Medical History Medical history: asthma, cancer, COPD, GERD, hyperlipidemia, hypertension, migraine, other Additional medical history: reactive airway disease. Metastatic breast cancer. chronic mood disorder. ANTHONY CPAP. left side weakness. left ear deafness. chronic hypoxemia Psychiatric history: anxiety, depression - Past Surgical History Surgical History: breast surgery, cancer surgery, cataract, cholecystectomy, hysterectomy, sinus surgery, CHAITANYA/BSO Additional surgical history: brain tumor x2 1984, 2005, corneal transplant 05/2018. ankle sx rt ORIF 1993. feeding tube 1985. eye sx's several started 1994. bilateral hand unsure date. left partial mastectomy 09/2012. bilateral cataract left 2014, right 2015 - Social History Smoking Status: Never smoker Smokeless Tobacco Status: No Alcohol use: none Drug use: none - Family History Father Adopted: No Family Member Ethnicity: Non- Living Status: Internal Medicine - H&P: Meds Docusate Sodium [Colace] 100 mg PO DAILY 02/27/15 [History] Fluticasone/Salmeterol [Advair 500-50 Diskus] 1 puff IH DAILY 02/27/15 [History] Sertraline [Zoloft] 150 mg PO QAM 04/28/17 [History] Topiramate [Topamax] 100 mg PO BID 02/02/18 [History] BuPROPion XL (24 HR) [Wellbutrin Xl] 150 mg PO HS 02/19/18 [History] Triamterene/HCTZ 37.5/25mg [Dyazide] 1 tab PO DAILY 02/19/18 [History] Ondansetron HCl [Zofran] 4 mg PO Q8HR PRN #60 tab 07/30/18 [Rx] Famotidine [Pepcid] 20 mg PO DAILY #30 tablet 08/18/18 [Rx] Hydrocortisone 2.5% CREAM [Cortaid] 1 appl TP TID #1 tube 09/30/18 [Rx] Mirtazapine [Remeron] 15 mg PO HS #30 tablet 11/03/18 [Rx] Clobetasol Propionate 0.05% [Temovate] 1 appl TP BID #60 gm 11/10/18 [Rx] Albuterol Sulfate [Proair Hfa] 2 puff IH Q4H PRN 01/01/19 [History] Ascorbic Acid [Vitamin C] 500 mg PO DAILY 01/01/19 [History] Bupropion HCl [Wellbutrin Xl] 300 mg PO QAM 01/01/19 [History] Ferrous Sulfate 325 mg PO DAILY 01/01/19 [History] Promethazine [Phenergan] 25 mg PO Q6HR PRN 01/01/19 [History] Promethazine/Dextromethorphan [Promethazine-Dm Syrup] 5 ml PO Q6H PRN 01/01/19 [History] Topiramate [Topamax] 25 mg PO BID 01/01/19 [History] LORazepam [Ativan] 0.5 mg PO TID 01/21/19 [History] Morphine Sulfate [Morphine Sulfate ER] 15 mg PO Q12H 01/21/19 [History] OxyCODONE/APAP 5/325 [Percocet 5/325 MG] 1 each PO Q8HR PRN 01/21/19 [History] Polyethylene Glycol 3350 1 packet PO DAILY 01/21/19 [History] Potassium Chloride 10 meq PO DAILY 01/21/19 [History] Lidocaine 1 each TP DAILY PRN #14 adh..patch 01/22/19 [Rx] Allergy/AdvReac Type Severity Reaction Status Date / Time codeine Allergy Chest Pain Verified 12/01/18 10:55 [From Tylenol-Codeine] doxycycline Allergy Hives Verified 12/01/18 10:55 levofloxacin [From Levaquin] Allergy Hives Verified 12/01/18 10:55 Review of systems: General: Fevers / Chills / Weight loss / Night sweats Eyes: Blurry Vision / Change in Vision HENT: Ear Pain / Ear Drainage / Rhinorrhea / Throat Pain / Lymphadenopathy Cardiovascular: Chest Pain / Palpatations / Orthopnea / BERMAN / Weight gain Lungs: Dyspnea / Wheezing / Cough / Sputum production / Pleurisy Abdomen: Abdomen pain / Abdominal distention / Nausea / Vomiting / Diarrhea / Const : Dysuria / Urinary Frequency / Urinary Urgency / Hematuria Extremities: LE edema / Ext pain / Ext erythema Skin: Rashes / Abrasions / Contusions Psych: Hallucinations / Anxiety / Depression Neuro: Weakness / Numbness / Tingling / Facial Droop / Dysphagia - Constitutional Vitals: Temp Pulse Resp BP Pulse Ox 98.2 F 78 17 123/99 100 02/08/19 09:43 02/08/19 12:06 02/08/19 12:06 02/08/19 12:06 02/08/19 12:06 Exam: General: Ill-appearing and in no acute distress. Morbidly obese. HEENT: No erythema of posterior pharynx. No exudates. Blind in L eye. Lymphatics: No mandibular or cervical lymphadenopathy Cardiovascular: RRR. No murmurs. No chest wall tenderness. Lungs: Basilar crackles BL. Regular chest rise. Abdomen: Non-tender. No rebound or gaurding. Nl bowel sounds. Extremities: 2+ pitting edema. 2+ pulses radial and pedal pulses Skin: No rahses, abrasions, or contusions. Nl cap refill. Psych: Nl attention. 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 5/5 strength. Sensation to light touch and pinprick intact. Internal Med - H&P Results - Labs CBC & Chem 7: 02/08/19 10:05 02/08/19 10:05 Labs: Short CBC 02/08/19 Range/Units 10:05 WBC 4.2 L (4.3-11.1) K/mcL Hgb 10.2 L (11.5-15.4) g/dL Hct 31.3 L (35.3-44.9) % Plt Count 132 L (140-400) K/mcL Neutrophils # 2.5 (1.6-8.9) K/mcL BMP 02/08/19 10:05 Sodium 136 Potassium 3.1 L Chloride 99 Carbon Dioxide 31 H BUN 21 H Creatinine 0.93 Glucose 96 Calcium 8.8 Cardiac Enzymes 02/08/19 Range/Units 10:05 Troponin I < 0.03 (< 0.04) ng/mL - ABG Interpretation ABG results: 02/08/19 11:39 VBG pH 7.35 VBG pCO2 53 H VBG pO2 128 H VBG HCO3 30 H - Impressions ITS Impressions Chest X-Ray 02/08/19 10:10 IMPRESSION: Stable left-sided chest tube. No definite pneumothorax. Patchy airspace opacities bilaterally, may be related to pulmonary edema versus pneumonia, stable. Low lung volumes. D/ / Mesfin Washburn MD / Mesfin Washburn MD Interpreting Provider: Mesfni Washburn MD - Assessment and Plan (1) Acute on chronic respiratory failure with hypoxia and hypercapnia Current Visit: Yes Status: Acute Assessment and plan: Patient with history of stage IV breast cancer metastatic to lung with malignant pleural effusion s/p left pleurx catheter, COPD, and OHS presents with acute on chronic hypoxic and hypercarbic respiratory failure (on 2 L oxygen of patient) in the setting of stable vitals, gross volume overload on physical exam, BNP of 84, and chest x-ray with pulmonary edema. -Believed that respiratory failure is largely secondary to hypervolemia: -History of diastolic dysfunction but no documented history of heart failure BNP of 84 but can be falsely low in obese patients No recent echocardiogram on file so we will obtain one -History of recent Taxol use for breast cancer which can lead to fluid retention -No history of renal or liver disease or evidence of this -Can get generalized anasarca from just cancer itself, which could mean that her cancer is progressing -Also has left pleural effusion s/p left pleurx catheter: -Catheter has not been draining and query whether it got dislodged -Chest x-ray with minimal left-sided effusion but difficult to evaluate completely given morbid obesity so will CT -History of COPD but no wheezing on exam -Low concern for PE given no tachycardia and other better explanation for patient's respiratory failure -ACS unlikely - no cp and troponin negative PLAN: - Lasix 40mg bid - Strict i/o's with external female catheter - Echocardiogram - CT chest to eval chest tube placement and for residual pleural effusion - Consult to oncology - may need to d/c Taxol indefinitely or place patient on o/p lasix in addition to Taxol (2) Anasarca Current Visit: Yes Status: Acute Assessment and plan: See above (3) Stage IV breast cancer in female Current Visit: Yes Status: Acute Assessment and plan: History of stage IV breast cancer metastatic to lung s/p left pleurx catheter c/b chronic pain. Recently failed oral chemotherapy for metastatic breast cancer and placed on IV Taxol. Discussed case with oncology office. They note that Taxol is associated with fluid retention and some patients. Also notes that her left Pleurx catheter has not been draining and are concerned that the chest tube is not in place. Say that patient's goals of care have been addressed before and wants to continue full treatment. - Consult to oncology (4) Hypokalemia Current Visit: No Status: Acute Assessment and plan: Chronically hypokalemic which will make diuresis challenging. (5) Cancer related pain Current Visit: No Status: Chronic Assessment and plan: Continue home pain regimen and make adjustments as needed. (6) Morbid obesity with BMI of 50.0-59.9, adult Current Visit: Yes Status: Acute Assessment and plan: Complicates all aspects of care
[2019-02-08 12:50] LABS: Magnesium 2.2 mg/dL (1.6-2.6)
[2019-02-08] MEDS: Morphine Sulfate ER (12 HR) 15 MG TABLET.ER PO SCH (13:23)
[2019-02-08] MEDS: Furosemide 40 MG/4 ML VIAL IVP SCH (15:42)
[2019-02-08] MEDS: *HR* OxyCODONE/APAP 5/325 TABLET PO PRN (15:42)
[2019-02-08] MEDS ORDERED: Vancomycin 1,750 MG in 0.9 % Sodium Chloride 250 ML IVPB SCH (17:00)
[2019-02-08] MEDS: Azithromycin 500 MG in 0.9 % Sodium Chloride 250 ML IVPB SCH (18:06)
[2019-02-08 19:03] LABS: BUN/Creatinine Ratio 20 (6-26); Blood Urea Nitrogen 19 mg/dL (6-20); Calcium 8.1 mg/dL (8.6-10.3); Carbon Dioxide 31 mEq/L (23-29); Chloride 101 mEq/L (98-107); Glucose 112 mg/dL (70-105); Osmolality,Calculated 291 (280-300); Potassium 3.1 mEq/L (3.5-5.1); Sodium 139 mEq/L (136-145); eGFR For African Americans > 60 (> 60); eGFR For Non-African Americans > 60 (> 60)
[2019-02-08] MEDS ORDERED: Acetaminophen IV 500 MG/50 ML INFUS..BTL IVPB ONE (19:47)
[2019-02-08] MEDS: Piperacillin/Tazobactam 3.375 GM in 0.9 % Sodium Chloride Mini Bag 100 ML IVPB SCH (23:19)
[2019-02-09] MEDS: Morphine Sulfate ER (12 HR) 15 MG TABLET.ER PO SCH ×2 (00:04→12:34)
[2019-02-09 03:57] LABS: Hematocrit 27.7 % (35.3-44.9); Hemoglobin 8.9 g/dL (11.5-15.4); Mean Corpuscular HGB Conc 32.1 g/dL (31.6-35.5); Mean Corpuscular Hemoglobin 34.2 pg (28.0-33.3); Mean Corpuscular Volume 106.5 fL (83.0-100.0); Platelet Count 113 K/mcL (140-400); Red Cell Distribution Width 19.5 % (11.5-14.5); White Blood Count 3.5 K/mcL (4.3-11.1)
[2019-02-09 04:03] LABS: BUN/Creatinine Ratio 21 (6-26); Blood Urea Nitrogen 20 mg/dL (6-20); Calcium 8.1 mg/dL (8.6-10.3); Carbon Dioxide 30 mEq/L (23-29); Chloride 103 mEq/L (98-107); Glucose 128 mg/dL (70-105); Magnesium 2.1 mg/dL (1.6-2.6); Osmolality,Calculated 292 (280-300); Potassium 3.2 mEq/L (3.5-5.1); Sodium 139 mEq/L (136-145); eGFR For African Americans > 60 (> 60); eGFR For Non-African Americans > 60 (> 60)
[2019-02-09] MEDS: *HR* Enoxaparin 40 MG/0.4 ML SYRINGE SQ SCH (05:26)
[2019-02-09] MEDS: Furosemide 40 MG/4 ML VIAL IVP SCH ×2 (09:35→15:21)
[2019-02-09] MEDS: Piperacillin/Tazobactam 3.375 GM in 0.9 % Sodium Chloride Mini Bag 100 ML IVPB SCH ×2 (09:45→15:31)
--- NOTE | 2019-02-09 10:10 | Pulmonology Consult Note ---
<Viktor Stuart M - Last Filed: 02/09/19 10:05> Date of Encounter: 02/09/19 Time of Encounter: 09:00 History of Present Illness History of present illness: Ms. Bonner is a 58 y/o F with PMHx of Stage IV breast cancer with metastasis to the lung, COPD, chronic respiratory failure, HTN, ANTHONY, OHS on 2L O2 chronically with pleurx catheter for recurrent loculated pleural effusions of left lung who currently is admitted for acute on chronic hypoxic and hypercapnic respiratory failure. Pulmonology is consulted for further recommendations. Patient was seen in her oncologists office who recommended the patient go to the emergency department d/t concerns regarding her worsening respiratory status. The patient reported a roughly one month history of progressively worsening peripheral edema and generalized swellling. The patient reports in this time frame she has gained roughly 40lbs. Additionally, the patient reports worsening shortness of breath during this time with orthopnea. Patient denies decreased urine output. Denies increased sputum production or worsening cough. O2 requirements have remained at baseline. Patient denies fevers/chills/chest pain/nausea/vomitting. Patient states that when she first had the Pleurx placed she was having fluid drained twice weekly, but the last two time they have attempted to drain it has been significantly more painful and minimal fluid was removed. Oncologist had concern that her chest tube may potentially be displaced. Oncologist also advised that fluid retention is often associated with IV Taxol which the patient recently began. In the Ed, patient was tachypnic at 24, rest of vitals WNL. Supplemental O2 requirements were at baseline. VBG revealed pH 7.35, pCO2 53, pHCO3 30 indicating respiratory acidosis with metabolic compensation. Labs today significant for WBC 3.5, Hgb 8.9, MCV 106, Potassium 3.2. BNP was normal at 84. Kidney function normal. CXR negative for pneumothorax but did show patchy airspace opacities bilaterally consistent with pulmonary edema. CT Chest showed Partially loculated moderate size left basilar pleural effusion. Left-sided chest tube with tip near the left posterior apex and multiple side ports within the anterior aspect of the left basilar pleural space. Pleural effusion has significantly decreased in size compared to prior examination. Worsening multifocal ground-glass airspace disease along with multiple ground-glass and tree in-bud nodules noted throughout both lungs. Findings suggest a worsening atypical pneumonia superimposed on metastatic pulmonary nodules. Past Med Surg Social Fam HX - Past Medical History Medical history: asthma, cancer, COPD, GERD, hyperlipidemia, hypertension, migraine, other Additional medical history: reactive airway disease. Metastatic breast cancer. chronic mood disorder. ANTHONY CPAP. left side weakness. left ear deafness. chronic hypoxemia Psychiatric history: anxiety, depression - Past Surgical History Surgical History: breast surgery, cancer surgery, cataract, cholecystectomy, hysterectomy, sinus surgery, CHAITANYA/BSO Additional surgical history: brain tumor x2 1984, 2005, corneal transplant 05/2018. ankle sx rt ORIF 1993. feeding tube 1985. eye sx's several started 1994. bilateral hand unsure date. left partial mastectomy 09/2012. bilateral cataract left 2014, right 2015 - Social History Smoking Status: Never smoker Smokeless Tobacco Status: No Alcohol use: none Drug use: none - Family History Father Adopted: No Family Member Ethnicity: Non- Living Status: Medications and Allergies Docusate Sodium [Colace] 100 mg PO DAILY 02/27/15 [History] Fluticasone/Salmeterol [Advair 500-50 Diskus] 1 puff IH DAILY 02/27/15 [History] Sertraline [Zoloft] 150 mg PO QAM 04/28/17 [History] Topiramate [Topamax] 100 mg PO BID 02/02/18 [History] BuPROPion XL (24 HR) [Wellbutrin Xl] 150 mg PO HS 02/19/18 [History] Triamterene/HCTZ 37.5/25mg [Dyazide] 1 tab PO DAILY 02/19/18 [History] Ondansetron HCl [Zofran] 4 mg PO Q8HR PRN #60 tab 07/30/18 [Rx] Famotidine [Pepcid] 20 mg PO DAILY #30 tablet 08/18/18 [Rx] Hydrocortisone 2.5% CREAM [Cortaid] 1 appl TP TID #1 tube 09/30/18 [Rx] Mirtazapine [Remeron] 15 mg PO HS #30 tablet 11/03/18 [Rx] Clobetasol Propionate 0.05% [Temovate] 1 appl TP BID #60 gm 11/10/18 [Rx] Albuterol Sulfate [Proair Hfa] 2 puff IH Q4H PRN 01/01/19 [History] Ascorbic Acid [Vitamin C] 500 mg PO DAILY 01/01/19 [History] Bupropion HCl [Wellbutrin Xl] 300 mg PO QAM 01/01/19 [History] Ferrous Sulfate 325 mg PO DAILY 01/01/19 [History] Promethazine [Phenergan] 25 mg PO Q6HR PRN 01/01/19 [History] Promethazine/Dextromethorphan [Promethazine-Dm Syrup] 5 ml PO Q6H PRN 01/01/19 [History] Topiramate [Topamax] 25 mg PO BID 01/01/19 [History] Morphine Sulfate [Morphine Sulfate ER] 15 mg PO Q12H 01/21/19 [History] OxyCODONE/APAP 5/325 [Percocet 5/325 MG] 1 each PO Q8HR PRN 01/21/19 [History] Polyethylene Glycol 3350 1 packet PO DAILY 01/21/19 [History] Potassium Chloride 20 meq PO DAILY 01/21/19 [History] Lidocaine 1 each TP DAILY PRN #14 adh..patch 01/22/19 [Rx] Furosemide [Lasix] 40 mg PO DAILY 02/08/19 [History] Spironolactone 50 mg PO DAILY 02/08/19 [History] Allergy/AdvReac Type Severity Reaction Status Date / Time codeine Allergy Chest Pain Verified 12/01/18 10:55 [From Tylenol-Codeine] doxycycline Allergy Hives Verified 12/01/18 10:55 levofloxacin [From Levaquin] Allergy Hives Verified 12/01/18 10:55 All Systems: The remainder of the systems were reviewed and are negative Physical Examination Vital Signs: Vital Signs, Last 4 Hours Temp Pulse Resp BP Pulse Ox 02/09/19 06:57 98.2 F 73 12 100/59 94 Results - Laboratory Findings CBC and BMP: 02/09/19 03:25 02/09/19 03:25 Abnormal lab findings: Abnormal lab results WBC 3.5 K/mcL (4.3-11.1) L 02/09/19 03:25 RBC 2.60 M/mcL (3.82-4.97) L 02/09/19 03:25 Hgb 8.9 g/dL (11.5-15.4) L 02/09/19 03:25 Hct 27.7 % (35.3-44.9) L 02/09/19 03:25 MCV 106.5 fL (83.0-100.0) H 02/09/19 03:25 MCH 34.2 pg (28.0-33.3) H 02/09/19 03:25 RDW 19.5 % (11.5-14.5) H 02/09/19 03:25 Plt Count 113 K/mcL (140-400) L 02/09/19 03:25 Immature Gran % 4.5 % (0-4) H 02/08/19 10:05 Nucleated RBCs/100 WBC 2.6 /100 WBC (0) H 02/08/19 10:05 VBG pCO2 53 mmHg (41-51) H 02/08/19 11:39 VBG pO2 128 mmHg (25-50) H 02/08/19 11:39 VBG HCO3 30 mEq/L (21-27) H 02/08/19 11:39 Potassium 3.2 mEq/L (3.5-5.1) L 02/09/19 03:25 Carbon Dioxide 30 mEq/L (23-29) H 02/09/19 03:25 BUN 21 mg/dL (6-20) H 02/08/19 10:05 Glucose 128 mg/dL (70-105) H 02/09/19 03:25 Calcium 8.1 mg/dL (8.6-10.3) L 02/09/19 03:25 - Clinical Findings Intake & Output: Intake & Output 02/08/19 02/09/19 02/09/19 23:59 07:59 15:59 Intake Total 850 / 1352 900 / 900 Balance 850 / 1352 900 / 900 Weight 114.1 kg Consult Discharge Plan - Plan Referrals: Rashawn Rosenberg MD [Primary Care Provider] - <Niko Garcia W - Last Filed: 02/09/19 12:27> Date of Encounter: 02/09/19 All Systems: The remainder of the systems were reviewed and are negative Results - Laboratory Findings CBC and BMP: 02/09/19 03:25 02/09/19 03:25 Abnormal lab findings: Abnormal lab results WBC 3.5 K/mcL (4.3-11.1) L 02/09/19 03:25 RBC 2.60 M/mcL (3.82-4.97) L 02/09/19 03:25 Hgb 8.9 g/dL (11.5-15.4) L 02/09/19 03:25 Hct 27.7 % (35.3-44.9) L 02/09/19 03:25 MCV 106.5 fL (83.0-100.0) H 02/09/19 03:25 MCH 34.2 pg (28.0-33.3) H 02/09/19 03:25 RDW 19.5 % (11.5-14.5) H 02/09/19 03:25 Plt Count 113 K/mcL (140-400) L 02/09/19 03:25 Immature Gran % 4.5 % (0-4) H 02/08/19 10:05 Nucleated RBCs/100 WBC 2.6 /100 WBC (0) H 02/08/19 10:05 VBG pCO2 53 mmHg (41-51) H 02/08/19 11:39 VBG pO2 128 mmHg (25-50) H 02/08/19 11:39 VBG HCO3 30 mEq/L (21-27) H 02/08/19 11:39 Potassium 3.2 mEq/L (3.5-5.1) L 02/09/19 03:25 Carbon Dioxide 30 mEq/L (23-29) H 02/09/19 03:25 BUN 21 mg/dL (6-20) H 02/08/19 10:05 Glucose 128 mg/dL (70-105) H 02/09/19 03:25 Calcium 8.1 mg/dL (8.6-10.3) L 02/09/19 03:25 - Clinical Findings Intake & Output: Intake & Output 02/08/19 02/09/19 02/09/19 23:59 07:59 15:59 Intake Total 850 / 1352 900 / 900 Balance 850 / 1352 900 / 900 Weight 114.1 kg - Attending Attestation I examined this patient and my medical decision-making was reviewed with the Resident Physician. I agree with the documented findings, disposition and treatment plan as described except to the extent set forth below. We independently had [id number] contact with the patient Patient seen and examined at bedside Labs, radiology, chart personally reviewed. Impression/Recs: # Acute on chronic hypoxic respiratory failure - secondary to suspected pneumonia complicated by hydrostatic pulmonary edema with poor pulmonary reserve she appears to be improving with diuresis # Acute on chronic heart failure with preserved ejection fraction - agree with continued diuresis formal dietary recommendations for heart failure diet as she has a high sodium diet at baseline # Pneumonia with risk factors for hospital associated organisms- check procalcitonin and blood cultures sputum cultures urine Legionella and strep antigens if not already obtained. Agree with broad-spectrum antibiotics at present including atypical coverage can likely de-escalate to a respiratory fluoroquinolone over the next 24 hours based upon culture and sensitivities. Recommend formal speech and swallow evaluation given dysphasia # Metastatic pleural effusion: Pleurx catheter appears appropriately positioned as there is a small loculated portion of effusion likely will never be drained but not likely contributing significantly clinically. Of note pulmonary did not placed this Pleurx catheter so any questions regarding functioning/removal should be directed at the interventional radiology service. Would recommend in keeping indwelling at present time # Metastatic breast cancer - management per oncology
[2019-02-09] MEDS ORDERED: NON-FORMULARY MEDICATION 1 EACH EACH (Promethazine/Dextromethorphan [Promethazine-Dm Syrup PO PRN (10:58)
--- NOTE | 2019-02-09 11:37 | Internal Med Progress Note ---
Hospitalist Progress Note - Encounter Date of Encounter: 02/09/19 Time of Encounter: 11:34 - Subjective Interval History: Ms. Bonner is a 58 year old female with history of stage IV breast cancer metastatic to lung s/p left pleurx catheter c/b chronic pain, morbid obesity, and chronic hypoxic respiratory failure secondary to metastatic breast cancer, OHS, and COPD on 2 L of oxygen outpatient presents as a transfer from her oncology appointment for concerns regarding worsening respiratory failure. Over the last several month patient notes that she has had progressive swelling. Says she has gained 40 pounds. She has also been more short of breath during this period. Slight cough but nonproductive. Recently failed oral chemotherapy for metastatic breast cancer and placed on IV Taxol. Discussed case with oncology office. They note that Taxol is associated with fluid retention and some patients. Also notes that her left Pleurx catheter has not been draining and are concerned that the chest tube is not in right position. vital signs were stable and the ED, VBG showed mild CO2 retention. CT of the chest showed partially loculated left-sided pleural effusion, possible atypical pneumonia superimposed on metastatic pulmonary nodules, nodules in the liver, and diffuse mixed sclerotic/lytic osseous metastases. Patient was admitted, she was started on IV antibiotics, oncology and pulmonology were consulted. Patient seen and examined in the room. She reported her shortness breath and swelling have improved. Reported absence of fever, chills, or night sweats. - Exam Vitals: Temp Pulse Resp BP Pulse Ox 98.2 F 73 12 100/59 94 02/09/19 06:57 02/09/19 06:57 02/09/19 06:57 02/09/19 06:57 02/09/19 06:57 Exam: General: Ill-appearing and in no acute distress. Morbidly obese. HEENT: No erythema of posterior pharynx. No exudates. Blind in L eye. Lymphatics: No mandibular or cervical lymphadenopathy Cardiovascular: RRR. No murmurs. No chest wall tenderness. Lungs: Basilar crackles BL. Regular chest rise. Abdomen: Non-tender. No rebound or gaurding. Nl bowel sounds. Extremities: 2+ pitting edema. 2+ pulses radial and pedal pulses Skin: No rahses, abrasions, or contusions. Nl cap refill. Psych: Nl attention. 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 5/5 strength. Sensation to light touch and pinprick intact. - Assessment and Plan (1) Acute on chronic respiratory failure with hypoxia and hypercapnia Current Visit: Yes Status: Acute Assessment and Plan: 02/08 Patient with history of stage IV breast cancer metastatic to lung with malignant pleural effusion s/p left pleurx catheter, COPD, and OHS presents with acute on chronic hypoxic and hypercarbic respiratory failure (on 2 L oxygen of patient) in the setting of stable vitals, gross volume overload on physical exam, BNP of 84, and chest x-ray with pulmonary edema. -Believed that respiratory failure is largely secondary to hypervolemia: -History of diastolic dysfunction but no documented history of heart failure BNP of 84 but can be falsely low in obese patients No recent echocardiogram on file so we will obtain one -History of recent Taxol use for breast cancer which can lead to fluid retention -No history of renal or liver disease or evidence of this -Can get generalized anasarca from just cancer itself, which could mean that her cancer is progressing -Also has left pleural effusion s/p left pleurx catheter: -Catheter has not been draining and query whether it got dislodged -Chest x-ray with minimal left-sided effusion but difficult to evaluate completely given morbid obesity so will CT -History of COPD but no wheezing on exam -Low concern for PE given no tachycardia and other better explanation for patient's respiratory failure -ACS unlikely - no cp and troponin negative PLAN: - Lasix 40mg bid - Strict i/o's with external female catheter - Echocardiogram - CT chest to eval chest tube placement and for residual pleural effusion - Consult to oncology - may need to d/c Taxol indefinitely or place patient on o/p lasix in addition to Taxol. 02/[address] of the chest showed improved left-sided pl eural effusion, possible atypical pneumonia. We will continue current treatment with IV Lasix. IV antibiotics continued, pending sputum cultures. Continue home medication for COPD. Pulmonology following, appreciate help. (2) Anasarca Current Visit: Yes Status: Acute Assessment and Plan: See above (3) Stage IV breast cancer in female Current Visit: Yes Status: Acute Assessment and Plan: History of stage IV breast cancer metastatic to lung s/p left pleurx catheter c/b chronic pain. Recently failed oral chemotherapy for metastatic breast cancer and placed on IV Taxol. Discussed case with oncology office. They note that Taxol is associated with fluid retention and some patients. Also notes that her left Pleurx catheter has not been draining and are concerned that the chest tube is not in place. Say that patient's goals of care have been addressed before and wants to continue full treatment. - Consult to oncology (4) Hypokalemia Current Visit: No Status: Acute Assessment and Plan: Potassium 3.2 this morning, Lasix has been changed from oral to IV since admission. continue oral supplement, continue monitoring. (5) Cancer related pain Current Visit: No Status: Chronic Assessment and Plan: Continue home pain regimen and make adjustments as needed. (6) Morbid obesity with BMI of 50.0-59.9, adult Current Visit: Yes Status: Acute Assessment and Plan: Secondary to cancer treatment including steroid use. DVT Prophylaxis: Continue Lovenox. - Time Spent with Patient Total time spent is greater than 50% in coordination of care (as documented) at patient's floor/unit and/or counseling patient: Greater than 35 minutes Plan of Care Discussed with: patient Internal Medicine: Result - Labs CBC & Chem 7: 02/09/19 03:25 02/09/19 03:25 Labs: Short CBC 02/09/19 Range/Units 03:25 WBC 3.5 L (4.3-11.1) K/mcL Hgb 8.9 L (11.5-15.4) g/dL Hct 27.7 L (35.3-44.9) % Plt Count 113 L (140-400) K/mcL BMP 02/08/19 02/08/19 02/09/19 10:05 18:00 03:25 Sodium 136 139 139 Potassium 3.1 L 3.1 L 3.2 L Chloride 99 101 103 Carbon Dioxide 31 H 31 H 30 H BUN 21 H 19 20 Creatinine 0.93 0.94 0.95 Glucose 96 112 H 128 H Calcium 8.8 8.1 L 8.1 L Cardiac Enzymes 02/08/19 Range/Units 10:05 Troponin I < 0.03 (< 0.04) ng/mL - Impressions Impressions Chest CT 02/08/19 13:09 IMPRESSION: Partially loculated moderate size left basilar pleural effusion. Left-sided chest tube with tip near the left posterior apex and multiple side ports within the anterior aspect of the left basilar pleural space. Pleural effusion has significantly decreased in size compared to prior examination. Worsening multifocal ground-glass airspace disease along with multiple ground-glass and tree-in-bud nodules noted throughout both lungs. Findings suggest a worsening atypical pneumonia superimposed on metastatic pulmonary nodules. Nodular contour of the liver that may represent hepatic cirrhosis versus pseudocirrhosis secondary to hepatic metastatic disease of breast cancer. Diffuse mixed sclerotic/lytic osseous metastasis, not significantly changed since most recent prior. Chronic pathologic compression fracture of T9. D/ / 02/08/2019 14:20:27 Diego Campoverde MD / [employer] Interpreting Provider: Diego Campoverde MD Echocardiogram 02/08/19 22:19 Impressions: LVEF 60%. Normal LV chamber size, wall thickness and systolic function. Mild left ventricular diastolic dysfunction. Normal right ventricular structure and function. Mild tricuspid regurgitation. Mild pulmonary hypertension.Estimated RVSP is 40 mmHg. Left Ventricular Wall Motion: Rest Echo Findings All wall segments showed normal motion. Findings: Study Quality * Technically adequate exam. ECG Findings * Normal sinus rhythm. Left Ventricle * LVEF 60%. * Normal LV chamber size, wall thickness and function. * Mild left ventricular diastolic dysfunction. Right Ventricle * Normal right ventricular structure and function. Left Atrium * Mildly dilated left atrium. Right Atrium * Mildly dilated right atrium. Interatrial Septum * No evidence of PFO by color Doppler. Aortic Valve * Trileaflet aortic valve. * Trileaflet aortic valve with normal function. * No aortic regurgitation. * No aortic stenosis. Mitral Valve * Normal mitral valve structure. * No mitral regurgitation. * No mitral stenosis. Tricuspid Valve * No tricuspid stenosis. * Normal tricuspid valve structure. * Mild tricuspid regurgitation. * Mild pulmonary hypertension.Estimated RVSP is 40 mmHg. * Estimated RA pressure is 5 mmHg. * Estimated RVSP is 40 mmHg. Pulmonic Valve * Pulmonic valve is not well visualized. Aorta * Normally sized aortic root. Pericardium * The pericardium appears normal. IVC * Normal IVC dimensions and inspiratory collapse. Pulmonary Artery * Pulmonary artery not well visualized. Consult Discharge Plan - Plan Referrals: Rashawn Rosenberg MD [Primary Care Provider] -
--- NOTE | 2019-02-09 14:17 | Oncology Inp Consult Note ---
<Justin Nettles - Last Filed: 02/09/19 21:25> Date of Encounter: 02/09/19 - Data of Consult Requesting Physician: Frantz Martinez Primary Care Provider: Rashawn Rosenberg MD Medications and Allergies Docusate Sodium [Colace] 100 mg PO DAILY 02/27/15 [History] Fluticasone/Salmeterol [Advair 500-50 Diskus] 1 puff IH DAILY 02/27/15 [History] Sertraline [Zoloft] 150 mg PO QAM 04/28/17 [History] Topiramate [Topamax] 100 mg PO BID 02/02/18 [History] BuPROPion XL (24 HR) [Wellbutrin Xl] 150 mg PO HS 02/19/18 [History] Hydrocortisone 2.5% CREAM [Cortaid] 1 appl TP TID #1 tube 09/30/18 [Rx] Mirtazapine [Remeron] 15 mg PO HS #30 tablet 11/03/18 [Rx] Albuterol Sulfate [Proair Hfa] 2 puff IH Q4H PRN 01/01/19 [History] Ascorbic Acid [Vitamin C] 500 mg PO DAILY 01/01/19 [History] Bupropion HCl [Wellbutrin Xl] 300 mg PO QAM 01/01/19 [History] Ferrous Sulfate 325 mg PO DAILY 01/01/19 [History] Promethazine [Phenergan] 25 mg PO Q6HR PRN 01/01/19 [History] Promethazine/Dextromethorphan [Promethazine-Dm Syrup] 5 ml PO Q6H PRN 01/01/19 [History] Topiramate [Topamax] 25 mg PO BID 01/01/19 [History] Morphine Sulfate [Morphine Sulfate ER] 15 mg PO Q12H 01/21/19 [History] OxyCODONE/APAP 5/325 [Percocet 5/325 MG] 1 each PO Q8HR PRN 01/21/19 [History] Polyethylene Glycol 3350 1 packet PO DAILY 01/21/19 [History] Potassium Chloride 20 meq PO DAILY 01/21/19 [History] Lidocaine 1 each TP DAILY PRN #14 adh..patch 01/22/19 [Rx] Furosemide [Lasix] 40 mg PO DAILY 02/08/19 [History] Spironolactone 50 mg PO DAILY 02/08/19 [History] Atropine Sulfate in 0.9% NaCl [Atropine 0.01%-Ns Eye Drops] 10 ml OP QID 02/09/19 [History] Erythromycin OPTH Oint 1 appl BOTH EYES HS 02/09/19 [History] LORazepam [Ativan] 0.5 mg PO TID PRN 02/09/19 [History] Ofloxacin OPTH Drops [Ocuflox] 1 drop LEFT EYE Q4HR 02/09/19 [History] PrednisoLONE Acetate 1% Opth [PredFORTE 1%] 1 drop LEFT EYE QID 02/09/19 [History] Allergy/AdvReac Type Severity Reaction Status Date / Time codeine Allergy Chest Pain Verified 12/01/18 10:55 [From Tylenol-Codeine] doxycycline Allergy Hives Verified 12/01/18 10:55 levofloxacin [From Levaquin] Allergy Hives Verified 12/01/18 10:55 Consult Discharge Plan - Plan Referrals: Rashawn Rosenberg MD [Primary Care Provider] - Inpatient Charges Provider: Dr. Brandy Nettles Consult - Inpatient Medicare Only: [id number] - Attending Attestation I examined this patient and my medical decision-making was reviewed with the Advanced Practice Nurse. I agree with the documented findings, disposition and treatment plan as described except to the extent set forth below. Ms. Bonner has metastatic breast cancer with recent progression. She has been placed on paclitaxel. She has been admitted with SOB and found to have multifocal bilateral airspace disease which appears related to PNA. She has responded to antibiotics and is feeling better. Back on 2 L, home dose. Ambulating better. On exam, she has diminished BS at left base. Heart RRR. Abdomen is obese, no organomegaly. Continue current management with antibiotics and diuretics. No new recommendations. <Jarad Chavez Jr - Last Filed: 02/10/19 09:07> Date of Encounter: 02/10/19 Time of Encounter: 14:15 Assessment and Plan (1) Pleural effusion Status: Acute Assessment and plan: This is a 58 year old female patient under treatment with Dr Karlo Saini at [facility] for metastatic breast cancer to bone. Most recently, she was on single agent Xeloda 1500 mg by mouth twice a day day one through 14 of 21 day cycle Treatment dates 08/19/2018 to 12/29/2018 Inpatient at [facility] on 12/30/2018 with large left pleural effusion. 1 L IR guided thoracentesis EXUDATE and positive for malignant cells consistent with metastatic breast cancer. She had a Pleurx catheter Currently undergoing Fourth line treatment with once weekly IV Taxol, dose #1 on 02/01/19. She cam to the cancer center yesterday for dose #2 of Taxol. This was held, and she was sent to [facility] ER and admitted to hospital. Reviewing visual education director note, treating for pneumonia with broad spectrum antibiotics with english-cultures. Pleurx catheter in place left chest wall that she has had for the last several weeks. Loculated small left base pleural effusion not major cause of her difficulty breathing. She did take a long car trip 2 weeks ago. Upon arrival home she had considerable peripheral edema and fluid weight gain. Venous dopplers of legs negative for DVT 02/04/19. Recommendations: 1. Treat for pneumonia, await cultures 2. Continued diuresis. Multifatorial peripheral edema (long car trip, taxol). 3. Stabilize medically 4. Patient is FULL CODE and wants to continue treatment. 5. She will be re-evaluated as outpatient to continue taxol versus other options. She has an appointment to see Dr Saini 02/22/19 at 845am for next treatment, please place on discharge instructions Dr Nettles assessed patient with me today (2) Metastatic breast cancer Status: Chronic (3) Pulmonary edema Status: Acute Qualifiers: Chronicity: acute Qualified Code(s): J81.0 - Acute pulmonary edema (4) Anasarca Status: Acute - Data of Consult Patient: known to practice within the last 3 years Consult date: 02/09/19 Requesting Physician: Frantz Martinez Primary Care Provider: Rashawn Rosenberg MD - Consult Narrative Reason for consult: metastatic breast cancer History of present illness: This a 58 year old female with metastatic breast cancer sent from [facility] oncologist office (Dr Saini) to ER on 02/08/19. She was admitted for pulmonary edema/pneumonia with concerns of indwelling pleur x catheter. Oncology History: Stage I, T1c N0 M0, left breast, 1.5 cm, grade 1, lumpectomy 10/19/2012, 2 lymph nodes negative. ER 99, TN 16, HER-2 1+. Partial breast radiation through JEREMY catheter five days, finished 10/29/2012. Oncotype intermediate risk. Risk of distal recurrence 16%, no chemo. Arimidex 1 mg a day since 11/12/2012 which was stopped at diagnosis of metastatic breast cancer Progression to Metastatic breast cancer: Mainly bone disease and left axillary and left supraclavicular node metastasis Second line treatment Faslodex with Ribociclib. Treatment dates 06/03/2017 to July 2018 CA 27-29 is been slowly increasing since 11/10/2018, and, 422 on 12/31/2018. Spine without contrast and MRI of cervical spine without contrast showed multilevel bone metastasis. T9 L3 L4. L2 right pedicle metastasis she is coming close to that nerve root. Pathology Biopsy of the supraclavicular lymph node 04/23/2017 showed adenocarcinoma ER and TAYLOR 3 positive HER-2 negative. Second line Treatment Faslodex 500 mg IM every 2 weeks into 3 then every 4 weeks.start date 05/04/2017 Ribociclib 600 mg by mouth daily day one through 21 of 28 day cycle. She started this on first week of May 2017 Denosumab 120 mg subcutaneous every 4 weeks. Cycle one 05/04/2017 After 12/15/2017 treatment changed to every 3 months Third line treatment Single agent Xeloda 1500 mg by mouth twice a day day one through 14 of 21 day cycle Treatment dates 08/19/2018 to 12/29/2018 Inpatient at [facility] on 12/30/2018 with large left pleural effusion. 1 L IR guided thoracentesis EXUDATE and positive for malignant cells consistent with metastatic breast cancer. Since then she had a Pleurx catheter Fourth line treatment Taxol IV, dose #1 on 02/01/19 Dose #2 held on 02/08/19 due to difficulty breathing,sent to [facility] ER and admitted to hospital Other medical problems: Neurological problems Bilateral vestibular schwannomas. The right vestibular schwannoma appears increased in size from 201 She is legally blind from her neurological problems She is also deconditioned on a wheelchair. Past Med Surg Social Fam HX - Past Medical History Medical history: asthma, cancer, COPD, GERD, hyperlipidemia, hypertension, migraine, other Additional medical history: reactive airway disease. Metastatic breast cancer. chronic mood disorder. ANTHONY CPAP. left side weakness. left ear deafness. chronic hypoxemia Psychiatric history: anxiety, depression - Past Surgical History Surgical History: breast surgery, cancer surgery, cataract, cholecystectomy, hysterectomy, sinus surgery, CHAITANYA/BSO Additional surgical history: brain tumor x2 1984, 2005, corneal transplant 05/2018. ankle sx rt ORIF 1993. feeding tube 1985. eye sx's several started 1994. bilateral hand unsure date. left partial mastectomy 09/2012. bilateral cataract left 2014, right 2015 - Social History Smoking Status: Never smoker Smokeless Tobacco Status: No Alcohol use: none Drug use: none - Family History Father Adopted: No Family Member Ethnicity: Non- Living Status: Respiratory: Present: dyspnea Oncology - Exam - Constitutional General appearance: cooperative, morbidly obese, no acute distress - Head Head exam: Present: normal inspection, normocephalic - Eye Eye exam: Present: PERRL (right eye ) - ENT ENT exam: Present: mucous membranes moist - Neck Neck exam: Present: full ROM - Respiratory Respiratory exam: Present: decreased breath sounds - Cardiovascular Cardiovascular exam: Present: RRR, +S1, +S2 - GI/Abdominal GI/Abdominal exam: Present: normal bowel sounds, soft - Extremities Exam Extremities exam: Present: full ROM, pedal edema - Neurological Exam Neurological exam: Present: alert, oriented X3, no focal deficits - Psychiatric Psychiatric exam: Present: normal affect, normal mood - Skin Skin exam: Present: dry, intact, warm Oncology Inpatient Results Labs: Laboratory Last Values WBC 3.5 K/mcL (4.3-11.1) L 02/09/19 03:25 RBC 2.60 M/mcL (3.82-4.97) L 02/09/19 03:25 Hgb 8.9 g/dL (11.5-15.4) L 02/09/19 03:25 Hct 27.7 % (35.3-44.9) L 02/09/19 03:25 MCV 106.5 fL (83.0-100.0) H 02/09/19 03:25 MCH 34.2 pg (28.0-33.3) H 02/09/19 03:25 MCHC 32.1 g/dL (31.6-35.5) 02/09/19 03:25 RDW 19.5 % (11.5-14.5) H 02/09/19 03:25 Plt Count 113 K/mcL (140-400) L 02/09/19 03:25 MPV 10.0 fL (9.4-12.4) 02/09/19 03:25 Immature Gran % 4.5 % (0-4) H 02/08/19 10:05 Seg Neutrophils % 59.8 % 02/08/19 10:05 Lymphocytes % 20.3 % 02/08/19 10:05 Monocytes % 9.5 % 02/08/19 10:05 Eosinophils % 5.0 % 02/08/19 10:05 Basophils % 0.9 % 02/08/19 10:05 Neutrophils # 2.5 K/mcL (1.6-8.9) 02/08/19 10:05 Lymphocytes # 0.9 K/mcL (0.6-4.6) 02/08/19 10:05 Monocytes # 0.4 K/mcL (0.0-1.3) 02/08/19 10:05 Eosinophils # 0.2 K/mcL (0.0-0.6) 02/08/19 10:05 Basophils # 0.0 K/mcL (0.0-0.2) 02/08/19 10:05 Nucleated RBCs/100 WBC 2.6 /100 WBC (0) H 02/08/19 10:05 VBG pH 7.35 pH Units (7.32-7.42) 02/08/19 11:39 VBG pCO2 53 mmHg (41-51) H 02/08/19 11:39 VBG pO2 128 mmHg (25-50) H 02/08/19 11:39 VBG HCO3 30 mEq/L (21-27) H 02/08/19 11:39 Sodium 139 mEq/L (136-145) 02/09/19 03:25 Potassium 3.2 mEq/L (3.5-5.1) L 02/09/19 03:25 Chloride 103 mEq/L (98-107) 02/09/19 03:25 Carbon Dioxide 30 mEq/L (23-29) H 02/09/19 03:25 BUN 20 mg/dL (6-20) 02/09/19 03:25 Creatinine 0.95 mg/dL (0.60-1.20) 02/09/19 03:25 Est GFR ( Amer) > 60 (> 60) 02/09/19 03:25 Est GFR (Non-Af Amer) > 60 (> 60) 02/09/19 03:25 BUN/Creatinine Ratio 21 (6-26) 02/09/19 03:25 Glucose 128 mg/dL (70-105) H 02/09/19 03:25 Calculated Osmolality 292 (280-300) 02/09/19 03:25 Lactic Acid 0.6 mmol/L (0.5-2.2) 02/08/19 10:05 Calcium 8.1 mg/dL (8.6-10.3) L 02/09/19 03:25 Magnesium 2.1 mg/dL (1.6-2.6) 02/09/19 03:25 Troponin I < 0.03 ng/mL (< 0.04) 02/08/19 10:05 B-Natriuretic Peptide 84 pg/mL (Less than 100) 02/08/19 10:05
[2019-02-09] MEDS: Azithromycin 500 MG in 0.9 % Sodium Chloride 250 ML IVPB SCH (15:16)
--- NOTE | 2019-02-09 17:52 | Electrocardiograph Report ---
[facility] Test Date: 2019-02-08 Pat Name: Ida Bonner Department: [id number] Room: 3B45 Gender: F Database Consultant: : 1960 Requested By: [id number] Order Number: [id number] Reading MD: Cirilo Baer Measurements Intervals [place] Rate: 71 P: 37 AK: 183 QRS: 53 QRSD: 91 T: 38 QT: 415 QTc: 451 Interpretive Statements Sinus rhythm Low voltage, extremity and precordial leads Electronically Signed On 02-09-2019 17:50:50 EDT by Cirilo Baer
[2019-02-09] MEDS: Topiramate 25 MG TABLET PO SCH (20:42)
[2019-02-09] MEDS: Mirtazapine 15 MG TABLET PO SCH (20:42)
[2019-02-09] MEDS: Topiramate 100 MG TABLET PO SCH (20:42)
[2019-02-09] MEDS: BuPROPion XL (24 HR) 150 MG TABLET PO SCH (20:43)
[2019-02-09] MEDS ORDERED: Topiramate 100 MG TABLET PO SCH (21:00)
[2019-02-09] MEDS ORDERED: CLOBETASOL PROPIONATE 0.05% TP SCH (21:00)
[2019-02-09] MEDS ORDERED: Topiramate 25 MG TABLET PO SCH ×2 (21:00)
[2019-02-09] MEDS ORDERED: APPL TP SCH (21:00)
[2019-02-10] MEDS: Piperacillin/Tazobactam 3.375 GM in 0.9 % Sodium Chloride Mini Bag 100 ML IVPB SCH ×3 (00:14→19:04)
[2019-02-10] MEDS: Morphine Sulfate ER (12 HR) 15 MG TABLET.ER PO SCH ×2 (00:15→14:26)
[2019-02-10 05:20] LABS: Hematocrit 29.1 % (35.3-44.9); Hemoglobin 9.4 g/dL (11.5-15.4); Mean Corpuscular HGB Conc 32.3 g/dL (31.6-35.5); Mean Corpuscular Hemoglobin 33.8 pg (28.0-33.3); Mean Corpuscular Volume 104.7 fL (83.0-100.0); Nucleated Red Blood Cells 2.7 /100 WBC (0); Platelet Count 125 K/mcL (140-400); Red Blood Count 2.78 M/mcL (3.82-4.97); Red Cell Distribution Width 19.4 % (11.5-14.5)
[2019-02-10 05:33] LABS: BUN/Creatinine Ratio 17 (6-26); Blood Urea Nitrogen 17 mg/dL (6-20); Calcium 8.2 mg/dL (8.6-10.3); Carbon Dioxide 29 mEq/L (23-29); Chloride 102 mEq/L (98-107); Glucose 93 mg/dL (70-105); Osmolality,Calculated 289 (280-300); Potassium 3.6 mEq/L (3.5-5.1); Sodium 139 mEq/L (136-145); eGFR For African Americans > 60 (> 60); eGFR For Non-African Americans 58 (> 60)
[2019-02-10] MEDS: *HR* Enoxaparin 40 MG/0.4 ML SYRINGE SQ SCH (05:43)
[2019-02-10 06:44] LABS: Eosinophils # 0.1 K/mcL (0.0-0.6); Lymphocytes # 0.4 K/mcL (0.6-4.6); Neutrophils # 3.4 K/mcL (1.6-8.9)
[2019-02-10 06:45] LABS: Platelet Estimate Slight Decrease (Normal)
[2019-02-10] MEDS: Furosemide 40 MG/4 ML VIAL IVP SCH ×2 (08:52→17:48)
[2019-02-10] MEDS: Topiramate 100 MG TABLET PO SCH ×2 (08:53→21:49)
[2019-02-10] MEDS: Famotidine 20 MG TABLET PO SCH (08:53)
[2019-02-10] MEDS: BuPROPion XL (24 HR) 150 MG TABLET PO SCH ×2 (08:53→21:49)
[2019-02-10] MEDS: Ascorbic Acid 500 MG TABLET PO SCH (08:53)
[2019-02-10] MEDS: Topiramate 25 MG TABLET PO SCH ×2 (08:54→21:49)
--- NOTE | 2019-02-10 09:02 | Pulmonology Progress Note ---
<Sade,Viktor M - Last Filed: 02/10/19 15:23> Date of Encounter: 02/10/19 Time of Encounter: 09:00 Assessment and Plan (1) Acute on chronic respiratory failure with hypoxia and hypercapnia Current Visit: Yes Status: Acute Patient has know history of chronic hypoxic and hypercapnic respiratory failure Sent over at recommendation of oncologist while in the office Concern for worsening Respiratory failure and increased work of breathing Additionally was suffering from recent fluid retention from Taxol and volume overload There was also concern that her PleurX had not been draining and may be malpositioned PleurX does appear properly positioned on CT, likely just no reaccumulation of fluid to drain as of yet Currently her O2 demand is at baseline of 2L, SpO2 stable No increased work of breathing on exam, still fluid overloaded though Plan: -Recommend Levaquin for possible PNA -Continue Diuresis cautiously -Patient will benefit from daily PO diuretic on discharge -Continue to supplement O2 -No indication for Steroids, no acute COPD Exacerbation (2) Pneumonia Current Visit: Yes Status: Acute Patient presents with acute on chronic hypoxic and hypercapnic respiratory failure CT Chest redemonstrated a loculated pleural effusion, interval decrease in size since pleurX CT Chest did reveal bilateral ground glass airspace opacities consistent with possible atypical PNA Etiology of PNA also possibly related to Aspiration Was started on Vanc/Zosyn Procalcitonin elevated at 0.23 MRSA swab negative Plan: -Recommend de-escalating ABX to Levaquin -Patient will need total 7 day Tx with Levaquin -Will F/U with Urinary Antigens and Sputum Culture/Respiratory Infection Panel which have not yet been collected Qualifiers: Pneumonia type: due to unspecified organism Laterality: unspecified laterality Lung location: unspecified part of lung Qualified Code(s): J18.9 - Pneumonia, unspecified organism (3) Acute on chronic heart failure with preserved ejection fraction Current Visit: Yes Status: Acute Patient does have a known history of HFpEF Presents with Volume Overload +2 pretibial edema with crackles on exam Reports recent 40lb weight gain BNP normal at 84 Etiology of volume overload likely related to recent Taxol therapy in setting of Mild Diastolic Dysfunction Plan: -Continue diuresis -Strict I/O, Daily Weights -Recommend Salt/Fluid restriction, 2L/day -Monitor kidney function (4) 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 Reports no new complaints. Symptomatically improving. Good urine output. Cough improving, not short of breath. Denies CP, Fevers/Chills. Swelling improved. Labs good, kidney function stable. Objective PUL Vital signs: Last Vital Signs Temp 98.1 F 02/10/19 06:51 Pulse 74 02/10/19 06:51 Resp 17 02/10/19 06:51 BP 109/57 02/10/19 06:51 Pulse Ox 95 02/10/19 06:51 Gen: alert and oriented, NAD, vitals noted. Head: atraumatic normocephalic Eyes: Deformity of Left eye noted, vision intact, EOMI, Anicteric scerla ENT: oropharynx clear, Mucuous Membranes Moist, slight dysarthria with mild palatal deviation to right noted Neck: no lymphadenopathy appreciated, trachea midline CV: RRR, no murmurs gallops rubs Resp: bibasilar crackles still present though improved compared to yesterday, no wheeze or rhonchi, nonlabored breathing Ext: +2 pretibial pitting edema, no rashes, cyanosis or clubbing Results - Laboratory Findings CBC and BMP: 02/10/19 04:30 02/10/19 04:30 Abnormal lab findings: Abnormal lab results WBC 4.0 K/mcL (4.3-11.1) L 02/10/19 04:30 RBC 2.78 M/mcL (3.82-4.97) L 02/10/19 04:30 Hgb 9.4 g/dL (11.5-15.4) L 02/10/19 04:30 Hct 29.1 % (35.3-44.9) L 02/10/19 04:30 MCV 104.7 fL (83.0-100.0) H 02/10/19 04:30 MCH 33.8 pg (28.0-33.3) H 02/10/19 04:30 RDW 19.4 % (11.5-14.5) H 02/10/19 04:30 Plt Count 125 K/mcL (140-400) L 02/10/19 04:30 Immature Gran % 4.5 % (0-4) H 02/08/19 10:05 Band Neutrophils % 7.0 % (0-4) H 02/10/19 04:30 Lymphocytes # 0.4 K/mcL (0.6-4.6) L 02/10/19 04:30 Nucleated RBCs/100 WBC 2.7 /100 WBC (0) H 02/10/19 04:30 Platelet Estimate Slight Decrease (Normal) L 02/10/19 04:30 VBG pCO2 53 mmHg (41-51) H 02/08/19 11:39 VBG pO2 128 mmHg (25-50) H 02/08/19 11:39 VBG HCO3 30 mEq/L (21-27) H 02/08/19 11:39 Potassium 3.2 mEq/L (3.5-5.1) L 02/09/19 03:25 Carbon Dioxide 30 mEq/L (23-29) H 02/09/19 03:25 BUN 21 mg/dL (6-20) H 02/08/19 10:05 Est GFR (Non-Af Amer) 58 (> 60) L 02/10/19 04:30 Glucose 128 mg/dL (70-105) H 02/09/19 03:25 Calcium 8.2 mg/dL (8.6-10.3) L 02/10/19 04:30 Procalcitonin 0.23 ng/mL (0.00-0.15) H 02/09/19 17:53 - Microbiology Findings Microbiology Findings: Microbiology, Last 48 Hours 02/09/19 17:53 Blood Culture - Preliminary Peripheral Venipuncture Culture is incubating and being continuously monitored for growth. Final report to follow. 02/09/19 17:53 Blood Culture - Preliminary Peripheral Venipuncture Culture is incubating and being continuously monitored for growth. Final report to follow. - Clinical Findings Intake & Output: Intake & Output 02/09/19 02/10/19 02/10/19 23:59 07:59 15:59 Intake Total 600 / 1840 100 / 100 Output Total 200 / 200 Balance 400 / 1640 100 / 100 Weight 114.5 kg Consult Discharge Plan - Plan Referrals: Rashawn Rosenberg MD [Primary Care Provider] - <Niko Garcia W - Last Filed: 02/10/19 15:50> Date of Encounter: 02/10/19 Objective PUL Vital signs: Last Vital Signs Temp 98.1 F 02/10/19 11:52 Pulse 71 02/10/19 11:52 Resp 16 02/10/19 11:52 BP 105/60 02/10/19 11:52 Pulse Ox 100 02/10/19 11:52 Results - Laboratory Findings CBC and BMP: 02/10/19 04:30 02/10/19 04:30 Abnormal lab findings: Abnormal lab results WBC 4.0 K/mcL (4.3-11.1) L 02/10/19 04:30 RBC 2.78 M/mcL (3.82-4.97) L 02/10/19 04:30 Hgb 9.4 g/dL (11.5-15.4) L 02/10/19 04:30 Hct 29.1 % (35.3-44.9) L 02/10/19 04:30 MCV 104.7 fL (83.0-100.0) H 02/10/19 04:30 MCH 33.8 pg (28.0-33.3) H 02/10/19 04:30 RDW 19.4 % (11.5-14.5) H 02/10/19 04:30 Plt Count 125 K/mcL (140-400) L 02/10/19 04:30 Immature Gran % 4.5 % (0-4) H 02/08/19 10:05 Band Neutrophils % 7.0 % (0-4) H 02/10/19 04:30 Lymphocytes # 0.4 K/mcL (0.6-4.6) L 02/10/19 04:30 Nucleated RBCs/100 WBC 2.7 /100 WBC (0) H 02/10/19 04:30 Platelet Estimate Slight Decrease (Normal) L 02/10/19 04:30 VBG pCO2 53 mmHg (41-51) H 02/08/19 11:39 VBG pO2 128 mmHg (25-50) H 02/08/19 11:39 VBG HCO3 30 mEq/L (21-27) H 02/08/19 11:39 Potassium 3.2 mEq/L (3.5-5.1) L 02/09/19 03:25 Carbon Dioxide 30 mEq/L (23-29) H 02/09/19 03:25 BUN 21 mg/dL (6-20) H 02/08/19 10:05 Est GFR (Non-Af Amer) 58 (> 60) L 02/10/19 04:30 Glucose 128 mg/dL (70-105) H 02/09/19 03:25 Calcium 8.2 mg/dL (8.6-10.3) L 02/10/19 04:30 Procalcitonin 0.23 ng/mL (0.00-0.15) H 02/09/19 17:53 - Microbiology Findings Microbiology Findings: Microbiology, Last 48 Hours 02/09/19 17:53 Blood Culture - Preliminary Peripheral Venipuncture Culture is incubating and being continuously monitored for growth. Final report to follow. 02/09/19 17:53 Blood Culture - Preliminary Peripheral Venipuncture Culture is incubating and being continuously monitored for growth. Final report to follow. - Clinical Findings Intake & Output: Intake & Output 02/09/19 02/10/19 02/10/19 23:59 07:59 15:59 Intake Total 600 / 1840 100 / 350 250 / 350 Output Total 200 / 200 Balance 400 / 1640 100 / 350 250 / 350 Weight 114.5 kg - Attending Attestation I examined this patient and my medical decision-making was reviewed with the Resident Physician. I agree with the documented findings, disposition and treatment plan as described except to the extent set forth below. We independently had [id number] contact with the patient Patient seen and examined at bedside Labs, radiology, chart personally reviewed. Impression/Recs: She will continue to benefit from IV diuretic while inpatient. Needs to be transitioned to by mouth regimen for home-going. Transition to by mouth antib iotic such as Levaquin to complete a 7-10 day course. Will need routine Pleurx drainage. Pulmonary will sign off thank you very much for this consultation
--- NOTE | 2019-02-10 10:38 | Internal Med Progress Note ---
Hospitalist Progress Note - Encounter Date of Encounter: 02/10/19 Time of Encounter: 10:36 - Subjective Interval History: Ms. Bonner is a 58 year old female with history of stage IV breast cancer metastatic to lung s/p left pleurx catheter c/b chronic pain, morbid obesity, and chronic hypoxic respiratory failure secondary to metastatic breast cancer, OHS, and COPD on 2 L of oxygen outpatient presents as a transfer from her oncology appointment for concerns regarding worsening respiratory failure. Over the last several month patient notes that she has had progressive swelling. Says she has gained 40 pounds. She has also been more short of breath during this period. Slight cough but nonproductive. Recently failed oral chemotherapy for metastatic breast cancer and placed on IV Taxol. Discussed case with oncology office. They note that Taxol is associated with fluid retention and some patients. Also notes that her left Pleurx catheter has not been draining and are concerned that the chest tube is not in right position. vital signs were stable and the ED, VBG showed mild CO2 retention. CT of the chest showed partially loculated left-sided pleural effusion, possible atypical pneumonia superimposed on metastatic pulmonary nodules, nodules in the liver, and diffuse mixed sclerotic/lytic osseous metastases. Patient was admitted, she was started on IV antibiotics, oncology and pulmonology were consulted. Patient seen and examined in the room. She reported her shortness breath and swelling are improving. Reported absence of fever, chills, or night sweats. - Exam Vitals: Temp Pulse Resp BP Pulse Ox 98.1 F 74 17 109/57 95 02/10/19 06:51 02/10/19 06:51 02/10/19 06:51 02/10/19 06:51 02/10/19 06:51 Exam: General: Ill-appearing and in no acute distress. Morbidly obese. HEENT: No erythema of posterior pharynx. No exudates. Blind in L eye. Lymphatics: No mandibular or cervical lymphadenopathy Cardiovascular: RRR. No murmurs. No chest wall tenderness. Lungs: Basilar crackles BL. Regular chest rise. Abdomen: Non-tender. No rebound or gaurding. Nl bowel sounds. Extremities: 2+ pitting edema. 2+ pulses radial and pedal pulses Skin: No rahses, abrasions, or contusions. Nl cap refill. Psych: Nl attention. A&Ox3 Neuro: abrasive mixer II-XII intact. 5/5 strength. Sensation to light touch and pinprick intact. - Assessment and Plan (1) Acute on chronic respiratory failure with hypoxia and hypercapnia Current Visit: Yes Status: Acute Assessment and Plan: 02/08 Patient with history of stage IV breast cancer metastatic to lung with malignant pleural effusion s/p left pleurx catheter, COPD, and OHS presents with acute on chronic hypoxic and hypercarbic respiratory failure (on 2 L oxygen of patient) in the setting of stable vitals, gross volume overload on physical exam, BNP of 84, and chest x-ray with pulmonary edema. -Believed that respiratory failure is largely secondary to hypervolemia: -History of diastolic dysfunction but no documented history of heart failure BNP of 84 but can be falsely low in obese patients No recent echocardiogram on file so we will obtain one -History of recent Taxol use for breast cancer which can lead to fluid retention -No history of renal or liver disease or evidence of this -Can get generalized anasarca from just cancer itself, which could mean that her cancer is progressing -Also has left pleural effusion s/p left pleurx catheter: -Catheter has not been draining and query whether it got dislodged -Chest x-ray with minimal left-sided effusion but difficult to evaluate completely given morbid obesity so will CT -History of COPD but no wheezing on exam -Low concern for PE given no tachycardia and other better explanation for patient's respiratory failure -ACS unlikely - no cp and troponin negative PLAN: - Lasix 40mg bid - Strict i/o's with external female catheter - Echocardiogram - CT chest to eval chest tube placement and for residual pleural effusion - Consult to oncology - may need to d/c Taxol indefinitely or place patient on o/p lasix in addition to Taxol. 02/[address] of the chest showed improved left-sided p leural effusion, possible atypical pneumonia. We will continue current treatment with IV Lasix. IV antibiotics continued, pending sputum cultures. Continue home medication for COPD. Pulmonology following, appreciate help. 02/10 Symptoms improving. Pending blood cx. Pt afebrile. Continue IV lasix and abx, continue home meds for COPD. ST consult for possible aspiration, pt reported dysphargia. Pulm following, appreciate help. (2) Pneumonia Current Visit: Yes Status: Acute Assessment and Plan: CT of the chest reported a possible atypical pneumonia. Pending blood culture. Continue current IV antibiotics, will deescalate if blood culture has no growth for 3 days. (3) Anasarca Current Visit: Yes Status: Acute Assessment and Plan: See above (4) Stage IV breast cancer in female Current Visit: Yes Status: Acute Assessment and Plan: History of stage IV breast cancer metastatic to lung s/p left pleurx catheter c/b chronic pain. Recently failed oral chemotherapy for metastatic breast cancer and placed on IV Taxol. Discussed case with oncology office. They note that Taxol is associated with fluid retention and some patients. Also notes that her left Pleurx catheter has not been draining and are concerned that the chest tube is not in place. Say that patient's goals of care have been addressed before and wants to continue full treatment. Oncology following, appreciate help. (5) Hypokalemia Current Visit: No Status: Resolved (6) Cancer related pain Current Visit: No Status: Chronic Assessment and Plan: Continue home pain regimen and make adjustments as needed. (7) Morbid obesity with BMI of 50.0-59.9, adult Current Visit: Yes Status: Acute Assessment and Plan: Secondary to cancer treatment including steroid use. DVT Prophylaxis: Lovenox subcutaneous. - Time Spent with Patient Total time spent is greater than 50% in coordination of care (as documented) at patient's floor/unit and/or counseling patient: Greater than 35 minutes Plan of Care Discussed with: patient Internal Medicine: Result - Labs CBC & Chem 7: 02/10/19 04:30 02/10/19 04:30 Labs: Short CBC 02/10/19 Range/Units 04:30 WBC 4.0 L (4.3-11.1) K/mcL Hgb 9.4 L (11.5-15.4) g/dL Hct 29.1 L (35.3-44.9) % Plt Count 125 L (140-400) K/mcL Neutrophils # 3.4 (1.6-8.9) K/mcL BMP 02/10/19 04:30 Sodium 139 Potassium 3.6 Chloride 102 Carbon Dioxide 29 BUN 17 Creatinine 0.99 Glucose 93 Calcium 8.2 L Consult Discharge Plan - Plan Referrals: Rashawn Rosenberg MD [Primary Care Provider] - (2) Pneumonia Qualifiers: Pneumonia type: due to unspecified organism Laterality: unspecified laterality Lung location: unspecified part of lung Qualified Code(s): J18.9 - Pneumonia, unspecified organism
[2019-02-10] MEDS ORDERED: Aminoglycoside Consult 1 EACH MC ONE (11:48)
--- NOTE | 2019-02-10 16:50 | Oncology Inp Progress Note ---
Date of Encounter: 02/10/19 Time of Encounter: 15:00 (1) Metastatic breast cancer Current Visit: No Status: Chronic Assessment and plan: We will plan to reinitiate therapy next week after discharge. We will arrange outpatient follow-up with Dr. Saini. (2) Hypoxia Current Visit: No Status: Acute Assessment and plan: Multifactorial secondary to metastases, probable fluid overload as well as possible pneumonia. She is responding supportive measures of antibiotics and diuresis. Continue management per the hospitalist. No new recommendations today. Hopeful discharge in the next 24 hours. Oncology: Subj Interval history: She has had an uneventful day. She is fatigued and tired. She is going resting in bed. Still with dyspnea on exertion but no resting shortness of breath. Continues on 2 L of oxygen. No fever, chill or symptom of infection. No headache, blurred or double vision. Cultures remain sterile. - Constitutional General appearance: cooperative, disheveled, morbidly obese, no acute distress - Head Head exam: Present: atraumatic, normal inspection - Eye Eye exam: Present: normal appearance, conjuntiva pink, sclera anicteric - ENT ENT exam: Present: mucous membranes moist, normal oropharynx - Neck Neck exam: Present: full ROM, normal inspection - Respiratory Respiratory exam: Present: decreased breath sounds - Cardiovascular Cardiovascular exam: Present: RRR - GI/Abdominal GI/Abdominal exam: Present: normal bowel sounds, soft - Extremities Exam Extremities exam: Present: normal inspection, pedal edema - Neurological Exam Neurological exam: Present: alert, oriented X3, no focal deficits - Skin Skin exam: Present: normal color Oncology: Obj Data - Labs CBC & Chem 7: 02/10/19 04:30 02/10/19 04:30 Consult Discharge Plan - Plan Referrals: Rashawn Rosenberg MD [Primary Care Provider] - Inpatient Charges Provider: Dr. Brandy Nettles Follow up - Inpatient: [id number]
[2019-02-10 16:56] LABS: Adenovirus Not Detected (Not Detect); Bordetella Pertussis Not Detected (Not Detect); Chlamydophila pneumoniae Not Detected (Not Detect); Coronavirus 229E Not Detected (Not Detect); Coronavirus HKU1 Not Detected (Not Detect); Coronavirus NL63 Not Detected (Not Detect); Coronavirus OC43 Not Detected (Not Detect); Human Metapneumovirus Not Detected (Not Detect); Human Rhinovirus/Enterovirus Not Detected (Not Detect); Influenza A Subtype 2009 H1 Not Detected (Not Detect); Influenza A Untypeable Not Detected (Not Detect); Influenza B Not Detected (Not Detect); Mycoplasma pneumoniae Not Detected (Not Detect); Parainfluenza Virus 1 Not Detected (Not Detect); Parainfluenza Virus 2 Not Detected (Not Detect); Parainfluenza Virus 3 Not Detected (Not Detect); Parainfluenza Virus 4 Not Detected (Not Detect); Respiratory Syncytial Virus Not Detected (Not Detect)
[2019-02-10] MEDS: Azithromycin 500 MG in 0.9 % Sodium Chloride 250 ML IVPB SCH (17:41)
[2019-02-10] MEDS: Budesonide/Formoterol 160/4.5 1 PUFF INH IH SCH (19:04)
[2019-02-10] MEDS: *HR* OxyCODONE/APAP 5/325 TABLET PO PRN (19:04)
[2019-02-10] MEDS: Mirtazapine 15 MG TABLET PO SCH (21:48)
[2019-02-11] MEDS: Morphine Sulfate ER (12 HR) 15 MG TABLET.ER PO SCH ×2 (00:03→13:40)
[2019-02-11] MEDS: Piperacillin/Tazobactam 3.375 GM in 0.9 % Sodium Chloride Mini Bag 100 ML IVPB SCH (00:04)
[2019-02-11] MEDS: *HR* Enoxaparin 40 MG/0.4 ML SYRINGE SQ SCH (05:08)
[2019-02-11 05:12] LABS: Hematocrit 28.6 % (35.3-44.9); Mean Corpuscular HGB Conc 31.5 g/dL (31.6-35.5); Mean Corpuscular Hemoglobin 33.5 pg (28.0-33.3); Mean Corpuscular Volume 106.3 fL (83.0-100.0); Mean Platelet Volume 9.6 fL (9.4-12.4); Platelet Count 108 K/mcL (140-400); Red Blood Count 2.69 M/mcL (3.82-4.97); Red Cell Distribution Width 18.6 % (11.5-14.5); White Blood Count 3.8 K/mcL (4.3-11.1)
[2019-02-11 05:33] LABS: BUN/Creatinine Ratio 16 (6-26); Blood Urea Nitrogen 18 mg/dL (6-20); Calcium 8.2 mg/dL (8.6-10.3); Carbon Dioxide 29 mEq/L (23-29); Chloride 103 mEq/L (98-107); Glucose 90 mg/dL (70-105); Osmolality,Calculated 291 (280-300); Potassium 4.1 mEq/L (3.5-5.1); Sodium 140 mEq/L (136-145); eGFR For African Americans > 60 (> 60); eGFR For Non-African Americans 50 (> 60)
[2019-02-11] MEDS ORDERED: levoFLOXacin 750 MG TABLET PO SCH (09:00)
[2019-02-11] MEDS: BuPROPion XL (24 HR) 150 MG TABLET PO SCH ×2 (10:16→20:31)
[2019-02-11] MEDS: Topiramate 25 MG TABLET PO SCH ×2 (10:16→20:31)
[2019-02-11] MEDS: Ascorbic Acid 500 MG TABLET PO SCH (10:16)
[2019-02-11] MEDS: Famotidine 20 MG TABLET PO SCH (10:16)
[2019-02-11] MEDS: Furosemide 20 MG TABLET PO SCH ×2 (10:17→16:32)
[2019-02-11] MEDS: Topiramate 100 MG TABLET PO SCH ×2 (10:17→20:31)
--- NOTE | 2019-02-11 10:57 | Physician Discharge Referral ---
Home Health/Hosp Referral Info Transfer to: Home Health Provider in Charge Post Discharge: PCP - Diagnosis (1) Acute on chronic respiratory failure with hypoxia and hypercapnia Priority: Primary Status: Acute (2) Pneumonia Priority: Primary Status: Acute (3) Anasarca Priority: Primary Status: Acute (4) Stage IV breast cancer in female Priority: Secondary Status: Acute (5) Hypokalemia Priority: Primary Status: Resolved (6) Cancer related pain Priority: Primary Status: Chronic (7) Morbid obesity with BMI of 50.0-59.9, adult Priority: Primary Status: Acute - Respiratory Orders Smoking Cessation: Smoking cessation has been advised. For more information, call the [place] Tobacco Quit Line at 1-954-BEDP-NOW. - Services Needed Following services are medically necessary services: Nursing, Home Health Aide, Physical Therapy, Occupational Therapy - Transfer Medications Home Medications: Docusate Sodium [Colace] 100 mg PO DAILY 02/27/15 [History] Fluticasone/Salmeterol [Advair 500-50 Diskus] 1 puff IH DAILY 02/27/15 [History] Sertraline [Zoloft] 150 mg PO QAM 04/28/17 [History] Topiramate [Topamax] 100 mg PO BID 02/02/18 [History] BuPROPion XL (24 HR) [Wellbutrin Xl] 150 mg PO HS 02/19/18 [History] Hydrocortisone 2.5% CREAM [Cortaid] 1 appl TP TID #1 tube 09/30/18 [Rx] Mirtazapine [Remeron] 15 mg PO HS #30 tablet 11/03/18 [Rx] Albuterol Sulfate [Proair Hfa] 2 puff IH Q4H PRN 01/01/19 [History] Ascorbic Acid [Vitamin C] 500 mg PO DAILY 01/01/19 [History] Bupropion HCl [Wellbutrin Xl] 300 mg PO QAM 01/01/19 [History] Ferrous Sulfate 325 mg PO DAILY 01/01/19 [History] Promethazine [Phenergan] 25 mg PO Q6HR PRN 01/01/19 [History] Promethazine/Dextromethorphan [Promethazine-Dm Syrup] 5 ml PO Q6H PRN 01/01/19 [History] Topiramate [Topamax] 25 mg PO BID 01/01/19 [History] Morphine Sulfate [Morphine Sulfate ER] 15 mg PO Q12H 01/21/19 [History] OxyCODONE/APAP 5/325 [Percocet 5/325 MG] 1 each PO Q8HR PRN 01/21/19 [History] Polyethylene Glycol 3350 1 packet PO DAILY 01/21/19 [History] Potassium Chloride 20 meq PO DAILY 01/21/19 [History] Lidocaine 1 each TP DAILY PRN #14 adh..patch 01/22/19 [Rx] Furosemide [Lasix] 40 mg PO DAILY 02/08/19 [History] Spironolactone 50 mg PO DAILY 02/08/19 [History] Atropine Sulfate in 0.9% NaCl [Atropine 0.01%-Ns Eye Drops] 10 ml OP QID 02/09/19 [History] Erythromycin OPTH Oint 1 appl BOTH EYES HS 02/09/19 [History] LORazepam [Ativan] 0.5 mg PO TID PRN 02/09/19 [History] Ofloxacin OPTH Drops [Ocuflox] 1 drop LEFT EYE Q4HR 02/09/19 [History] PrednisoLONE Acetate 1% Opth [PredFORTE 1%] 1 drop LEFT EYE QID 02/09/19 [History] Allergies/Adverse Reactions: Allergy/AdvReac Type Severity Reaction Status Date / Time codeine Allergy Chest Pain Verified 12/01/18 10:55 [From Tylenol-Codeine] doxycycline Allergy Hives Verified 12/01/18 10:55 levofloxacin [From Levaquin] Allergy Hives Verified 12/01/18 10:55 Certification: Further, I certify that my clinical findings support that this patient is homebound (i.e. absences from home require considerable and taxing effort and a re for medical reasons or mosque services or infrequently or short duration when for other reasons) because: Homebound Reason: Patient requires assistance of a person or device to safely leave home Attestation: My signature below is to certify that this patient is under my care and that I, or nurse practitioner, or a physician's podiatric assistant working with me, has a [id number] encounter with this patient.
--- NOTE | 2019-02-11 16:16 | Internal Med Progress Note ---
Hospitalist Progress Note - Encounter Date of Encounter: 02/11/19 Time of Encounter: 16:13 - Subjective Interval History: Ms. Bonner is a 58 year old female with history of stage IV breast cancer metastatic to lung s/p left pleurx catheter c/b chronic pain, morbid obesity, and chronic hypoxic respiratory failure secondary to metastatic breast cancer, OHS, and COPD on 2 L of oxygen outpatient presents as a transfer from her oncology appointment for concerns regarding worsening respiratory failure. Over the last several month patient notes that she has had progressive swelling. Says she has gained 40 pounds. She has also been more short of breath during this period. Slight cough but nonproductive. Recently failed oral chemotherapy for metastatic breast cancer and placed on IV Taxol. Discussed case with oncology office. They note that Taxol is associated with fluid retention and some patients. Also notes that her left Pleurx catheter has not been draining and are concerned that the chest tube is not in right position. vital signs were stable and the ED, VBG showed mild CO2 retention. CT of the chest showed partially loculated left-sided pleural effusion, possible atypical pneumonia superimposed on metastatic pulmonary nodules, nodules in the liver, and diffuse mixed sclerotic/lytic osseous metastases. Patient was admitted, she was started on IV antibiotics, oncology and pulmonology were consulted. Patient seen and examined in the room. She reported her shortness of breath and swelling are improving. Reported absence of fever, chills, or night sweats. - Exam Vitals: Temp Pulse Resp BP Pulse Ox 98.0 F 74 16 104/68 97 02/11/19 15:41 02/11/19 15:41 02/11/19 15:41 02/11/19 15:41 02/11/19 15:41 Exam: General: Ill-appearing and in no acute distress. Morbidly obese. HEENT: No erythema of posterior pharynx. No exudates. Blind in L eye. Lymphatics: No mandibular or cervical lymphadenopathy Cardiovascular: RRR. No murmurs. No chest wall tenderness. Lungs: Basilar crackles BL. Regular chest rise. Abdomen: Non-tender. No rebound or gaurding. Nl bowel sounds. Extremities: 2+ pitting edema. 2+ pulses radial and pedal pulses Skin: No rahses, abrasions, or contusions. Nl cap refill. Psych: Nl attention. A&Ox3 Neuro: heat treat puller II-XII intact. 5/5 strength. Sensation to light touch and pinprick intact. - Assessment and Plan (1) Acute on chronic respiratory failure with hypoxia and hypercapnia Current Visit: Yes Status: Acute Assessment and Plan: 02/08 Patient with history of stage IV breast cancer metastatic to lung with malignant pleural effusion s/p left pleurx catheter, COPD, and OHS presents with acute on chronic hypoxic and hypercarbic respiratory failure (on 2 L oxygen of patient) in the setting of stable vitals, gross volume overload on physical exam, BNP of 84, and chest x-ray with pulmonary edema. -Believed that respiratory failure is largely secondary to hypervolemia: -History of diastolic dysfunction but no documented history of heart failure BNP of 84 but can be falsely low in obese patients No recent echocardiogram on file so we will obtain one -History of recent Taxol use for breast cancer which can lead to fluid retention -No history of renal or liver disease or evidence of this -Can get generalized anasarca from just cancer itself, which could mean that her cancer is progressing -Also has left pleural effusion s/p left pleurx catheter: -Catheter has not been draining and query whether it got dislodged -Chest x-ray with minimal left-sided effusion but difficult to evaluate completely given morbid obesity so will CT -History of COPD but no wheezing on exam -Low concern for PE given no tachycardia and other better explanation for patient's respiratory failure -ACS unlikely - no cp and troponin negative PLAN: - Lasix 40mg bid - Strict i/o's with external female catheter - Echocardiogram - CT chest to eval chest tube placement and for residual pleural effusion - Consult to oncology - may need to d/c Taxol indefinitely or place patient on o/p lasix in addition to Taxol. 02/09 [address]ogram was [address] of the chest showed improved left-sided pleural effusion, possible atypical pneumonia. We will continue current treatment with IV Lasix. IV antibiotics continued, pending sputum cultures. Continue home medication for COPD. Pulmonology following, appreciate help. 02/10 Symptoms improving. Pending blood cx. Pt afebrile. Continue IV lasix and abx, continue home meds for COPD. ST consult for possible aspiration, pt reported dysphargia. Pulm following, appreciate help. 02/11 Blood cx had no growth for 48 hours, IV abx changed to oral augmentin. Swelling improving, change IV lasix to oral. ST recommended regular diet with thin liquid, sitting up when eating/ drinking. Plan to dc in am with HH. (2) Pneumonia Current Visit: Yes Status: Acute Assessment and Plan: CT of the chest reported a possible atypical pneumonia. Blood cx has no growth for 2 days, IV abx changed to oral Augmentin. (3) Anasarca Current Visit: Yes Status: Acute Assessment and Plan: See above (4) Stage IV breast cancer in female Current Visit: Yes Status: Acute Assessment and Plan: History of stage IV breast cancer metastatic to lung s/p left pleurx catheter c/b chronic pain. Recently failed oral chemotherapy for metastatic breast cancer and placed on IV Taxol. Discussed case with oncology office. They note that Taxol is associated with fluid retention and some patients. Also notes that her left Pleurx catheter has not been draining and are concerned that the chest tube is not in place. Say that patient's goals of care have been addressed before and wants to continue full treatment. Oncology following, appreciate help. (5) Hypokalemia Current Visit: No Status: Resolved (6) Cancer related pain Current Visit: No Status: Chronic Assessment and Plan: Continue home pain regimen and make adjustments as needed. (7) Morbid obesity with BMI of 50.0-59.9, adult Current Visit: No Status: Chronic Assessment and Plan: Secondary to cancer treatment including steroid use. DVT Prophylaxis: Lovenox subcutaneous. - Time Spent with Patient Total time spent is greater than 50% in coordination of care (as documented) at patient's floor/unit and/or counseling patient: Greater than 35 minutes Plan of Care Discussed with: patient Internal Medicine: Result - Labs CBC & Chem 7: 02/11/19 05:00 02/11/19 05:00 Labs: Short CBC 02/11/19 Range/Units 05:00 WBC 3.8 L (4.3-11.1) K/mcL Hgb 9.0 L (11.5-15.4) g/dL Hct 28.6 L (35.3-44.9) % Plt Count 108 L (140-400) K/mcL BMP 02/11/19 05:00 Sodium 140 Potassium 4.1 Chloride 103 Carbon Dioxide 29 BUN 18 Creatinine 1.12 Glucose 90 Calcium 8.2 L Consult Discharge Plan - Plan Referrals: Rashawn Rosenberg MD [Primary Care Provider] - (Appointment has been requested. ) (2) Pneumonia Qualifiers: Pneumonia type: due to unspecified organism Laterality: unspecified laterality Lung location: unspecified part of lung Qualified Code(s): J18.9 - Pneumonia, unspecified organism
[2019-02-11] MEDS: *HR* OxyCODONE/APAP 5/325 TABLET PO PRN (18:48)
[2019-02-11] MEDS: Mirtazapine 15 MG TABLET PO SCH (20:31)
[2019-02-12] MEDS: Morphine Sulfate ER (12 HR) 15 MG TABLET.ER PO SCH (00:28)
[2019-02-12] MEDS: Budesonide/Formoterol 160/4.5 1 PUFF INH IH SCH (04:44)
[2019-02-12] MEDS: *HR* Enoxaparin 40 MG/0.4 ML SYRINGE SQ SCH (05:34)
[2019-02-12] MEDS: *HR* OxyCODONE/APAP 5/325 TABLET PO PRN (05:35)
[2019-02-12 08:07] VITALS: BP 120/58
--- NOTE | 2019-02-12 08:42 | Discharge Summary ---
- NOTES TO OUTPATIENT PROVIDER Notes to Outpatient Provider: f/u with PCP within 2 weeks. f/u with oncology as scheduled. f/u with pulm within 2-3 weeks. Orders not resulted at time of discharge: Pending orders 02/09/19 17:18 Culture,Sputum with Gram Stain [RM] Routine 02/09/19 17:53 Culture,Blood [BC] Routine Date of Encounter: 02/12/19 Time of Encounter: 08:36 - Discharge Diagnosis (1) Acute on chronic respiratory failure with hypoxia and hypercapnia Priority: Primary Status: Acute (2) Pneumonia Priority: Primary Status: Acute Qualifiers: Pneumonia type: due to unspecified organism Laterality: unspecified laterality Lung location: unspecified part of lung Qualified Code(s): J18.9 - Pneumonia, unspecified organism (3) Anasarca Priority: Primary Status: Acute (4) Stage IV breast cancer in female Priority: Secondary Status: Chronic (5) Hypokalemia Priority: Primary Status: Resolved (6) Cancer related pain Priority: Secondary Status: Chronic (7) Morbid obesity with BMI of 50.0-59.9, adult Priority: Secondary Status: Chronic Hospital course: Ms. Bonner is a 58 year old female with history of stage IV breast cancer metastatic to lung s/p left pleurx catheter c/b chronic pain, morbid obesity, and chronic hypoxic respiratory failure secondary to metastatic breast cancer, OHS, and COPD on 2 L of oxygen outpatient presents as a transfer from her oncology appointment for concerns regarding worsening respiratory failure. Over the last several month patient notes that she has had progressive swelling. Says she has gained 40 pounds. She has also been more short of breath during this period. Slight cough but nonproductive. Recently failed oral chemotherapy for metastatic breast cancer and placed on IV Taxol. Discussed case with oncology office. They note that Taxol is associated with fluid retention and some patients. Also notes that her left Pleurx catheter has not been draining and are concerned that the chest tube is not in right position. vital signs were stable and the ED, VBG showed mild CO2 retention. CT of the chest showed partially loculated left-sided pleural effusion, possible atypical pneumonia superimposed on metastatic pulmonary nodules, nodules in the liver, and diffuse mixed sclerotic/lytic osseous metastases. Patient was admitted, she was started on IV antibiotics, oncology and pulmonology were consulted. Legionella and pneumoncoccal antigen were negative, blood cx has no growth for 4 days. She received 3 days of IV azithromycin, zosyn and vanco, abx changed to oral Augmentin on day 4. Pt continued to do well, sob and cough significantly improved. PT/OT recommended home health with PT. She is discharged home, she will take Augmentin for 10 more days, f/u with PCP, Pulm, and Hem/Onc as scheduled. Discharge discussed with: patient Time spent discussing smoking cessation with patient: more than 10 minutes - Time Spent with Patient Total time spent providing and/or coordinating discharge services: Time spent: Greater than 30 minutes - Discharge Medications Prescriptions: New Amoxicillin/Clavulanate [Augmentin] 875 mg PO BIDWM #20 tablet Continued Fluticasone/Salmeterol [Advair 500-50 Diskus] 1 puff IH DAILY Docusate Sodium [Colace] 100 mg PO DAILY Sertraline [Zoloft] 150 mg PO QAM Topiramate [Topamax] 100 mg PO BID BuPROPion XL (24 HR) [Wellbutrin Xl] 150 mg PO HS Hydrocortisone 2.5% CREAM [Cortaid] 1 appl TP TID #1 tube Mirtazapine [Remeron] 15 mg PO HS #30 tablet Albuterol Sulfate [Proair Hfa] 2 puff IH Q4H PRN PRN Reason: Shortness Of Breath Bupropion HCl [Wellbutrin Xl] 300 mg PO QAM Ferrous Sulfate 325 mg PO DAILY Promethazine [Phenergan] 25 mg PO Q6HR PRN PRN Reason: NAUSEA/VOMTING Topiramate [Topamax] 25 mg PO BID Ascorbic Acid [Vitamin C] 500 mg PO DAILY Promethazine/Dextromethorphan [Promethazine-Dm Syrup] 5 ml PO Q6H PRN PRN Reason: COUGH/CONGESTION Morphine Sulfate [Morphine Sulfate ER] 15 mg PO Q12H OxyCODONE/APAP 5/325 [Percocet 5/325 MG] 1 each PO Q8HR PRN PRN Reason: Pain Polyethylene Glycol 3350 1 packet PO DAILY Potassium Chloride 20 meq PO DAILY Lidocaine 1 each TP DAILY PRN #14 adh..patch PRN Reason: Pain Furosemide [Lasix] 40 mg PO DAILY Spironolactone 50 mg PO DAILY PrednisoLONE Acetate 1% Opth [PredFORTE 1%] 1 drop LEFT EYE QID Ofloxacin OPTH Drops [Ocuflox] 1 drop LEFT EYE Q4HR LORazepam [Ativan] 0.5 mg PO TID PRN PRN Reason: Anxiety Erythromycin OPTH Oint 1 appl BOTH EYES HS Atropine Sulfate in 0.9% NaCl [Atropine 0.01%-Ns Eye Drops] 10 ml OP QID Home Medications: Docusate Sodium [Colace] 100 mg PO DAILY 02/27/15 [History] Fluticasone/Salmeterol [Advair 500-50 Diskus] 1 puff IH DAILY 02/27/15 [History] Sertraline [Zoloft] 150 mg PO QAM 04/28/17 [History] Topiramate [Topamax] 100 mg PO BID 02/02/18 [History] BuPROPion XL (24 HR) [Wellbutrin Xl] 150 mg PO HS 02/19/18 [History] Hydrocortisone 2.5% CREAM [Cortaid] 1 appl TP TID #1 tube 09/30/18 [Rx] Mirtazapine [Remeron] 15 mg PO HS #30 tablet 11/03/18 [Rx] Albuterol Sulfate [Proair Hfa] 2 puff IH Q4H PRN 01/01/19 [History] Ascorbic Acid [Vitamin C] 500 mg PO DAILY 01/01/19 [History] Bupropion HCl [Wellbutrin Xl] 300 mg PO QAM 01/01/19 [History] Ferrous Sulfate 325 mg PO DAILY 01/01/19 [History] Promethazine [Phenergan] 25 mg PO Q6HR PRN 01/01/19 [History] Promethazine/Dextromethorphan [Promethazine-Dm Syrup] 5 ml PO Q6H PRN 01/01/19 [History] Topiramate [Topamax] 25 mg PO BID 01/01/19 [History] Morphine Sulfate [Morphine Sulfate ER] 15 mg PO Q12H 01/21/19 [History] OxyCODONE/APAP 5/325 [Percocet 5/325 MG] 1 each PO Q8HR PRN 01/21/19 [History] Polyethylene Glycol 3350 1 packet PO DAILY 01/21/19 [History] Potassium Chloride 20 meq PO DAILY 01/21/19 [History] Lidocaine 1 each TP DAILY PRN #14 adh..patch 01/22/19 [Rx] Furosemide [Lasix] 40 mg PO DAILY 02/08/19 [History] Spironolactone 50 mg PO DAILY 02/08/19 [History] Atropine Sulfate in 0.9% NaCl [Atropine 0.01%-Ns Eye Drops] 10 ml OP QID 02/09/19 [History] Erythromycin OPTH Oint 1 appl BOTH EYES HS 02/09/19 [History] LORazepam [Ativan] 0.5 mg PO TID PRN 02/09/19 [History] Ofloxacin OPTH Drops [Ocuflox] 1 drop LEFT EYE Q4HR 02/09/19 [History] PrednisoLONE Acetate 1% Opth [PredFORTE 1%] 1 drop LEFT EYE QID 02/09/19 [History] Amoxicillin/Clavulanate [Augmentin] 875 mg PO BIDWM #20 tablet 02/12/19 [Rx] Allergies/Adverse Reactions: Allergy/AdvReac Type Severity Reaction Status Date / Time codeine Allergy Chest Pain Verified 12/01/18 10:55 [From Tylenol-Codeine] doxycycline Allergy Hives Verified 12/01/18 10:55 levofloxacin [From Levaquin] Allergy Hives Verified 12/01/18 10:55 Date of admission: 02/09/19 11:56 Primary care physician: Rashawn Rosenberg MD Consults: 02/08/19 12:07 Consult to Oncology [CONS] Stat Consulting Provider: On[facility] Reason for Consult: Stage IV cancer Call Completed: Yes 02/08/19 16:54 Consult to Pulmonology [CONS] Routine Consulting Provider: Pulm [facility] [place] Reason for Consult: loculated pleural effusion with hx of pleurex catheter that may be dislodged Call Completed: No 02/09/19 09:24 Consult to Nurse Navigator [CONS] Routine Comment: CHF 02/09/19 10:51 Consult to Physical Therapy [CONS] Routine Comment: Evaluate, develop and implement POC Reason for Consult: WEAKNESS Does patient have active BEDREST order?: No Is patient medically & hemodynamically stable?: Yes Anticipated date of discharge: 02/12/19 - Constitutional Vitals: Temp Pulse Resp BP Pulse Ox 97.4 F L 79 17 120/58 92 02/12/19 08:02 02/12/19 08:02 02/12/19 08:02 02/12/19 08:02 02/12/19 08:02 General appearance: Present: A&O X 3 Exam: General: Ill-appearing and in no acute distress. Morbidly obese. HEENT: No erythema of posterior pharynx. No exudates. Blind in L eye. Lymphatics: No mandibular or cervical lymphadenopathy Cardiovascular: RRR. No murmurs. No chest wall tenderness. Lungs: Basilar crackles BL. Regular chest rise. Abdomen: Non-tender. No rebound or gaurding. Nl bowel sounds. Extremities: 2+ pitting edema. 2+ pulses radial and pedal pulses Skin: No rahses, abrasions, or contusions. Nl cap refill. Psych: Nl attention. A&Ox3 Neuro: seed buyer II-XII intact. 5/5 strength. Sensation to light touch and pinprick intact. - Patient Status Disposition: Home Health Service Condition: Fair Functional capacity at discharge: independent ambulation Overall status at discharge: patient is progressing back to baseline - Discharge Instructions Follow Up With: Rashawn Rosenberg MD [Primary Care Provider] - (Appointment has been requested. ) - Diet and Activity Activity: increase activity as tolerated Diet: advance to your usual diet, low fat, low cholesterol, low salt diet
[2019-02-12] MEDS: BuPROPion XL (24 HR) 150 MG TABLET PO SCH (08:52)
[2019-02-12] MEDS: Famotidine 20 MG TABLET PO SCH (08:53)
[2019-02-12] MEDS: Topiramate 25 MG TABLET PO SCH (08:53)
[2019-02-12] MEDS: Ascorbic Acid 500 MG TABLET PO SCH (08:53)
[2019-02-12] MEDS: Topiramate 100 MG TABLET PO SCH (08:53)
[2019-02-12] MEDS: Furosemide 20 MG TABLET PO SCH (08:53)
== END 2019-02-12 11:49 | disposition home health service (06) | DRG 133 ==
LOC: 3BNU 09:38 → EMEROOARM 09:38 → 3BNU 12:45
PROVIDERS: ADMIT Internal Medicine; ATTEND Internal Medicine

== ENCOUNTER 2019-02-28 12:35 | Inpatient (IN) ==
[2019-02-28] MEDS ORDERED: Furosemide 40 MG/4 ML VIAL IVP ONE (12:41)
[2019-02-28] MEDS ORDERED: *HR* OxyCODONE/APAP 5/325 TABLET PO STA (12:41)
[2019-02-28] MEDS ORDERED: methylPREDNISolone 125 MG/2 ML VIAL IVP ONE (12:41)
[2019-02-28] MEDS ORDERED: Ipratropium/Albuterol Neb 3 ML IH ONE (12:41)
[2019-02-28 13:17] LABS: Basophils % 1.1 %; Eosinophils # 0.1 K/mcL (0.0-0.6); Eosinophils % 2.7 %; Hematocrit 24.6 % (35.3-44.9); Hemoglobin 7.6 g/dL (11.5-15.4); Immature Granulocytes % 6.8 % (0-4); Lymphocytes # 0.6 K/mcL (0.6-4.6); Lymphocytes % 17.3 %; Mean Corpuscular HGB Conc 30.9 g/dL (31.6-35.5); Mean Corpuscular Hemoglobin 32.3 pg (28.0-33.3); Mean Corpuscular Volume 104.7 fL (83.0-100.0); Mean Platelet Volume 9.7 fL (9.4-12.4); Monocytes # 0.4 K/mcL (0.0-1.3); Monocytes % 10.6 %; Neutrophils # 2.3 K/mcL (1.6-8.9); Nucleated Red Blood Cells 2.2 /100 WBC (0); Platelet Count 149 K/mcL (140-400); Red Blood Count 2.35 M/mcL (3.82-4.97); Red Cell Distribution Width 17.8 % (11.5-14.5); Segmented Neutrophils % 61.5 %; White Blood Count 3.7 K/mcL (4.3-11.1)
[2019-02-28 13:37] LABS: BUN/Creatinine Ratio 14 (6-26); Blood Urea Nitrogen 10 mg/dL (6-20); Calcium 8.1 mg/dL (8.6-10.3); Carbon Dioxide 27 mEq/L (23-29); Chloride 104 mEq/L (98-107); Glucose 113 mg/dL (70-105); Osmolality,Calculated 282 (280-300); Potassium 3.6 mEq/L (3.5-5.1); Sodium 136 mEq/L (136-145); Troponin I < 0.03 ng/mL (< 0.04); eGFR For African Americans > 60 (> 60); eGFR For Non-African Americans > 60 (> 60)
[2019-02-28 13:48] LABS: Platelet Estimate Normal (Normal)
[2019-02-28] MEDS ORDERED: Naloxone 0.4 MG/ML INJ IVP PRN (15:16)
[2019-02-28 17:48] LABS: Bilirubin,Urine Negative (Negative); Blood,Urine Negative (Negative); Clarity,Urine Clear (Clear); Color,Urine Yellow (Yellow); Glucose,Urine (UA) Normal (Normal); Ketones,Urine Negative (Negative); Leukocyte Esterase,Urine Small (Negative); Nitrite,Urine Negative (Negative); Protein,Urine Negative (Neg-Trace); Specific Gravity,Urine 1.012 (1.010-1.025); Urobilinogen,Urine Normal (Normal)
[2019-02-28 17:50] LABS: Bacteria,Urine None Seen per hpf (None-Few); Hyaline Casts,Urine None Seen per lpf (None-Few); RBC,Urine 0-3 per hpf (0-3); Squamous Epithelial Cell,Urine Many per lpf (None-Few)
[2019-02-28] MEDS ORDERED: Vancomycin 1,750 MG in 0.9 % Sodium Chloride 250 ML IVPB SCH (18:00)
[2019-02-28] MEDS ORDERED: Azithromycin 500 MG in 0.9 % Sodium Chloride 250 ML IVPB SCH (18:00)
[2019-02-28] MEDS: Pantoprazole 40 MG VIAL IVP SCH (18:17)
[2019-02-28] MEDS: *HR* OxyCODONE/APAP 5/325 TABLET PO PRN (18:23)
[2019-02-28] MEDS: Ipratropium/Albuterol Neb 3 ML IH SCH (20:17)
[2019-02-28] MEDS ORDERED: Furosemide 40 MG/4 ML VIAL IVP SCH (21:00)
[2019-02-28 21:13] LABS: Hematocrit 23.8 % (35.3-44.9); Hemoglobin 7.5 g/dL (11.5-15.4)
[2019-03-01] MEDS: MethylPREDNISolone 40 MG/ML VIAL IVP SCH ×3 (00:23→20:03)
[2019-03-01] MEDS: Piperacillin/Tazobactam 3.375 GM in 0.9 % Sodium Chloride Mini Bag 100 ML IVPB SCH ×3 (00:23→15:35)
[2019-03-01] MEDS: *HR* OxyCODONE/APAP 5/325 TABLET PO PRN ×2 (01:02→17:35)
[2019-03-01] MEDS: Ipratropium/Albuterol Neb 3 ML IH SCH ×4 (04:21→21:23)
[2019-03-01 04:39] LABS: Hematocrit 23.3 % (35.3-44.9); Hemoglobin 7.2 g/dL (11.5-15.4)
[2019-03-01 04:40] LABS: Hematocrit 23.1 % (35.3-44.9); Hemoglobin 7.2 g/dL (11.5-15.4); Mean Corpuscular HGB Conc 31.2 g/dL (31.6-35.5); Mean Corpuscular Hemoglobin 33.3 pg (28.0-33.3); Mean Corpuscular Volume 106.9 fL (83.0-100.0); Nucleated Red Blood Cells 2.4 /100 WBC (0); Platelet Count 143 K/mcL (140-400); Red Blood Count 2.16 M/mcL (3.82-4.97); Red Cell Distribution Width 17.5 % (11.5-14.5); White Blood Count 3.4 K/mcL (4.3-11.1)
[2019-03-01 04:59] LABS: BUN/Creatinine Ratio 15 (6-26); Blood Urea Nitrogen 12 mg/dL (6-20); Calcium 7.7 mg/dL (8.6-10.3); Carbon Dioxide 28 mEq/L (23-29); Chloride 106 mEq/L (98-107); Glucose 142 mg/dL (70-105); Osmolality,Calculated 288 (280-300); Potassium 3.3 mEq/L (3.5-5.1); Sodium 138 mEq/L (136-145); eGFR For African Americans > 60 (> 60); eGFR For Non-African Americans > 60 (> 60)
[2019-03-01] MEDS: Pantoprazole 40 MG VIAL IVP SCH (05:04)
[2019-03-01 06:05] LABS: Basophils # 0.1 K/mcL (0.0-0.2); Eosinophils # 0.1 K/mcL (0.0-0.6); Lymphocytes # 0.5 K/mcL (0.6-4.6); Monocytes # 0.4 K/mcL (0.0-1.3); Neutrophils # 2.4 K/mcL (1.6-8.9); Platelet Estimate Normal (Normal)
[2019-03-01 07:31] LABS: INR 1.1; Prothrombin Time 12.2 Seconds (9.4-12.1)
[2019-03-01] MEDS ORDERED: Potassium Chloride Elixir 20 MEQ/15 ML UDC PO ONE (08:07)
[2019-03-01] MEDS ORDERED: Aminoglycoside Consult 1 EACH MC ONE (08:28)
[2019-03-01] MEDS ORDERED: BuPROPion XL (24 HR) 150 MG TABLET PO SCH (09:00)
[2019-03-01 10:17] LABS: Hemoglobin 7.9 g/dL (11.5-15.4)
[2019-03-01] MEDS: Furosemide 40 MG/4 ML VIAL IVP SCH ×2 (10:26→17:36)
[2019-03-01 10:37] LABS: Adenovirus Not Detected (Not Detect); Bordetella Pertussis Not Detected (Not Detect); Chlamydophila pneumoniae Not Detected (Not Detect); Coronavirus 229E Not Detected (Not Detect); Coronavirus HKU1 Not Detected (Not Detect); Coronavirus NL63 Not Detected (Not Detect); Coronavirus OC43 Not Detected (Not Detect); Human Metapneumovirus Not Detected (Not Detect); Human Rhinovirus/Enterovirus Not Detected (Not Detect); Influenza A Subtype 2009 H1 Not Detected (Not Detect); Influenza A Untypeable Not Detected (Not Detect); Influenza B Not Detected (Not Detect); Mycoplasma pneumoniae Not Detected (Not Detect); Parainfluenza Virus 1 Not Detected (Not Detect); Parainfluenza Virus 2 Not Detected (Not Detect); Parainfluenza Virus 3 Not Detected (Not Detect); Parainfluenza Virus 4 Not Detected (Not Detect); Respiratory Syncytial Virus Not Detected (Not Detect)
[2019-03-01] MEDS ORDERED: Azithromycin 500 MG in 0.9 % Sodium Chloride 250 ML IVPB SCH (19:30)
[2019-03-01] MEDS: BuPROPion XL (24 HR) 150 MG TABLET PO SCH (20:02)
[2019-03-01] MEDS: Topiramate 25 MG TABLET PO SCH (20:02)
[2019-03-01] MEDS: Topiramate 100 MG TABLET PO SCH (20:02)
[2019-03-01] MEDS: Mirtazapine 15 MG TABLET PO SCH (20:02)
[2019-03-01] MEDS ORDERED: MIRTAZAPINE 30 MG PO SCH (21:00)
[2019-03-02] MEDS: Piperacillin/Tazobactam 3.375 GM in 0.9 % Sodium Chloride Mini Bag 100 ML IVPB SCH ×3 (00:14→15:21)
[2019-03-02] MEDS: Ipratropium/Albuterol Neb 3 ML IH SCH ×4 (03:22→22:12)
[2019-03-02 04:31] LABS: Hematocrit 23.7 % (35.3-44.9); Hemoglobin 7.4 g/dL (11.5-15.4); Lymphocytes # 0.7 K/mcL (0.6-4.6); Mean Corpuscular HGB Conc 31.2 g/dL (31.6-35.5); Mean Corpuscular Hemoglobin 32.9 pg (28.0-33.3); Mean Corpuscular Volume 105.3 fL (83.0-100.0); Mean Platelet Volume 9.9 fL (9.4-12.4); Nucleated Red Blood Cells 3.4 /100 WBC (0); Platelet Count 170 K/mcL (140-400); Red Blood Count 2.25 M/mcL (3.82-4.97); Red Cell Distribution Width 17.9 % (11.5-14.5); White Blood Count 4.4 K/mcL (4.3-11.1)
[2019-03-02 04:48] LABS: BUN/Creatinine Ratio 17 (6-26); Blood Urea Nitrogen 14 mg/dL (6-20); Calcium 7.2 mg/dL (8.6-10.3); Carbon Dioxide 27 mEq/L (23-29); Chloride 106 mEq/L (98-107); Glucose 115 mg/dL (70-105); Osmolality,Calculated 297 (280-300); Potassium 3.6 mEq/L (3.5-5.1); Sodium 143 mEq/L (136-145); eGFR For African Americans > 60 (> 60); eGFR For Non-African Americans > 60 (> 60)
[2019-03-02 05:09] LABS: Monocytes # 0.3 K/mcL (0.0-1.3); Neutrophils # 3.3 K/mcL (1.6-8.9); Platelet Estimate Normal (Normal)
[2019-03-02] MEDS: MethylPREDNISolone 40 MG/ML VIAL IVP SCH (08:15)
[2019-03-02] MEDS: Topiramate 100 MG TABLET PO SCH ×2 (08:15→19:43)
[2019-03-02] MEDS: *HR* OxyCODONE/APAP 5/325 TABLET PO PRN ×2 (08:15→15:43)
[2019-03-02] MEDS: Furosemide 40 MG/4 ML VIAL IVP SCH ×2 (08:16→15:20)
[2019-03-02] MEDS: BuPROPion XL (24 HR) 150 MG TABLET PO SCH ×2 (08:16→19:43)
[2019-03-02] MEDS: Topiramate 25 MG TABLET PO SCH ×2 (08:16→19:43)
[2019-03-02] MEDS: Azithromycin 250 MG TABLET PO SCH (10:56)
[2019-03-02] MEDS: *HR* LORazepam 0.5 MG TABLET PO PRN (15:43)
[2019-03-02] MEDS: Mirtazapine 15 MG TABLET PO SCH (19:43)
[2019-03-02 21:25] LABS: Hematocrit 25.1 % (35.3-44.9); Hemoglobin 7.7 g/dL (11.5-15.4)
[2019-03-03] MEDS: Piperacillin/Tazobactam 3.375 GM in 0.9 % Sodium Chloride Mini Bag 100 ML IVPB SCH ×3 (01:01→15:51)
[2019-03-03] MEDS: *HR* OxyCODONE/APAP 5/325 TABLET PO PRN ×3 (01:06→20:07)
[2019-03-03] MEDS: *HR* LORazepam 0.5 MG TABLET PO PRN ×2 (01:06→20:07)
[2019-03-03] MEDS: Ipratropium/Albuterol Neb 3 ML IH SCH ×4 (04:31→22:37)
[2019-03-03] MEDS: Morphine Sulfate ER (12 HR) 15 MG TABLET.ER PO SCH ×2 (05:23→16:55)
[2019-03-03 06:05] LABS: Eosinophils # 0.1 K/mcL (0.0-0.6); Hematocrit 25.6 % (35.3-44.9); Hemoglobin 7.9 g/dL (11.5-15.4); Mean Corpuscular HGB Conc 30.9 g/dL (31.6-35.5); Mean Corpuscular Hemoglobin 33.5 pg (28.0-33.3); Mean Corpuscular Volume 108.5 fL (83.0-100.0); Mean Platelet Volume 9.4 fL (9.4-12.4); Nucleated Red Blood Cells 6.2 /100 WBC (0); Platelet Count 181 K/mcL (140-400); Red Blood Count 2.36 M/mcL (3.82-4.97); Red Cell Distribution Width 18.6 % (11.5-14.5); White Blood Count 4.9 K/mcL (4.3-11.1)
[2019-03-03 06:21] LABS: BUN/Creatinine Ratio 20 (6-26); Blood Urea Nitrogen 17 mg/dL (6-20); Calcium 7.2 mg/dL (8.6-10.3); Carbon Dioxide 29 mEq/L (23-29); Chloride 104 mEq/L (98-107); Glucose 104 mg/dL (70-105); Osmolality,Calculated 300 (280-300); Sodium 144 mEq/L (136-145); eGFR For African Americans > 60 (> 60); eGFR For Non-African Americans > 60 (> 60)
[2019-03-03] MEDS ORDERED: Potassium Chloride Elixir 20 MEQ/15 ML UDC PO ONE (07:32)
[2019-03-03] MEDS: Furosemide 40 MG/4 ML VIAL IVP SCH ×2 (08:18→15:51)
[2019-03-03 08:23] LABS: Lymphocytes # 0.8 K/mcL (0.6-4.6); Monocytes # 0.6 K/mcL (0.0-1.3); Neutrophils # 3.2 K/mcL (1.6-8.9); Platelet Estimate Normal (Normal)
[2019-03-03 08:24] LABS: Poikilocytosis 1+ (Not Present)
[2019-03-03 08:25] LABS: Anisocytosis 2+ (Not Present); Ovalocytes 1+ (Not Present); Polychromasia 2+ (Not Present); Tear Drop Cells 1+ (Not Present)
[2019-03-03] MEDS ORDERED: MethylPREDNISolone 40 MG/ML VIAL IVP SCH (09:00)
[2019-03-03] MEDS: Topiramate 100 MG TABLET PO SCH ×2 (10:16→20:08)
[2019-03-03] MEDS: BuPROPion XL (24 HR) 150 MG TABLET PO SCH ×2 (10:17→20:07)
[2019-03-03] MEDS: Topiramate 25 MG TABLET PO SCH ×2 (10:17→20:07)
[2019-03-03] MEDS: Azithromycin 250 MG TABLET PO SCH (10:19)
[2019-03-03] MEDS: Mirtazapine 15 MG TABLET PO SCH (20:07)
[2019-03-04] MEDS: Piperacillin/Tazobactam 3.375 GM in 0.9 % Sodium Chloride Mini Bag 100 ML IVPB SCH ×3 (00:56→17:13)
[2019-03-04] MEDS: *HR* OxyCODONE/APAP 5/325 TABLET PO PRN ×4 (02:27→20:57)
[2019-03-04] MEDS: *HR* LORazepam 0.5 MG TABLET PO PRN ×2 (02:27→17:13)
[2019-03-04] MEDS: Ipratropium/Albuterol Neb 3 ML IH SCH ×4 (03:55→21:42)
[2019-03-04 05:46] LABS: Eosinophils # 0.1 K/mcL (0.0-0.6); Hematocrit 24.5 % (35.3-44.9); Hemoglobin 7.5 g/dL (11.5-15.4); Mean Corpuscular HGB Conc 30.6 g/dL (31.6-35.5); Mean Corpuscular Hemoglobin 32.9 pg (28.0-33.3); Mean Corpuscular Volume 107.5 fL (83.0-100.0); Mean Platelet Volume 9.4 fL (9.4-12.4); Nucleated Red Blood Cells 5.9 /100 WBC (0); Platelet Count 162 K/mcL (140-400); Red Blood Count 2.28 M/mcL (3.82-4.97); Red Cell Distribution Width 18.5 % (11.5-14.5); White Blood Count 4.6 K/mcL (4.3-11.1)
[2019-03-04 06:05] LABS: BUN/Creatinine Ratio 19 (6-26); Blood Urea Nitrogen 16 mg/dL (6-20); Calcium 7.3 mg/dL (8.6-10.3); Carbon Dioxide 29 mEq/L (23-29); Chloride 103 mEq/L (98-107); Glucose 81 mg/dL (70-105); Osmolality,Calculated 296 (280-300); Potassium 3.3 mEq/L (3.5-5.1); Sodium 143 mEq/L (136-145); eGFR For African Americans > 60 (> 60); eGFR For Non-African Americans > 60 (> 60)
[2019-03-04 06:11] LABS: Lymphocytes # 1.4 K/mcL (0.6-4.6); Neutrophils # 2.9 K/mcL (1.6-8.9)
[2019-03-04] MEDS: Morphine Sulfate ER (12 HR) 15 MG TABLET.ER PO SCH ×2 (07:07→17:13)
[2019-03-04] MEDS: predniSONE 20 MG TABLET PO SCH (10:02)
[2019-03-04] MEDS: Topiramate 100 MG TABLET PO SCH ×2 (10:03→20:57)
[2019-03-04] MEDS: Topiramate 25 MG TABLET PO SCH ×2 (10:03→20:57)
[2019-03-04] MEDS: BuPROPion XL (24 HR) 150 MG TABLET PO SCH ×2 (10:04→20:58)
[2019-03-04] MEDS: Azithromycin 250 MG TABLET PO SCH (10:05)
[2019-03-04] MEDS: Furosemide 40 MG/4 ML VIAL IVP SCH ×2 (10:06→17:13)
[2019-03-04] MEDS ORDERED: Potassium Chloride Elixir 20 MEQ/15 ML UDC PO ONE (10:22)
[2019-03-04] MEDS: Ondansetron ODT 4 MG TAB.RAPDIS SL PRN (13:57)
[2019-03-04] MEDS ORDERED: 0.9 % Sodium Chloride 250 ML IVC SCH (17:30)
[2019-03-04] MEDS: Mirtazapine 15 MG TABLET PO SCH (20:58)
[2019-03-04] MEDS ORDERED: *HR* Metoprolol 5 MG/5 ML VIAL IVP ONE ×2 (22:48→22:53)
[2019-03-05] MEDS: *HR* OxyCODONE/APAP 5/325 TABLET PO PRN ×4 (00:39→20:44)
[2019-03-05] MEDS: Piperacillin/Tazobactam 3.375 GM in 0.9 % Sodium Chloride Mini Bag 100 ML IVPB SCH ×4 (02:50→23:46)
[2019-03-05] MEDS: Ipratropium/Albuterol Neb 3 ML IH SCH ×4 (03:50→21:52)
[2019-03-05] MEDS: predniSONE 20 MG TABLET PO SCH (07:58)
[2019-03-05] MEDS: Topiramate 100 MG TABLET PO SCH ×2 (07:58→20:45)
[2019-03-05] MEDS: Topiramate 25 MG TABLET PO SCH ×2 (07:58→20:45)
[2019-03-05] MEDS: Morphine Sulfate ER (12 HR) 15 MG TABLET.ER PO SCH ×2 (07:58→18:15)
[2019-03-05] MEDS: BuPROPion XL (24 HR) 150 MG TABLET PO SCH ×2 (07:59→20:45)
[2019-03-05] MEDS: Furosemide 40 MG/4 ML VIAL IVP SCH ×2 (07:59→16:29)
[2019-03-05 09:50] LABS: Hematocrit 30.8 % (35.3-44.9); Mean Corpuscular HGB Conc 30.5 g/dL (31.6-35.5); Mean Corpuscular Hemoglobin 32.3 pg (28.0-33.3); Mean Corpuscular Volume 105.8 fL (83.0-100.0); Nucleated Red Blood Cells 4.8 /100 WBC (0); Platelet Count 162 K/mcL (140-400); Red Blood Count 2.91 M/mcL (3.82-4.97); Red Cell Distribution Width 20.8 % (11.5-14.5); White Blood Count 5.4 K/mcL (4.3-11.1)
[2019-03-05 09:56] LABS: Hemoglobin 9.4 g/dL (11.5-15.4)
[2019-03-05 10:06] LABS: BUN/Creatinine Ratio 18 (6-26); Blood Urea Nitrogen 16 mg/dL (6-20); Calcium 7.5 mg/dL (8.6-10.3); Carbon Dioxide 34 mEq/L (23-29); Chloride 99 mEq/L (98-107); Glucose 94 mg/dL (70-105); Osmolality,Calculated 291 (280-300); Potassium 3.2 mEq/L (3.5-5.1); Sodium 140 mEq/L (136-145); eGFR For African Americans > 60 (> 60); eGFR For Non-African Americans > 60 (> 60)
[2019-03-05 10:21] LABS: Eosinophils # 0.1 K/mcL (0.0-0.6); Lymphocytes # 0.3 K/mcL (0.6-4.6); Monocytes # 0.1 K/mcL (0.0-1.3)
[2019-03-05 10:22] LABS: Platelet Estimate Normal (Normal)
[2019-03-05] MEDS: *HR* LORazepam 0.5 MG TABLET PO PRN ×3 (11:29→20:45)
[2019-03-05] MEDS ORDERED: Potassium Chloride Elixir 20 MEQ/15 ML UDC PO ONE (11:35)
[2019-03-05] MEDS ORDERED: 0.9 % Sodium Chloride 250 ML IVC SCH (16:00)
[2019-03-05] MEDS: Mirtazapine 15 MG TABLET PO SCH (20:45)
[2019-03-06] MEDS ORDERED: *HR* LORazepam 2 MG/ML VIAL IVP ONE (03:49)
[2019-03-06] MEDS: Ipratropium/Albuterol Neb 3 ML IH SCH ×4 (03:57→21:47)
[2019-03-06 07:22] LABS: BUN/Creatinine Ratio 21 (6-26); Blood Urea Nitrogen 19 mg/dL (6-20); Calcium 7.6 mg/dL (8.6-10.3); Carbon Dioxide 34 mEq/L (23-29); Chloride 101 mEq/L (98-107); Glucose 84 mg/dL (70-105); Magnesium 2.2 mg/dL (1.6-2.6); Osmolality,Calculated 293 (280-300); Potassium 3.4 mEq/L (3.5-5.1); Sodium 141 mEq/L (136-145); eGFR For African Americans > 60 (> 60); eGFR For Non-African Americans > 60 (> 60)
[2019-03-06] MEDS: Morphine Sulfate ER (12 HR) 15 MG TABLET.ER PO SCH ×2 (07:49→18:06)
[2019-03-06] MEDS: Topiramate 100 MG TABLET PO SCH ×2 (07:49→22:15)
[2019-03-06] MEDS: BuPROPion XL (24 HR) 150 MG TABLET PO SCH ×2 (07:49→22:15)
[2019-03-06] MEDS: Sennosides/Docusate Sodium TABLET PO SCH (07:49)
[2019-03-06] MEDS: Topiramate 25 MG TABLET PO SCH ×2 (07:49→22:15)
[2019-03-06] MEDS: predniSONE 20 MG TABLET PO SCH (07:49)
[2019-03-06] MEDS: Furosemide 40 MG/4 ML VIAL IVP SCH ×2 (07:50→15:59)
[2019-03-06] MEDS: Piperacillin/Tazobactam 3.375 GM in 0.9 % Sodium Chloride Mini Bag 100 ML IVPB SCH ×2 (07:50→15:58)
[2019-03-06 09:00] LABS: Hematocrit 31.6 % (35.3-44.9); Hemoglobin 9.5 g/dL (11.5-15.4); Mean Corpuscular HGB Conc 30.1 g/dL (31.6-35.5); Mean Corpuscular Hemoglobin 31.7 pg (28.0-33.3); Mean Corpuscular Volume 105.3 fL (83.0-100.0); Mean Platelet Volume 8.8 fL (9.4-12.4); Platelet Count 151 K/mcL (140-400); Red Cell Distribution Width 20.8 % (11.5-14.5); White Blood Count 6.7 K/mcL (4.3-11.1)
[2019-03-06 09:01] LABS: Eosinophils # 0.3 K/mcL (0.0-0.6); Nucleated Red Blood Cells 3.2 /100 WBC (0)
[2019-03-06 09:49] LABS: Anisocytosis 1+ (Not Present); Lymphocytes # 1.3 K/mcL (0.6-4.6); Monocytes # 0.6 K/mcL (0.0-1.3); Poikilocytosis 1+ (Not Present); Tear Drop Cells 1+ (Not Present)
[2019-03-06 09:51] LABS: Neutrophils # 4.6 K/mcL (1.6-8.9)
[2019-03-06 09:54] LABS: Platelet Estimate Normal (Normal); Polychromasia 1+ (Not Present)
[2019-03-06] MEDS: *HR* OxyCODONE/APAP 5/325 TABLET PO PRN ×2 (15:59→22:15)
[2019-03-06] MEDS: Mirtazapine 15 MG TABLET PO SCH (22:15)
[2019-03-07] MEDS: *HR* LORazepam 0.5 MG TABLET PO PRN ×2 (00:07→09:48)
[2019-03-07] MEDS: Piperacillin/Tazobactam 3.375 GM in 0.9 % Sodium Chloride Mini Bag 100 ML IVPB SCH ×4 (00:07→23:48)
[2019-03-07] MEDS: Ondansetron ODT 4 MG TAB.RAPDIS SL PRN (00:11)
[2019-03-07] MEDS: *HR* OxyCODONE/APAP 5/325 TABLET PO PRN ×3 (01:56→20:00)
[2019-03-07] MEDS: Ipratropium/Albuterol Neb 3 ML IH SCH ×4 (03:41→22:05)
[2019-03-07] MEDS: Morphine Sulfate ER (12 HR) 15 MG TABLET.ER PO SCH ×2 (06:19→18:33)
[2019-03-07] MEDS ORDERED: Potassium Chloride Elixir 20 MEQ/15 ML UDC PO ONE (09:11)
[2019-03-07] MEDS: Furosemide 40 MG/4 ML VIAL IVP SCH ×2 (09:48→18:33)
[2019-03-07] MEDS: Topiramate 100 MG TABLET PO SCH ×2 (09:48→19:59)
[2019-03-07] MEDS: BuPROPion XL (24 HR) 150 MG TABLET PO SCH ×2 (09:49→20:00)
[2019-03-07] MEDS: Sennosides/Docusate Sodium TABLET PO SCH (09:49)
[2019-03-07] MEDS: Topiramate 25 MG TABLET PO SCH ×2 (09:49→20:00)
[2019-03-07] MEDS: predniSONE 20 MG TABLET PO SCH (09:49)
[2019-03-07] MEDS: Mirtazapine 15 MG TABLET PO SCH (20:00)
[2019-03-08] MEDS: Ipratropium/Albuterol Neb 3 ML IH SCH ×3 (03:19→15:40)
[2019-03-08] MEDS: Morphine Sulfate ER (12 HR) 15 MG TABLET.ER PO SCH (05:50)
[2019-03-08] MEDS: Ondansetron ODT 4 MG TAB.RAPDIS SL PRN (05:52)
[2019-03-08] MEDS: Sennosides/Docusate Sodium TABLET PO SCH (07:45)
[2019-03-08] MEDS: predniSONE 20 MG TABLET PO SCH (07:45)
[2019-03-08] MEDS: Furosemide 40 MG/4 ML VIAL IVP SCH (07:45)
[2019-03-08] MEDS: BuPROPion XL (24 HR) 150 MG TABLET PO SCH (07:45)
[2019-03-08] MEDS: Topiramate 100 MG TABLET PO SCH (07:45)
[2019-03-08] MEDS: Topiramate 25 MG TABLET PO SCH (07:45)
[2019-03-08] MEDS: Piperacillin/Tazobactam 3.375 GM in 0.9 % Sodium Chloride Mini Bag 100 ML IVPB SCH (07:46)
[2019-03-08 11:21] VITALS: BP 134/76
[2019-03-08] MEDS: *HR* OxyCODONE/APAP 5/325 TABLET PO PRN (11:24)
[2019-03-08] MEDS: *HR* LORazepam 0.5 MG TABLET PO PRN (11:24)
== END 2019-03-08 15:46 | disposition hospice, home (50) | DRG 720 ==
LOC: EMEROOARM 12:35 → 2ANU 12:35 → SUATTDRO 03-01 13:36
PROVIDERS: ADMIT Internal Medicine; ATTEND Student in an Organized Health Care Education/Training Program